=== PATIENT | male | born 1965 | race Caucasian/White ===

== ENCOUNTER → 2017-03-19 | Outpatient (CLI) | payer OTHER ==
[2017-03-19 09:38] LABS: Basophils % (A) 0 %; CH 30.8; CHCM 33.2; Eosinophils # (A) 0.2 k/uL (0-0.7); Eosinophils % (A) 3 %; HCT 47.2 % (39.0-53.0); HDW 2.61; HGB 15.5 gm/dL (13.0-17.5); Luc # (Auto) 0.15; Luc % (Auto) 2; Lymphocytes # (A) 1.8 k/uL (1.0-4.8); Lymphocytes % (A) 19 %; MCH 30.6 pg (25.0-35.0); MCHC 32.8 g/dL (31.0-37.0); MCV 93.2 fL (80.0-100.0); Mean Platelet Volume 10.6; Monocytes # (A) 0.7 k/uL (0-1.0); Monocytes % (A) 8 %; Neutrophils # (A) 6.6 k/uL (1.3-7.7); Neutrophils % (A) 69 %; RBC 5.06 m/uL (4.30-5.90); RDW 13.7 % (11.5-15.5); WBC 9.6 k/uL (3.8-10.6); WBC (Perox) 9.31
[2017-03-19 10:39] LABS: ALT 35 U/L (21-72); AST 27 U/L (17-59); Alkaline Phosphatase 55 U/L (38-126); Anion Gap 12 mmol/L; Blood Urea Nitrogen 12 mg/dL (9-20); Calcium 9.6 mg/dL (8.4-10.2); Carbon Dioxide 33 mmol/L (22-30); Chloride 99 mmol/L (98-107); Cholesterol 186 mg/dL (<200); Glucose 88 mg/dL (74-99); HDL Cholesterol 61 mg/dL (40-60); Non-African American GFR(MDRD) >60 (>60 ml/min/1.73 sqM); Potassium 5.1 mmol/L (3.5-5.1); Sodium 144 mmol/L (137-145); Total Bilirubin 0.5 mg/dL (0.2-1.3); Total Protein 7.4 g/dL (6.3-8.2); Triglycerides 122 mg/dL (<150)
== END | disposition home or self-care (01) ==
LOC: LABWHC1 09:08
DX: Z00.00 Encounter for general adult medical examination without abnormal findings (principal)
CPT/HCPCS: 36415; 80053; 80061; 82306; 84443; 85025

== ENCOUNTER → 2018-03-18 | Outpatient (CLI) | payer OTHER ==
[2018-03-18 11:07] LABS: ALT 30 U/L (21-72); AST 26 U/L (17-59); Albumin 4.3 g/dL (3.5-5.0); Alkaline Phosphatase 53 U/L (38-126); Anion Gap 7 mmol/L; Blood Urea Nitrogen 13 mg/dL (9-20); Calcium 9.3 mg/dL (8.4-10.2); Carbon Dioxide 32 mmol/L (22-30); Chloride 102 mmol/L (98-107); Cholesterol 195 mg/dL (<200); Glucose 83 mg/dL (74-99); HDL Cholesterol 54 mg/dL (40-60); LDL Cholesterol,Calculated 128 mg/dL (0-99); Potassium 4.7 mmol/L (3.5-5.1); Sodium 141 mmol/L (137-145); Total Bilirubin 0.2 mg/dL (0.2-1.3); Total Protein 6.6 g/dL (6.3-8.2); Triglycerides 65 mg/dL (<150)
[2018-03-18 11:11] LABS: Basophils # (A) 0.1 k/uL (0-0.2); Basophils % (A) 1 %; Eosinophils # (A) 0.3 k/uL (0-0.7); Eosinophils % (A) 4 %; HCT 44.2 % (39.0-53.0); Lymphocytes # (A) 1.6 k/uL (1.0-4.8); Lymphocytes % (A) 25 %; MCH 30.6 pg (25.0-35.0); MCHC 33.9 g/dL (31.0-37.0); MCV 90.2 fL (80.0-100.0); Mean Platelet Volume 9.5; Monocytes # (A) 0.5 k/uL (0-1.0); Monocytes % (A) 8 %; Neutrophils % (A) 61 %; Platelet Count 114 k/uL (150-450); RDW 12.9 % (11.5-15.5); WBC 6.5 k/uL (3.8-10.6)
[2018-03-18 11:36] LABS: PSA Annual Screen 0.54 ng/mL (0.00-4.00)
== END | disposition home or self-care (01) ==
LOC: LABWHC1 09:35
DX: Z00.00 Encounter for general adult medical examination without abnormal findings (principal)
CPT/HCPCS: 80061; 80053; 84443; 85025; 82306; 36415; G0103

== ENCOUNTER 2019-03-14 17:50 | Inpatient (IN) | payer OTHER ==
[2019-03-14 18:45] LABS: Basophils # (A) 0.1 k/uL (0-0.2); Basophils % (A) 1 %; Eosinophils % (A) 1 %; HGB 15.6 gm/dL (13.0-17.5); Lymphocytes # (A) 1.6 k/uL (1.0-4.8); Lymphocytes % (A) 26 %; MCH 31.5 pg (25.0-35.0); MCHC 33.2 g/dL (31.0-37.0); MCV 94.6 fL (80.0-100.0); Mean Platelet Volume 8.1; Monocytes # (A) 0.3 k/uL (0-1.0); Monocytes % (A) 4 %; Neutrophils % (A) 66 %; Platelet Count 166 k/uL (150-450); RBC 4.96 m/uL (4.30-5.90); WBC 6.1 k/uL (3.8-10.6)
--- NOTE | 2019-03-14 18:51 | CT ---
EXAMINATION TYPE: CT brain gautam freeman DATE OF EXAM: 03/14/2019 COMPARISON: None HISTORY: ams, fall. CT DLP: 1565.3 mGycm Automated exposure control for dose reduction was used. TECHNIQUE: CT scan of the head and cervical spine are performed without contrast. FINDINGS: Ventricles have normal size. There is no mass effect nor midline shift. There is no sign of intracranial hemorrhage. The calvarium appears intact. Cervical vertebra have fairly normal alignment. There is minor spurring of the endplates at C5-6 C6-7 . Facet joints are intact. There is no fracture. Skull base is intact. IMPRESSION: Negative CT scan of the brain. minor degenerative disc changes in the cervical spine. No fracture.
[2019-03-14 19:05] LABS: ALT 21 U/L (21-72); AST 44 U/L (17-59); Acetaminophen <10.0 ug/mL; African American GFR (CKD) >90 (>60 ml/min/1.73 sqM); Albumin 4.6 g/dL (3.5-5.0); Alkaline Phosphatase 77 U/L (38-126); Anion Gap 15 mmol/L; Blood Urea Nitrogen 14 mg/dL (9-20); Calcium 8.5 mg/dL (8.4-10.2); Carbon Dioxide 25 mmol/L (22-30); Chloride 105 mmol/L (98-107); Glucose 94 mg/dL (74-99); Potassium 3.7 mmol/L (3.5-5.1); Salicylate <1.0 mg/dL; Sodium 145 mmol/L (137-145); Total Bilirubin 0.3 mg/dL (0.2-1.3)
[2019-03-14 19:22] LABS: Prothrombin Time 10.8 sec (9.0-12.0)
[2019-03-14 19:28] LABS: Alcohol 352 mg/dL
--- NOTE | 2019-03-14 19:28 | XR ---
EXAMINATION TYPE: XR Hip LT and AP Pelvis DATE OF EXAM: 03/14/2019 COMPARISON: NONE HISTORY: Fall. Pain. TECHNIQUE: A single AP view of the pelvis is obtained. Two views of the left hip are obtained. FINDINGS: The pelvic ring is intact. There is a rounded metallic density over the right mid abdomen t hat could be a coin foreign body in the right colon. The sacroiliac joints are normal. The proximal left femur and hip joint appear normal. IMPRESSION: No fracture. No evidence of hip dysplasia. There is probably a coin foreign body in the right colon.
--- NOTE | 2019-03-14 19:29 | XR ---
EXAMINATION TYPE: XR ankle complete LT DATE OF EXAM: 03/14/2019 COMPARISON: NONE HISTORY: Fall. Pain. TECHNIQUE: 3 views FINDINGS: Ankle mortise is anatomic. I see no fracture nor dislocation. Joint spaces are normal. IMPRESSION: Negative left ankle exam.
[2019-03-14] MEDS ORDERED: LORazepam 2 MG/ML INJ IV STA (19:40)
[2019-03-14] MEDS ORDERED: RX INFO: IV CONTRAST WAS GIVEN 1 EACH MISC MISCELLANE PRN (21:25)
[2019-03-14] MEDS ORDERED: THIAMINE 100 MG/ML 2 ML VIAL IM STA (21:26)
[2019-03-14] MEDS ORDERED: LORazepam 2 MG/ML INJ IV PRN (21:26)
[2019-03-14] MEDS: LORazepam 2 MG/ML INJ IV PRN (21:59)
--- NOTE | 2019-03-14 22:05 | CT ---
EXAMINATION TYPE: CT chest w con DATE OF EXAM: 03/14/2019 COMPARISON: None HISTORY: Chest pain from fall. CT DLP: 550.4 mGycm Automated exposure control for dose reduction was used. CONTRAST: CT scan of the chest is performed with IV Contrast, patient injected with 100ml mL of Isovue 300. FINDINGS: Multiple axial sections were obtained from the thoracic inlet to the diaphragm with intravenous contr ast. The contrast was Isovue 100 mL. FINDINGS: There is no evidence of pneumothorax. The lungs are clear of consolidation. There is no evidence of a pulmonary mass. There is no pleural effusion. Heart size is normal. There is no pericardial effusion . Thoracic aorta is intact without evidence of aneurysm. There is no contrast extravasation. There are no hilar masses. There is no mediastinal adenopathy. There is probably some coronary artery calcifica tion. Upper abdominal soft tissues are intact. Thoracic vertebra have normal alignment. There is no thoracic compression fracture. Sternum appears i ntact. The ribs appear intact. Visualized shoulder joints appear intact. IMPRESSION: Negative CT scan of the chest. No evidence of traumatic injury.
[2019-03-14] MEDS ORDERED: NALOXONE 0.4 MG/ML 1 ML VIAL IV PRN (23:56)
--- NOTE | 2019-03-14 23:58 | ED ---
Fall HPI - General Chief Complaint: Fall Stated Complaint: Fall ETOH Time Seen by Provider: 03/14/19 18:03 Source: patient, EMS Mode of arrival: EMS - History of Present Illness Initial Comments: The patient is a 53-year-old male with past medical history of daily alcohol abuse who presents to the emergency department with a reported fall. The patient was at home when he sustained a fall. He fell backwards and hit his head on the floor. There was no reported loss of consciousness. The patient was visibly intoxicated and was brought to the emergency room for evaluation. Upon my exam the patient states that he is having a headache. He denies any visual changes. No unilateral numbness or weakness. There is no reported nausea or vomiting associated with the episode. He did sustain a scalp laceration which had a significant amount of bleeding. He denies being on blood thinners. He admits to neck pain. Denies any thoracic back pain or lumbar back pain. He fell on his left side. He does have abrasion noted to his left ankle. There is also ecchymosis the patient's left hip. He denies any chest pain or shortness of breath. He denies any pain in his extremities. He denies use of any other intoxicating drugs. There are no other alleviating, precipitating or modifying factors - Related Data Home Medications Medication Instructions Recorded Confirmed ALPRAZolam [Xanax] 0.25 mg PO BID 03/14/19 03/14/19 Atenolol [Tenormin] 50 mg PO DAILY 03/14/19 03/14/19 Allergies Allergy/AdvReac Type Severity Reaction Status Date / Time allopurinol Allergy Unknown Verified 03/14/19 18:21 indomethacin [From Indocin] Allergy Unknown Verified 03/14/19 18:21 Review of Systems ROS Statement: Those systems with pertinent positive or pertinent negative responses have been documented in the HPI. ROS Other: All systems not noted in ROS Statement are negative. Past Medical History Past Medical History: Unable to Obtain History of Any Multi-Drug Resistant Organisms: Unobtainable Past Surgical History: Unable to Obtain Past Psychological History: Unable to Obtain Smoking Status: Never smoker Past Alcohol Use History: Heavy Past Drug Use History: Marijuana General Exam Limitations: altered mental status Course Vital Signs 03/14/19 03/14/19 03/14/19 18:00 18:03 18:30 Temperature 98.4 F Pulse Rate 85 84 77 Respiratory 18 16 16 Rate Blood Pressure 162/106 162/106 158/102 O2 Sat by Pulse 98 97 98 Oximetry 03/14/19 03/14/19 03/14/19 19:00 19:57 20:00 Temperature Pulse Rate 76 82 78 Respiratory 18 20 16 Rate Blood Pressure 151/94 150/87 114/74 O2 Sat by Pulse 96 96 97 Oximetry 03/14/19 03/14/19 03/14/19 20:30 22:00 23:00 Temperature Pulse Rate 80 79 80 Respiratory 34 H 16 16 Rate Blood Pressure 122/75 149/86 125/77 O2 Sat by Pulse 97 96 Oximetry 03/15/19 03/15/19 03/15/19 00:00 00:22 01:00 Temperature Pulse Rate 83 80 75 Respiratory 18 20 16 Rate Blood Pressure 125/73 113/66 134/84 O2 Sat by Pulse 97 96 Oximetry 03/15/19 02:00 Temperature 98.5 F Pulse Rate 84 Respiratory 18 Rate Blood Pressure 133/90 O2 Sat by Pulse 99 Oximetry Medical Decision Making - Medical Decision Making Upon arrival the patient was placed in trauma bay 2. He is hooked up to continuous pulse ox and cardiac monitoring. A thorough history and physical exam was performed. Upon arrival the patient does have a patent airway. He has bilateral breath sounds. He does have 2+ upper and lower extremity pulses present. Disability is assessed and the patient is a and O 2 however visibly intoxicated. He is in a c-collar. We do roll the patient with spine prec autions. He does have appreciable neck pain however no thoracic or lumbar back pain. Rectal tone is intact. Did recommend laboratory studies. I have recommended a CT the patient's brain and C-spine. I also performed a left hip and left ankle x-ray. Upon return results I did discuss with the patient. The patient is sober at this time. He does report that he sustained right-sided chest wall trauma. Because of this I did send the patient back over for a CT of his chest. I did review these results with the patient. He does have an elevated alcohol level of 352 at this time. Because of this I did recommend hospital admission for which the patient did agree to. He will be admitted to Dr. Meade. Place the patient on [facility] protocol. I did repair the patient's scalp laceration with rob. I will consult trauma to remove his c-collar when he is sober. The patient was in agreement with the treatment plan. He is currently awaiting transport to 4 the floor - Lab Data Result diagrams: 03/14/19 16:04 03/14/19 16:04 Lab Results 03/14/19 03/14/19 03/14/19 Range/Units 16:04 16:04 16:04 WBC 6.1 (3.8-10.6) k/uL RBC 4.96 (4.30-5.90) m/uL Hgb 15.6 (13.0-17.5) gm/dL Hct 47.0 (39.0-53.0) % MCV 94.6 (80.0-100.0) fL MCH 31.5 (25.0-35.0) pg MCHC 33.2 (31.0-37.0) g/dL RDW 13.0 (11.5-15.5) % Plt Count 166 (150-450) k/uL Neutrophils % 66 % Lymphocytes % 26 % Monocytes % 4 % Eosinophils % 1 % Basophils % 1 % Neutrophils # 4.0 (1.3-7.7) k/uL Lymphocytes # 1.6 (1.0-4.8) k/uL Monocytes # 0.3 (0-1.0) k/uL Eosinophils # 0.0 (0-0.7) k/uL Basophils # 0.1 (0-0.2) k/uL PT 10.8 (9.0-12.0) sec INR 1.0 (<1.2) APTT 23.0 (22.0-30.0) sec Sodium 145 (137-145) mmol/L Potassium 3.7 (3.5-5.1) mmol/L Chloride 105 (98-107) mmol/L Carbon Dioxide 25 (22-30) mmol/L Anion Gap 15 mmol/L BUN 14 (9-20) mg/dL Creatinine 0.89 (0.66-1.25) mg/dL Est GFR (CKD-EPI)AfAm >90 (>60 ml/min/1.73 sqM) Est GFR (CKD-EPI)NonAf >90 (>60 ml/min/1.73 sqM) Glucose 94 (74-99) mg/dL Calcium 8.5 (8.4-10.2) mg/dL Total Bilirubin 0.3 (0.2-1.3) mg/dL AST 44 (17-59) U/L ALT 21 (21-72) U/L Alkaline Phosphatase 77 (38-126) U/L Total Protein 7.0 (6.3-8.2) g/dL Albumin 4.6 (3.5-5.0) g/dL Salicylates <1.0 mg/dL Acetaminophen <10.0 ug/mL Serum Alcohol 352 H* mg/dL - EKG Data EKG Comments: EKG demonstrates a normal sinus rhythm with a ventricular rate of 84. MI interval 194. QRS 132. QTC 463. There are no acute ST segment elevations or depressions concerning for ischemic changes. The patient does have a right bun dle-branch block. Disposition Clinical Impression: Fall, Blunt head trauma, Scalp laceration, Alcohol intoxication Disposition: ADMITTED IP TO THIS [facility] Condition: Stable Is patient prescribed a controlled substance at d/c from ED?: No Decision to Admit Reason: Admit from EC Decision Date: 03/14/19 Decision Time: 23:56
[2019-03-15] MEDS: LORazepam 2 MG/ML INJ IV PRN ×9 (02:48→23:44)
[2019-03-15] MEDS ORDERED: DIPH,PERTUS(ACELL)TETVAC-LF 0.5 ML VIAL IM ONE (03:41)
[2019-03-15] MEDS: THIAMINE 100 MG TAB PO SCH ×4 (05:56→18:11)
[2019-03-15] MEDS: ATENOLOL 25 MG TAB PO SCH (10:55)
--- NOTE | 2019-03-15 11:14 | P.GSCN ---
History of Present Illness Consult date: 03/15/19 Reason for Consult: fall, scalp lac Requesting physician: Nupur Cunningham History of present illness: CHIEF COMPLAINT: fall HISTORY OF PRESENT ILLNESS: 53-year-old male who was admitted to the hospital secondary to fall. Patient reports drinking a history of friend's house. He states he was drinking hard seltzer. He has no recollection of how many beverages he drank. He states he was walking home and passed out. He does not remember the fall. Patient does report drinking daily. He reports about 12 cans of hard seltzer a day. He reports he was sober for about 7 years and about a year ago he began drinking again secondary to multiple reasons that he did not wish to discuss with provider. Patient with scalp laceration was stapled in the emergency room. Patient also has abrasion to left hip. Patient denies nausea or vomiting. Patient has not attempted to eat his breakfast yet this morning. He does report feeling shaky this morning. PAST MEDICAL HISTORY: See list. PAST SURGICAL HISTORY: See list. SOCIAL HISTORY: No illicit drug use. REVIEW OF SYSTEMS: CONSTITUTIONAL: Denies fever or chills. HEENT: Denies blurred vision, vision changes, or eye pain. Denies hemoptysis CARDIOVASCULAR: Denies chest pain or pressure. RESPIRATORY: No shortness of breath. GASTROINTESTINAL: Refer to HPI for pertinent findings HEMATOLOGIC: Denies bleeding disorders. GENITOURINARY: Denies any blood in urine. SKIN: Denies pruitis. Denies rash. Daren to posterior aspect of head. Abrasion to left hip. PHYSICAL EXAM: VITAL SIGNS: Reviewed. GENERAL: Well-developed in no acute distress. HEENT: No sclera icterus. Extraocular movements grossly intact. Moist buccal mucosa. Head is normocephalic. Daren to posterior scalp. ABDOMEN: Soft. Nondistended. Nontender. NEUROLOGIC: Alert and oriented. Cranial nerves II through XII grossly intact. SKIN: Daren to posterior aspect of head. Abrasion to left hip. LABORATORY DATA: CBC within normal limits on admission. CMP also within normal limits upon admission. serum alcohol 352. IMAGIN. CT head and cervical spine: negative for acute process. 2. X-ray left ankle: Negative for fracture or dislocation 3. x-ray left hip: No fracture. No evidence of hip dysphasia. ASSESSMENT: 1. Traumatic fall secondary to acute alcohol intoxication 2. Alcohol abuse 3. Scalp laceration, stapled in the emergency room PLAN: 1. Pain control. 2. CIWA protocol. Monitor for DTs. alcohol abstinence recommended 3. No surgical intervention recommended 4. Social work consulted 5. Continue conservative management and supportive measures 6. Stable from a surgical standpoint Nurse practitioner note has been reviewed by physician. Signing provider agrees with the documented findings, assessment, and plan of care. Past Medical History Past Medical History: Unable to Obtain History of Any Multi-Drug Resistant Organisms: Unobtainable Past Surgical History: Unable to Obtain Past Psychological History: Unable to Obtain Smoking Status: Never smoker Past Alcohol Use History: Heavy Past Drug Use History: Marijuana Medications and Allergies Home Medications Medication Instructions Recorded Confirmed Type ALPRAZolam [Xanax] 0.25 mg PO BID 03/14/19 03/14/19 History Atenolol [Tenormin] 50 mg PO DAILY 03/14/19 03/14/19 History Allergies Allergy/AdvReac Type Severity Reaction Status Date / Time allopurinol Allergy Unknown Verified 03/14/19 18:21 indomethacin [From Indocin] Allergy Unknown Verified 03/14/19 18:21 Surgical - Exam Vital Signs Pulse Resp BP Pulse Ox 85 18 162/106 98 03/14/19 18:00 03/14/19 18:00 03/14/19 18:00 03/14/19 18:00 Results - Labs 03/14/19 16:04 03/14/19 16:04 Abnormal Lab Results - Last 24 Hours (Table) 03/14/19 Range/Units 16:04 Serum Alcohol 352 H* mg/dL Diabetes panel 03/14/19 Range/Units 16:04 Sodium 145 (137-145) mmol/L Potassium 3.7 (3.5-5.1) mmol/L Chloride 105 (98-107) mmol/L Carbon Dioxide 25 (22-30) mmol/L BUN 14 (9-20) mg/dL Creatinine 0.89 (0.66-1.25) mg/dL Glucose 94 (74-99) mg/dL Calcium 8.5 (8.4-10.2) mg/dL AST 44 (17-59) U/L ALT 21 (21-72) U/L Alkaline Phosphatase 77 (38-126) U/L Total Protein 7.0 (6.3-8.2) g/dL Albumin 4.6 (3.5-5.0) g/dL Calcium panel 03/14/19 Range/Units 16:04 Calcium 8.5 (8.4-10.2) mg/dL Albumin 4.6 (3.5-5.0) g/dL Pituitary panel 03/14/19 Range/Units 16:04 Sodium 145 (137-145) mmol/L Potassium 3.7 (3.5-5.1) mmol/L Chloride 105 (98-107) mmol/L Carbon Dioxide 25 (22-30) mmol/L BUN 14 (9-20) mg/dL Creatinine 0.89 (0.66-1.25) mg/dL Glucose 94 (74-99) mg/dL Calcium 8.5 (8.4-10.2) mg/dL Adrenal panel 03/14/19 Range/Units 16:04 Sodium 145 (137-145) mmol/L Potassium 3.7 (3.5-5.1) mmol/L Chloride 105 (98-107) mmol/L Carbon Dioxide 25 (22-30) mmol/L BUN 14 (9-20) mg/dL Creatinine 0.89 (0.66-1.25) mg/dL Glucose 94 (74-99) mg/dL Calcium 8.5 (8.4-10.2) mg/dL Total Bilirubin 0.3 (0.2-1.3) mg/dL AST 44 (17-59) U/L ALT 21 (21-72) U/L Alkaline Phosphatase 77 (38-126) U/L Total Protein 7.0 (6.3-8.2) g/dL Albumin 4.6 (3.5-5.0) g/dL
[2019-03-15 12:22] VITALS: BMI 27.7
[2019-03-15] MEDS: SODIUM CHLORIDE 0.9% 1,000 ML IV SCH ×2 (12:38→20:33)
--- NOTE | 2019-03-15 15:38 | P.HPIM ---
History of Present Illness H&P Date: 03/15/19 Chief Complaint: Fall and alcohol intoxication Patient is a 53-year-old male with a known history of alcohol abuse, marijuana use and hypertension was brought to the hospital status post fall. Patient was alcohol intoxicated on admission. Apparently patient was drinking at his friend's house and fell backwards and hit his head on the floor. Patient fell onto the left side. Denied any loss of consciousness. No complaints of chest pain or shortness of breath. Denied any recent illnesses. Patient had lacerated wound on the occipital area which was stapled in the ER. Denied any complaints of neck pain. No back pain or rib cage pain. Otherwise patient denied any complaints of nausea vomiting or abdominal pain. No diarrhea. Currently patient is still complaining of tremors and shakiness. CT chest with contrast showed negative CT. No evidence of traumatic injury. CT head and cervical spine showed minor degenerative disc changes in the cervical spine. No fracture. X-ray of the left ankle is negative. X-ray of the left hip and pelvis showed no fracture. No evidence of hip dysplasia. There is a rounded metallic density over the right mid abdomen that could be a coin foreign body in the right colon. Review of Systems Constitutional: Patient denies any fever or chills . No generalized weakness or weight loss. Abdomen: Patient denied nausea vomiting and diarrhea and abdominal pain. Cardiovascular: Patient denies any chest pain or short of breath no palpitations. Respiratory: patient denied any cough is from production. No shortness of breath Neurologic: Patient denied any numbness or tingling headache. Shakiness. Musculoskeletal: Patient denies any complaints of joint swelling or deformity. Skin: Negative Psychiatric: Negative Endocrine: No heat or cold intolerance. No recent weight gain. Genitourinary: No dysuria or hematuria. All other 14 point ROS negative except the above Past Medical History Past Medical History: Unable to Obtain History of Any Multi-Drug Resistant Organisms: Unobtainable Past Surgical History: Unable to Obtain Past Psychological History: Unable to Obtain Smoking Status: Never smoker Past Alcohol Use History: Heavy Past Drug Use History: Marijuana - Past Family History Father Family Medical History: CVA/TIA, Myocardial Infarction ([place]) Mother Family Medical History: Thyroid Disorder Medications and Allergies Home Medications Medication Instructions Recorded Confirmed Type ALPRAZolam [Xanax] 0.25 mg PO BID 03/14/19 03/14/19 History Atenolol [Tenormin] 50 mg PO DAILY 03/14/19 03/14/19 History Allergies Allergy/AdvReac Type Severity Reaction Status Date / Time allopurinol Allergy Unknown Verified 03/14/19 18:21 indomethacin [From Indocin] Allergy Unknown Verified 03/14/19 18:21 Physical Exam Vitals: Vital Signs Temp Pulse Pulse Resp BP BP Pulse Ox 03/15/19 07:43 98.7 F 81 16 131/71 94 L 03/15/19 04:48 98.6 F 91 19 127/86 100 03/15/19 04:30 90 20 131/71 94 L 03/15/19 04:00 73 16 122/77 03/15/19 02:00 98.5 F 84 18 133/90 99 03/15/19 01:00 75 16 134/84 03/15/19 00:22 80 20 113/66 96 03/15/19 00:00 83 18 125/73 97 03/14/19 23:00 80 16 125/77 96 03/14/19 22:00 79 16 149/86 97 03/14/19 20:30 80 34 H 122/75 03/14/19 20:00 78 16 114/74 97 03/14/19 19:57 82 20 150/87 96 03/14/19 19:00 76 18 151/94 96 03/14/19 18:30 77 16 158/102 98 03/14/19 18:03 98.4 F 84 16 162/106 97 03/14/19 18:00 85 18 162/106 98 Intake and Output 03/14/19 03/15/19 03/15/19 22:59 06:59 14:59 Intake Total 450 Balance 450 Intake: Oral 450 Other: Weight 90.718 kg PHYSICAL EXAMINATION: Patient is lying in the bed comfortably, no acute distress, awake alert and oriented. Anxious.. HEENT: Normocephalic. Neck is supple. Pupils reactive. Nostrils clear. Oral cavity is moist. Ears reveal no drainage. Neck reveals no JVD, carotid bruits, or thyromegaly. CHEST EXAMINATION: Trachea is central. Symmetrical expansion. Lung maya clear to auscultation and percussion. CARDIAC: Normal S1, S2 with no gallops. No murmurs ABDOMEN: Soft. Bowel sounds normal. No organomegaly. No abdominal bruits. Extremities: reveal no edema. No clubbing or cyanosis Neurologically awake, alert, oriented x3 with well-coordinated movements. Tremors positive. No focal deficits noted Skin: No rash or skin lesions. Psychiatric: Coperative. Nonsuicidal Musculoskeletal: No joint swelling or deformity. Normal range of motion. Results CBC & Chem 7: 03/14/19 16:04 03/14/19 16:04 Labs: Abnormal Lab Results - Last 24 Hours (Table) 03/14/19 Range/Units 16:04 Serum Alcohol 352 H* mg/dL Thrombosis Risk Factor Assmnt - DVT/VTE Prophylaxis DVT/VTE Prophylaxis: Pharmacologic Prophylaxis ordered Assessment and Plan Assessment: Acute alcohol intoxication with level 352 Status post mechanical fall. Scalp laceration status post rob in the ER. Severe alcohol abuse Monitor for alcohol withdrawal symptoms Hypertension Marijuana use DVT prophylaxis Plan: Patient will be continued on IV hydration. Continue with CiWA protocol for alcohol withdrawal symptoms. General surgery is following. Social work to be consulted for possible alcohol rehab. Continue the pain management and further recommendations based on the clinical course. Continue with thiamine and multivitamins. Time with Patient: Greater than 30
[2019-03-15] MEDS: HEPARIN SODIUM,PORCINE 5,000 UNIT/ML 1 ML VIAL SQ SCH ×2 (15:45→23:44)
[2019-03-15] MEDS: FAMOTIDINE 20 MG TAB PO SCH (20:32)
[2019-03-16] MEDS: LORazepam 2 MG/ML INJ IV PRN ×5 (02:24→18:25)
[2019-03-16] MEDS: SODIUM CHLORIDE 0.9% 1,000 ML IV SCH ×2 (05:09→18:25)
[2019-03-16] MEDS: FAMOTIDINE 20 MG TAB PO SCH ×2 (09:08→19:54)
[2019-03-16] MEDS: ATENOLOL 25 MG TAB PO SCH (09:08)
[2019-03-16] MEDS: THIAMINE 100 MG TAB PO SCH ×2 (09:08→18:25)
[2019-03-16] MEDS: HEPARIN SODIUM,PORCINE 5,000 UNIT/ML 1 ML VIAL SQ SCH ×2 (09:09→15:29)
--- NOTE | 2019-03-16 12:05 | P.PN ---
Subjective Progress Note Date: 03/16/19 CHIEF COMPLAINT: fall HISTORY OF PRESENT ILLNESS: patient examined this with the bedside. Patient reports feeling dizzy yesterday when standing up. Patient reports he did not eat breakfast today. He states he does not have much of an appetite. He does report localized pain to the back of his head near rob. He is hoping to be discharged home soon. PHYSICAL EXAM: VITAL SIGNS: Reviewed. GENERAL: Well-developed in no acute distress. HEENT: No sclera icterus. Extraocular movements grossly intact. Moist buccal mucosa. Head is normocephalic. Rob to posterior scalp. ABDOMEN: Soft. Nondistended. Nontender. NEUROLOGIC: Alert and oriented. Cranial nerves II through XII grossly intact. SKIN: Rodney to posterior aspect of head. Abrasion to left hip. ASSESSMENT: 1. Traumatic fall secondary to acute alcohol intoxication 2. Alcohol abuse 3. Scalp laceration, stapled in the emergency room PLAN: 1. Pain control. 2. CIWA protocol. Monitor for DTs. alcohol abstinence recommended 3. No surgical intervention recommended 4. Social work consulted 5. Continue conservative management and supportive measures 6. Stable from a surgical standpoint Nurse practitioner note has been reviewed by physician. Signing provider agrees with the documented findings, assessment, and plan of care. Objective - Vital Signs Vital signs: Vital Signs Temp 98.0 F 03/16/19 07:26 Pulse 59 L 03/16/19 07:26 Resp 18 03/16/19 07:26 BP 169/82 03/16/19 07:26 Pulse Ox 97 03/16/19 07:26 Intake & Output 03/15/19 03/16/19 03/16/19 18:59 06:59 18:59 Intake Total 550 900 0 Balance 550 900 0 Intake: Intake, IV Titration 900 Amount Sodium Chloride 0.9% 1, 900 000 ml @ 100 mls/hr IV . Q10H [facility] Rx#:[id number] Oral 550 0 Other: Voiding Method Toilet # Voids 1 1 # Bowel Movements 1 - Labs CBC & Chem 7: 03/14/19 16:04 03/14/19 16:04
[2019-03-17] MEDS: HEPARIN SODIUM,PORCINE 5,000 UNIT/ML 1 ML VIAL SQ SCH ×2 (00:05→08:07)
[2019-03-17] MEDS: LORazepam 2 MG/ML INJ IV PRN ×3 (00:45→08:04)
[2019-03-17] MEDS: SODIUM CHLORIDE 0.9% 1,000 ML IV SCH (00:46)
[2019-03-17 03:22] VITALS: RESP 16
[2019-03-17 07:44] VITALS: BP 187/90; PULSE 53; TEMP 98.6
[2019-03-17] MEDS: THIAMINE 100 MG TAB PO SCH (08:06)
[2019-03-17] MEDS: FAMOTIDINE 20 MG TAB PO SCH (08:06)
[2019-03-17] MEDS: ATENOLOL 25 MG TAB PO SCH (08:06)
--- NOTE | 2019-03-17 11:59 | P.PN ---
Subjective Progress Note Date: 03/17/19 CHIEF COMPLAINT: fall HISTORY OF PRESENT ILLNESS: patient examined this with the bedside. Patient reports pain is tolerable. Tolerating diet. Denies nausea or vomiting. Reports localized pain near rob. PHYSICAL EXAM: VITAL SIGNS: Reviewed. GENERAL: Well-developed in no acute distress. HEENT: No sclera icterus. Extraocular movements grossly intact. Moist buccal mucosa. Head is normocephalic. Coral to posterior scalp. ABDOMEN: Soft. Nondistended. Nontender. NEUROLOGIC: Alert and oriented. Cranial nerves II through XII grossly intact. SKIN: Rob to posterior aspect of head. Abrasion to left hip. ASSESSMENT: 1. Traumatic fall secondary to acute alcohol intoxication 2. Alcohol abuse 3. Scalp laceration, stapled in the emergency room PLAN: Patient is stable for discharge from a surgical perspective. Nurse practitioner note has been reviewed by physician. Signing provider agrees with the documented findings, assessment, and plan of care. Objective - Vital Signs Vital signs: Vital Signs Temp 98.6 F 03/17/19 07:00 Pulse 53 L 03/17/19 07:00 Resp 16 03/17/19 07:40 BP 187/90 03/17/19 07:00 Pulse Ox 98 03/17/19 07:00 Intake & Output 03/16/19 03/17/19 03/17/19 18:59 06:59 18:59 Intake Total 762 300 180 Balance 762 300 180 Intake: Intake, IV Titration 300 Amount Sodium Chloride 0.9% 1, 300 000 ml @ 100 mls/hr IV . Q10H [facility] Rx#:[id number] Oral 762 180 Other: Voiding Method Urinal Urinal # Voids 2 1 - Labs CBC & Chem 7: 03/14/19 16:04 03/14/19 16:04
--- NOTE | 2019-03-17 13:12 | P.DS ---
Providers Date of admission: 03/16/19 08:24 Expected date of discharge: 03/17/19 Attending physician: Gena Meade Consults: 03/15/19 00:30 Consult Physician Urgent Consulting Provider: Montez Kirkland Consult Reason/Comments: fall, bht, scalp lac Do you want consulting provider notified?: Yes Primary care physician: Stated None Hospital Course: Final diagnosis Acute alcohol intoxication with ETOH level 352 Status post mechanical fall Scalp laceration: Received rob in the ER Severe alcohol abuse Hypertension Marijuana use DVT prophylaxis Monitored for alcohol withdrawal symptoms Discharge disposition The patient is being discharged in a stable condition with guarded prognosis to home. Patient is to follow-up with primary care provider this week. Staple removal in 7-10 days for the scalp laceration. Discussed with the patient about following up sooner if noticing any signs of infection such as swelling, redness, or drainage from the site. History of present illness This is a 53-year-old male with a known history of alcohol abuse who had fallen and was intoxicated upon admission. Patient fell backwards and struck his head causing a laceration. The laceration was stapled in the ER. From surgery standpoint patient is stable for being discharged home. The CAT scan of the head was negative is no evidence of traumatic injury. Other x-ray studies of the left ankle left hip and pelvis showed no fractures or hip dysplasia. Patient denies any chest pain, shortness of breath, or palpitations at this time. Patient denies any nausea or vomiting. Patient tolerating diet well. Patient is denying any dizziness or lightheadedness at this time. Patient does have a slight headache but is manageable. Patient states that he is ready to go home. Patient does not want to go to rehab for alcohol abuse at this time. On exam vital signs are stable. Temp is 98.6F, pulse is 53 and respirations are 16 and nonlabored, blood pressure is 187/90, oxygen saturation is 98% on room air. Cardio S1 and S2 are normal. Respiratory system is clear to auscultation. Abdomen is soft and non-tender. Nervous system shows no focal deficits and gait is steady. Please refer to the medication reconciliation sheet for list of medications. Patient Condition at Discharge: Stable Plan - Discharge Summary Discharge Rx Participant: Yes New Discharge Prescriptions: Continue Atenolol [Tenormin] 50 mg PO DAILY ALPRAZolam [Xanax] 0.25 mg PO BID Discharge Medication List ALPRAZolam [Xanax] 0.25 mg PO BID 03/14/19 [History] Atenolol [Tenormin] 50 mg PO DAILY 03/14/19 [History] Follow up Appointment(s)/Referral(s): Radu Franco, MIKE [REFERRING] - 1-2 Days (Office closed for lunch.) None,Stated [Primary Care Provider] - 1-2 days Patient Instructions/Handouts: Laceration (DC) Discharge Disposition: HOME SELF-CARE
== END 2019-03-17 12:55 | disposition home or self-care (01) | DRG 897 ==
LOC: EC 17:50 → 4SSUR 23:56 → OBSVTOIN 03-16 08:24
PROVIDERS: ADMIT Internal Medicine; ATTEND Internal Medicine
PROC: 0HQ0XZZ Repair Scalp Skin, External Approach (ICD-10-PCS; principal; 2019-03-14)
DX: F10.229 Alcohol dependence with intoxication, unspecified (principal); F10.239 Alcohol dependence with withdrawal, unspecified; Y90.8 Blood alcohol level of 240 mg/100 ml or more; I10 Essential (primary) hypertension; S01.01XA Laceration without foreign body of scalp, initial encounter; W19.XXXA Unspecified fall, initial encounter; Z79.899 Other long term (current) drug therapy; Z82.49 Family history of ischemic heart disease and other diseases of the circulatory system; Z82.3 Family history of stroke; S70.212A Abrasion, left hip, initial encounter; S90.512A Abrasion, left ankle, initial encounter; I45.10 Unspecified right bundle-branch block; M50.30 Other cervical disc degeneration, unspecified cervical region; Z88.6 Allergy status to analgesic agent; Z88.8 Allergy status to other drugs, medicaments and biological substances; Z83.49 Family history of other endocrine, nutritional and metabolic diseases
CPT/HCPCS: 12001; 36415; 70450; 71260; 72125; 73502; 80053; 80320; 80329; 83520; 85025; 85610; 85730; 90471; 90715; 93005; 96372; 96374; 96376; 99285

== ENCOUNTER → 2019-03-19 | Outpatient (CLI) | payer OTHER ==
[2019-03-19 13:39] LABS: Basophils % (A) 0 %; Eosinophils # (A) 0.1 k/uL (0-0.7); Eosinophils % (A) 2 %; HGB 15.9 gm/dL (13.0-17.5); Lymphocytes # (A) 1.4 k/uL (1.0-4.8); Lymphocytes % (A) 19 %; MCH 31.4 pg (25.0-35.0); MCHC 32.3 g/dL (31.0-37.0); MCV 97.2 fL (80.0-100.0); Mean Platelet Volume 8.7; Monocytes # (A) 0.4 k/uL (0-1.0); Monocytes % (A) 6 %; Neutrophils # (A) 5.1 k/uL (1.3-7.7); Neutrophils % (A) 71 %; Platelet Count 128 k/uL (150-450); RBC 5.05 m/uL (4.30-5.90); RDW 13.1 % (11.5-15.5); WBC 7.1 k/uL (3.8-10.6)
[2019-03-19 18:49] LABS: African American GFR (CKD) 97.8 (60.0-200.0); Albumin 4.4 g/dL (3.80-4.90); Albumin/Globulin Ratio 2.2 (1.60-3.17); Anion Gap 10.7 mmol/L (4.00-12.00); Calcium 9.4 mg/dL (8.7-10.3); Carbon Dioxide 30.3 mmol/L (21.6-31.8); LDL Cholesterol,Calculated 103.8 mg/dL (0.0-131.0); Total Bilirubin 0.6 mg/dL (0.3-1.2); Total Protein 6.4 g/dL (6.2-8.2); VLDL Calculation 29.2 mg/dL (5.00-40.00)
== END | disposition home or self-care (01) ==
LOC: LABWHC1 12:27
PROVIDERS: ATTEND Family Medicine
DX: I10 Essential (primary) hypertension (principal); Z12.5 Encounter for screening for malignant neoplasm of prostate
CPT/HCPCS: 36415; 80053; 80061; 84153; 84443; 85025

== ENCOUNTER → 2019-08-21 | Outpatient (CLI) | payer OTHER ==
[2019-08-21 16:39] LABS: Albumin 4.7 g/dL (3.80-4.90); Albumin/Globulin Ratio 2.35 (1.60-3.17); Anion Gap 8.1 mmol/L (4.00-12.00); BUN/Creat Ratio 12.22 Ratio (12.00-20.00); Calcium 9.6 mg/dL (8.7-10.3); Carbon Dioxide 29.9 mmol/L (21.6-31.8); Non-African American GFR(CKD) 95.8 (60.0-200.0); Potassium 4.2 mmol/L (3.5-5.5); Total Bilirubin 0.6 mg/dL (0.3-1.2); Total Protein 6.7 g/dL (6.2-8.2)
== END | disposition home or self-care (01) ==
LOC: LABWHC1 09:49
DX: I10 Essential (primary) hypertension (principal)
CPT/HCPCS: 36415; 80053; 80061; 84443

== ENCOUNTER → 2020-02-09 | Outpatient (CLI) | payer OTHER ==
--- NOTE | 2020-02-09 08:22 | XR ---
EXAMINATION TYPE: XR shoulder complete LT DATE OF EXAM: 02/09/2020 COMPARISON: NONE HISTORY: 54-year-old male left shoulder arthritis, M19.012, pain. TECHNIQUE: 3 views FINDINGS: Degenerative spurring and capsular hypertrophy at the acromioclavicular joint. Subacromial space is p reserved. Glenohumeral joint space appears relatively maintained. No tendinous or bursal calcificatio ns. Visualized left hemithorax is clear. No acute fracture, subluxation, or dislocation. IMPRESSION: Mild AC joint OA. No acute osseous abnormality seen.
== END | disposition home or self-care (01) ==
LOC: RADXRMAIN 07:53
PROVIDERS: ATTEND Family Medicine
DX: M19.012 Primary osteoarthritis, left shoulder (principal)

== ENCOUNTER 2020-12-01 23:38 | Inpatient (IN) | payer OTHER ==
--- NOTE | 2020-12-02 00:32 | ED ---
General Adult HPI - General Chief complaint: Dizziness Stated complaint: SOB Time Seen by Provider: 12/02/20 00:17 Source: EMS Mode of arrival: EMS Limitations: no limitations - History of Present Illness Initial comments: This patient's 54-year-old man who presents to be evaluated for anxiety and shortness of breath. The patient states that he is a daily drinker, probably 12 beers per day. He had not been drinking for number of hours. He is feeling very anxious and tremulous. Patient also feeling short of breath and having cough. The patient admits to also smoking marijuana daily. -: hour(s) Consistency: constant Improves with: none Worsens with: none Associated Symptoms: cough, shortness of breath Treatments Prior to Arrival: none - Related Data Home Medications Medication Instructions Recorded Confirmed ALPRAZolam [Xanax] 0.25 mg PO BID 03/14/19 03/14/19 atenoloL [Tenormin] 50 mg PO DAILY 03/14/19 03/14/19 Allergies Allergy/AdvReac Type Severity Reaction Status Date / Time allopurinol Allergy Unknown Verified 03/14/19 18:21 azithromycin Allergy Anaphylaxis Verified 12/01/20 23:53 indomethacin [From Indocin] Allergy Unknown Verified 03/14/19 18:21 Review of Systems ROS Statement: Those systems with pertinent positive or pertinent negative responses have been documented in the HPI. ROS Other: All systems not noted in ROS Statement are negative. Constitutional: Reports: fever, chills Respiratory: Reports: cough, dyspnea. Denies: hemoptysis Cardiovascular: Reports: palpitations. Denies: chest pain, edema, syncope Gastrointestinal: Denies: abdominal pain, vomiting, diarrhea Genitourinary: Denies: dysuria, hematuria Musculoskeletal: Denies: back pain Skin: Denies: rash Neurological: Reports: headache. Denies: weakness, numbness Psychiatric: Reports: anxiety. Denies: depression, auditory hallucinations, visual hallucinations, homicidal thoughts, suicidal thoughts Past Medical History Past Medical History: Unable to Obtain, Hypertension Additional Past Medical History / Comment(s): anxiety, personality disorder, manic depression History of Any Multi-Drug Resistant Organisms: None Reported Past Surgical History: Unable to Obtain Past Psychological History: Anxiety, Depression Smoking Status: Never smoker Past Alcohol Use History: Daily, Heavy Past Drug Use History: Marijuana - Past Family History Father Family Medical History: CVA/TIA, Myocardial Infarction ([place]) Mother Family Medical History: Thyroid Disorder General Exam Limitations: no limitations General appearance: alert, anxious Head exam: Present: atraumatic, normocephalic Eye exam: Present: normal appearance. Absent: scleral icterus, conjunctival injection ENT exam: Present: mucous membranes dry Neck exam: Present: normal inspection Respiratory exam: Present: wheezes. Absent: respiratory distress, rales, rhonchi, stridor, chest wall tenderness, accessory muscle use Cardiovascular Exam: Present: regular rate, normal rhythm, normal heart sounds. Absent: systolic murmur, diastolic murmur, rubs, gallop GI/Abdominal exam: Present: soft. Absent: distended, tenderness, guarding, rebound, rigid Extremities exam: Present: normal inspection, normal capillary refill. Absent: pedal edema, calf tenderness Back exam: Present: normal inspection. Absent: CVA tenderness (R), CVA tenderness (L) Neurological exam: Present: alert Skin exam: Present: warm, dry, intact, normal color. Absent: rash Course Vital Signs 12/01/20 12/02/20 12/02/20 23:40 01:00 02:00 Temperature 97.9 F Pulse Rate 79 74 73 Respiratory 20 20 20 Rate Blood Pressure 168/104 160/98 152/103 O2 Sat by Pulse 96 95 94 L Oximetry 12/02/20 12/02/20 12/02/20 03:00 04:00 05:00 Temperature 98.0 F 98.1 F Pulse Rate 70 70 82 Respiratory 20 20 20 Rate Blood Pressure 162/95 165/109 185/115 O2 Sat by Pulse 94 L 94 L 94 L Oximetry EKG Findings - EKG Results: EKG: interpreted by ERMD, sinus rhythm (Rate 77 bpm), normal axis, normal ST/T - Blocks, [place], Hypertrophy, ST Abn: AV and intraventricular conduction: right bundle branch block (fixed/intermittent, complete/incomplete) (Incomplete) Medical Decision Making - Medical Decision Making This patient's 54-year-old man presenting with dyspnea. [place] be multifactorial. There is element of suspected covid infection. Patient also appears to have element of anxiety and alcohol withdrawal. There may be component of early COPD as well. Case discussed with Dr. Miguel and patient will be covered with Ativan as well as dexamethasone. - Lab Data Result diagrams: 12/02/20 01:12 12/02/20 01:12 Lab Results 12/02/20 12/02/20 12/02/20 Range/Units 01:12 01:12 01:12 WBC 4.8 (3.8-10.6) k/uL RBC 4.57 (4.30-5.90) m/uL Hgb 16.1 (13.0-17.5) gm/dL Hct 45.1 (39.0-53.0) % MCV 98.8 (80.0-100.0) fL MCH 35.2 H (25.0-35.0) pg MCHC 35.6 (31.0-37.0) g/dL RDW 13.4 (11.5-15.5) % Plt Count 136 L (150-450) k/uL MPV 8.6 Neutrophils % 69 % Lymphocytes % 20 % Monocytes % 8 % Eosinophils % 2 % Basophils % 0 % Neutrophils # 3.3 (1.3-7.7) k/uL Lymphocytes # 0.9 L (1.0-4.8) k/uL Monocytes # 0.4 (0-1.0) k/uL Eosinophils # 0.1 (0-0.7) k/uL Basophils # 0.0 (0-0.2) k/uL PT 9.5 (9.0-12.0) sec INR 0.9 (<1.2) APTT 21.1 L (22.0-30.0) sec D-Dimer 1.93 H (<0.60) mg/L FEU Sodium 143 (137-145) mmol/L Potassium 4.2 (3.5-5.1) mmol/L Chloride 105 (98-107) mmol/L Carbon Dioxide 28 (22-30) mmol/L Anion Gap 10 mmol/L BUN 7 L (9-20) mg/dL Creatinine 0.68 (0.66-1.25) mg/dL Est GFR (CKD-EPI)AfAm >90 (>60 ml/min/1.73 sqM) Est GFR (CKD-EPI)NonAf >90 (>60 ml/min/1.73 sqM) Glucose 107 H (74-99) mg/dL Calcium 9.6 (8.4-10.2) mg/dL Total Bilirubin 0.5 (0.2-1.3) mg/dL AST 274 H (17-59) U/L ALT 117 H (4-49) U/L Alkaline Phosphatase 130 H (38-126) U/L Troponin I (0.000-0.034) ng/mL NT-Pro-B Natriuret Pep pg/mL Total Protein 6.7 (6.3-8.2) g/dL Albumin 4.0 (3.5-5.0) g/dL Coronavirus (PCR) (Not Detectd) 12/02/20 12/02/20 12/02/20 Range/Units 01:12 01:12 01:12 WBC (3.8-10.6) k/uL RBC (4.30-5.90) m/uL Hgb (13.0-17.5) gm/dL Hct (39.0-53.0) % MCV (80.0-100.0) fL MCH (25.0-35.0) pg MCHC (31.0-37.0) g/dL RDW (11.5-15.5) % Plt Count (150-450) k/uL MPV Neutrophils % % Lymphocytes % % Monocytes % % Eosinophils % % Basophils % % Neutrophils # (1.3-7.7) k/uL Lymphocytes # (1.0-4.8) k/uL Monocytes # (0-1.0) k/uL Eosinophils # (0-0.7) k/uL Basophils # (0-0.2) k/uL PT (9.0-12.0) sec INR (<1.2) APTT (22.0-30.0) sec D-Dimer (<0.60) mg/L FEU Sodium (137-145) mmol/L Potassium (3.5-5.1) mmol/L Chloride (98-107) mmol/L Carbon Dioxide (22-30) mmol/L Anion Gap mmol/L BUN (9-20) mg/dL Creatinine (0.66-1.25) mg/dL Est GFR (CKD-EPI)AfAm (>60 ml/min/1.73 sqM) Est GFR (CKD-EPI)NonAf (>60 ml/min/1.73 sqM) Glucose (74-99) mg/dL Calcium (8.4-10.2) mg/dL Total Bilirubin (0.2-1.3) mg/dL AST (17-59) U/L ALT (4-49) U/L Alkaline Phosphatase (38-126) U/L Troponin I <0.012 (0.000-0.034) ng/mL NT-Pro-B Natriuret Pep 44 pg/mL Total Protein (6.3-8.2) g/dL Albumin (3.5-5.0) g/dL Coronavirus (PCR) Detected A (Not Detectd) Disposition Clinical Impression: Dyspnea, Alcohol withdrawal, COVID-19 Disposition: ADMITTED IP TO THIS HOSP Condition: Fair
[2020-12-02] MEDS ORDERED: SODIUM CHLORIDE 0.9% 500 ML 500 ML IV STA (00:43)
[2020-12-02] MEDS ORDERED: LORazepam 2 MG/ML INJ IV STA (00:43)
[2020-12-02 01:29] LABS: Basophils % (A) 0 %; Eosinophils # (A) 0.1 k/uL (0-0.7); Eosinophils % (A) 2 %; HCT 45.1 % (39.0-53.0); HGB 16.1 gm/dL (13.0-17.5); Lymphocytes # (A) 0.9 k/uL (1.0-4.8); Lymphocytes % (A) 20 %; MCH 35.2 pg (25.0-35.0); MCHC 35.6 g/dL (31.0-37.0); MCV 98.8 fL (80.0-100.0); Mean Platelet Volume 8.6; Monocytes # (A) 0.4 k/uL (0-1.0); Monocytes % (A) 8 %; Neutrophils # (A) 3.3 k/uL (1.3-7.7); Neutrophils % (A) 69 %; Platelet Count 136 k/uL (150-450); RBC 4.57 m/uL (4.30-5.90); RDW 13.4 % (11.5-15.5); WBC 4.8 k/uL (3.8-10.6)
--- NOTE | 2020-12-02 01:34 | XR ---
EXAM: XR Chest, 2 Views CLINICAL HISTORY: ITS.REASON XR Reason: difficulty breathing TECHNIQUE: Frontal and lateral views of the chest. COMPARISON: 03/14/2019. FINDINGS: Lungs: The lungs are well aerated. No consolidative changes. Pleural space: No pleural effusions. No pneumothorax. Heart: Cardiac mediastinal silhouette unremarkable. Mediastinum: See above. Bones/joints: Osteopenia. Mild degenerative disc disease of the thoracic spine. Upper abdomen: Minimal eventration of the right hemidiaphragm. IMPRESSION: 1. No active disease. 2. Osteopenia.
[2020-12-02 01:45] LABS: ALT 117 U/L (4-49); AST 274 U/L (17-59); African American GFR (CKD) >90 (>60 ml/min/1.73 sqM); Alkaline Phosphatase 130 U/L (38-126); Anion Gap 10 mmol/L; Blood Urea Nitrogen 7 mg/dL (9-20); Calcium 9.6 mg/dL (8.4-10.2); Carbon Dioxide 28 mmol/L (22-30); Chloride 105 mmol/L (98-107); Glucose 107 mg/dL (74-99); Non-African American GFR(CKD) >90 (>60 ml/min/1.73 sqM); Potassium 4.2 mmol/L (3.5-5.1); Sodium 143 mmol/L (137-145); Total Bilirubin 0.5 mg/dL (0.2-1.3); Total Protein 6.7 g/dL (6.3-8.2)
[2020-12-02 02:18] LABS: INR 0.9 (<1.2); Partial Thromboplastin Time 21.1 sec (22.0-30.0); Prothrombin Time 9.5 sec (9.0-12.0)
[2020-12-02 02:30] LABS: D-Dimer 1.93 mg/L FEU (<0.60)
[2020-12-02] MEDS: LORazepam 2 MG/ML INJ IV PRN ×13 (05:05→22:20)
--- NOTE | 2020-12-02 05:39 | CT ---
EXAM: CT Angiography Chest With Intravenous Contrast CLINICAL HISTORY: ITS.REASON CT Reason: Possible PE TECHNIQUE: Axial computed tomographic angiography images of the chest with intravenous contrast. CTDI is 17.57 mGy and DLP is 360 mGy-cm. This CT exam was performed using one or more of the following dose reduction techniques: automated exposure control, adjustment of the mA and/or kV according to patient size, and/or use of iterative reconstruction technique. MIP reconstructed images were created and reviewed. COMPARISON: 03/14/2019. FINDINGS: Pulmonary arteries: Breathing motion artifact limits evaluation of the peripheral arteries. No central pulmonary embolism. Aorta: No acute findings. No thoracic aortic aneurysm. Lungs: Mild basilar atelectasis. Otherwise lungs appear clear No mass. Pleural space: Unremarkable. No significant effusion. No pneumothorax. Heart: Coronary calcifications. No significant pericardial effusion. No evidence of RV dysfunction. Bones/joints: No acute fracture. No dislocation. Soft tissues: Unremarkable. Lymph nodes: Unremarkable. No enlarged lymph nodes. Liver: Fatty liver, partially visualized. IMPRESSION: Breathing motion artifact limits evaluation of the peripheral arteries. No central pulmonary embolism.
[2020-12-02] MEDS ORDERED: NALOXONE 0.4 MG/ML 1 ML VIAL IV PRN (05:49)
[2020-12-02] MEDS ORDERED: DEXAMETHASONE SOD PHOSPHATE 4 MG/ML 1 ML VIAL IV STA (05:53)
[2020-12-02] MEDS: SODIUM CHLORIDE 0.9% 1,000 ML IV SCH (07:02)
[2020-12-02] MEDS ORDERED: LABETALOL 5 MG/ML VIAL MDV IVP STA (07:08)
[2020-12-02] MEDS: atenoloL 50 MG TAB PO SCH (08:55)
[2020-12-02] MEDS: DEXAMETHASONE SOD PHOSPHATE 10 MG/ML 1 ML VIAL IV SCH (09:18)
[2020-12-02] MEDS: lisinopriL 10 MG TAB PO SCH (10:07)
--- NOTE | 2020-12-02 12:22 | P.HPIM ---
History of Present Illness H&P Date: 12/02/20 Chief Complaint: JOSE DANIEL HISTORY OF PRESENT ILLNESS This is a 54-year-old male patient of Dr. Noble with past medical history of hypertension, daily marijuana use, heavy alcohol abuse, memory loss. He last saw Dr. hager in April of last year and has run out of his medications. Patient lives at home with his mother and father who have both been vaccinated for Covid 19. He complains of difficulty breathing for the past 4 days. No fever. No chills. Complains of cough. He complains of runny nose and body aches. He has had diarrhea which apparently is new for him as well as abdominal pain in the right upper quadrant. Patient presented to [facility] emergency center. He was afebrile, heart rate 79, blood pressure 168/104. EKG was a sinus rhythm with no acute ST changes, right bundle branch block. CBC was unremarkable except for platelet count of 136 and lymphocytes of 0.9. Electrolytes normal. BUN 7 and creatinine 0.68. Blood sugar 107. Total bilirubin 0.5. AST 274, ALT 117, alkaline phosphatase 130. Troponin negative. ProBNP 44. Coronavirus PCR positive. EtOH less than 10. Chest x-ray reveals no active disease. Osteopenia. CTA of the chest showed motion artifact. No central pulmonary embolism. Patient started on blood pressure medication, thiamine IV fluids, Decadron and consult placed with ulnar medicine with anticipation he will qualify for Bamlanivimab. REVIEW OF SYSTEMS Constitutional: No fever, reports chills, no night sweats. No weight change. Reports weakness, Reports fatigue. Reports daytime sleepiness. EENT: No headache. No blurred vision or double vision, no loss of vision. No loss of Hearing, no ringing in the ears, no dizziness. Reports nasal drainage or congestion. No epistaxis. No sore throat. Lungs: Reports shortness of breath, reports cough, Reports sputum production. No wheezing. Cardiovascular: No chest pain, no lower extremity edema. No palpitations. No paroxysmal nocturnal dyspnea. No orthopnea. No lightheadedness or dizziness. No syncopal episodes. Abdominal: Reports abdominal pain. No nausea, vomiting. Reports diarrhea. No constipation. No bloody or tarry stools. No loss of appetite. Genitourinary: No dysuria, increased frequency, urgency. No urinary retention. Musculoskeletal: No myalgias. No muscle weakness, no gait dysfunction, no frequent falls. No back pain. No neck pain. Integumentary: No wounds, no lesions. No rash or pruritus. No unusual bruising. Neurologic: No aphasia. No facial droop. No change in mentation. No head injury. No headache. No paralysis. No paresthesia. Psychiatric: No depression. No anxiety. Endocrine: No abnormal blood sugars. SOCIAL HISTORY Patient has no history of tobacco use. He smokes marijuana on a daily basis. He drinks more than 12 [place] per day for greater than 2 years. His last intake was last evening. Patient has never been . He lives with his mother and father. FAMILY HISTORY Mother is alive with history of thyroid cancer. Father is alive and patient does not know his medical history. Patient has 3 sisters with no major medical problems. He does not have any brothers. He does not have any children.. PHYSICAL EXAMINATION Gen: This is a 54-year-old male patient he is in the ER stretcher and appears to be comfortable and in no acute distress. No respiratory distress noted. HEENT: Head is atraumatic, normocephalic. Pupils equal, round. Sclerae is anicteric. NECK: Supple. No JVD. No lymphadenopathy. No thyromegaly. LUNGS: Clear to auscultation. No wheezes or rhonchi. No intercostal retractions. No accessory muscle usage. HEART: Regular rate and rhythm. No murmur. ABDOMEN: Soft. Bowel sounds are present. No masses. No tenderness. EXTREMITIES: No pedal edema. No calf tenderness. Dorsalis pedis palpable bi laterally. NEUROLOGICAL: Patient is awake, alert and oriented x3. Cranial nerves 2 through 12 are grossly intact. ASSESSMENT AND PLAN 1. COVID-19 illness with underlying COPD and acquired immunodeficiency. Patient is observation status, consult with Dr. Coburn with anticipation he will qualify for Bamlanivimab. Continue dexamethasone 6 mg IV daily, albuterol inhaler 2 puffs every 4 hours as needed, Tylenol as needed for pain, Lovenox 40 g subcu daily, vitamin supplements. 2. Alcohol abuse. Patient was started on Librium 5 mg 3 times daily scheduled and he is on the CIWA protocol with Ativan. 3. Uncontrolled hypertension due to noncompliance and lack of follow-up with his physician. Patient has been started on atenolol 50 mg twice daily and lisinopril 10 mg daily. He is status post labetalol 20 mg IV push. 4. Daily marijuana use. 5. Short-term memory deficit secondary to marijuana use and alcohol abuse. 6. Thrombocytopenia secondary to alcohol abuse, stable. 7. Transaminitis secondary to alcohol abuse. 8. 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 9. GI prophylaxis. Protonix daily. 10. DVT prophylaxis. Lovenox subcu. Patient is Observation status. DISCHARGE PLAN Discharge home on Friday Impression and plan of care have been directed as dictated by the signing physician. Penelope Dhillon nurse practitioner acting as scribe for signing physician. Past Medical History Past Medical History: Unable to Obtain, Hypertension Additional Past Medical History / Comment(s): anxiety, personality disorder, manic depression History of Any Multi-Drug Resistant Organisms: None Reported Past Surgical History: Unable to Obtain Past Psychological History: Anxiety, Depression Smoking Status: Never smoker Past Alcohol Use History: Daily, Heavy Past Drug Use History: Marijuana - Past Family History Father Family Medical History: CVA/TIA, Myocardial Infarction ([place]) Mother Family Medical History: Thyroid Disorder Medications and Allergies Home Medications Medication Instructions Recorded Confirmed Type ALPRAZolam [Xanax] 0.25 mg PO BID PRN 03/14/19 12/02/20 History atenoloL [Tenormin] 50 mg PO DAILY 03/14/19 12/02/20 History Losartan-Hctz 50-12.5 mg [Hyzaar 1 tab PO DAILY 12/02/20 12/02/20 History 50-12.5] Allergies Allergy/AdvReac Type Severity Reaction Status Date / Time allopurinol Allergy Unknown Verified 12/02/20 07:52 azithromycin Allergy Anaphylaxis Verified 12/02/20 07:52 indomethacin [From Indocin] Allergy Unknown Verified 12/02/20 07:52 Physical Exam Vitals: Vital Signs Temp Pulse Resp BP Pulse Ox 12/02/20 08:53 85 16 166/101 94 L 12/02/20 07:56 75 16 163/105 94 L 12/02/20 07:00 84 20 194/120 94 L 12/02/20 05:00 98.1 F 82 20 185/115 94 L 12/02/20 04:00 70 20 165/109 94 L 12/02/20 03:00 98.0 F 70 20 162/95 94 L 12/02/20 02:00 73 20 152/103 94 L 12/02/20 01:00 74 20 160/98 95 12/01/20 23:40 97.9 F 79 20 168/104 96 Intake and Output 12/01/20 12/02/20 12/02/20 22:59 06:59 14:59 Other: Weight 102.058 kg Results CBC & Chem 7: 12/02/20 01:12 12/02/20 01:12 Labs: Abnormal Lab Results - Last 24 Hours (Table) 12/02/20 12/02/20 12/02/20 Range/Units 01:12 01:12 01:12 MCH 35.2 H (25.0-35.0) pg Plt Count 136 L (150-450) k/uL Lymphocytes # 0.9 L (1.0-4.8) k/uL APTT 21.1 L (22.0-30.0) sec D-Dimer 1.93 H (<0.60) mg/L FEU BUN 7 L (9-20) mg/dL Glucose 107 H (74-99) mg/dL AST 274 H (17-59) U/L ALT 117 H (4-49) U/L Alkaline Phosphatase 130 H (38-126) U/L Coronavirus (PCR) (Not Detectd) 12/02/20 Range/Units 01:12 MCH (25.0-35.0) pg Plt Count (150-450) k/uL Lymphocytes # (1.0-4.8) k/uL APTT (22.0-30.0) sec D-Dimer (<0.60) mg/L FEU BUN (9-20) mg/dL Glucose (74-99) mg/dL AST (17-59) U/L ALT (4-49) U/L Alkaline Phosphatase (38-126) U/L Coronavirus (PCR) Detected A (Not Detectd)
[2020-12-02] MEDS: ENOXAPARIN 40 MG/0.4 ML SYRINGE SQ SCH (14:47)
[2020-12-02] MEDS: ACETAMINOPHEN TAB 325 MG TAB PO PRN (14:48)
[2020-12-02] MEDS: ASCORBIC ACID 500 MG TAB PO SCH (14:48)
[2020-12-02] MEDS: CHOLECALCIFEROL 25 MCG (1000 IU) TABLET PO SCH (14:48)
[2020-12-02] MEDS: ZINC SULFATE 220 MG CAP PO SCH (14:48)
--- NOTE | 2020-12-02 15:41 | P.CNPUL ---
History of Present Illness Consult date: 12/02/20 Reason for consult: dyspnea, cough Chief complaint: Shortness of breath and cough History of present illness: This is a pleasant 54-year-old male with history of smoking and nicotine use chronic ethanol consumption 12 beers a day came into the hospital anxious also have ongoing cough shortness of breath started about 3-4 days ago patient stopped drinking one day before, prior medical history of hypertension however d oes not take his medications in the ER patient noted to have a elevated blood pressure CBC reviewed platelet count mildly reduced 1 36,000, d-dimer is elevated 1.93, renal functions normal, patient is on 2 L oxygen, AST and ALT both elevated to 74 and 117, total bilirubin is normal, covid19 is positive I'll call level less than 10, computed tomography scan of the chest is negative but fine interstitial infiltrate identified consistent with Covid 19 pneumonia Review of Systems All systems: negative Past Medical History Past Medical History: Unable to Obtain, Hypertension Additional Past Medical History / Comment(s): anxiety, personality disorder, manic depression History of Any Multi-Drug Resistant Organisms: None Reported Past Surgical History: Unable to Obtain Past Psychological History: Anxiety, Depression Smoking Status: Never smoker Past Alcohol Use History: Daily, Heavy Past Drug Use History: Marijuana - Past Family History Father Family Medical History: CVA/TIA, Myocardial Infarction (PR) Mother Family Medical History: Thyroid Disorder Medications and Allergies Home Medications Medication Instructions Recorded Confirmed Type ALPRAZolam [Xanax] 0.25 mg PO BID PRN 03/14/19 12/02/20 History atenoloL [Tenormin] 50 mg PO DAILY 03/14/19 12/02/20 History Losartan-Hctz 50-12.5 mg [Hyzaar 1 tab PO DAILY 12/02/20 12/02/20 History 50-12.5] Allergies Allergy/AdvReac Type Severity Reaction Status Date / Time allopurinol Allergy Unknown Verified 12/02/20 07:52 azithromycin Allergy Anaphylaxis Verified 12/02/20 07:52 indomethacin [From Indocin] Allergy Unknown Verified 12/02/20 07:52 Physical Exam Vitals: Vital Signs Temp Pulse Resp BP Pulse Ox 12/02/20 14:56 98.0 F 81 16 154/99 94 L 12/02/20 12:26 97.9 F 89 16 166/98 94 L 12/02/20 09:51 88 16 167/102 94 L 12/02/20 08:53 85 16 166/101 94 L 12/02/20 07:56 75 16 163/105 94 L 12/02/20 07:00 84 20 194/120 94 L 12/02/20 05:00 98.1 F 82 20 185/115 94 L 12/02/20 04:00 70 20 165/109 94 L 12/02/20 03:00 98.0 F 70 20 162/95 94 L 12/02/20 02:00 73 20 152/103 94 L 12/02/20 01:00 74 20 160/98 95 12/01/20 23:40 97.9 F 79 20 168/104 96 Intake and Output 12/02/20 12/02/20 12/02/20 06:59 14:59 22:59 Other: Weight 102.058 kg - Constitutional General appearance: average body habitus, cooperative, disheveled, obese - EENT Eyes: PERRLA Ears: bilateral: normal - Neck Neck: normal ROM Carotids: bilateral: upstroke normal - Respiratory Respiratory: bilateral: CTA - Cardiovascular Rhythm: regular Heart sounds: normal: S1, S2 - Gastrointestinal General gastrointestinal: normal bowel sounds - Neurologic Neurologic: CNII-XII intact - Musculoskeletal Musculoskeletal: gait normal, generalized weakness - Psychiatric Psychiatric: A&O x's 3, appropriate affect, intact judgment & insight Results - Laboratory Findings CBC and BMP: 12/02/20 01:12 12/02/20 01:12 PT/INR, D-dimer PT 9.5 sec (9.0-12.0) 12/02/20 01:12 INR 0.9 (<1.2) 12/02/20 01:12 D-Dimer 1.93 mg/L FEU (<0.60) H 12/02/20 01:12 Abnormal lab findings: Abnormal Labs 12/02/20 12/02/20 12/02/20 01:12 01:12 01:12 MCH 35.2 H Plt Count 136 L Lymphocytes # 0.9 L APTT 21.1 L D-Dimer 1.93 H BUN 7 L Glucose 107 H AST 274 H ALT 117 H Alkaline Phosphatase 130 H Coronavirus (PCR) 12/02/20 01:12 MCH Plt Count Lymphocytes # APTT D-Dimer BUN Glucose AST ALT Alkaline Phosphatase Coronavirus (PCR) Detected A - Diagnostic Findings Chest x-ray: report reviewed, image reviewed CT scan - chest: report reviewed, image reviewed Assessment and Plan Assessment: Acute covid 19 pneumonia Acute hypoxic respiratory failure Alcoholic hepatitis Hypertensive urgency Mild thrombocytopenia Elevated d-dimer likely due to Covid 19 pneumonia Plan: Continue supplemental oxygen keep oxygen saturation over 90% Deep breathing exercise incentive spirometry Continue Decadron Lovenox Supplements including vitamin D and zinc vitamin C Will do 5 day regime of IV REMdesivir Monitor patient closely for alcohol withdrawal Further plan of care as per clinical response of the patient Time with Patient: Greater than 30
[2020-12-02] MEDS: THIAMINE 100 MG TAB PO SCH (18:25)
[2020-12-03] MEDS: LORazepam 2 MG/ML INJ IV PRN ×10 (00:06→23:27)
[2020-12-03] MEDS: THIAMINE 100 MG TAB PO SCH ×2 (06:31→15:15)
[2020-12-03] MEDS: PANTOPRAZOLE 40 MG TABLET PO SCH (06:31)
[2020-12-03] MEDS: SODIUM CHLORIDE 0.9% 1,000 ML IV SCH (08:08)
[2020-12-03] MEDS ORDERED: BAMLANIVIMAB (EUA) 700 MG, ETESEVIMAB (EUA) 1,400 MG in SODIUM CHLORIDE 0.9% 50 ML IVPB ONE (09:00)
[2020-12-03] MEDS: ZINC SULFATE 220 MG CAP PO SCH (10:13)
[2020-12-03] MEDS: atenoloL 50 MG TAB PO SCH (10:13)
[2020-12-03] MEDS: DEXAMETHASONE SOD PHOSPHATE 10 MG/ML 1 ML VIAL IV SCH (10:13)
[2020-12-03] MEDS: ASCORBIC ACID 500 MG TAB PO SCH (10:13)
[2020-12-03] MEDS: CHOLECALCIFEROL 25 MCG (1000 IU) TABLET PO SCH (10:13)
[2020-12-03] MEDS: lisinopriL 10 MG TAB PO SCH ×2 (10:14→19:56)
[2020-12-03] MEDS: ENOXAPARIN 40 MG/0.4 ML SYRINGE SQ SCH (10:21)
--- NOTE | 2020-12-03 12:09 | P.PN ---
Subjective Progress Note Date: 12/03/20 HISTORY OF PRESENT ILLNESS This is a 54-year-old male patient of Dr. Noble with past medical history of hypertension, daily marijuana use, heavy alcohol abuse, memory loss. He last saw Dr. hager in April of last year and has run out of his medications. Patient lives at home with his mother and father who have both been vaccinated for Covid 19. He complains of difficulty breathing for the past 4 days. No fever. No chills. Complains of cough. He complains of runny nose and body aches. He has had diarrhea which apparently is new for him as well as abdominal pain in the right upper quadrant. Patient presented to [facility] emergency center. He was afebrile, heart rate 79, blood pressure 168/104. EKG was a sinus rhythm with no acute ST changes, right bundle branch block. CBC was unremarkable except for platelet count of 136 and lymphocytes of 0.9. Electrolytes normal. BUN 7 and creatinine 0.68. Blood sugar 107. Total bilirubin 0.5. AST 274, ALT 117, alkaline phosphatase 130. Troponin negative. ProBNP 44. Coronavirus PCR positive. EtOH less than 10. Chest x-ray reveals no active disease. Osteopenia. CTA of the chest showed motion artifact. No central pulmonary embolism. Patient started on blood pressure medication, thiamine IV fluids, Decadron and consult placed with ulnar medicine with anticipation he will qualify for Bamlanivimab. 12/03: Patient was seen by Dr. Coburn and not candidate for him to severe. We will order Bamlanivimab's morning. Patient is complaining of depression along with concerns about his alcohol abuse and consult will be asked for psychiatry. Patient will be started on Lexapro 10 mg daily. Patient's blood pressure was elevated and lisinopril increased to twice daily frequency. He has been afebrile, heart rate 60, pulse ox 98% on room air. Patient was prepared for discharge home today except that he is scoring 13 on CIWA protocol. REVIEW OF SYSTEMS Constitutional: No fever, reports chills, reports sweats. No weight change. Reports weakness, Reports fatigue. Reports daytime sleepiness. EENT: No headache. No blurred vision or double vision, no loss of vision. No loss of Hearing, no ringing in the ears, no dizziness. Reports nasal drainage or congestion. No epistaxis. No sore throat. Lungs: Reports shortness of breath, reports cough, Reports sputum production. No wheezing. Cardiovascular: No chest pain, no lower extremity edema. No palpitations. No paroxysmal nocturnal dyspnea. No orthopnea. No lightheadedness or dizziness. No syncopal episodes. Abdominal: Reports abdominal pain. Reports nausea, no vomiting. Reports diar kayla. No constipation. No bloody or tarry stools. No loss of appetite. Genitourinary: No dysuria, increased frequency, urgency. No urinary retention. Musculoskeletal: No myalgias. No muscle weakness, no gait dysfunction, no frequent falls. No back pain. No neck pain. Integumentary: No wounds, no lesions. No rash or pruritus. No unusual bruising. Neurologic: No aphasia. No facial droop. No change in mentation. No head injury. No headache. No paralysis. No paresthesia. Psychiatric: No depression. No anxiety. Endocrine: No abnormal blood sugars. PHYSICAL EXAMINATION Gen: This is a 54-year-old male patient resting in bed and in no acute distress. No respiratory distress noted. HEENT: Head is atraumatic, normocephalic. Pupils equal, round. Sclerae is anicteric. NECK: Supple. No JVD. No lymphadenopathy. No thyromegaly. LUNGS: Clear to auscultation. No wheezes or rhonchi. No intercostal retractions. No accessory muscle usage. HEART: Regular rate and rhythm. No murmur. ABDOMEN: Soft. Bowel sounds are present. No masses. No tenderness. EXTREMITIES: No pedal edema. No calf tenderness. Dorsalis pedis palpable bilaterally. NEUROLOGICAL: Patient is awake, alert and oriented x3. Cranial nerves 2 through 12 are grossly intact. ASSESSMENT AND PLAN 1. COVID-19 illness with underlying COPD and acquired immunodeficiency. Patient is observation status, consult with Dr. Coburn with anticipation he will qualify for Bamlanivimab. Bamlanivimab will be ordered for the patient to be given today Continue dexamethasone 6 mg IV daily, albuterol inhaler 2 puffs every 4 hours as needed, Tylenol as needed for pain, Lovenox 40 g subcu daily, vitamin supplements. 2. Alcohol abuse. Patient was started on Librium 5 mg 3 times daily scheduled and he is on the CIWA protocol with Ativan. 3. Uncontrolled hypertension due to noncompliance and lack of follow-up with his physician. Patient has been started on atenolol 50 mg twice daily and lisinopril 10 mg increased frequency to twice daily. He is status post lab etalol 20 mg IV push. 4. Daily marijuana use. 5. Short-term memory deficit secondary to marijuana use and alcohol abuse. 6. Thrombocytopenia secondary to alcohol abuse, stable. 7. Transaminitis secondary to alcohol abuse. 8. 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 9. GI prophylaxis. Protonix daily. 10. DVT prophylaxis. Lovenox subcu. DISCHARGE PLAN Home Impression and plan of care have been directed as dictated by the signing physician. Penelope Dhillon nurse practitioner acting as scribe for signing physician. Objective - Vital Signs Vital signs: Vital Signs Temp 97.8 F 12/03/20 04:00 Pulse 76 12/03/20 04:00 Resp 18 12/03/20 04:00 BP 167/88 12/03/20 04:00 Pulse Ox 97 12/03/20 04:00 Intake & Output 12/02/20 12/03/20 12/03/20 18:59 06:59 18:59 Intake Total 100 0 Balance 100 0 Weight 100 kg Intake: Oral 100 0 Other: Voiding Method Toilet Urinal # Voids 1 - Labs CBC & Chem 7: 12/02/20 01:12 12/02/20 01:12
[2020-12-03] MEDS: ESCITALOPRAM 10 MG TAB PO SCH (12:40)
--- NOTE | 2020-12-03 14:23 | P.PN ---
Subjective Progress Note Date: 12/03/20 Principal diagnosis: Acute covid 19 pneumonia Acute hypoxic respiratory failure Alcoholic hepatitis Hypertensive urgency Mild thrombocytopenia Elevated d-dimer likely due to Covid 19 pneumonia 12/03/2020, patient seen eval reexamined during the rounds continue breathing exercise, deep breathing exercise, patient is on Decadron along with Lovenox and IV REMdesivir, currently patient is on room air This is a pleasant 54-year-old male with history of smoking and nicotine use chronic ethanol consumption 12 beers a day came into the hospital anxious also have ongoing cough shortness of breath started about 3-4 days ago patient stopped drinking one day before, prior medical history of hypertension however does not take his medications in the ER patient noted to have a elevated blood pressure CBC reviewed platelet count mildly reduced 1 36,000, d-dimer is elevated 1.93, renal functions normal, patient is on 2 L oxygen, AST and ALT both elevated to 74 and 117, total bilirubin is normal, covid19 is positive I'll call level less than 10, computed tomography scan of the chest is negative but fine interstitial infiltrate identified consistent with Covid 19 pneumonia Objective - Vital Signs Vital signs: Vital Signs Temp 98.1 F 12/03/20 07:15 Pulse 60 12/03/20 07:15 Resp 18 12/03/20 09:30 BP 114/90 12/03/20 07:15 Pulse Ox 98 12/03/20 07:15 Intake & Output 12/02/20 12/03/20 12/03/20 18:59 06:59 18:59 Intake Total 100 80 Balance 100 80 Weight 100 kg Intake: IV 30 Invasive Line 2 30 Oral 100 50 Other: Voiding Method Toilet Urinal Urinal # Voids 1 2 - Exam - Constitutional General appearance: average body habitus, cooperative, disheveled, obese - EENT Eyes: PERRLA Ears: bilateral: normal - Neck Neck: normal ROM Carotids: bilateral: upstroke normal - Respiratory Respiratory: bilateral: CTA - Cardiovascular Rhythm: regular Heart sounds: normal: S1, S2 - Gastrointestinal General gastrointestinal: normal bowel sounds - Neurologic Neurologic: CNII-XII intact - Musculoskeletal Musculoskeletal: gait normal, generalized weakness - Psychiatric Psychiatric: A&O x's 3, appropriate affect, intact judgment & insight - Labs CBC & Chem 7: 12/02/20 01:12 12/02/20 01:12 Assessment and Plan Assessment: Acute covid 19 pneumonia Acute hypoxic respiratory failure Alcoholic hepatitis Hypertensive urgency Mild thrombocytopenia Elevated d-dimer likely due to Covid 19 pneumonia Plan: Continue supplemental oxygen keep oxygen saturation over 90% Deep breathing exercise incentive spirometry Continue Decadron Lovenox Supplements including vitamin D and zinc vitamin C 5 day regime of IV REMdesivir Monitor patient closely for alcohol withdrawal Further plan of care as per clinical response of the patient Time with Patient: Greater than 30
[2020-12-03 16:59] LABS: Glucose,Whole Blood 131 mg/dL (75-99)
[2020-12-03 20:18] LABS: Glucose,Whole Blood 112 mg/dL (75-99)
[2020-12-03] MEDS ORDERED: hydrALAZINE HCL 20 MG/ML 1 ML VIAL IVP PRN (23:49)
[2020-12-04] MEDS: LORazepam 2 MG/ML INJ IV PRN ×9 (00:33→20:20)
[2020-12-04 05:49] LABS: Glucose,Whole Blood 103 mg/dL (75-99)
[2020-12-04] MEDS: PANTOPRAZOLE 40 MG TABLET PO SCH (07:06)
[2020-12-04] MEDS: THIAMINE 100 MG TAB PO SCH ×2 (07:06→14:57)
[2020-12-04] MEDS: SODIUM CHLORIDE 0.9% 1,000 ML IV SCH (07:19)
[2020-12-04 07:56] LABS: HCT 47.6 % (39.0-53.0); HGB 15.7 gm/dL (13.0-17.5); MCH 33.1 pg (25.0-35.0); MCHC 32.9 g/dL (31.0-37.0); MCV 100.6 fL (80.0-100.0); Macrocytosis Slight; Mean Platelet Volume 9.7; Platelet Count 109 k/uL (150-450); RBC 4.74 m/uL (4.30-5.90); WBC 5.6 k/uL (3.8-10.6)
[2020-12-04 08:17] LABS: ALT 72 U/L (4-49); AST 101 U/L (17-59); African American GFR (CKD) >90 (>60 ml/min/1.73 sqM); Albumin 3.8 g/dL (3.5-5.0); Alkaline Phosphatase 79 U/L (38-126); Anion Gap 8 mmol/L; Blood Urea Nitrogen 13 mg/dL (9-20); C Reactive Protein 6.1 mg/L (<10.0); Carbon Dioxide 27 mmol/L (22-30); Chloride 103 mmol/L (98-107); Glucose 84 mg/dL (74-99); LDH 592 U/L (313-618); Non-African American GFR(CKD) >90 (>60 ml/min/1.73 sqM); Potassium 3.7 mmol/L (3.5-5.1); Sodium 138 mmol/L (137-145); Total Bilirubin 0.9 mg/dL (0.2-1.3); Total Protein 6.4 g/dL (6.3-8.2)
[2020-12-04] MEDS: lisinopriL 10 MG TAB PO SCH ×2 (10:31→20:20)
[2020-12-04] MEDS: ASCORBIC ACID 500 MG TAB PO SCH (10:31)
[2020-12-04] MEDS: CHOLECALCIFEROL 25 MCG (1000 IU) TABLET PO SCH (10:31)
[2020-12-04] MEDS: ENOXAPARIN 40 MG/0.4 ML SYRINGE SQ SCH (10:32)
[2020-12-04] MEDS: atenoloL 50 MG TAB PO SCH (10:32)
[2020-12-04] MEDS: DEXAMETHASONE SOD PHOSPHATE 10 MG/ML 1 ML VIAL IV SCH (10:32)
[2020-12-04] MEDS: ZINC SULFATE 220 MG CAP PO SCH (10:32)
[2020-12-04] MEDS: ESCITALOPRAM 10 MG TAB PO SCH (10:32)
[2020-12-04 12:17] LABS: Glucose,Whole Blood 108 mg/dL (75-99)
--- NOTE | 2020-12-04 12:57 | P.PN ---
Subjective Progress Note Date: 12/04/20 HISTORY OF PRESENT ILLNESS This is a 54-year-old male patient of Dr. Noble with past medical history of hypertension, daily marijuana use, heavy alcohol abuse, memory loss. He last saw Dr. hager in April of last year and has run out of his medications. Patient lives at home with his mother and father who have both been vaccinated for Covid 19. He complains of difficulty breathing for the past 4 days. No fever. No chills. Complains of cough. He complains of runny nose and body aches. He has had diarrhea which apparently is new for him as well as abdominal pain in the right upper quadrant. Patient presented to [facility] emergency center. He was afebrile, heart rate 79, blood pressure 168/104. EKG was a sinus rhythm with no acute ST changes, right bundle branch block. CBC was unremarkable except for platelet count of 136 and lymphocytes of 0.9. Electrolytes normal. BUN 7 and creatinine 0.68. Blood sugar 107. Total bilirubin 0.5. AST 274, ALT 117, alkaline phosphatase 130. Troponin negative. ProBNP 44. Coronavirus PCR positive. EtOH less than 10. Chest x-ray reveals no active disease. Osteopenia. CTA of the chest showed motion artifact. No central pulmonary embolism. Patient started on blood pressure medication, thiamine IV fluids, Decadron and consult placed with ulnar medicine with anticipation he will qualify for Bamlanivimab. 12/03: Patient was seen by Dr. Coburn and not candidate for him to severe. We will order Bamlanivimab's morning. Patient is complaining of depression along with concerns about his alcohol abuse and consult will be asked for psychiatry. Patient will be started on Lexapro 10 mg daily. Patient's blood pressure was elevated and lisinopril increased to twice daily frequency. He has been afebrile, heart rate 60, pulse ox 98% on room air. Patient was prepared for discharge home today except that he is scoring 13 on CIWA protocol. 12/04: Patient continues to score high on the CIWA protocol and discharge will be held today. Librium increased to 20 mg 3 times daily. Patient states that he plans to quit drinking at this time. He has been afebrile, heart rate 74, blood pressure 140/86, pulse ox 96% on room air. Repeat CBC reveals platelet count of 109. Electrolytes and renal function normal. Blood sugars running between 103 131. AST 101 and ALT 72. C-reactive protein, LDH are normal. Possible discharge home tomorrow. REVIEW OF SYSTEMS Constitutional: No fever, reports chills, reports sweats. No weight change. Reports weakness, Reports fatigue. Reports daytime sleepiness. EENT: No headache. No blurred vision or double vision, no loss of vision. No loss of Hearing, no ringing in the ears, no dizziness. Reports nasal drainage or congestion. No epistaxis. No sore throat. Lungs: Reports shortness of breath, reports cough, Reports sputum production. No wheezing. Cardiovascular: No chest pain, no lower extremity edema. No palpitations. No paroxysmal nocturnal dyspnea. No orthopnea. No lightheadedness or dizziness. No syncopal episodes. Abdominal: Reports abdominal pain. Reports nausea, no vomiting. Reports vince rrhea. No constipation. No bloody or tarry stools. No loss of appetite. Genitourinary: No dysuria, increased frequency, urgency. No urinary retention. Musculoskeletal: No myalgias. No muscle weakness, no gait dysfunction, no frequent falls. No back pain. No neck pain. Integumentary: No wounds, no lesions. No rash or pruritus. No unusual bruising. Neurologic: No aphasia. No facial droop. No change in mentation. No head injury. No headache. No paralysis. No paresthesia. Psychiatric: No depression. No anxiety. Endocrine: Mildly elevated blood sugars. PHYSICAL EXAMINATION Gen: This is a 54-year-old male patient resting in bed and in no acute distress. No respiratory distress noted. HEENT: Head is atraumatic, normocephalic. Pupils equal, round. Sclerae is anicteric. NECK: Supple. No JVD. No lymphadenopathy. No thyromegaly. LUNGS: Clear to auscultation. No wheezes or rhonchi. No intercostal retractions. No accessory muscle usage. HEART: Regular rate and rhythm. No murmur. ABDOMEN: Soft. Bowel sounds are present. No masses. No tenderness. EXTREMITIES: No pedal edema. No calf tenderness. Dorsalis pedis palpable bilaterally. NEUROLOGICAL: Patient is awake, alert and oriented x3. Cranial nerves 2 through 12 are grossly intact. ASSESSMENT AND PLAN 1. COVID-19 illness with underlying COPD and acquired immunodeficiency. Consult with Dr. Almas sullivan. Patient is status post Bamlanivimab. Continue dexamethasone 6 mg IV daily, albuterol inhaler 2 puffs every 4 hours as needed, Tylenol as needed for pain, Lovenox 40 g subcu daily, vitamin supplements. 2. Alcohol abuse. Patient was started on Librium increased to 20 mg 3 times daily scheduled and he is on the CIWA protocol with Ativan. 3. Uncontrolled hypertension due to noncompliance and lack of follow-up with his physician. Patient has been started on atenolol 50 mg twice daily and lisinopril 10 mg increased frequency to twice daily. He is status post labetalol 20 mg IV push. 4. Daily marijuana use. 5. Short-term memory deficit secondary to marijuana use and alcohol abuse. 6. Thrombocytopenia secondary to alcohol abuse, stable. 7. Transaminitis secondary to alcohol abuse. 8. 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 9. GI prophylaxis. Protonix daily. 10. DVT prophylaxis. Lovenox subcu. DISCHARGE PLAN Home on Friday Impression and plan of care have been directed as dictated by the signing physician. Penelope Dhillon nurse practitioner acting as scribe for signing physician. Objective - Vital Signs Vital signs: Vital Signs Temp 98.2 F 12/03/20 19:53 Pulse 74 12/04/20 03:03 Resp 18 12/04/20 03:03 BP 140/86 12/04/20 03:03 Pulse Ox 96 12/04/20 03:03 Intake & Output 12/03/20 12/04/20 12/04/20 18:59 06:59 18:59 Intake Total 290 140 10 Output Total 525 Balance 290 -385 10 Weight 101 kg Intake: IV 40 40 10 Invasive Line 2 40 20 Invasive Line 3 20 10 Oral 100 100 0 Lipid 150 Bamlanivimab (Eua) 700 mg 150 Etesevimab (Eua) 1,400 mg In Sodium Chloride 0.9 % 50 ml @ 300 mls/hr IVPB ONCE ONE Rx#:[id number] Output: Urine 525 Other: Voiding Method Urinal Urinal # Voids 2 1 2 - Labs CBC & Chem 7: 12/04/20 06:42 12/04/20 06:42 Labs: Abnormal Lab Results - Last 24 Hours (Table) 12/03/20 12/03/20 12/04/20 Range/Units 16:58 20:16 05:48 MCV (80.0-100.0) fL Plt Count (150-450) k/uL POC Glucose (mg/dL) 131 H 112 H 103 H (75-99) mg/dL AST (17-59) U/L ALT (4-49) U/L 12/04/20 12/04/20 Range/Units 06:42 06:42 MCV 100.6 H (80.0-100.0) fL Plt Count 109 L (150-450) k/uL POC Glucose (mg/dL) (75-99) mg/dL AST 101 H (17-59) U/L ALT 72 H (4-49) U/L
--- NOTE | 2020-12-04 13:57 | P.CN ---
Psychiatric Consult - . Consult date: 12/04/20 Consult:: 12/04/20 13:47 IDENTIFYING DATA: This patient is a 54-year-old male with a history of alcohol abuse who currently lives with his family in the house is single and has no kids and collects Social Security disability REASON FOR REFERRAL: Psychiatry was consulted for depression and alcohol abuse HISTORY OF PRESENT ILLNESS: The patient presented to the hospital on 12/02/20 for anxiety, shortness of breath and significant alcohol use. According to ER report patient claimed that he drinks about 12 beers a day and was very feeling fairly tremulous. Patient's AST/ALT were elevated. Patient's blood alcohol level was negative. Patient was positive for covid. CIWA scores were elevated. Patient was admitted to medicine for alcohol withdrawal. He was seen at the bedside today and agreeable to speak to copywriter however when to speak in the dark. He appeared to be disheveled in appearance with poor hygiene and grooming. He was fairly constricted in his affect and had a soft tone of voice. He claims that he has been feeling fairly depressed and also is been feeling anxious since being in the hospital. He states that he is having withdrawal symptoms including shaking and anxiety. He states that his sleep has been fairly poor and appetite has been poor. He claims that he has had seizures in the past and compensated alcohol withdrawal. He states that the drinking has been affecting his relationships in his family however states that he still enjoys drinking alcohol. He states that he is ambivalent about going to rehab or getting any treatment at this time. At this time patient denies any suicidal or homical ideations, intent or plan. Patient denies any auditory, visual hallucinations and denies any paranoia or delusions. Patients admits to using alcohol as noted above. He states that he started drinking at the age of 9 and has not cognitive rehab. He denies smoking any cigarettes or any other recreational drugs except for marijuana which he smokes daily. PAST PSYCHIATRIC HISTORY: Patient has a a history of alcohol abuse anxiety and depression. Patient was being prescribed Xanax 0.25 twice a day as an outpatient. ] [Patient denies any previous psychiatric hospitalizations.] He states that he is to follow-up with a therapist and a psychiatrist in the past however claims that though several years ago. He states that he has tried other psychiatric medications in the past however cannot remember their names. Patient denies any history of suicide attempts in the past. PAST MEDICAL HISTORY: Hypertension ALLERGIES: as per EMR. CHEMICAL DEPENDENCY HISTORY: as per HPI. FAMILY PSYCHIATRIC/SUBSTANCE USE HISTORY: He states that his mother or father and sister all abused alcohol SOCIAL HISTORY: Patient was born and raised in [facility]. He states that he completed his GED and worked several odd jobs in the past. He states that currently he is unemployed and collects Social Security. He states that he is single and has no kids. He claims that he lives with his family in a house. He states that he is had 2 DUIs in the past however has never been in nursing home or intermediate. MENTAL STATUS EXAM: General Appearance: Patient appears to be stated age is alert, pleasant, and cooperative. Patient appears to have poor hygiene and grooming wearing hospital gown with poor eye contact. Behavior: [Patient is calmly lying in bed without any agitated behavior.]Constricted and withdrawn. Speech: Patient's speech is fluent and nonpressured. Mood/Affect: Patient reports their mood is "[depressed and anxious]", affect is congruent Suicidality/Homicidality: Patient denies having any suicidal or homicidal ideation intent or plan. Perceptions: Patient denies any visual hallucinations [and denies any auditory hallucinations] Though content/process: [place], poverty of content. Logical. Poor insight into his condition and need for treatment. Not endorsing any paranoia. Memory and concentration: AOX3, grossly intact for the purposes of this session. Can spell "WORLD" backwards Judgment and insight: [poor] IMPRESSIONS: Depressive disorder unspecified, rule out secondary to substance use versus major depressive disorder Alcohol dependence, currently in withdrawal Cannabis use disorder mild PLAN: -At this time patient DOES NOT meet criteria for inpatient psychiatric admission however will continue to follow along to see if patient will meet criteria for inpatient psychiatric hospitalization. -Delirium precautions recommended with patient including - avoiding use of narcotics and FLIGHT CREW TIME CLERK sedatives, limit anticholinergic medications when possible, frequent re-orientation, minimize use of restraints, open window shades during the day and close them at night -Would recommend the following medication changes/additions: Seroquel 25 mg daily at bedtime for mood/insomnia/anxiety, increased Lexapro to 15 mg daily for mood/anxiety. Librium was increased 25mg tid for etoh withdrawal. -CIWA protocol with PRN Ativan for alcohol withdrawal. Continue to monitor vital signs. -cement worker to provide patient with outpatient mental health/psychiatry resources for appropriate follow up upon discharge -Italian Teacher spoke with patient about substance abuse and the harmful effects on medical and mental health, patient verbally understood and agreed. -Attempted to encourage patient to seek treatment for his etoh abuse however he is hesitant to receive any form of treatment including meds, community programs or rehab. -Will continue to follow along -Please contact with any questions.
[2020-12-04] MEDS: chlordiazePOXIDE 25 MG CAP PO SCH ×2 (14:57→20:20)
[2020-12-04 15:45] LABS: Ferritin 461.2 ng/mL (22.0-322.0)
[2020-12-04 16:56] LABS: Glucose,Whole Blood 98 mg/dL (75-99)
[2020-12-04 20:26] LABS: Glucose,Whole Blood 108 mg/dL (75-99)
[2020-12-04] MEDS ORDERED: QUEtiapine 25 MG TAB PO SCH (21:00)
[2020-12-05] MEDS: LORazepam 2 MG/ML INJ IV PRN ×4 (01:39→12:50)
[2020-12-05] MEDS: PANTOPRAZOLE 40 MG TABLET PO SCH (06:30)
[2020-12-05] MEDS: THIAMINE 100 MG TAB PO SCH ×2 (06:30→17:47)
[2020-12-05 06:31] LABS: Glucose,Whole Blood 82 mg/dL (75-99)
[2020-12-05] MEDS: SODIUM CHLORIDE 0.9% 1,000 ML IV SCH (07:03)
[2020-12-05] MEDS ORDERED: ESCITALOPRAM 10 MG TAB PO SCH (09:00)
[2020-12-05] MEDS: chlordiazePOXIDE 25 MG CAP PO SCH (09:53)
[2020-12-05] MEDS: ZINC SULFATE 220 MG CAP PO SCH (09:53)
[2020-12-05] MEDS: ASCORBIC ACID 500 MG TAB PO SCH (09:53)
[2020-12-05] MEDS: atenoloL 50 MG TAB PO SCH (09:53)
[2020-12-05] MEDS: CHOLECALCIFEROL 25 MCG (1000 IU) TABLET PO SCH (09:53)
[2020-12-05] MEDS: lisinopriL 10 MG TAB PO SCH ×2 (09:53→19:51)
[2020-12-05] MEDS: ENOXAPARIN 40 MG/0.4 ML SYRINGE SQ SCH (09:54)
[2020-12-05] MEDS: DEXAMETHASONE SOD PHOSPHATE 10 MG/ML 1 ML VIAL IV SCH (09:54)
[2020-12-05] MEDS ORDERED: LORazepam 2 MG/ML INJ IV PRN (10:57)
--- NOTE | 2020-12-05 11:29 | P.PN ---
Subjective Progress Note Date: 12/04/20 Principal diagnosis: Acute covid 19 pneumonia Acute hypoxic respiratory failure Alcoholic hepatitis Hypertensive urgency Mild thrombocytopenia Elevated d-dimer likely due to Covid 19 pneumonia 12/04/2020, patient seen eval examined during the rounds labs reviewed medications reviewed, patient remains on room air, cough congestion shortness of breath improved, patient is being considered for IV monoclonal antibody by primary service, patient appears to be slowly slipping into a call withdrawal will monitor observe closely 12/03/2020, patient seen eval reexamined during the rounds continue breathing exercise, deep breathing exercise, patient is on Decadron along with Lovenox and IV REMdesivir, currently patient is on room air This is a pleasant 54-year-old male with history of smoking and nicotine use chronic ethanol consumption 12 beers a day came into the hospital anxious also have ongoing cough shortness of breath started about 3-4 days ago patient stopped drinking one day before, prior medical history of hypertension however does not take his medications in the ER patient noted to have a elevated blood pressure CBC reviewed platelet count mildly reduced 1 36,000, d-dimer is elevated 1.93, renal functions normal, patient is on 2 L oxygen, AST and ALT b oth elevated to 74 and 117, total bilirubin is normal, covid19 is positive I'll call level less than 10, computed tomography scan of the chest is negative but fine interstitial infiltrate identified consistent with Covid 19 pneumonia Objective - Vital Signs Vital signs: Vital Signs Temp 98.7 F 12/04/20 15:00 Pulse 62 12/04/20 15:00 Resp 18 12/04/20 15:00 BP 148/92 12/04/20 15:00 Pulse Ox 98 12/04/20 15:00 Intake & Output 12/03/20 12/04/20 12/04/20 18:59 06:59 18:59 Intake Total 290 140 30 Output Total 525 Balance 290 -385 30 Weight 101 kg Intake: IV 40 40 30 Invasive Line 2 40 20 Invasive Line 3 20 30 Oral 100 100 0 Lipid 150 Bamlanivimab (Eua) 700 mg 150 Etesevimab (Eua) 1,400 mg In Sodium Chloride 0.9 % 50 ml @ 300 mls/hr IVPB ONCE ONE Rx#:[id number] Output: Urine 525 Other: Voiding Method Urinal Urinal Urinal # Voids 2 1 3 # Bowel Movements 4 - Exam - Constitutional General appearance: average body habitus, cooperative, disheveled, obese - EENT Eyes: PERRLA Ears: bilateral: normal - Neck Neck: normal ROM Carotids: bilateral: upstroke normal - Respiratory Respiratory: bilateral: CTA - Cardiovascular Rhythm: regular Heart sounds: normal: S1, S2 - Gastrointestinal General gastrointestinal: normal bowel sounds - Neurologic Neurologic: CNII-XII intact - Musculoskeletal Musculoskeletal: gait normal, generalized weakness - Psychiatric Psychiatric: A&O x's 3, appropriate affect, intact judgment & insight - Labs CBC & Chem 7: 12/04/20 06:42 12/04/20 06:42 Labs: Abnormal Lab Results - Last 24 Hours (Table) 12/03/20 12/03/20 12/04/20 Range/Units 16:58 20:16 05:48 MCV (80.0-100.0) fL Plt Count (150-450) k/uL POC Glucose (mg/dL) 131 H 112 H 103 H (75-99) mg/dL Ferritin (22.0-322.0) ng/mL AST (17-59) U/L ALT (4-49) U/L 12/04/20 12/04/20 12/04/20 Range/Units 06:42 06:42 12:15 MCV 100.6 H (80.0-100.0) fL Plt Count 109 L (150-450) k/uL POC Glucose (mg/dL) 108 H (75-99) mg/dL Ferritin 461.2 H (22.0-322.0) ng/mL AST 101 H (17-59) U/L ALT 72 H (4-49) U/L Assessment and Plan Assessment: Acute covid 19 pneumonia Acute hypoxic respiratory failure Alcoholic hepatitis Hypertensive urgency Mild thrombocytopenia Elevated d-dimer likely due to Covid 19 pneumonia Plan: Continue supplemental oxygen keep oxygen saturation over 90% Deep breathing exercise incentive spirometry Continue Decadron Lovenox Supplements including vitamin D and zinc vitamin C 5 day regime of IV REMdesivir Monitor patient closely for alcohol withdrawal Further plan of care as per clinical response of the patient Time with Patient: Greater than 30
--- NOTE | 2020-12-05 11:30 | P.PN ---
Subjective Progress Note Date: 12/05/20 Principal diagnosis: Acute covid 19 pneumonia Acute hypoxic respiratory failure Alcoholic hepatitis Hypertensive urgency Mild thrombocytopenia Elevated d-dimer likely due to Covid 19 pneumonia 12/05/2020, patient is awake and alert, slightly withdrawn though, shortness of breath stable, remains on room air status post one of gradual antibody infusion now, patient is being monitor observe for alcohol withdrawal, appears to be stable from Covid standpoint however, we'll follow closely 12/04/2020, patient seen eval examined during the rounds labs reviewed medications reviewed, patient remains on room air, cough congestion shortness of breath improved, patient is being considered for IV monoclonal antibody by primary service, patient appears to be slowly slipping into a call withdrawal will monitor observe closely 12/03/2020, patient seen eval reexamined during the rounds continue breathing exercise, deep breathing exercise, patient is on Decadron along with Lovenox and IV REMdesivir, currently patient is on room air This is a pleasant 54-year-old male with history of smoking and nicotine use chronic ethanol consumption 12 beers a day came into the hospital anxious also have ongoing cough shortness of breath started about 3-4 days ago patient stopped drinking one day before, prior medical history of hypertension however does not take his medications in the ER patient noted to have a elevated blood pressure CBC reviewed platelet count mildly reduced 1 36,000, d-dimer is elevated 1.93, renal functions normal, patient is on 2 L oxygen, AST and ALT both elevated to 74 and 117, total bilirubin is normal, covid19 is positive I'll call level less than 10, computed tomography scan of the chest is negative but fine interstitial infiltrate identified consistent with Covid 19 pneumonia Objective - Vital Signs Vital signs: Vital Signs Temp 98.1 F 12/05/20 03:58 Pulse 63 12/05/20 03:58 Resp 18 12/05/20 03:58 BP 149/83 12/05/20 03:58 Pulse Ox 94 L 12/05/20 03:58 Intake & Output 12/04/20 12/05/20 12/05/20 18:59 06:59 18:59 Intake Total 630 20 10 Output Total 125 Balance 630 -105 10 Weight 99.5 kg Intake: IV 30 20 10 Invasive Line 3 30 20 10 Oral 600 0 Output: Urine 125 Other: Voiding Method Urinal Urinal # Voids 1 1 # Bowel Movements 4 1 - Exam - Constitutional General appearance: average body habitus, cooperative, disheveled, obese - EENT Eyes: PERRLA Ears: bilateral: normal - Neck Neck: normal ROM Carotids: bilateral: upstroke normal - Respiratory Respiratory: bilateral: CTA - Cardiovascular Rhythm: regular Heart sounds: normal: S1, S2 - Gastrointestinal General gastrointestinal: normal bowel sounds - Neurologic Neurologic: CNII-XII intact - Musculoskeletal Musculoskeletal: gait normal, generalized weakness - Psychiatric Psychiatric: A&O x's 3, appropriate affect, intact judgment & insight - Labs CBC & Chem 7: 12/04/20 06:42 12/04/20 06:42 Labs: Abnormal Lab Results - Last 24 Hours (Table) 12/04/20 12/04/20 12/04/20 Range/Units 06:42 12:15 20:25 POC Glucose (mg/dL) 108 H 108 H (75-99) mg/dL Ferritin 461.2 H (22.0-322.0) ng/mL Assessment and Plan Assessment: Acute covid 19 pneumonia Acute hypoxic respiratory failure Alcoholic hepatitis Hypertensive urgency Mild thrombocytopenia Elevated d-dimer likely due to Covid 19 pneumonia Plan: Continue supplemental oxygen keep oxygen saturation over 90% Deep breathing exercise incentive spirometry Continue Decadron Lovenox Supplements including vitamin D and zinc vitamin C 5 day regime of IV REMdesivir Monitor patient closely for alcohol withdrawal Further plan of care as per clinical response of the patient Time with Patient: Greater than 30
[2020-12-05 12:10] LABS: Glucose,Whole Blood 91 mg/dL (75-99)
--- NOTE | 2020-12-05 14:20 | P.PN ---
Progress Note - Text Progress Note Date: 12/05/20 Interval History: Patient was seen today for psychiatric follow-up regarding patient's depression and alcohol use/withdrawal. Patient was seen today at the bedside and was covering himself most of his sheets. He continues to appear to have poor hygiene and grooming. He continues to demonstrate poor insight and judgment into his drinking and need for treatment. He continues to state that "I'm not in a stop drinking". He also states that he does not want to take medications when he leaves the hospital. He continues to claim that he is feeling depressed however is not mentioning any suicidal thoughts. He was fairly future oriented and what he needs to accomplish when he leaves the hospital. He states that he did not sleep well last night. He is not interested in rehab or any other drug treatment options. At this time patient denies any suicidal or homical ideations, intent or plan. Patient denies any auditory, visual hallucinations and denies any paranoia or delusions. Patient denies any side effects from the medications and has been compliant with meds. Mental Status Exam: General Appearance: Patient appears to be stated age is alert, directable, and guarded. Patient appears to have poor hygiene and grooming wearing hospital gown with poor eye contact. Behavior: Patient is calmly lying in bed without any agitated behavior. Constricted Speech: Patient's speech is fluent and nonpressured. Mood/Affect: Patient reports their mood is "depressed and anxious", affect is congruent and constricted Suicidality/Homicidality: Patient denies having any suicidal or homicidal ideation intent or plan. Perceptions: Patient denies any visual hallucinations and denies any auditory hallucinations Though content/process: [place], poverty of content. Logical. Poor insight into his condition and need for treatment. Not endorsing any paranoia. Memory and concentration: AOX3, grossly intact for the purposes of this session. Can spell "WORLD" backwards Judgment and insight: Chronically poor Assessment Depressive disorder unspecified, rule out secondary to substance use versus major depressive disorder Alcohol dependence, currently in withdrawal Cannabis use disorder mild Plan: -At this time patient DOES NOT meet criteria for inpatient psychiatric admission however will continue to follow along to see if patient will meet criteria for inpatient psychiatric hospitalization. -Delirium precautions recommended with patient including - avoiding use of narcotics and WELFARE INVESTIGATOR sedatives, limit anticholinergic medications when possible, frequent re-orientation, minimize use of restraints, open window shades during the day and close them at night -Would recommend the following medication changes/additions: Increased Seroquel 50 mg daily at bedtime for mood/insomnia/anxiety, increased Lexapro to 20 mg daily for mood/anxiety. decrease Librium 10 mg 4 times a day for etoh withdrawal. -CIWA protocol with PRN Ativan for alcohol withdrawal. Continue to monitor vital signs. -mop worker to provide patient with outpatient mental health/psychiatry resources for appropriate follow up upon discharge -Change Management Facilitator spoke with patient about substance abuse and the harmful effects on medical and mental health, patient verbally understood and agreed. -Attempted to encourage patient to seek treatment for his etoh abuse however he is declining to receive any form of treatment including meds, community programs or rehab. -At this time will sign off. -Please contact with any questions.
[2020-12-05] MEDS ORDERED: SODIUM CHLORIDE 0.9% 1,000 ML IV ONE (14:47)
--- NOTE | 2020-12-05 15:22 | P.PN ---
Subjective Progress Note Date: 12/05/20 HISTORY OF PRESENT ILLNESS This is a 54-year-old male patient of Dr. Noble with past medical history of hypertension, daily marijuana use, heavy alcohol abuse, memory loss. He last saw Dr. hager in April of last year and has run out of his medications. Patient lives at home with his mother and father who have both been vaccinated for Covid 19. He complains of difficulty breathing for the past 4 days. No fever. No chills. Complains of cough. He complains of runny nose and body aches. He has had diarrhea which apparently is new for him as well as abdominal pain in the right upper quadrant. Patient presented to [facility] emergency [facility]. He was afebrile, heart rate 79, blood pressure 168/104. EKG was a sinus rhythm with no acute ST changes, right bundle branch block. CBC was unremarkable except for platelet count of 136 and lymphocytes of 0.9. Electrolytes normal. BUN 7 and creatinine 0.68. Blood sugar 107. Total bilirubin 0.5. AST 274, ALT 117, alkaline phosphatase 130. Troponin negative. ProBNP 44. Coronavirus PCR positive. EtOH less than 10. Chest x-ray reveals no active disease. Osteopenia. CTA of the chest showed motion artifact. No central pulmonary embolism. Patient started on blood pressure medication, thiamine IV fluids, Decadron and consult placed with ulnar medicine with anticipation he will qualify for Bamlanivimab. 12/03: Patient was seen by Dr. Coburn and not candidate for him to severe. We will order Bamlanivimab's morning. Patient is complaining of depression along with concerns about his alcohol abuse and consult will be asked for psychiatry. Patient will be started on Lexapro 10 mg daily. Patient's blood pressure was elevated and lisinopril increased to twice daily frequency. He has been afebrile, heart rate 60, pulse ox 98% on room air. Patient was prepared for discharge home today except that he is scoring 13 on CIWA protocol. 12/04: Patient continues to score high on the CIWA protocol and discharge will be held today. Librium increased to 20 mg 3 times daily. Patient states that he plans to quit drinking at this time. He has been afebrile, heart rate 74, blood pressure 140/86, pulse ox 96% on room air. Repeat CBC reveals platelet count of 109. Electrolytes and renal function normal. Blood sugars running between 103 131. AST 101 and ALT 72. C-reactive protein, LDH are normal. Possible discharge home tomorrow. 12/05: Patient's breathing status is stable. He has been seen by psychiatry and Librium was changed to 10 mg 4 times daily, Lexapro 20 mg daily added, Seroquel 50 mg at bedtime added. Social work has provided him with resources for mental health as an outpatient. Patient is declining any form of alcohol abuse treatment including medications currently any programs to rehab. Patient has been afebrile, heart rate 62, blood pressure 165/88, pulse ox 97% on room air. Patient complains of dizziness and lightheadedness and orthostatics were checked with systolic of 154 flat and 136 standing. Patient was given 1 L of IV fluids. REVIEW OF SYSTEMS Constitutional: No fever, reports chills, reports sweats. No weight change. Reports weakness, Reports fatigue. Reports daytime sleepiness. EENT: No headache. No blurred vision or double vision, no loss of vision. No loss of Hearing, no ringing in the ears, no dizziness. Reports nasal drainage or congestion. No epistaxis. No sore throat. Lungs: Reports shortness of breath, reports cough, Reports sputum production. No wheezing. Cardiovascular: No chest pain, no lower extremity edema. No palpitations. No paroxysmal nocturnal dyspnea. No orthopnea. No lightheadedness or dizziness. No syncopal episodes. Abdominal: Denies abdominal pain. Reports nausea, no vomiting. Reports diarrhea. No constipation. No bloody or tarry stools. No loss of appetite. Genitourinary: No dysuria, increased frequency, urgency. No urinary retention. Musculoskeletal: No myalgias. No muscle weakness, no gait dysfunction, no frequent falls. No back pain. No neck pain. Integumentary: No wounds, no lesions. No rash or pruritus. No unusual bruising. Neurologic: No aphasia. No facial droop. No change in mentation. No head injury. No headache. No paralysis. No paresthesia. Psychiatric: No depression. No anxiety. Endocrine: Mildly elevated blood sugars. PHYSICAL EXAMINATION Gen: This is a 54-year-old male patient resting in bed and in no acute distress. No respiratory distress noted. HEENT: Head is atraumatic, normocephalic. Pupils equal, round. Sclerae is anicteric. NECK: Supple. No JVD. No lymphadenopathy. No thyromegaly. LUNGS: Clear to auscultation. No wheezes or rhonchi. No intercostal retractions. No accessory muscle usage. HEART: Regular rate and rhythm. No murmur. ABDOMEN: Soft. Bowel sounds are present. No masses. No tenderness. EXTREMITIES: No pedal edema. No calf tenderness. Dorsalis pedis palpable bilaterally. NEUROLOGICAL: Patient is awake, alert and oriented x3. Cranial nerves 2 through 12 are grossly intact. ASSESSMENT AND PLAN 1. COVID-19 illness with underlying COPD and acquired immunodeficiency. Consult with Dr. Almas sullivan. Patient is status post Bamlanivimab. Continue dexamethasone 6 mg IV daily, albuterol inhaler 2 puffs every 4 hours as needed, Tylenol as needed for pain, Lovenox 40 g subcu daily, vitamin supplements. 2. Alcohol abuse. He has been seen by psychiatry and Librium was changed to 10 mg 4 times daily, Lexapro 20 mg daily added, Seroquel 50 mg at bedtime added. Social work has provided him with resources for mental health as an outpatient. Continue CIWA protocol with Ativan. 3. Uncontrolled hypertension due to noncompliance and lack of follow-up with his physician. Patient has been started on atenolol 50 mg twice daily and lisinopril 10 mg increased frequency to twice daily. He is status post labetalo l 20 mg IV push. 4. Daily marijuana use. 5. Short-term memory deficit secondary to marijuana use and alcohol abuse. 6. Thrombocytopenia secondary to alcohol abuse, stable. 7. Transaminitis secondary to alcohol abuse. 8. 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 9. GI prophylaxis. Protonix daily. 10. DVT prophylaxis. Lovenox subcu. DISCHARGE PLAN Home on Friday Impression and plan of care have been directed as dictated by the signing physician. Penelope Dihllon nurse practitioner acting as scribe for signing physician. Objective - Vital Signs Vital signs: Vital Signs Temp 98.6 F 12/05/20 14:35 Pulse 89 12/05/20 14:45 Resp 20 12/05/20 14:35 BP 133/84 12/05/20 14:45 Pulse Ox 96 12/05/20 14:35 Intake & Output 12/04/20 12/05/20 12/05/20 18:59 06:59 18:59 Intake Total 630 20 10 Output Total 125 Balance 630 -105 10 Weight 99.5 kg Intake: IV 30 20 10 Invasive Line 3 30 20 10 Oral 600 0 Output: Urine 125 Other: Voiding Method Urinal Urinal # Voids 1 1 # Bowel Movements 4 1 - Labs CBC & Chem 7: 12/04/20 06:42 12/04/20 06:42 Labs: Abnormal Lab Results - Last 24 Hours (Table) 12/04/20 12/04/20 Range/Units 06:42 20:25 POC Glucose (mg/dL) 108 H (75-99) mg/dL Ferritin 461.2 H (22.0-322.0) ng/mL
[2020-12-05 17:14] LABS: Glucose,Whole Blood 93 mg/dL (75-99)
[2020-12-05] MEDS: QUEtiapine 50 MG TAB PO SCH (19:43)
[2020-12-05 20:26] LABS: Glucose,Whole Blood 94 mg/dL (75-99)
[2020-12-06] MEDS: SODIUM CHLORIDE 0.9% 1,000 ML IV SCH ×4 (04:40→23:43)
[2020-12-06 07:21] LABS: Glucose,Whole Blood 86 mg/dL (75-99)
[2020-12-06] MEDS: ZINC SULFATE 220 MG CAP PO SCH (07:30)
[2020-12-06] MEDS: THIAMINE 100 MG TAB PO SCH ×2 (07:30→17:37)
[2020-12-06] MEDS: ESCITALOPRAM 20 MG TAB PO SCH (07:31)
[2020-12-06] MEDS: atenoloL 50 MG TAB PO SCH (07:31)
[2020-12-06] MEDS: DEXAMETHASONE SOD PHOSPHATE 10 MG/ML 1 ML VIAL IV SCH (07:31)
[2020-12-06] MEDS: PANTOPRAZOLE 40 MG TABLET PO SCH (07:31)
[2020-12-06] MEDS: lisinopriL 10 MG TAB PO SCH ×2 (07:31→19:19)
[2020-12-06] MEDS: ASCORBIC ACID 500 MG TAB PO SCH (07:31)
[2020-12-06] MEDS: CHOLECALCIFEROL 25 MCG (1000 IU) TABLET PO SCH (07:31)
[2020-12-06] MEDS: ENOXAPARIN 40 MG/0.4 ML SYRINGE SQ SCH (07:32)
[2020-12-06] MEDS ORDERED: SODIUM CHLORIDE 0.9% 500 ML 500 ML IV ONE (09:27)
[2020-12-06] MEDS: MIDODRINE 5 MG TAB PO SCH ×3 (10:18→17:37)
--- NOTE | 2020-12-06 11:31 | P.PN ---
Subjective Progress Note Date: 12/06/20 Principal diagnosis: Acute covid 19 pneumonia Acute hypoxic respiratory failure Alcoholic hepatitis Hypertensive urgency Mild thrombocytopenia Elevated d-dimer likely due to Covid 19 pneumonia 12/06/2020, patient seen eval examined during the rounds labs reviewed medications reviewed care plan discussed, respiratory status remains stable patient remains on room air, denies any chest pain oxygen saturations remained stable 98%, 12/05/2020, patient is awake and alert, slightly withdrawn though, shortness of breath stable, remains on room air status post one of gradual antibody infusion now, patient is being monitor observe for alcohol withdrawal, appears to be stable from Covid standpoint however, we'll follow closely 12/04/2020, patient seen eval examined during the rounds labs reviewed medications reviewed, patient remains on room air, cough congestion shortness of breath improved, patient is being considered for IV monoclonal antibody by primary service, patient appears to be slowly slipping into a call withdrawal will monitor observe closely 12/03/2020, patient seen eval reexamined during the rounds continue breathing exercise, deep breathing exercise, patient is on Decadron along with Lovenox and IV REMdesivir, currently patient is on room air This is a pleasant 54-year-old male with history of smoking and nicotine use chronic ethanol consumption 12 beers a day came into the hospital anxious also have ongoing cough shortness of breath started about 3-4 days ago patient stopped drinking one day before, prior medical history of hypertension however does not take his medications in the ER patient noted to have a elevated blood pressure CBC reviewed platelet count mildly reduced 1 36,000, d-dimer is elevated 1.93, renal functions normal, patient is on 2 L oxygen, AST and ALT both elevated to 74 and 117, total bilirubin is normal, covid19 is positive I'll call level less than 10, computed tomography scan of the chest is negative but fine interstitial infiltrate identified consistent with Covid 19 pneumonia Objective - Vital Signs Vital signs: Vital Signs Temp 98.7 F 12/06/20 08:58 Pulse 54 L 12/06/20 08:58 Resp 18 12/06/20 08:58 BP 153/83 12/06/20 08:58 Pulse Ox 98 12/06/20 08:58 Intake & Output 12/05/20 12/06/20 12/06/20 18:59 06:59 18:59 Intake Total 20 Balance 20 Intake: IV 20 Invasive Line 3 10 Invasive Line 5 10 Oral 0 Other: Voiding Method Urinal Urinal # Voids 1 1 - Exam - Constitutional General appearance: average body habitus, cooperative, disheveled, obese - EENT Eyes: PERRLA Ears: bilateral: normal - Neck Neck: normal ROM Carotids: bilateral: upstroke normal - Respiratory Respiratory: bilateral: CTA - Cardiovascular Rhythm: regular Heart sounds: normal: S1, S2 - Gastrointestinal General gastrointestinal: normal bowel sounds - Neurologic Neurologic: CNII-XII intact - Musculoskeletal Musculoskeletal: gait normal, generalized weakness - Psychiatric Psychiatric: A&O x's 3, appropriate affect, intact judgment & insight - Labs CBC & Chem 7: 12/04/20 06:42 12/04/20 06:42 Assessment and Plan Assessment: Acute covid 19 pneumonia Acute hypoxic respiratory failure Alcoholic hepatitis Hypertensive urgency Mild thrombocytopenia Elevated d-dimer likely due to Covid 19 pneumonia Plan: Continue to monitor patient off of oxygen, oxygen saturation remained stable in high 90s Deep breathing exercise incentive spirometry Continue Decadron to finish therapy for 10 days Lovenox Supplements including vitamin D and zinc vitamin C 5 day regime of IV REMdesivir Monitor patient closely for alcohol withdrawal Further plan of care as per clinical response of the patient Time with Patient: Greater than 30
[2020-12-06 11:48] LABS: Glucose,Whole Blood 106 mg/dL (75-99)
--- NOTE | 2020-12-06 13:47 | P.PN ---
Subjective Progress Note Date: 12/06/20 HISTORY OF PRESENT ILLNESS This is a 54-year-old male patient of Dr. Noble with past medical history of hypertension, daily marijuana use, heavy alcohol abuse, memory loss. He last saw Dr. hager in April of last year and has run out of his medications. Patient lives at home with his mother and father who have both been vaccinated for Covid 19. He complains of difficulty breathing for the past 4 days. No fever. No chills. Complains of cough. He complains of runny nose and body aches. He has had diarrhea which apparently is new for him as well as abdominal pain in the right upper quadrant. Patient presented to [facility] emergency center. He was afebrile, heart rate 79, blood pressure 168/104. EKG was a sinus rhythm with no acute ST changes, right bundle branch block. CBC was unremarkable except for platelet count of 136 and lymphocytes of 0.9. Electrolytes normal. BUN 7 and creatinine 0.68. Blood sugar 107. Total bilirubin 0.5. AST 274, ALT 117, alkaline phosphatase 130. Troponin negative. ProBNP 44. Coronavirus PCR positive. EtOH less than 10. Chest x-ray reveals no active disease. Osteopenia. CTA of the chest showed motion artifact. No central pulmonary embolism. Patient started on blood pressure medication, thiamine IV fluids, Decadron and consult placed with ulnar medicine with anticipation he will qualify for Bamlanivimab. 12/03: Patient was seen by Dr. Coburn and not candidate for him to severe. We will order Bamlanivimab's morning. Patient is complaining of depression along with concerns about his alcohol abuse and consult will be asked for psychiatry. Patient will be started on Lexapro 10 mg daily. Patient's blood pressure was elevated and lisinopril increased to twice daily frequency. He has been afebrile, heart rate 60, pulse ox 98% on room air. Patient was prepared for discharge home today except that he is scoring 13 on CIWA protocol. 12/04: Patient continues to score high on the CIWA protocol and discharge will be held today. Librium increased to 20 mg 3 times daily. Patient states that he plans to quit drinking at this time. He has been afebrile, heart rate 74, blood pressure 140/86, pulse ox 96% on room air. Repeat CBC reveals platelet count of 109. Electrolytes and renal function normal. Blood sugars running between 103 131. AST 101 and ALT 72. C-reactive protein, LDH are normal. Possible discharge home tomorrow. 12/05: Patient's breathing status is stable. He has been seen by psychiatry and Librium was changed to 10 mg 4 times daily, Lexapro 20 mg daily added, Seroquel 50 mg at bedtime added. Social work has provided him with resources for mental health as an outpatient. Patient is declining any form of alcohol abuse treatment including medications currently any programs to rehab. Patient has been afebrile, heart rate 62, blood pressure 165/88, pulse ox 97% on room air. Patient complains of dizziness and lightheadedness and orthostatics were checked with systolic of 154 flat and 136 standing. Patient was given 1 L of IV fluids. 12/06: Dosing getting up with physical therapy and became lightheaded and dizzy. IV fluids 0.9 normal saline 500 mL bolus followed by 100 mL per hour for 12 hours added as well as midodrine 10 mg oral 3 times daily for autonomic dysfunction secondary to alcohol abuse. Patient has been afebrile, heart rate 54, blood pressure 153/83, pulse ox 98% on room air. Blood sugars are running 80 6006. REVIEW OF SYSTEMS Constitutional: No fever, reports chills, reports sweats. No weight change. Reports weakness, Reports fatigue. Reports daytime sleepiness. EENT: No headache. No blurred vision or double vision, no loss of vision. No loss of Hearing, no ringing in the ears, no dizziness. Reports nasal drainage or congestion. No epistaxis. No sore throat. Lungs: Reports shortness of breath, reports cough, Reports sputum production. No wheezing. Cardiovascular: No chest pain, no lower extremity edema. No palpitations. No paroxysmal nocturnal dyspnea. No orthopnea. No lightheadedness or dizziness. No syncopal episodes. Abdominal: Denies abdominal pain. Reports nausea, no vomiting. Reports diarrhea. No constipation. No bloody or tarry stools. No loss of appetite. Genitourinary: No dysuria, increased frequency, urgency. No urinary retention. Musculoskeletal: No myalgias. No muscle weakness, no gait dysfunction, no frequent falls. No back pain. No neck pain. Integumentary: No wounds, no lesions. No rash or pruritus. No unusual bruising. Neurologic: No aphasia. No facial droop. No change in mentation. No head injury. No headache. No paralysis. No paresthesia. Psychiatric: No depression. No anxiety. Endocrine: Mildly elevated blood sugars. PHYSICAL EXAMINATION Gen: This is a 54-year-old male patient resting in bed and in no acute distress. No respiratory distress noted. HEENT: Head is atraumatic, normocephalic. Pupils equal, round. Sclerae is anicteric. NECK: Supple. No JVD. No lymphadenopathy. No thyromegaly. LUNGS: Clear to auscultation. No wheezes or rhonchi. No intercostal retractions. No accessory muscle usage. HEART: Regular rate and rhythm. No murmur. ABDOMEN: Soft. Bowel sounds are present. No masses. No tenderness. EXTREMITIES: No pedal edema. No calf tenderness. Dorsalis pedis palpable bilaterally. NEUROLOGICAL: Patient is awake, alert and oriented x3. Cranial nerves 2 through 12 are grossly intact. ASSESSMENT AND PLAN 1. COVID-19 illness with underlying COPD and acquired immunodeficiency. Consult with Dr. Almas sullivan. Patient is status post Bamlanivimab. Continue dexamethasone 6 mg IV daily, albuterol inhaler 2 puffs every 4 hours as needed, Tylenol as needed for pain, Lovenox 40 g subcu daily, vitamin supplements. 2. Alcohol abuse. He has been seen by psychiatry and Librium was changed to 10 mg 4 times daily, Lexapro 20 mg daily added, Seroquel 50 mg at bedtime added. Social work has provided him with resources for mental health as an outpatient. Continue CIWA protocol with Ativan. 3. Uncontrolled hypertension due to noncompliance and lack of follow-up with his physician. Patient has been started on atenolol 50 mg twice daily and lisinopril 10 mg increased frequency to twice daily. He is status post labetalol 20 mg IV push. 4. Daily marijuana use. 5. Short-term memory deficit secondary to marijuana use and alcohol abuse. 6. Thrombocytopenia secondary to alcohol abuse, stable. 7. Transaminitis secondary to alcohol abuse. 8. 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 9. Autonomic dysfunction causing orthostatic hypotension secondary to alcohol abuse. Patient will be given another 500 mL of IV fluid followed by 100 mL for 12 hours, midodrine 10 mg 3 times daily added. 10. GI prophylaxis. Protonix daily. 11. DVT prophylaxis. Lovenox subcu. DISCHARGE PLAN Home on Impression and plan of care have been directed as dictated by the signing physician. Penelope Dhillon nurse practitioner acting as scribe for signing physician. Objective - Vital Signs Vital signs: Vital Signs Temp 98.7 F 12/06/20 08:58 Pulse 54 L 12/06/20 08:58 Resp 18 12/06/20 08:58 BP 153/83 12/06/20 08:58 Pulse Ox 98 12/06/20 08:58 Intake & Output 12/05/20 12/06/20 12/06/20 18:59 06:59 18:59 Intake Total 20 Balance 20 Intake: IV 20 Invasive Line 3 10 Invasive Line 5 10 Oral 0 Other: Voiding Method Urinal Urinal # Voids 1 1 3 - Labs CBC & Chem 7: 12/04/20 06:42 12/04/20 06:42 Labs: Abnormal Lab Results - Last 24 Hours (Table) 12/06/20 Range/Units 11:47 POC Glucose (mg/dL) 106 H (75-99) mg/dL
[2020-12-06] MEDS: ACETAMINOPHEN TAB 325 MG TAB PO PRN (14:13)
--- NOTE | 2020-12-06 15:31 | CDI ---
Documentation Clarification Form Date: 12/06/2020 03:13:51 PM From: Caroline Westfall RN CCDS Admit Date: 12/04/2020 11:44:00 AM Patient Name: Raymond Celestin V Visit Number: [id number] Discharge Date: ATTENTION: The Clinical Documentation Specialists (CDI) and [facility] Coding Staff appreciate your assistance in clarifying documentation. Please respond to the clarification below the line at the bottom and electronically sign. The CDI & [facility] Coding staff will review the response and follow-up if needed. Please note: Queries are made part of the Legal Health Record. If you have any questions, please contact the author of this message via ITS. Dr. Graham Coburn Acute hypoxic respiratory failure is documented 12/02/20 H&P, which may lack sufficient clinical evidence/support in the medical record. Additional clarification is requested. History/Risk Factors: 54-year-old male presents to ED with difficulty breathing for the past four days. Rubi virus positive, Smokes marijuana daily, COPD and uncontrolled hypertension. Documented 12/04/20 medical progress note. Clinical Indicators: VSS 12/01/20: B/P 168/104; HR 79; Temp 97.9 F Oral; RR 20; SpO2 96% room air. VSS 12/04/20: B/P 130/77; HR 66; Temp 97.7 F Oral; RR 18; SpO2 95% room air. Respiratory assessment: Bilateral Clear to Auscultation 12/04/20 Pulmonology progress note. CXR 12/02: No active disease. Continue to monitor patient off oxygen, oxygen saturation remained stable in the high 90s. 12/06/20 Pulmonary Progress note Treatment:12/02/20 Deep breathing exercise, Incentive spirometer Please clarify if Acute respiratory failure is a valid diagnosis? No, Acute Respiratory failure is ruled out (Template Last Revised: October 2020) KORY
[2020-12-06 17:37] LABS: Glucose,Whole Blood 97 mg/dL (75-99)
[2020-12-06] MEDS: QUEtiapine 50 MG TAB PO SCH (19:16)
[2020-12-06 21:10] LABS: Glucose,Whole Blood 98 mg/dL (75-99)
[2020-12-07 07:33] VITALS: BP 164/94; PULSE 55; RESP 16; TEMP 98.7
[2020-12-07] MEDS: CHOLECALCIFEROL 25 MCG (1000 IU) TABLET PO SCH (07:33)
[2020-12-07] MEDS: THIAMINE 100 MG TAB PO SCH (07:33)
[2020-12-07] MEDS: lisinopriL 10 MG TAB PO SCH (07:34)
[2020-12-07] MEDS: ZINC SULFATE 220 MG CAP PO SCH (07:34)
[2020-12-07] MEDS: atenoloL 50 MG TAB PO SCH (07:34)
[2020-12-07] MEDS: ASCORBIC ACID 500 MG TAB PO SCH (07:34)
[2020-12-07] MEDS: ESCITALOPRAM 20 MG TAB PO SCH (07:34)
[2020-12-07] MEDS: MIDODRINE 5 MG TAB PO SCH ×2 (07:34→12:25)
[2020-12-07] MEDS: PANTOPRAZOLE 40 MG TABLET PO SCH (07:34)
[2020-12-07] MEDS: ENOXAPARIN 40 MG/0.4 ML SYRINGE SQ SCH (07:34)
[2020-12-07] MEDS: DEXAMETHASONE SOD PHOSPHATE 10 MG/ML 1 ML VIAL IV SCH (07:35)
[2020-12-07] MEDS: ALBUTEROL HFA INHALER INHALATION PRN ×2 (07:53→11:05)
[2020-12-07 08:02] LABS: Glucose,Whole Blood 87 mg/dL (75-99)
--- NOTE | 2020-12-07 09:24 | P.DS ---
Providers Date of admission: 12/04/20 11:44 Expected date of discharge: 12/07/20 Attending physician: oSnia Miguel Consults: 12/02/20 05:52 Consult Physician Routine Consulting Provider: Graham Coburn Consult Reason/Comments: Covid 19 infection Do you want consulting provider notified?: Yes 12/03/20 10:10 Consult Physician Routine Consulting Provider: Taurus Chiang Consult Reason/Comments: depression, alcohol abuse Do you want consulting provider notified?: Yes Primary care physician: Anson Noble [facility] Course: HISTORY OF PRESENT ILLNESS This is a 54-year-old male patient of Dr. Noble with past medical history of hypertension, daily marijuana use, heavy alcohol abuse, memory loss. He last saw Dr. hager in April of last year and has run out of his medications. Patient lives at home with his mother and father who have both been vaccinated for Covid 19. He complains of difficulty breathing for the past 4 days. No fever. No chills. Complains of cough. He complains of runny nose and body aches. He has had diarrhea which apparently is new for him as well as abdominal pain in the right upper quadrant. Patient presented to [facility] emergency center. He was afebrile, heart rate 79, blood pressure 168/104. EKG was a sinus rhythm with no acute ST changes, right bundle branch block. CBC was unremarkable except for platelet count of 136 and lymphocytes of 0.9. Electrolytes normal. BUN 7 and creatinine 0.68. Blood sugar 107. Total bilirubin 0.5. AST 274, ALT 117, alkaline phosphatase 130. Troponin negative. ProBNP 44. Coronavirus PCR positive. EtOH less than 10. Chest x-ray reveals no active disease. Osteopenia. CTA of the chest showed motion artifact. No central pulmonary embolism. Patient started on blood pressure medication, thiamine IV fluids, Decadron and consult placed with ulnar medicine with anticipation he will qualify for Bamlanivimab. 12/03: Patient was seen by Dr. Coburn and not candidate for him to severe. We will order Bamlanivimab's morning. Patient is complaining of depression along with concerns about his alcohol abuse and consult will be asked for psychiatry. Patient will be started on Lexapro 10 mg daily. Patient's blood pressure was elevated and lisinopril increased to twice daily frequency. He has been afebrile, heart rate 60, pulse ox 98% on room air. Patient was prepared for discharge home today except that he is scoring 13 on CIWA protocol. 12/04: Patient continues to score high on the CIWA protocol and discharge will be held today. Librium increased to 20 mg 3 times daily. Patient states that he plans to quit drinking at this time. He has been afebrile, heart rate 74, blood pressure 140/86, pulse ox 96% on room air. Repeat CBC reveals platelet count of 109. Electrolytes and renal function normal. Blood sugars running between 103 131. AST 101 and ALT 72. C-reactive protein, LDH are normal. Possible discharge home tomorrow. 12/05: Patient's breathing status is stable. He has been seen by psychiatry and Librium was changed to 10 mg 4 times daily, Lexapro 20 mg daily added, Seroquel 50 mg at bedtime added. Social work has provided him with resources for mental health as an outpatient. Patient is declining any form of alcohol abuse treatment including medications currently any programs to rehab. Patient has been afebrile, heart rate 62, blood pressure 165/88, pulse ox 97% on room air. Patient complains of dizziness and lightheadedness and orthostatics were checked with systolic of 154 flat and 136 standing. Patient was given 1 L of IV fluids. 12/06: Dosing getting up with physical therapy and became lightheaded and dizzy. IV fluids 0.9 normal saline 500 mL bolus followed by 100 mL per hour for 12 hours added as well as midodrine 10 mg oral 3 times daily for autonomic dysfunction secondary to alcohol abuse. Patient has been afebrile, heart rate 54, blood pressure 153/83, pulse ox 98% on room air. Blood sugars are running 86-106. 12/07: Patient has been followed by therapies and recommendations is for subacute rehab. Patient is in agreement. Social work is following and arrangements to b e made at either [facility] or [facility]. Patient has been afebrile, heart rate 55, blood pressure 164/94, pulse ox 98% on room air. Patient will be discharged to subacute rehab today in stable condition once all arrangements are completed. ASSESSMENT AND PLAN 1. COVID-19 illness with underlying COPD and acquired immunodeficiency. 2. Alcohol abuse. 3. Uncontrolled hypertension due to noncompliance and lack of follow-up with his physician. 4. Daily marijuana use. 5. Short-term memory deficit secondary to marijuana use and alcohol abuse. 6. Thrombocytopenia secondary to alcohol abuse, stable. 7. Transaminitis secondary to alcohol abuse. 8. Osteopenia secondary to malnutrition. 9. Autonomic dysfunction causing orthostatic hypotension secondary to alcohol abuse. 10. Moderate protein calorie malnutrition secondary to long-term alcohol abuse DISCHARGE PLAN Subacute rehab Impression and plan of care have been directed as dictated by the signing physician. Penelope Dhillon nurse practitioner acting as scribe for signing physician. Patient Condition at Discharge: Good Plan - Discharge Summary Discharge Rx Participant: No New Discharge Prescriptions: New Zinc Sulfate [Orazinc] 220 mg PO DAILY cap Midodrine HCl [ProAmatine] 10 mg PO TID #90 tablet QUEtiapine [SEROquel] 50 mg PO HS #30 tab Ascorbic Acid [Vitamin C] 1,000 mg PO DAILY tab Cholecalciferol [Vitamin D3 (25 Mcg = 1000 Iu)] 50 mcg PO DAILY tablet lisinopriL [Zestril] 10 mg PO BID #60 tab Escitalopram [Lexapro] 20 mg PO DAILY #30 tab chlordiazePOXIDE HCl [Librium] 10 mg PO QID #30 cap Pantoprazole [Protonix] 40 mg PO AC-BRKFST #30 tablet.dr Continue atenoloL [Tenormin] 50 mg PO DAILY #60 tab Discontinued ALPRAZolam [Xanax] 0.25 mg PO BID PRN PRN Reason: Anxiety Losartan-Hctz 50-12.5 mg [Hyzaar 50-12.5] 1 tab PO DAILY Discharge Medication List Ascorbic Acid [Vitamin C] 1,000 mg PO DAILY tab 12/03/20 [Rx] Cholecalciferol [Vitamin D3 (25 Mcg = 1000 Iu)] 50 mcg PO DAILY tablet 12/03/20 [Rx] Zinc Sulfate [Orazinc] 220 mg PO DAILY cap 12/03/20 [Rx] atenoloL [Tenormin] 50 mg PO DAILY #60 tab 12/03/20 [Rx] lisinopriL [Zestril] 10 mg PO BID #60 tab 12/03/20 [Rx] Escitalopram [Lexapro] 20 mg PO DAILY #30 tab 12/06/20 [Rx] Midodrine HCl [ProAmatine] 10 mg PO TID #90 tablet 12/06/20 [Rx] Pantoprazole [Protonix] 40 mg PO AC-BRKFST #30 tablet. 12/06/20 [Rx] QUEtiapine [SEROquel] 50 mg PO HS #30 tab 12/06/20 [Rx] chlordiazePOXIDE HCl [Librium] 10 mg PO QID #30 cap 12/06/20 [Rx] Follow up Appointment(s)/Referral(s): Sonia Miguel MD [STAFF PHYSICIAN] - 1 Week (Patient will be new for Dr. Miguel. Pt's PCP (Dr. Noble) has retired.) Patient Instructions/Handouts: Coronavirus Disease 2019 (COVID-19), Depression (DC), Alcohol Intoxication (DC) Discharge/Stand Alone Forms: AA Meetings Discharge Disposition: HOME SELF-CARE
== END 2020-12-07 13:15 | DRG 177 ==
LOC: EC 23:38 → INTOOBSV 12-02 05:49 → 3SCARD 12-02 05:49 → OBSVTOIN 12-04 11:44 → 6NMEDSUR 12-05 15:33
PROVIDERS: ADMIT Family Medicine; ATTEND Family Medicine
PROC: XW033F6 Introduction of Bamlanivimab Monoclonal Antibody into Peripheral Vein, Percutaneous Approach, New Technology Group 6 (ICD-10-PCS; principal; 2020-12-03)
DX: U07.1 COVID-19 (principal); J12.82 Pneumonia due to coronavirus disease 2019; J44.0 Chronic obstructive pulmonary disease with (acute) lower respiratory infection; E44.0 Moderate protein-calorie malnutrition; F10.139 Alcohol abuse with withdrawal, unspecified; D84.9 Immunodeficiency, unspecified; I10 Essential (primary) hypertension; D69.59 Other secondary thrombocytopenia; I95.1 Orthostatic hypotension; F41.9 Anxiety disorder, unspecified; F60.9 Personality disorder, unspecified; M85.80 Other specified disorders of bone density and structure, unspecified site; R41.3 Other amnesia; R74.01 Elevation of levels of liver transaminase levels; K70.10 Alcoholic hepatitis without ascites; I16.0 Hypertensive urgency; G31.2 Degeneration of nervous system due to alcohol; F12.10 Cannabis abuse, uncomplicated; F32.9 Major depressive disorder, single episode, unspecified; Z68.28 Body mass index [BMI] 28.0-28.9, adult; Z82.3 Family history of stroke; Z82.49 Family history of ischemic heart disease and other diseases of the circulatory system; Z83.49 Family history of other endocrine, nutritional and metabolic diseases; Z88.6 Allergy status to analgesic agent; Z88.1 Allergy status to other antibiotic agents; Z88.8 Allergy status to other drugs, medicaments and biological substances; Z79.899 Other long term (current) drug therapy; Z91.19 Patient's noncompliance with other medical treatment and regimen; Z87.891 Personal history of nicotine dependence; Z80.8 Family history of malignant neoplasm of other organs or systems
CPT/HCPCS: 36415; 71046; 71275; 80053; 80320; 82728; 83615; 83880; 84484; 85025; 85027; 85379; 85610; 85730; 86140; 87635; 93005; 94640; 94760; 96361; 96374; 99285

== ENCOUNTER 2021-01-20 05:20 | Emergency (ER) | payer OTHER ==
[2021-01-20 05:28] VITALS: TEMP 98
[2021-01-20] MEDS ORDERED: SODIUM CHLORIDE 0.9% 500 ML 500 ML IV STA (05:42)
[2021-01-20] MEDS ORDERED: LORazepam 2 MG/ML INJ IV STA (05:42)
--- NOTE | 2021-01-20 05:47 | ED ---
General Adult HPI - General Chief complaint: Recheck/Abnormal Lab/Rx Stated complaint: High blood pressure Time Seen by Provider: 01/20/21 05:31 Source: patient Mode of arrival: ambulatory - History of Present Illness Initial comments: This patient is a 55-year-old man who presents with complaint that he is feeling anxious and notes that his blood pressure is elevated. Patient states that when he got up this morning he took his blood pressure medicine then checked his blood pressure and it was higher than usual. He waited for brief interval and checked it again and it had gone up a bit so he presents here to be evaluated. The patient is denying symptoms other than the fact that he is anxious. He states that he does drink daily, and yesterday he had about 12 drinks. He states that if he is not drink something he feels like he is having withdrawal symptoms. Patient denies headache, chest pain, dyspnea, strokelike symptoms. Onset/Timin -: hour(s) Severity scale (1-10): 0 Improves with: none Worsens with: none Associated Symptoms: other Treatments Prior to Arrival: none - Related Data Previous Rx's Medication Instructions Recorded Ascorbic Acid [Vitamin C] 1,000 mg PO DAILY tab 12/03/20 Cholecalciferol [Vitamin D3 (25 50 mcg PO DAILY tablet 12/03/20 Mcg = 1000 Iu)] Zinc Sulfate [Orazinc] 220 mg PO DAILY cap 12/03/20 atenoloL [Tenormin] 50 mg PO DAILY #60 tab 12/03/20 lisinopriL [Zestril] 10 mg PO BID #60 tab 12/03/20 Escitalopram [Lexapro] 20 mg PO DAILY #30 tab 12/06/20 Midodrine HCl [ProAmatine] 10 mg PO TID #90 tablet 12/06/20 Pantoprazole [Protonix] 40 mg PO AC-BRKFST #30 tablet. 12/06/20 QUEtiapine [SEROquel] 50 mg PO HS #30 tab 12/06/20 chlordiazePOXIDE HCl [Librium] 10 mg PO QID #30 cap 12/06/20 chlordiazePOXIDE HCl [Librium] 25 mg PO TID 3 Days #9 capsule 01/20/21 Allergies Allergy/AdvReac Type Severity Reaction Status Date / Time allopurinol Allergy Unknown Verified 01/20/21 05:28 azithromycin Allergy Anaphylaxis Verified 01/20/21 05:28 Review of Systems ROS Statement: Those systems with pertinent positive or pertinent negative responses have been documented in the HPI. ROS Other: All systems not noted in ROS Statement are negative. Constitutional: Denies: fever, chills, weakness Eyes: Denies: vision change Respiratory: Denies: cough, dyspnea Cardiovascular: Denies: chest pain, palpitations, orthopnea Gastrointestinal: Denies: abdominal pain, vomiting, diarrhea Skin: Denies: rash Neurological: Denies: headache Psychiatric: Reports: anxiety. Denies: homicidal thoughts, suicidal thoughts Past Medical History Past Medical History: Unable to Obtain, Hypertension Additional Past Medical History / Comment(s): anxiety, personality disorder, manic depression, etoh abuse History of Any Multi-Drug Resistant Organisms: None Reported Past Surgical History: Unable to Obtain Past Anesthesia/Blood Transfusion Reactions: No Reported Reaction Past Psychological History: Anxiety, Depression Smoking Status: Never smoker Past Alcohol Use History: Daily, Heavy Past Drug Use History: Marijuana - Past Family History Father Family Medical History: CVA/TIA, Myocardial Infarction ([place]) Mother Family Medical History: Thyroid Disorder General Exam General appearance: alert, anxious Head exam: Present: atraumatic, normocephalic Eye exam: Present: normal appearance. Absent: scleral icterus, conjunctival injection ENT exam: Present: normal oropharynx Neck exam: Present: normal inspection Respiratory exam: Present: normal lung sounds bilaterally. Absent: respiratory distress, wheezes, rales, rhonchi, stridor Cardiovascular Exam: Present: regular rate, normal rhythm, normal heart sounds. Absent: systolic murmur, diastolic murmur, rubs, gallop GI/Abdominal exam: Present: soft. Absent: distended, tenderness, guarding, rebound, rigid, mass Extremities exam: Present: normal inspection, normal capillary refill. Absent: pedal edema, calf tenderness Back exam: Present: normal inspection. Absent: CVA tenderness (R), CVA tenderness (L) Neurological exam: Present: alert Psychiatric exam: Present: anxious. Absent: homicidal ideation, suicidal ideation Skin exam: Present: warm, dry, intact, normal color. Absent: rash Course Vital Signs 01/20/21 01/20/21 05:25 06:28 Temperature 98 F Pulse Rate 68 Respiratory 19 Rate Blood Pressure 211/120 168/88 O2 Sat by Pulse 98 Oximetry EKG Findings - EKG Results: EKG: interpreted by ERMD, sinus rhythm, normal axis, normal ST/T - Blocks, Ennice, Hypertrophy, ST Abn: AV and intraventricular conduction: right bundle branch block (fixed/intermittent, complete/incomplete) (Incomplete) Disposition Clinical Impression: Hypertension Disposition: HOME SELF-CARE Condition: Fair Instructions (If sedation given, give patient instructions): Hypertension (ED) Prescriptions: chlordiazePOXIDE HCl [Librium] 25 mg PO TID 3 Days #9 capsule Is patient prescribed a controlled substance at d/c from ED?: Yes When asked, does pt state using other controlled substances?: No If prescribed controlled substance>3 days was MAPS reviewed?: Prescribed <3 Days Referrals: Keira Bello MD [Primary Care Provider] - 1-2 days
[2021-01-20 07:06] VITALS: BP 158/92; PULSE 72; RESP 16
== END 2021-01-20 06:53 | disposition home or self-care (01) ==
LOC: EC 05:20
DX: I10 Essential (primary) hypertension (principal)
CPT/HCPCS: 93005; 99283; 96374; J2060

== ENCOUNTER 2021-02-28 22:28 | Inpatient (IN) | payer OTHER ==
--- NOTE | 2021-02-28 22:33 | ED ---
Anxiety HPI - General Stated Complaint: Anxiety Time Seen by Provider: 02/28/21 22:32 Source: RN notes reviewed, old records reviewed Limitations: no limitations - History of Present Illness Initial Comments: This is a 55-year-old male DF for evaluation patient coming in for severe anxiety shaking, states she does not feel well, patient has significant history of alcohol abuse feels very anxious feels like is losing his mind. Patient denies homicidal or suicidal thoughts currently. MD Complaint: anxiety, heart racing, shortness of breath -: hour(s) Symptoms: dyspnea, chest pain, palpitations, sense of impending doom, muscle cramps Place: home Previous History of Same: Yes Severity: severe Quality: worsening, similar to prior episodes Provoking factors: none known Improves With: nothing, alcohol use Associated symptoms: shortness of breath, palpitations, diaphoresis, nausea/vomiting, weakness - Related Data Home Medications: Previous Rx's Medication Instructions Recorded Ascorbic Acid [Vitamin C] 1,000 mg PO DAILY tab 12/03/20 Cholecalciferol [Vitamin D3 (25 50 mcg PO DAILY tablet 12/03/20 Mcg = 1000 Iu)] Zinc Sulfate [Orazinc] 220 mg PO DAILY cap 12/03/20 atenoloL [Tenormin] 50 mg PO DAILY #60 tab 12/03/20 lisinopriL [Zestril] 10 mg PO BID #60 tab 12/03/20 Escitalopram [Lexapro] 20 mg PO DAILY #30 tab 12/06/20 Midodrine HCl [ProAmatine] 10 mg PO TID #90 tablet 12/06/20 Pantoprazole [Protonix] 40 mg PO AC-BRKFST #30 tablet. 12/06/20 QUEtiapine [SEROquel] 50 mg PO HS #30 tab 12/06/20 chlordiazePOXIDE HCl [Librium] 10 mg PO QID #30 cap 12/06/20 chlordiazePOXIDE HCl [Librium] 25 mg PO TID 3 Days #9 capsule 01/20/21 Allergies/Adverse Reactions: Allergies Allergy/AdvReac Type Severity Reaction Status Date / Time allopurinol Allergy Unknown Verified 01/20/21 05:28 azithromycin Allergy Anaphylaxis Verified 01/20/21 05:28 Review of Systems ROS Statement: Those systems with pertinent positive or pertinent negative responses have been documented in the HPI. ROS Other: All systems not noted in ROS Statement are negative. Past Medical History Past Medical History: Unable to Obtain, Hypertension Additional Past Medical History / Comment(s): anxiety, personality disorder, manic depression, etoh abuse History of Any Multi-Drug Resistant Organisms: None Reported Past Surgical History: Unable to Obtain Past Anesthesia/Blood Transfusion Reactions: No Reported Reaction Past Psychological History: Anxiety, Depression Smoking Status: Never smoker Past Alcohol Use History: Daily, Heavy Past Drug Use History: Marijuana - Past Family History Father Family Medical History: CVA/TIA, Myocardial Infarction ([place]) Mother Family Medical History: Thyroid Disorder General Exam General appearance: alert, in no apparent distress, anxious Head exam: Present: atraumatic, normocephalic, normal inspection Eye exam: Present: normal appearance, PERRL, EOMI. Absent: scleral icterus, conjunctival injection, periorbital swelling ENT exam: Present: normal exam, mucous membranes moist Neck exam: Present: normal inspection. Absent: tenderness, meningismus, lymphadenopathy Respiratory exam: Present: normal lung sounds bilaterally. Absent: respiratory distress, wheezes, rales, rhonchi, stridor Cardiovascular Exam: Present: normal rhythm, tachycardia, normal heart sounds. Absent: systolic murmur, diastolic murmur, rubs, gallop, clicks GI/Abdominal exam: Present: soft, normal bowel sounds. Absent: distended, te nderness, guarding, rebound, rigid Extremities exam: Present: normal inspection, full ROM, normal capillary refill. Absent: tenderness, pedal edema, joint swelling, calf tenderness Back exam: Present: normal inspection Neurological exam: Present: alert, oriented X3, CN II-XII intact Psychiatric exam: Present: normal affect, normal mood Skin exam: Present: warm, dry, intact, normal color. Absent: rash Course Vital Signs 02/28/21 22:29 Temperature 98.4 F Pulse Rate 114 H Respiratory 20 Rate Blood Pressure 145/96 O2 Sat by Pulse 97 Oximetry - Reevaluation(s) Reevaluation #1: 02/28/21 23:06 Medical record is reviewed Reevaluation #2: 02/28/21 23:06 Patient does appear to be having significant alcohol withdrawal Reevaluation #3: 02/28/21 23:06 Symptoms are difficult to control here in the ER Medical Decision Making - Medical Decision Making 55 male to be admitted for alcohol withdrawal symptoms. Severe shaking and anxiety, impending DTs - Lab Data Result diagrams: 02/28/21 22:57 Lab Results 02/28/21 Range/Units 22:57 WBC 4.5 (3.8-10.6) k/uL RBC 4.51 (4.30-5.90) m/uL Hgb 15.4 (13.0-17.5) gm/dL Hct 43.1 (39.0-53.0) % MCV 95.6 (80.0-100.0) fL MCH 34.0 (25.0-35.0) pg MCHC 35.6 (31.0-37.0) g/dL RDW 13.0 (11.5-15.5) % Plt Count 132 L (150-450) k/uL MPV 8.4 Neutrophils % 48 % Lymphocytes % 38 % Monocytes % 8 % Eosinophils % 3 % Basophils % 2 % Neutrophils # 2.2 (1.3-7.7) k/uL Lymphocytes # 1.7 (1.0-4.8) k/uL Monocytes # 0.4 (0-1.0) k/uL Eosinophils # 0.2 (0-0.7) k/uL Basophils # 0.1 (0-0.2) k/uL Disposition Clinical Impression: Alcohol withdrawal, Alcohol intoxication, Depression, Psychosis Disposition: ADMITTED IP TO THIS [facility] Condition: Fair Is patient prescribed a controlled substance at d/c from ED?: No Referrals: Keira Bello MD [Primary Care Provider] - 1-2 days
[2021-02-28] MEDS ORDERED: THIAMINE 100 MG/ML 2 ML VIAL IM STA ×3 (22:46→22:59)
[2021-02-28] MEDS ORDERED: DIAZEPAM 5 MG/ML 2 ML INJ IVP STA (22:47)
[2021-02-28] MEDS ORDERED: MULTIVITAMINS, THERA 1 EACH TAB PO STA (22:47)
[2021-02-28] MEDS ORDERED: SODIUM CHLORIDE 0.9% 1,000 ML IV STA (22:47)
[2021-02-28] MEDS ORDERED: LORazepam 2 MG/ML INJ IV STA (22:47)
[2021-02-28] MEDS ORDERED: SODIUM CHLORIDE 0.9% 500 ML 500 ML IV STA (22:47)
[2021-02-28] MEDS: THIAMINE 100 MG TAB PO SCH (22:58)
[2021-02-28 23:02] LABS: Basophils # (A) 0.1 k/uL (0-0.2); Basophils % (A) 2 %; Eosinophils # (A) 0.2 k/uL (0-0.7); Eosinophils % (A) 3 %; HCT 43.1 % (39.0-53.0); HGB 15.4 gm/dL (13.0-17.5); Lymphocytes # (A) 1.7 k/uL (1.0-4.8); Lymphocytes % (A) 38 %; MCHC 35.6 g/dL (31.0-37.0); MCV 95.6 fL (80.0-100.0); Mean Platelet Volume 8.4; Monocytes # (A) 0.4 k/uL (0-1.0); Monocytes % (A) 8 %; Neutrophils # (A) 2.2 k/uL (1.3-7.7); Neutrophils % (A) 48 %; Platelet Count 132 k/uL (150-450); RBC 4.51 m/uL (4.30-5.90); WBC 4.5 k/uL (3.8-10.6)
[2021-02-28] MEDS ORDERED: NALOXONE 0.4 MG/ML 1 ML VIAL IV PRN (23:07)
[2021-02-28] MEDS ORDERED: ONDANSETRON 4 MG/2 ML VIAL IVP PRN (23:07)
[2021-02-28] MEDS: SODIUM CHLORIDE 0.9% 1,000 ML IV STA ×2 (23:14→23:15)
[2021-02-28] MEDS: DEXTROSE 5%-0.45% NACL 1,000 ML IV SCH (23:21)
[2021-02-28 23:24] LABS: ALT 41 U/L (4-49); AST 135 U/L (17-59); African American GFR (CKD) >90 (>60 ml/min/1.73 sqM); Albumin 4.6 g/dL (3.5-5.0); Alkaline Phosphatase 93 U/L (38-126); Anion Gap 14 mmol/L; Blood Urea Nitrogen 10 mg/dL (9-20); Calcium 9.4 mg/dL (8.4-10.2); Carbon Dioxide 26 mmol/L (22-30); Chloride 104 mmol/L (98-107); Glucose 128 mg/dL (74-99); Lipase 546 U/L (23-300); Magnesium 2.1 mg/dL (1.6-2.3); Non-African American GFR(CKD) >90 (>60 ml/min/1.73 sqM); Potassium 3.9 mmol/L (3.5-5.1); Sodium 144 mmol/L (137-145); Total Bilirubin 0.3 mg/dL (0.2-1.3)
[2021-03-01 00:06] LABS: Alcohol 210 mg/dL
[2021-03-01] MEDS: LORazepam 2 MG/ML INJ IV PRN ×7 (00:52→20:42)
[2021-03-01 06:30] LABS: Basophils % (A) 1 %; Eosinophils # (A) 0.1 k/uL (0-0.7); Eosinophils % (A) 3 %; HCT 38.5 % (39.0-53.0); HGB 13.5 gm/dL (13.0-17.5); Lymphocytes # (A) 0.9 k/uL (1.0-4.8); Lymphocytes % (A) 24 %; MCH 33.9 pg (25.0-35.0); MCV 96.7 fL (80.0-100.0); Monocytes # (A) 0.3 k/uL (0-1.0); Monocytes % (A) 7 %; Neutrophils # (A) 2.3 k/uL (1.3-7.7); Neutrophils % (A) 64 %; RBC 3.99 m/uL (4.30-5.90); RDW 13.1 % (11.5-15.5); WBC 3.6 k/uL (3.8-10.6)
[2021-03-01 06:47] LABS: ALT 34 U/L (4-49); AST 97 U/L (17-59); African American GFR (CKD) >90 (>60 ml/min/1.73 sqM); Albumin 3.7 g/dL (3.5-5.0); Alkaline Phosphatase 81 U/L (38-126); Anion Gap 7 mmol/L; Blood Urea Nitrogen 8 mg/dL (9-20); Calcium 8.2 mg/dL (8.4-10.2); Carbon Dioxide 26 mmol/L (22-30); Chloride 108 mmol/L (98-107); Glucose 92 mg/dL (74-99); Magnesium 1.8 mg/dL (1.6-2.3); Non-African American GFR(CKD) >90 (>60 ml/min/1.73 sqM); Phosphorus 2.6 mg/dL (2.5-4.5); Potassium 3.5 mmol/L (3.5-5.1); Sodium 141 mmol/L (137-145); Total Bilirubin 0.4 mg/dL (0.2-1.3)
[2021-03-01 06:55] LABS: Platelet Count 83 k/uL (150-450)
[2021-03-01 08:07] LABS: Amylase 50 U/L (30-110); Lipase 200 U/L (23-300)
[2021-03-01] MEDS: THIAMINE 100 MG TAB PO SCH ×2 (08:28→17:36)
[2021-03-01] MEDS: DEXTROSE 5%-0.45% NACL 1,000 ML IV SCH ×3 (08:55→20:39)
[2021-03-01] MEDS: atenoloL 50 MG TAB PO SCH (08:55)
[2021-03-01] MEDS ORDERED: COLCHICINE 0.6 MG EACH PO PRN (09:00)
--- NOTE | 2021-03-01 17:50 | P.HPIM ---
History of Present Illness H&P Date: 03/01/21 Raymond Celestin, he is a 55-year-old male who presented to [facility] emergency room with a chief complaint of of severe anxiety and shaking, he was having palpitation and shortness of breath patient has a known history of excessive alcohol use, and had evidence of early was throwing symptoms. He was evaluated in the emergency room vital examination on presentation revealed a temperature of 98.4 pulse 114 respiration 20 blood pressure 145/96 pulse ox 97% on room air Laboratory data reveals a white blood count of 4.5 hemoglobin 15.4 platelet count 132 sodium 144 potassium 3.9 chloride 104 CO2 26 BUN 10 creatinine 0.8 glucose level 132 AST was elevated at 135 lipase level was elevated at 546 and alcohol level was elevated at 210 Patient was admitted to medical floor for further evaluation and treatment. He was started on CIWA protocol in the emergency room. Past medical history is significant for COVID-19 illness, patient was admitted to the hospital in November 2020, underlying history of COPD, underlying history of acquired immunodeficiency, history of alcohol abuse, underlying history of hypertension, history of marijuana use daily, underlying history of thrombocytopenia, underlying history of osteopenia, and moderate protein calorie malnutrition. This history is derived from chart review, patient is not able to give any significant history. On review of systems Patient was seen and examined on the medical floor, he is alert and oriented x 3 in no distress, he is complaining of feeling anxious and asking for Ativan otherwise he denies any complaints there is no fever or chills no headache or dizziness no chest pain no shortness of breath no palpitation no cough no nausea or vomiting no abdominal pain no diarrhea no blood in the stools no burning with urination no frequency or urgency and no hematuria, there is no weakness or numbness in any of the extremities no change in vision speech or gait. Past Medical History Past Medical History: Unable to Obtain, Hypertension Additional Past Medical History / Comment(s): anxiety, personality disorder, manic depression, etoh abuse History of Any Multi-Drug Resistant Organisms: None Reported Past Surgical History: Unable to Obtain Past Anesthesia/Blood Transfusion Reactions: No Reported Reaction Past Psychological History: Anxiety, Depression Smoking Status: Never smoker Past Alcohol Use History: Daily, Heavy Past Drug Use History: Marijuana - Past Family History Father Family Medical History: CVA/TIA, Myocardial Infarction ([place]) Mother Family Medical History: Thyroid Disorder Medications and Allergies Home Medications Medication Instructions Recorded Confirmed Type Atenolol [Tenormin] 50 mg PO DAILY 02/28/21 02/28/21 History Colchicine 0.6 - 1.2 mg PO DIRECTED 02/28/21 02/28/21 History amLODIPine [Norvasc] 10 mg PO HS 02/28/21 02/28/21 History Allergies Allergy/AdvReac Type Severity Reaction Status Date / Time allopurinol Allergy Unknown Verified 02/28/21 23:22 azithromycin Allergy Anaphylaxis Verified 02/28/21 23:22 Physical Exam Vitals: Vital Signs Temp Pulse Resp BP Pulse Ox 03/01/21 05:17 75 18 139/84 97 03/01/21 03:06 76 18 128/75 96 02/28/21 23:25 90 18 123/66 96 02/28/21 22:29 98.4 F 114 H 20 145/96 97 Intake and Output 02/28/21 03/01/21 03/01/21 22:59 06:59 14:59 Other: Weight 104.326 kg In general patient is alert and oriented x 3 in no distress HEENT head normocephalic and atraumatic Neck is supple no JVD no goiter no lymphadenopathy no carotid bruit Chest examination is clear to auscultation no crackles no wheezing Cardiac exam reveals regular heart sounds S1 and S2 no gallops no murmurs Abdomen is soft nontender no organomegaly with normal bowel sounds Extremity exam reveals no edema no cyanosis or clubbing Neurological examination reveals no gross focal deficits Results CBC & Chem 7: 03/01/21 06:16 03/01/21 06:16 Labs: Abnormal Lab Results - Last 24 Hours (Table) 02/28/21 02/28/21 03/01/21 Range/Units 22:57 22:57 06:16 WBC 3.6 L (3.8-10.6) k/uL RBC 3.99 L (4.30-5.90) m/uL Hct 38.5 L (39.0-53.0) % Plt Count 132 L 83 L (150-450) k/uL Lymphocytes # 0.9 L (1.0-4.8) k/uL Chloride (98-107) mmol/L BUN (9-20) mg/dL Creatinine (0.66-1.25) mg/dL Glucose 128 H (74-99) mg/dL Calcium (8.4-10.2) mg/dL AST 135 H (17-59) U/L Total Protein (6.3-8.2) g/dL Lipase 546 H (23-300) U/L Serum Alcohol 210 H* mg/dL 03/01/21 Range/Units 06:16 WBC (3.8-10.6) k/uL RBC (4.30-5.90) m/uL Hct (39.0-53.0) % Plt Count (150-450) k/uL Lymphocytes # (1.0-4.8) k/uL Chloride 108 H (98-107) mmol/L BUN 8 L (9-20) mg/dL Creatinine 0.62 L (0.66-1.25) mg/dL Glucose (74-99) mg/dL Calcium 8.2 L (8.4-10.2) mg/dL AST 97 H (17-59) U/L Total Protein 6.0 L (6.3-8.2) g/dL Lipase (23-300) U/L Serum Alcohol mg/dL Assessment and Plan Plan: Alcohol abuse with evidence of alcohol withdrawal, patient was admitted to medical floor, he was started on CIWA protocol Acute pancreatitis with mild elevation in lipase level will monitor closely Acute alcoholic hepatitis with elevated liver enzymes Underlying history of alcohol abuse Underlying history of hypertension Underlying history of gout Underlying history of depression, psychiatry consultation requested At this time patient is admitted to medical floor He was started on IV fluid, and IV Ativan per CIWA protocol Home medications reviewed and reordered. Psychiatry consultation was requested. Please note that patient was admitted under the service of Dr. Miguel 2 months ago, at that time his primary care physician was Dr. Noble who is currently retired, when asked who is his primary care physician patient stated Dr. Emre Wyatt, his demographic sheet also lists Dr. Emre Wyatt as his primary care physician. Unfortunately in the emergency room primary care physician was list ed as Dr. Bello, and patient was admitted to my service, patient denies knowing Dr. Bello, patient's of Dr. Wyatt are usually followed by Dr. Miguel, I called Dr. Miguel and notified her of the admission and she is willing to have the patient transferred to her service.
[2021-03-01] MEDS: amLODIPine 10 MG TAB PO SCH (20:36)
[2021-03-02] MEDS: LORazepam 2 MG/ML INJ IV PRN ×2 (02:38→23:13)
[2021-03-02 05:35] LABS: Basophils % (A) 1 %; Eosinophils # (A) 0.1 k/uL (0-0.7); Eosinophils % (A) 2 %; HCT 42.4 % (39.0-53.0); HGB 14.9 gm/dL (13.0-17.5); Lymphocytes # (A) 0.9 k/uL (1.0-4.8); Lymphocytes % (A) 18 %; MCH 33.7 pg (25.0-35.0); MCHC 35.1 g/dL (31.0-37.0); MCV 96.1 fL (80.0-100.0); Mean Platelet Volume 8.3; Monocytes # (A) 0.3 k/uL (0-1.0); Monocytes % (A) 7 %; Neutrophils # (A) 3.5 k/uL (1.3-7.7); Neutrophils % (A) 72 %; RBC 4.41 m/uL (4.30-5.90); WBC 4.8 k/uL (3.8-10.6)
[2021-03-02 05:36] LABS: Platelet Count 78 k/uL (150-450)
[2021-03-02] MEDS: DEXTROSE 5%-0.45% NACL 1,000 ML IV SCH ×2 (05:40→20:16)
[2021-03-02] MEDS: THIAMINE 100 MG TAB PO SCH ×2 (07:56→16:58)
[2021-03-02] MEDS: atenoloL 50 MG TAB PO SCH (07:56)
[2021-03-02 09:41] LABS: African American GFR (CKD) 121.4 (60.0-200.0); Albumin/Globulin Ratio 1.82 (1.60-3.17); BUN/Creat Ratio 7.14 Ratio (12.00-20.00); Calcium 8.4 mg/dL (8.7-10.3); Globulin 2.2 g/dL (1.6-3.3); Non-African American GFR(CKD) 104.8 (60.0-200.0); Potassium 3.3 mmol/L (3.5-5.5); Total Bilirubin 0.8 mg/dL (0.2-1.2); Total Protein 6.2 g/dL (6.2-8.2)
--- NOTE | 2021-03-02 12:20 | P.PN ---
Subjective Progress Note Date: 03/02/21 HISTORY OF PRESENT ILLNESS Raymond Celestin, he is a 55-year-old male who presented to [facility] emergency room with a chief complaint of of severe anxiety and shaking, he was having palpitation and shortness of breath patient has a known history of excessive alcohol use, and had evidence of early was throwing symptoms. He was evaluated in the emergency room vital examination on presentation revealed a temperature of 98.4 pulse 114 respiration 20 blood pressure 145/96 pulse ox 97% on room air Laboratory data reveals a white blood count of 4.5 hemoglobin 15.4 platelet count 132 sodium 144 potassium 3.9 chloride 104 CO2 26 BUN 10 creatinine 0.8 glucose level 132 AST was elevated at 135 lipase level was elevated at 546 and alcohol level was elevated at 210 Patient was admitted to medical floor for further evaluation and treatment. He was started on CIWA protocol in the emergency room. Past medical history is significant for COVID-19 illness, patient was admitted to the hospital in November 2020, underlying history of COPD, underlying history of acquired immunodeficiency, history of alcohol abuse, underlying history of hypertension, history of marijuana use daily, underlying history of thrombocytopenia, underlying history of osteopenia, and moderate protein calorie malnutrition. This history is derived from chart review, patient is not able to give any significant history. On review of systems Patient was seen and examined on the medical floor, he is alert and oriented x 3 in no distress, he is complaining of feeling anxious and asking for Ativan otherwise he denies any complaints there is no fever or chills no headache or dizziness no chest pain no shortness of breath no palpitation no cough no nausea or vomiting no abdominal pain no diarrhea no blood in the stools no burning with urination no frequency or urgency and no hematuria, there is no weakness or numbness in any of the extremities no change in vision speech or gait. 03/02: The patient complains of having no appetite, generalized abdominal discomfort. No chest pain, shortness of breath no palpitations. He states he normally drinks 12 beers per day. He denies having depression. He has seen number of psychiatrists in the past. Psychiatric consult is in place. REVIEW OF SYSTEMS Constitutional: No fever, no chills, no night sweats. No weight change. No weakness, fatigue or lethargy. No daytime sleepiness. EENT: No headache. No blurred vision or double vision, no loss of vision. No loss of Hearing, no ringing in the ears, no dizziness. No nasal drainage or congestion. No epistaxis. No sore throat. Lungs: No shortness of breath, cough, no sputum production. No wheezing. Cardiovascular: No chest pain, no lower extremity edema. No palpitations. No paroxysmal nocturnal dyspnea. No orthopnea. No lightheadedness or dizziness. No syncopal episodes. Abdominal: No abdominal pain. No nausea, vomiting. No diarrhea. No constipati on. No bloody or tarry stools.. No loss of appetite. Genitourinary: No dysuria, increased frequency, urgency. No urinary retention. Musculoskeletal: No myalgias. No muscle weakness, no gait dysfunction, no frequent falls. No back pain. No neck pain. Integumentary: No wounds, no lesions. No rash or pruritus. No unusual bruising. No change in hair or nails. Neurologic: No aphasia. No facial droop. No change in mentation. No head injury. No headache. No paralysis. No paresthesia. Psychiatric: No depression. No anxiety. No mood swings. Endocrine: No abnormal blood sugars. No weight change. No excessive sweating or thirst. No cold intolerance. PHYSICAL EXAMINATION Gen: This is a 55-year-old disheveled appearing male. He is resting in bed and appears to be comfortable and in no acute distress. HEENT: Head is atraumatic, normocephalic. Pupils equal, round. Sclerae is anicteric. NECK: Supple. No JVD. No lymphadenopathy. No thyromegaly. LUNGS: Clear to auscultation. No wheezes or rhonchi. No intercostal retractions. HEART: Regular rate and rhythm. No murmur. ABDOMEN: Soft. Bowel sounds are present. No masses. Mild generalized tendern ess. EXTREMITIES: No pedal edema. No calf tenderness. NEUROLOGICAL: Patient is awake, alert and oriented x3. Cranial nerves 2 through 12 are grossly intact. ASSESSMENT AND PLAN 1. Alcohol abuse with alcohol withdrawal. [facility], continue CIWA protocol. 2. Acute pancreatitis. Recheck lipase. 3. Acute alcoholic hepatitis. 4. Hypertension. Continue Norvasc 10 mg at bedtime, atenolol 50 mg daily. 5. Chronic gout. Continue colchicine 1.2 mg daily as needed 6. Probable alcohol-induced gastritis and GI prophylaxis. Protonix 40 mg IV twice daily and Carafate 1 g oral before meals and at bedtime. 7. DVT prophylaxis. Heparin subcu. 8. Hypokalemia, replacement. DISCHARGE PLAN Home. Patient lives with his parents. Impression and plan of care have been directed as dictated by the signing juni [email or web address]. Penelope Dhillon nurse practitioner acting as scribe for signing physician. Objective - Vital Signs Vital signs: Vital Signs Temp 98.6 F 03/02/21 05:00 Pulse 72 03/02/21 05:00 Resp 16 03/02/21 05:00 BP 138/73 03/02/21 05:00 Pulse Ox 95 03/02/21 05:00 Intake & Output 03/01/21 03/02/21 03/02/21 18:59 06:59 18:59 Intake Total 1320 Output Total 850 Balance 1320 -850 Weight 104.326 kg Intake: Intake, IV Titration 1320 Amount Dextrose 5%-0.45% NaCl 1, 1320 000 ml @ 110 mls/hr IV . [id number] [facility] Rx#:[id number] Output: Urine 850 Other: # Voids 2 - Labs CBC & Chem 7: 03/02/21 05:10 03/02/21 05:10 Labs: Abnormal Lab Results - Last 24 Hours (Table) 03/02/21 03/02/21 Range/Units 05:10 05:10 Plt Count 78 L (150-450) k/uL Lymphocytes # 0.9 L (1.0-4.8) k/uL Potassium 3.3 L (3.5-5.5) mmol/L BUN 5.0 L (9.0-27.0) mg/dL BUN/Creatinine Ratio 7.14 L (12.00-20.00) Ratio Calcium 8.4 L (8.7-10.3) mg/dL AST 69 H (14-35) U/L
[2021-03-02] MEDS: SUCRALFATE 1 GM TAB PO SCH ×3 (13:10→20:15)
[2021-03-02] MEDS: amLODIPine 10 MG TAB PO SCH (20:15)
[2021-03-02] MEDS: PANTOPRAZOLE 40 MG/10 ML VIAL IVP SCH (20:16)
[2021-03-03] MEDS: DEXTROSE 5%-0.45% NACL 1,000 ML IV SCH ×3 (05:13→22:51)
--- NOTE | 2021-03-03 07:28 | CONS ---
CONSULTATION DATE OF SERVICE: 03/02/2021 PURPOSE FOR CONSULTATION: Evaluate for anxiety, depression, and excessive alcohol use. HISTORY OF PRESENTING ILLNESS: The patient is a 55-year-old male. He presented to the ED with complaints of anxiety, shaking and said he was not feeling well. He gave a history of alcohol abuse. He made the statement in the ED that he was feeling like he was losing his mind. He was denying any thoughts of harm to self or others. He said he woke up from a nap and felt like he could not catch his breath. He had palpitations. He became very anxious. He gave a history of at least some level of depression. He essentially described that he had some mental health issues and intervention in the past, though he became frustrated and cynical with people working in that field. He did not feel that he had gotten much help. He notes that he has pretty much a lifelong issue with drinking. He says that he had 7 year sobriety leading up to around 2018. He does note during that harm however that he was using Zantac. At first he said he had been using Xanax for many years and had not had any time without Xanax, though then stated something different later on in the interview that he may have gone a year or 2 during that 7 year period without Xanax either. He also smokes marijuana and says he has been smoking that over a long period of time. He notes that his current drinking history is that he will drink about 4 beers a day. He says that he has no interest or need to stop. He notes that he does not drive or go out in public when he drinks. He says he just drinks with friends. He says he does not believe that issues he has with his mood would somehow be improved if he were to stop drinking. He was quite adamant about the idea that being free of alcohol and potentially being treated with psychotropic medications would provide him any benefit at all. He was vague about what past treatment he may have had. At present he indicated no interest in making any life changes including considering stopping drinking or getting involved in any kind of treatment program, be it inpatient or outpatient. It is noteworthy that through much of the conversation, when he would make very clear statements about that he has no plans on giving up drinking, he also seemed to acknowledge that alcohol may be a factor relating to some of his mood issues. Still he would say that he had no hetal in treatment interventions. He says that he has studied much in the realm of alcohol treatment and interventions for depression. He said that he just does not accept much of what is noted as benefits to assertive mental health treatment. He does note that he had stopped drinking for a number of weeks in November when he developed a COVID infection. He said he was in the hospital for 3 weeks and then in rehab for another 8 weeks and consequently did not drink during that time. He said that his current drinking pattern going back perhaps over the last year or more is that he might have a stretch of time of 2 weeks where he may be off alcohol. On the other hand, he said he has been on Xanax and seemed to say he takes it consistently until just recently. He said it was discontinued by his physician 2 weeks ago. He said he can manage being off Xanax. He did seem to have a fairly clear understanding that Xanax is as habit-forming as alcohol and that there are withdrawal issues related to Xanax just the same his alcohol. MENTAL STATUS EXAM: The patient gave fair eye contact. He was somewhat restless. He answered questions with brief responses. He made various comments. His thoughts were clear and coherent. He was spontaneous. His affect was somewhat anxious. He seemed to have a somewhat disgruntled or even angry manner. His mood was reserved though not clearly down or depressed. He seems somewhat distressed. There was no indication of thought disorder. The patient stated that he did not have any thoughts of harming himself or anyone else. He reported that he has not had a history of suicidality. On cognitive exam, he was oriented x3 and alert. He was able to provide an accurate history consistent with what is documented in the medical record. ASSESSMENT: This 55-year-old male is diagnosed with alcohol dependence and acute alcohol and benzodiazepine withdrawal. It sounds as if he also would meet criteria for benzodiazepine and marijuana dependence. He is now 2 weeks off Xanax. Apparently his doctor has indicated that the doctor would not continue prescribing Xanax. The patient is very fixed on the idea that he has no interest or see any potential benefit by considering stopping drinking. I did give him plenty of reassurance that if he changed his mind and thought there might be some help for doing further assessment and possibly referrals, that he should let staff know and they can contact psychiatry. At this point I will sign off unless further issues arise. If so, please contact psychiatry. MMODL / IJN: [id number] /
[2021-03-03] MEDS: SUCRALFATE 1 GM TAB PO SCH ×5 (09:04→20:37)
[2021-03-03] MEDS: atenoloL 50 MG TAB PO SCH (09:04)
[2021-03-03] MEDS: PANTOPRAZOLE 40 MG/10 ML VIAL IVP SCH (09:04)
[2021-03-03] MEDS: THIAMINE 100 MG TAB PO SCH ×2 (09:04→16:36)
[2021-03-03] MEDS: LORazepam 2 MG/ML INJ IV PRN ×2 (09:08→22:45)
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
--- NOTE | 2021-03-03 13:06 | P.PN ---
Subjective Progress Note Date: 03/03/21 HISTORY OF PRESENT ILLNESS Raymond Celestin, he is a 55-year-old male who presented to [facility] emergency room with a chief complaint of of severe anxiety and shaking, he was having palpitation and shortness of breath patient has a known history of excessive alcohol use, and had evidence of early was throwing symptoms. He was evaluated in the emergency room vital examination on presentation revealed a temperature of 98.4 pulse 114 respiration 20 blood pressure 145/96 pulse ox 97% on room air Laboratory data reveals a white blood count of 4.5 hemoglobin 15.4 platelet count 132 sodium 144 potassium 3.9 chloride 104 CO2 26 BUN 10 creatinine 0.8 glucose level 132 AST was elevated at 135 lipase level was elevated at 546 and alcohol level was elevated at 210 Patient was admitted to medical floor for further evaluation and treatment. He was started on CIWA protocol in the emergency room. Past medical history is significant for COVID-19 illness, patient was admitted to the hospital in November 2020, underlying history of COPD, underlying history of acquired immunodeficiency, history of alcohol abuse, underlying history of hypertension, history of marijuana use daily, underlying history of thrombocytopenia, underlying history of osteopenia, and moderate protein calorie malnutrition. This history is derived from chart review, patient is not able to give any significant history. On review of systems Patient was seen and examined on the medical floor, he is alert and oriented x 3 in no distress, he is complaining of feeling anxious and asking for Ativan otherwise he denies any complaints there is no fever or chills no headache or dizziness no chest pain no shortness of breath no palpitation no cough no nausea or vomiting no abdominal pain no diarrhea no blood in the stools no burning with urination no frequency or urgency and no hematuria, there is no weakness or numbness in any of the extremities no change in vision speech or gait. 03/02: The patient complains of having no appetite, generalized abdominal discomfort. No chest pain, shortness of breath no palpitations. He states he normally drinks 12 beers per day. He denies having depression. He has seen number of psychiatrists in the past. Psychiatric consult is in place. 03/03: Patient is found resting in bed. Patient states that he continues to have no appetite. Denies any abdominal discomfort. States that he still not feeling quite himself. Patient has no interest in going to rehab. States that he is unsure if he will continue to drink when he goes home. Psychiatric evaluation states patient does not meet inpatient criteria for hospitalization however he would benefit from rehab at [place] upon discharge. REVIEW OF SYSTEMS Constitutional: No fever, no chills, no night sweats. No weight change. No weakness, fatigue or lethargy. No daytime sleepiness. EENT: No headache. No blurred vision or double vision, no loss of vision. No l oss of Hearing, no ringing in the ears, no dizziness. No nasal drainage or congestion. No epistaxis. No sore throat. Lungs: No shortness of breath, cough, no sputum production. No wheezing. Cardiovascular: No chest pain, no lower extremity edema. No palpitations. No paroxysmal nocturnal dyspnea. No orthopnea. No lightheadedness or dizziness. No syncopal episodes. Abdominal: No abdominal pain. No nausea, vomiting. No diarrhea. No constipation. No bloody or tarry stools.. No loss of appetite. Genitourinary: No dysuria, increased frequency, urgency. No urinary retention. Musculoskeletal: No myalgias. No muscle weakness, no gait dysfunction, no frequent falls. No back pain. No neck pain. Integumentary: No wounds, no lesions. No rash or pruritus. No unusual bruising. No change in hair or nails. Neurologic: No aphasia. No facial droop. No change in mentation. No head injury. No headache. No paralysis. No paresthesia. Psychiatric: No depression. No anxiety. No mood swings. Endocrine: No abnormal blood sugars. No weight change. No excessive sweating or thirst. No cold intolerance. PHYSICAL EXAMINATION Gen: This is a 55-year-old disheveled appearing male. He is resting in bed and appears to be comfortable and in no acute distress. HEENT: Head is atraumatic, normocephalic. Pupils equal, round. Sclerae is anicteric. NECK: Supple. No JVD. No lymphadenopathy. No thyromegaly. LUNGS: Clear to auscultation. No wheezes or rhonchi. No intercostal retractions. HEART: Regular rate and rhythm. No murmur. ABDOMEN: Soft. Bowel sounds are present. No masses. Mild generalized tenderness. EXTREMITIES: No pedal edema. No calf tenderness. NEUROLOGICAL: Patient is awake, alert and oriented x3. Cranial nerves 2 through 12 are grossly intact. ASSESSMENT AND PLAN 1. Alcohol abuse with alcohol withdrawal. Patient has been admitted to [facility] floor, continue [facility] protocol. 2. Acute pancreatitis. Recheck lipase. 3. Acute alcoholic hepatitis. 4. Hypertension. Continue Norvasc 10 mg at bedtime, atenolol 50 mg daily. 5. Chronic gout. Continue colchicine 1.2 mg daily as needed 6. Probable alcohol-induced gastritis and GI prophylaxis. Protonix 40 mg IV twice daily and Carafate 1 g oral before meals and at bedtime. 7. DVT prophylaxis. Heparin subcu. 8. Hypokalemia, replacement. DISCHARGE PLAN Home. Patient lives with his parents. Possible tomorrow Impression and plan of care have been directed as dictated by the signing physician. Daly Landrum nurse practitioner acting as scribe for signing physician. Objective - Vital Signs Vital signs: Vital Signs Temp 98 F 03/03/21 11:52 Pulse 64 03/03/21 11:52 Resp 14 03/03/21 11:52 BP 135/82 03/03/21 11:52 Pulse Ox 99 03/03/21 11:52 Intake & Output 03/02/21 03/03/21 03/03/21 18:59 06:59 18:59 Intake Total 750 Output Total 850 Balance -100 Intake: Oral 750 Output: Urine 850 Other: # Voids 3 2 - Labs CBC & Chem 7: 03/02/21 05:10 03/02/21 05:10
[2021-03-03] MEDS: PANTOPRAZOLE 40 MG TABLET PO SCH (20:35)
[2021-03-03] MEDS: amLODIPine 10 MG TAB PO SCH (20:36)
[2021-03-04] MEDS: LORazepam 2 MG/ML INJ IV PRN (06:33)
[2021-03-04] MEDS: DEXTROSE 5%-0.45% NACL 1,000 ML IV SCH ×3 (06:40→22:29)
[2021-03-04] MEDS: SUCRALFATE 1 GM TAB PO SCH ×4 (09:49→22:29)
[2021-03-04] MEDS: PANTOPRAZOLE 40 MG TABLET PO SCH ×2 (09:52→22:29)
[2021-03-04] MEDS: THIAMINE 100 MG TAB PO SCH ×2 (09:53→16:29)
[2021-03-04] MEDS: atenoloL 50 MG TAB PO SCH (09:53)
[2021-03-04 10:10] LABS: Appearance,Urine Clear (Clear); Bilirubin,Urine Negative (Negative); Blood,Urine Negative (Negative); Color,Urine Light Yellow; Glucose,Urine (UA) Negative (Negative); Ketones,Urine Negative (Negative); Leukocyte Esterase,Urine Negative (Negative); Nitrite,Urine Negative (Negative); PH, Urine 6.5 (5.0-8.0); Protein,Urine Negative (Negative); Specific Gravity,Urine 1.006 (1.001-1.035); Urobilinogen,Urine <2.0 mg/dL (<2.0)
--- NOTE | 2021-03-04 12:30 | P.PN ---
Subjective Progress Note Date: 03/04/21 HISTORY OF PRESENT ILLNESS Raymond Celestin, he is a 55-year-old male who presented to [facility] emergency room with a chief complaint of of severe anxiety and shaking, he was having palpitation and shortness of breath patient has a known history of excessive alcohol use, and had evidence of early was throwing symptoms. He was evaluated in the emergency room vital examination on presentation revealed a temperature of 98.4 pulse 114 respiration 20 blood pressure 145/96 pulse ox 97% on room air Laboratory data reveals a white blood count of 4.5 hemoglobin 15.4 platelet count 132 sodium 144 potassium 3.9 chloride 104 CO2 26 BUN 10 creatinine 0.8 glucose level 132 AST was elevated at 135 lipase level was elevated at 546 and alcohol level was elevated at 210 Patient was admitted to medical floor for further evaluation and treatment. He was started on CIWA protocol in the emergency room. Past medical history is significant for COVID-19 illness, patient was admitted to the hospital in November 2020, underlying history of COPD, underlying history of acquired immunodeficiency, history of alcohol abuse, underlying history of hypertension, history of marijuana use daily, underlying history of thrombocytopenia, underlying history of osteopenia, and moderate protein calorie malnutrition. This history is derived from chart review, patient is not able to give any significant history. On review of systems Patient was seen and examined on the medical floor, he is alert and oriented x 3 in no distress, he is complaining of feeling anxious and asking for Ativan otherwise he denies any complaints there is no fever or chills no headache or dizziness no chest pain no shortness of breath no palpitation no cough no nausea or vomiting no abdominal pain no diarrhea no blood in the stools no burning with urination no frequency or urgency and no hematuria, there is no weakness or numbness in any of the extremities no change in vision speech or gait. 03/02: The patient complains of having no appetite, generalized abdominal discomfort. No chest pain, shortness of breath no palpitations. He states he normally drinks 12 beers per day. He denies having depression. He has seen number of psychiatrists in the past. Psychiatric consult is in place. 03/03: Patient is found resting in bed. Patient states that he continues to have no appetite. Denies any abdominal discomfort. States that he still not feeling quite himself. Patient has no interest in going to rehab. States that he is unsure if he will continue to drink when he goes home. Psychiatric evaluation states patient does not meet inpatient criteria for hospitalization however he would benefit from rehab at [place] upon discharge. 03/04: Patient continues to state that he is feeling also has continues to have no appetite. He does have diarrhea. He is complaining of lower abdominal d iscomfort. Abdomen is distended. Patient will have a bladder scan and a UA. Patient continues to decline rehab. Patient states that he is not sure if he is going to continue drinking once he is at home. We will consult social work and case management to assist with referrals and possible rehab. REVIEW OF SYSTEMS Constitutional: No fever, no chills, no night sweats. No weight change. No weakness, fatigue or lethargy. No daytime sleepiness. EENT: No headache. No blurred vision or double vision, no loss of vision. No loss of Hearing, no ringing in the ears, no dizziness. No nasal drainage or congestion. No epistaxis. No sore throat. Lungs: No shortness of breath, cough, no sputum production. No wheezing. Cardiovascular: No chest pain, no lower extremity edema. No palpitations. No paroxysmal nocturnal dyspnea. No orthopnea. No lightheadedness or dizziness. No syncopal episodes. Abdominal: Reports abdominal pain. No nausea, vomiting. Reports diarrhea. No constipation. No bloody or tarry stools.. No loss of appetite. Genitourinary: No dysuria, increased frequency, urgency. No urinary retention. Musculoskeletal: No myalgias. No muscle weakness, no gait dysfunction, no frequent falls. No back pain. No neck pain. Integumentary: No wounds, no lesions. No rash or pruritus. No unusual bruising. No change in hair or nails. Neurologic: No aphasia. No facial droop. No change in mentation. No head injury. No headache. No paralysis. No paresthesia. Psychiatric: No depression. No anxiety. No mood swings. Endocrine: No abnormal blood sugars. No weight change. No excessive sweating or thirst. No cold intolerance. PHYSICAL EXAMINATION Gen: This is a 55-year-old disheveled appearing male. He is resting in bed and appears to be comfortable and in no acute distress. HEENT: Head is atraumatic, normocephalic. Pupils equal, round. Sclerae is anicteric. NECK: Supple. No JVD. No lymphadenopathy. No thyromegaly. LUNGS: Clear to auscultation. No wheezes or rhonchi. No intercostal retractions. HEART: Regular rate and rhythm. No murmur. ABDOMEN: Soft. Bowel sounds are present. No masses. Mild generalized tenderness to lower quadrants. Distension EXTREMITIES: No pedal edema. No calf tenderness. NEUROLOGICAL: Patient is awake, alert and oriented x3. Cranial nerves 2 through 12 are grossly intact. ASSESSMENT AND PLAN 1. Alcohol abuse with alcohol withdrawal. Patient has been admitted to [facility] floor, continue [facility] protocol. 2. Acute pancreatitis. Recheck lipase. 3. Acute alcoholic hepatitis. 4. Hypertension. Continue Norvasc 10 mg at bedtime, atenolol 50 mg daily. 5. Chronic gout. Continue colchicine 1.2 mg daily as needed 6. Probable alcohol-induced gastritis and GI prophylaxis. Protonix 40 mg IV twice daily and Carafate 1 g oral before meals and at bedtime. 7. Abdominal discomfort with distention. Bladder scan and UA. 8. DVT prophylaxis. Heparin subcu. 9. Hypokalemia, replacement. DISCHARGE PLAN Home. Patient lives with his parents. Possible friday Impression and plan of care have been directed as dictated by the signing physician. Daly Landrum nurse practitioner acting as scribe for signing physician. Objective - Vital Signs Vital signs: Vital Signs Temp 98.1 F 03/04/21 11:42 Pulse 65 03/04/21 11:42 Resp 14 03/04/21 11:42 BP 123/81 03/04/21 11:42 Pulse Ox 98 03/04/21 11:42 Intake & Output 03/03/21 03/04/21 03/04/21 18:59 06:59 18:59 Intake Total 1320 Balance 1320 Intake: Intake, IV Titration 1320 Amount Dextrose 5%-0.45% NaCl 1, 1320 000 ml @ 110 mls/hr IV . Q9H6M CHANDAN Rx#:[id number] Other: # Voids 2 3 # Bowel Movements 1 - Labs CBC & Chem 7: 03/02/21 05:10 03/02/21 05:10
[2021-03-04] MEDS ORDERED: IBUPROFEN 400 MG TAB PO PRN (14:53)
[2021-03-04] MEDS: amLODIPine 10 MG TAB PO SCH (22:29)
[2021-03-05] MEDS: LORazepam 2 MG/ML INJ IV PRN ×2 (00:13→05:49)
[2021-03-05 04:10] VITALS: BP 123/71; PULSE 67; RESP 17; TEMP 97.8
[2021-03-05] MEDS: DEXTROSE 5%-0.45% NACL 1,000 ML IV SCH (05:48)
--- NOTE | 2021-03-05 09:13 | P.DS ---
Providers Date of admission: 02/28/21 23:07 Expected date of discharge: 03/05/21 Attending physician: Sonia Miguel Consults: 03/01/21 17:46 Consult Physician Routine Consulting Provider: Axel Marr Consult Reason/Comments: Alcohol withdrawal, depression Do you want consulting provider notified?: Already Contacted Primary care physician: Emre Martínez [facility] Hospital Course: HISTORY OF PRESENT ILLNESS Raymond Celestin, he is a 55-year-old male who presented to [facility] emergency room with a chief complaint of of severe anxiety and shaking, he was having palpitation and shortness of breath patient has a known history of excessive alcohol use, and had evidence of early was throwing symptoms. He was evaluated in the emergency room vital examination on presentation revealed a temperature of 98.4 pulse 114 respiration 20 blood pressure 145/96 pulse ox 97% on room air Laboratory data reveals a white blood count of 4.5 hemoglobin 15.4 platelet count 132 sodium 144 potassium 3.9 chloride 104 CO2 26 BUN 10 creatinine 0.8 glucose level 132 AST was elevated at 135 lipase level was elevated at 546 and alcohol level was elevated at 210 Patient was admitted to medical floor for further evaluation and treatment. He was started on CIWA protocol in the emergency room. Past medical history is significant for COVID-19 illness, patient was admitted to the hospital in November 2020, underlying history of COPD, underlying history of acquired immunodeficiency, history of alcohol abuse, underlying history of hypertension, history of marijuana use daily, underlying history of thrombocytopenia, underlying history of osteopenia, and moderate protein calorie malnutrition. This history is derived from chart review, patient is not able to give any significant history. On review of systems Patient was seen and examined on the medical floor, he is alert and oriented x 3 in no distress, he is complaining of feeling anxious and asking for Ativan otherwise he denies any complaints there is no fever or chills no headache or dizziness no chest pain no shortness of breath no palpitation no cough no nausea or vomiting no abdominal pain no diarrhea no blood in the stools no burning with urination no frequency or urgency and no hematuria, there is no weakness or numbness in any of the extremities no change in vision speech or gait. 03/02: The patient complains of having no appetite, generalized abdominal discomfort. No chest pain, shortness of breath no palpitations. He states he normally drinks 12 beers per day. He denies having depression. He has seen number of psychiatrists in the past. Psychiatric consult is in place. 03/03: Patient is found resting in bed. Patient states that he continues to have no appetite. Denies any abdominal discomfort. States that he still not feeling quite himself. Patient has no interest in going to rehab. States that he is unsure if he will continue to drink when he goes home. Psychiatric evaluation states patient does not meet inpatient criteria for hospitalization however he would benefit from rehab at [place] upon discharge. 03/04: Patient continues to state that he is feeling also has continues to have no appetite. He does have diarrhea. He is complaining of lower abdominal discomfort. Abdomen is distended. Patient will have a bladder scan and a UA. Patient continues to decline rehab. Patient states that he is not sure if he is going to continue drinking once he is at home. We will consult social work and case management to assist with referrals and possible rehab. 03/05: Patient denies having any abdominal pain, no nausea, vomiting, diarrhea. Discussed follow-up with rehab and patient states that he has seen many psychiatrists and many AA meetings and does not want rehab. He states that he "is fed up with all of them." He states his anxiety is high and he is complaining of his bilateral feet hurting. He has been afebrile, heart rate 67, blood pressure 123/71, pulse ox 99% on room air. Urinalysis from yesterday came back clear with no sign of infection. Patient is not an active DVTs. Patient will be discharged home today in stable condition. ASSESSMENT AND PLAN 1. Alcohol abuse with alcohol withdrawal. 2. Acute pancreatitis. 3. Acute alcoholic hepatitis. 4. Hypertension. 5. Chronic gout. 6. Probable alcohol-induced gastritis. 7. Abdominal discomfort with distention. 8. Hypokalemia, replacement. DISCHARGE PLAN Home. Patient lives with his parents. Impression and plan of care have been directed as dictated by the signing physician. Penelope Dhillon nurse practitioner acting as scribe for signing physician. Patient Condition at Discharge: Stable Plan - Discharge Summary Discharge Rx Participant: No New Discharge Prescriptions: New Thiamine [Vitamin B-1] 100 mg PO BID-W/MEALS tab Continue Colchicine 0.6 - 1.2 mg PO DIRECTED amLODIPine [Norvasc] 10 mg PO HS Atenolol [Tenormin] 50 mg PO DAILY Discharge Medication List Atenolol [Tenormin] 50 mg PO DAILY 02/28/21 [History] Colchicine 0.6 - 1.2 mg PO DIRECTED 02/28/21 [History] amLODIPine [Norvasc] 10 mg PO HS 02/28/21 [History] Thiamine [Vitamin B-1] 100 mg PO BID-W/MEALS tab 03/05/21 [Rx] Follow up Appointment(s)/Referral(s): Emre Wyatt MD [Primary Care Provider] - 03/13/21 10:00 am Patient Instructions/Handouts: Gastritis (DC), Pancreatitis (DC), Abuse of Alcohol (DC), Alcohol Withdrawal (DC) Discharge Disposition: HOME SELF-CARE
[2021-03-05] MEDS: PANTOPRAZOLE 40 MG TABLET PO SCH (09:15)
[2021-03-05] MEDS: SUCRALFATE 1 GM TAB PO SCH (09:15)
[2021-03-05] MEDS: THIAMINE 100 MG TAB PO SCH (09:16)
[2021-03-05] MEDS: atenoloL 50 MG TAB PO SCH (09:16)
== END 2021-03-05 10:20 | disposition home or self-care (01) | DRG 896 ==
LOC: EC 22:28 → 5NMEDONC 23:07
PROVIDERS: ADMIT Family Medicine; ATTEND Family Medicine
PROC: HZ2ZZZZ Detoxification Services for Substance Abuse Treatment (ICD-10-PCS; principal; 2021-02-28)
DX: F10.229 Alcohol dependence with intoxication, unspecified (principal); K85.90 Acute pancreatitis without necrosis or infection, unspecified; F31.30 Bipolar disorder, current episode depressed, mild or moderate severity, unspecified; D84.9 Immunodeficiency, unspecified; R45.851 Suicidal ideations; K29.20 Alcoholic gastritis without bleeding; K70.10 Alcoholic hepatitis without ascites; F10.239 Alcohol dependence with withdrawal, unspecified; F13.239 Sedative, hypnotic or anxiolytic dependence with withdrawal, unspecified; I10 Essential (primary) hypertension; J44.9 Chronic obstructive pulmonary disease, unspecified; E87.6 Hypokalemia; F60.9 Personality disorder, unspecified; F41.9 Anxiety disorder, unspecified; F17.210 Nicotine dependence, cigarettes, uncomplicated; M1A.9XX0 Chronic gout, unspecified, without tophus (tophi); M89.8X8 Other specified disorders of bone, other site; F29 Unspecified psychosis not due to a substance or known physiological condition; Z86.16 Personal history of COVID-19; Y90.7 Blood alcohol level of 200-239 mg/100 ml; Z79.899 Other long term (current) drug therapy
CPT/HCPCS: 36415; 80053; 80320; 81003; 82075; 82150; 83690; 83735; 84100; 85025; 99285

== ENCOUNTER 2021-03-13 16:18 | Inpatient (IN) | payer OTHER ==
[2021-03-13 16:57] LABS: Basophils # (A) 0.1 k/uL (0-0.2); Basophils % (A) 1 %; Eosinophils # (A) 0.1 k/uL (0-0.7); Eosinophils % (A) 2 %; HCT 47.5 % (39.0-53.0); HGB 15.6 gm/dL (13.0-17.5); Lymphocytes # (A) 1.7 k/uL (1.0-4.8); Lymphocytes % (A) 23 %; MCH 32.1 pg (25.0-35.0); MCHC 32.9 g/dL (31.0-37.0); MCV 97.6 fL (80.0-100.0); Mean Platelet Volume 7.9; Monocytes # (A) 0.6 k/uL (0-1.0); Monocytes % (A) 8 %; Neutrophils # (A) 4.9 k/uL (1.3-7.7); Neutrophils % (A) 66 %; RBC 4.87 m/uL (4.30-5.90); RDW 13.5 % (11.5-15.5); WBC 7.5 k/uL (3.8-10.6)
[2021-03-13 17:07] LABS: ALT 56 U/L (4-49); AST 86 U/L (17-59); African American GFR (CKD) >90 (>60 ml/min/1.73 sqM); Albumin 4.7 g/dL (3.5-5.0); Alkaline Phosphatase 86 U/L (38-126); Anion Gap 14 mmol/L; Blood Urea Nitrogen 9 mg/dL (9-20); Calcium 10.9 mg/dL (8.4-10.2); Carbon Dioxide 29 mmol/L (22-30); Chloride 101 mmol/L (98-107); Glucose 100 mg/dL (74-99); Non-African American GFR(CKD) >90 (>60 ml/min/1.73 sqM); Potassium 4.2 mmol/L (3.5-5.1); Sodium 144 mmol/L (137-145); Total Bilirubin 0.2 mg/dL (0.2-1.3); Total Protein 7.1 g/dL (6.3-8.2)
[2021-03-13 17:08] LABS: INR 0.9 (<1.2); Partial Thromboplastin Time 23.2 sec (22.0-30.0); Platelet Count 234 k/uL (150-450); Prothrombin Time 9.6 sec (9.0-12.0)
--- NOTE | 2021-03-13 17:38 | XR ---
EXAMINATION TYPE: XR chest 2V DATE OF EXAM: 03/13/2021 COMPARISON: 12/02/2020 HISTORY: Pain and swelling TECHNIQUE: 2 views FINDINGS: Heart and mediastinum are normal. Lungs are clear of infiltrate. There is no pleural effusi on. There are no hilar masses. Bony thorax is intact. IMPRESSION: No active cardiopulmonary disease. Normal heart. No change.
[2021-03-13] MEDS ORDERED: LORazepam 2 MG/ML INJ IV STA ×2 (18:00→22:30)
[2021-03-13] MEDS ORDERED: IPRATROPIUM-ALBUTEROL 3 ML NEB INHALATION STA (18:38)
[2021-03-13] MEDS ORDERED: ONDANSETRON 4 MG/2 ML VIAL IVP STA (20:24)
[2021-03-13] MEDS ORDERED: predniSONE 50 MG TAB PO STA (20:50)
--- NOTE | 2021-03-13 20:50 | ED ---
SOB HPI - General Source: patient Mode of arrival: wheelchair Limitations: no limitations <Michelle Gooden - Last Filed: 03/13/21 22:43> <Jose Moy - Last Filed: 03/14/21 02:33> - General Chief Complaint: Shortness of Breath Stated Complaint: SOB Time Seen by Provider: 03/13/21 17:46 - History of Present Illness Initial Comments: 55-year-old male patient with past medical history significant for daily alcohol abuse, hypertension, mental illness presents for evaluation of shortness of breath swelling to the legs. Patient states his been going on for the last month. Physical examination did reveal 1+ pitting edema to the bilateral ankles and feet. Lungs are clear to auscultation with slight wheeze in the right side. He is afebrile normal vital signs. Denies any significant increase in cough. Denies fever or chills. Denies any chest pain. Does admit to drinking alcohol today. Patient denies any recent rash, abdominal pain, nausea, vomiting, diarrhea, constipation, back pain, numbness, tingling, dizziness, weakness, hematuria, dysuria, urinary urgency, urinary frequency, headache, visual changes, or any other complaints. (Michelle Gooden) - Related Data Home Medications Medication Instructions Recorded Confirmed Atenolol [Tenormin] 50 mg PO DAILY 02/28/21 03/13/21 Colchicine 0.6 - 1.2 mg PO DIRECTED 02/28/21 03/13/21 amLODIPine [Norvasc] 10 mg PO HS 02/28/21 03/13/21 Previous Rx's Medication Instructions Recorded Thiamine [Vitamin B-1] 100 mg PO BID-W/MEALS tab 03/05/21 Albuterol Sulfate [Proair Hfa] 1 - 2 puff INHALATION Q6HR PRN #1 03/13/21 inhaler predniSONE 50 mg PO DAILY #5 tablet 03/13/21 Allergies Allergy/AdvReac Type Severity Reaction Status Date / Time allopurinol Allergy Unknown Verified 03/13/21 19:57 azithromycin Allergy Anaphylaxis Verified 03/13/21 19:57 Review of Systems ROS Other: All systems not noted in ROS Statement are negative. <Michelle Gooden - Last Filed: 03/13/21 22:43> ROS Other: All systems not noted in ROS Statement are negative. <ZayraJose aponte - Last Filed: 03/14/21 02:33> ROS Statement: Those systems with pertinent positive or pertinent negative responses have been documented in the HPI. Past Medical History Past Medical History: Unable to Obtain, Hypertension Additional Past Medical History / Comment(s): anxiety, personality disorder, manic depression, etoh abuse, COVID 19 12/13 History of Any Multi-Drug Resistant Organisms: None Reported Past Surgical History: Unable to Obtain Past Anesthesia/Blood Transfusion Reactions: No Reported Reaction Past Psychological History: Anxiety, Depression Smoking Status: Never smoker Past Alcohol Use History: Daily, Heavy Past Drug Use History: Marijuana - Past Family History Father Family Medical History: CVA/TIA, Myocardial Infarction (MA) Mother Family Medical History: Thyroid Disorder <Michelle Gooden - Last Filed: 03/13/21 22:43> General Exam Limitations: no limitations General appearance: alert, in no apparent distress, appears intoxicated, other (Physical well-developed, well-nourished adult male patient in no acute distress. Vital signs upon presentation temperature 98.2F. Pulse 91, respirations 19, blood pressure 138/85, pulse ox 97% on room air.) Eye exam: Present: normal appearance, PERRL, EOMI. Absent: scleral icterus, conjunctival injection, periorbital swelling ENT exam: Present: normal exam, normal oropharynx, mucous membranes moist Respiratory exam: Present: normal lung sounds bilaterally, wheezes (Faint expiratory wheeze noted in the right posterior lung field). Absent: respiratory distress, rales, rhonchi, stridor Cardiovascular Exam: Present: regular rate, normal rhythm, normal heart sounds. Absent: systolic murmur, diastolic murmur, rubs, gallop, clicks GI/Abdominal exam: Present: soft, normal bowel sounds. Absent: distended, tenderness, guarding, rebound, rigid Extremities exam: Present: full ROM, normal capillary refill, other (1+ pitting edema noted to the bilateral ankles and feet.). Absent: tenderness, pedal edema, joint swelling, calf tenderness Neurological exam: Present: alert, oriented X3, CN II-XII intact Psychiatric exam: Present: normal affect, normal mood Skin exam: Present: warm, dry, intact, normal color. Absent: rash <Michelle Gooden - Last Filed: 03/13/21 22:43> General appearance: alert, anxious, in distress Head exam: Present: atraumatic, normocephalic, normal inspection Eye exam: Present: normal appearance, PERRL, EOMI. Absent: scleral icterus, conjunctival injection, periorbital swelling ENT exam: Present: normal exam, mucous membranes moist Neck exam: Present: normal inspection. Absent: tenderness, meningismus, lymphadenopathy Respiratory exam: Present: normal lung sounds bilaterally. Absent: respiratory distress, wheezes, rales, rhonchi, stridor Cardiovascular Exam: Present: regular rate, normal rhythm, normal heart sounds. Absent: systolic murmur, diastolic murmur, rubs, gallop, clicks GI/Abdominal exam: Present: soft, normal bowel sounds. Absent: distended, tenderness, guarding, rebound, rigid Extremities exam: Present: normal inspection, full ROM, normal capillary refill. Absent: tenderness, pedal edema, joint swelling, calf tenderness Back exam: Present: normal inspection Neurological exam: Present: alert, oriented X3, CN II-XII intact Psychiatric exam: Present: normal affect, normal mood Skin exam: Present: warm, dry, intact, normal color. Absent: rash <Jose Moy - Last Filed: 03/14/21 02:33> Course <Jose Moy - Last Filed: 03/14/21 02:33> Vital Signs 03/13/21 03/13/21 03/13/21 16:23 18:11 18:53 Temperature 98.2 F 98.2 F Pulse Rate 91 80 80 Respiratory 19 18 19 Rate Blood Pressure 138/85 126/89 133/88 O2 Sat by Pulse 97 95 93 L Oximetry 03/13/21 03/13/21 03/13/21 19:03 19:13 22:55 Temperature Pulse Rate 70 72 75 Respiratory 18 18 22 Rate Blood Pressure 129/80 O2 Sat by Pulse 95 Oximetry - Reevaluation(s) Reevaluation #1: 03/14/21 02:32 Medical records reviewed (Jose Moy) Reevaluation #2: 03/14/21 02:32 Reevaluation patient is in significant distress tachycardia with severe diaphoresis, patient states is how he gets he doesn't drink. (Jose Moy) Medical Decision Making - Lab Data Result diagrams: 03/13/21 16:40 03/13/21 16:40 - EKG Data -: EKG Interpreted by Me <Michelle Gooden - Last Filed: 03/13/21 22:43> - Lab Data Result diagrams: 03/13/21 16:40 03/13/21 16:40 <Jose Moy - Last Filed: 03/14/21 02:33> - Medical Decision Making 55-year-old male patient who drinks alcohol daily presents for evaluation of shortness of breath. Physical examination did reveal slight wheeze in the right posterior lung field. Oxygen saturation within normal range. Chest x-ray negative. Labs reviewed and were unremarkable other than elevated lactic acid and alcohol level. BNP normal. Trop normal. EKG unremarkable. I did discuss findings with the patient. He will be discharged with prednisone and inhaler for COPD. He has no transportation or anyone who will come take him home. He will stay until sober. Does express wanting to go to rehab. We will give ativan to aid with withdrawal and provide outpatient referral for rehab. Patient is agreeable with this plan. Discussed with my attending Dr. Martinez. (Michelle Gooden) 55 male be admitted for impending DTs (Jose Moy) - Lab Data Lab Results 03/13/21 03/13/21 03/13/21 Range/Units 16:40 16:40 16:40 WBC 7.5 (3.8-10.6) k/uL RBC 4.87 (4.30-5.90) m/uL Hgb 15.6 (13.0-17.5) gm/dL Hct 47.5 (39.0-53.0) % MCV 97.6 (80.0-100.0) fL MCH 32.1 (25.0-35.0) pg MCHC 32.9 (31.0-37.0) g/dL RDW 13.5 (11.5-15.5) % Plt Count 234 D (150-450) k/uL MPV 7.9 Neutrophils % 66 % Lymphocytes % 23 % Monocytes % 8 % Eosinophils % 2 % Basophils % 1 % Neutrophils # 4.9 (1.3-7.7) k/uL Lymphocytes # 1.7 (1.0-4.8) k/uL Monocytes # 0.6 (0-1.0) k/uL Eosinophils # 0.1 (0-0.7) k/uL Basophils # 0.1 (0-0.2) k/uL PT 9.6 (9.0-12.0) sec INR 0.9 (<1.2) APTT 23.2 (22.0-30.0) sec Sodium 144 (137-145) mmol/L Potassium 4.2 (3.5-5.1) mmol/L Chloride 101 (98-107) mmol/L Carbon Dioxide 29 (22-30) mmol/L Anion Gap 14 mmol/L BUN 9 (9-20) mg/dL Creatinine 0.87 (0.66-1.25) mg/dL Est GFR (CKD-EPI)AfAm >90 (>60 ml/min/1.73 sqM) Est GFR (CKD-EPI)NonAf >90 (>60 ml/min/1.73 sqM) Glucose 100 H (74-99) mg/dL Lactic Ac Sepsis Rflx Plasma Lactic Acid Jared (0.7-2.0) mmol/L Calcium 10.9 H (8.4-10.2) mg/dL Total Bilirubin 0.2 (0.2-1.3) mg/dL AST 86 H (17-59) U/L ALT 56 H (4-49) U/L Alkaline Phosphatase 86 (38-126) U/L Troponin I (0.000-0.034) ng/mL NT-Pro-B Natriuret Pep pg/mL Total Protein 7.1 (6.3-8.2) g/dL Albumin 4.7 (3.5-5.0) g/dL Serum Alcohol mg/dL 03/13/21 03/13/21 03/13/21 Range/Units 16:40 16:40 17:11 WBC (3.8-10.6) k/uL RBC (4.30-5.90) m/uL Hgb (13.0-17.5) gm/dL Hct (39.0-53.0) % MCV (80.0-100.0) fL MCH (25.0-35.0) pg MCHC (31.0-37.0) g/dL RDW (11.5-15.5) % Plt Count (150-450) k/uL MPV Neutrophils % % Lymphocytes % % Monocytes % % Eosinophils % % Basophils % % Neutrophils # (1.3-7.7) k/uL Lymphocytes # (1.0-4.8) k/uL Monocytes # (0-1.0) k/uL Eosinophils # (0-0.7) k/uL Basophils # (0-0.2) k/uL PT (9.0-12.0) sec INR (<1.2) APTT (22.0-30.0) sec Sodium (137-145) mmol/L Potassium (3.5-5.1) mmol/L Chloride (98-107) mmol/L Carbon Dioxide (22-30) mmol/L Anion Gap mmol/L BUN (9-20) mg/dL Creatinine (0.66-1.25) mg/dL Est GFR (CKD-EPI)AfAm (>60 ml/min/1.73 sqM) Est GFR (CKD-EPI)NonAf (>60 ml/min/1.73 sqM) Glucose (74-99) mg/dL Lactic Ac Sepsis Rflx Y Plasma Lactic Acid Jared 3.1 H* (0.7-2.0) mmol/L Calcium (8.4-10.2) mg/dL Total Bilirubin (0.2-1.3) mg/dL AST (17-59) U/L ALT (4-49) U/L Alkaline Phosphatase (38-126) U/L Troponin I <0.012 (0.000-0.034) ng/mL NT-Pro-B Natriuret Pep pg/mL Total Protein (6.3-8.2) g/dL Albumin (3.5-5.0) g/dL Serum Alcohol mg/dL 03/13/21 03/13/21 03/13/21 Range/Units 18:05 18:30 22:04 WBC (3.8-10.6) k/uL RBC (4.30-5.90) m/uL Hgb (13.0-17.5) gm/dL Hct (39.0-53.0) % MCV (80.0-100.0) fL MCH (25.0-35.0) pg MCHC (31.0-37.0) g/dL RDW (11.5-15.5) % Plt Count (150-450) k/uL MPV Neutrophils % % Lymphocytes % % Monocytes % % Eosinophils % % Basophils % % Neutrophils # (1.3-7.7) k/uL Lymphocytes # (1.0-4.8) k/uL Monocytes # (0-1.0) k/uL Eosinophils # (0-0.7) k/uL Basophils # (0-0.2) k/uL PT (9.0-12.0) sec INR (<1.2) APTT (22.0-30.0) sec Sodium (137-145) mmol/L Potassium (3.5-5.1) mmol/L Chloride (98-107) mmol/L Carbon Dioxide (22-30) mmol/L Anion Gap mmol/L BUN (9-20) mg/dL Creatinine (0.66-1.25) mg/dL Est GFR (CKD-EPI)AfAm (>60 ml/min/1.73 sqM) Est GFR (CKD-EPI)NonAf (>60 ml/min/1.73 sqM) Glucose (74-99) mg/dL Lactic Ac Sepsis Rflx Plasma Lactic Acid Jared 2.9 H* (0.7-2.0) mmol/L Calcium (8.4-10.2) mg/dL Total Bilirubin (0.2-1.3) mg/dL AST (17-59) U/L ALT (4-49) U/L Alkaline Phosphatase (38-126) U/L Troponin I (0.000-0.034) ng/mL NT-Pro-B Natriuret Pep 67 pg/mL Total Protein (6.3-8.2) g/dL Albumin (3.5-5.0) g/dL Serum Alcohol 235 H* mg/dL 03/13/21 03/14/21 Range/Units 22:35 00:50 WBC (3.8-10.6) k/uL RBC (4.30-5.90) m/uL Hgb (13.0-17.5) gm/dL Hct (39.0-53.0) % MCV (80.0-100.0) fL MCH (25.0-35.0) pg MCHC (31.0-37.0) g/dL RDW (11.5-15.5) % Plt Count (150-450) k/uL MPV Neutrophils % % Lymphocytes % % Monocytes % % Eosinophils % % Basophils % % Neutrophils # (1.3-7.7) k/uL Lymphocytes # (1.0-4.8) k/uL Monocytes # (0-1.0) k/uL Eosinophils # (0-0.7) k/uL Basophils # (0-0.2) k/uL PT (9.0-12.0) sec INR (<1.2) APTT (22.0-30.0) sec Sodium (137-145) mmol/L Potassium (3.5-5.1) mmol/L Chloride (98-107) mmol/L Carbon Dioxide (22-30) mmol/L Anion Gap mmol/L BUN (9-20) mg/dL Creatinine (0.66-1.25) mg/dL Est GFR (CKD-EPI)AfAm (>60 ml/min/1.73 sqM) Est GFR (CKD-EPI)NonAf (>60 ml/min/1.73 sqM) Glucose (74-99) mg/dL Lactic Ac Sepsis Rflx Y Plasma Lactic Acid Jared 3.1 H* (0.7-2.0) mmol/L Calcium (8.4-10.2) mg/dL Total Bilirubin (0.2-1.3) mg/dL AST (17-59) U/L ALT (4-49) U/L Alkaline Phosphatase (38-126) U/L Troponin I (0.000-0.034) ng/mL NT-Pro-B Natriuret Pep pg/mL Total Protein (6.3-8.2) g/dL Albumin (3.5-5.0) g/dL Serum Alcohol mg/dL - EKG Data EKG Comments: EKG obtained at 1636 shows normal sinus rhythm with an incomplete right bundle branch block with a ventricular rate of 84, NC interval 164, QRS duration 106, QT 376, QTc 444. No evidence of ST elevation or depression. (Michelle Gooden) Disposition Is patient prescribed a controlled substance at d/c from ED?: No Time of Disposition: 02:00 <Michelle Gooden - Last Filed: 03/13/21 22:43> Is patient prescribed a controlled substance at d/c from ED?: No <Jose Moy - Last Filed: 03/14/21 02:33> Clinical Impression: Shortness of breath, Alcohol intoxication, Lower leg edema, Alcohol withdrawal, Impending delirium tremens Disposition: ADMITTED IP TO THIS HOSP Condition: Fair Instructions (If sedation given, give patient instructions): COPD (Chronic Obstructive Pulmonary Disease) (ED), Alcohol Intoxication (ED), Leg Edema (ED) Additional Instructions: Increase fluids. Use inhaler as needed. Take steroids. Follow-up with your primary care physician for recheck in 1-2 days. Return for any new, worsening, or concerning symptoms. Prescriptions: predniSONE 50 mg PO DAILY #5 tablet Albuterol Sulfate [Proair Hfa] 1 - 2 puff INHALATION Q6HR PRN #1 inhaler PRN Reason: Shortness Of Breath Referrals: Emre Wyatt MD [Primary Care Provider] - 1-2 days
[2021-03-13] MEDS ORDERED: SODIUM CHLORIDE 0.9% 1,000 ML with MVI, ADULT NO.4 WITH VIT K 10 ML, THIAMINE 100 MG, F... IV ONE ×4 (23:00)
[2021-03-14] MEDS ORDERED: MORPHINE SULFATE 4 MG/ML SYRINGE IV PRN (02:28)
[2021-03-14] MEDS ORDERED: SODIUM CHLORIDE 0.9% 500 ML 500 ML IV STA (02:28)
[2021-03-14] MEDS ORDERED: LORazepam 2 MG/ML INJ IV PRN ×3 (02:28)
[2021-03-14] MEDS ORDERED: THIAMINE 100 MG/ML 2 ML VIAL IM STA (02:28)
[2021-03-14] MEDS ORDERED: SODIUM CHLORIDE 0.9% 1,000 ML IV STA (02:28)
[2021-03-14] MEDS ORDERED: NALOXONE 0.4 MG/ML 1 ML VIAL IV PRN (02:28)
[2021-03-14] MEDS ORDERED: ONDANSETRON 4 MG/2 ML VIAL IVP PRN (02:28)
[2021-03-14] MEDS ORDERED: DEXTROSE 5%-0.45% NACL 1,000 ML IV SCH (02:30)
[2021-03-14] MEDS ORDERED: DIAZEPAM 5 MG/ML 2 ML INJ IVP PRN (02:31)
[2021-03-14] MEDS ORDERED: LORazepam 2 MG/ML INJ IV STA (02:31)
[2021-03-14] MEDS ORDERED: DIAZEPAM 5 MG/ML 2 ML INJ IVP STA (02:31)
[2021-03-14 07:16] VITALS: BP 125/75; PULSE 80; RESP 17; TEMP 98.1
[2021-03-14] MEDS ORDERED: PANTOPRAZOLE 40 MG/10 ML VIAL IV SCH (09:00)
[2021-03-14] MEDS ORDERED: THIAMINE 100 MG TAB PO SCH (17:30)
--- NOTE | 2021-03-15 11:37 | P.HPIM ---
History of Present Illness H&P Date: 03/14/21 HISTORY AND PHYSICAL AND DISCHARGE SUMMARY: HISTORY OF PRESENT ILLNESS This is a 55-year-old male patient of Dr. Wyatt with past medical history of hypertension, daily marijuana use, heavy alcohol abuse, memory loss. Patient was recently hospitalized February 28 through the for alcohol abuse and alcohol withdrawal with acute pancreatitis, acute alcoholic hepatitis. Patient was discharged home. He now returns to the hospital due to alcohol abuse. He states he has been alcoholic on and off since he was 10 years of age. Patient complained of shortness of breath and leg swelling isn't going on for a month. Patient was found to be afebrile, heart rate 91, blood pressure 130/85, pulse ox 97% on room air. CBC was unremarkable. Electrolytes and renal function normal. Blood sugar 100. Total bilirubin 0.2, AST 86, ALT 56, alkaline phosphatase 86. Initial lactic acid 3.1. Troponin negative. ProBNP 67. Alcohol level is 235. EKG was a sinus rhythm with no acute ST changes. Patient was admitted to the hospital. He states he wants to quit drinking. His sister is planning to pick him up today and take him to substance abuse rehab. The patient has been provided a prescription for Librium for 3 days. Patient is being discharged in stable condition. REVIEW OF SYSTEMS Constitutional: No fever, reports chills, no night sweats. No weight change. Reports weakness, Reports fatigue. Reports daytime sleepiness. EENT: No headache. No blurred vision or double vision, no loss of vision. No loss of Hearing, no ringing in the ears, no dizziness. Reports nasal drainage or congestion. No epistaxis. No sore throat. Lungs: Reports shortness of breath, denies cough, denies sputum production. No wheezing. Cardiovascular: No chest pain, reports lower extremity edema. No palpitations. No paroxysmal nocturnal dyspnea. No orthopnea. No lightheadedness or dizziness. No syncopal episodes. Abdominal: Reports abdominal pain. No nausea, vomiting. Reports diarrhea. No constipation. No bloody or tarry stools. No loss of appetite. Genitourinary: No dysuria, increased frequency, urgency. No urinary retention. Musculoskeletal: No myalgias. No muscle weakness, no gait dysfunction, no frequent falls. No back pain. No neck pain. Integumentary: No wounds, no lesions. No rash or pruritus. No unusual bruising. Neurologic: No aphasia. No facial droop. No change in mentation. No head injury. No headache. No paralysis. No paresthesia. Psychiatric: No depression. No anxiety. Endocrine: No abnormal blood sugars. SOCIAL HISTORY Patient has no history of tobacco use. He smokes marijuana on a daily basis. He drinks more than 12 [place] per day for greater than 2 years. His last intake was last evening. Patient has never been . He lives with his mot her and father. FAMILY HISTORY Mother is alive with history of thyroid cancer. Father is alive and patient does not know his medical history. Patient has 3 sisters with no major medical problems. He does not have any brothers. He does not have any children.. PHYSICAL EXAMINATION Gen: This is a 54-year-old male patient he is in the ER stretcher and appears to be comfortable and in no acute distress. No respiratory distress noted. HEENT: Head is atraumatic, normocephalic. Pupils equal, round. Sclerae is anicteric. NECK: Supple. No JVD. No lymphadenopathy. No thyromegaly. LUNGS: Clear to auscultation. No wheezes or rhonchi. No intercostal retractions. No accessory muscle usage. HEART: Regular rate and rhythm. No murmur. ABDOMEN: Soft. Bowel sounds are present. No masses. No tenderness. EXTREMITIES: Trace pedal edema. No calf tenderness. Dorsalis pedis palpable bilaterally. NEUROLOGICAL: Patient is awake, alert and oriented x3. Cranial nerves 2 through 12 are grossly intact. ASSESSMENT AND PLAN 1. Alcohol abuse. Patient was started on Librium 10 mg 3 times daily and prescription provided for 3 days. 2. Hypertension. 3. Daily marijuana use. 4. Short-term memory deficit secondary to marijuana use and alcohol abuse. 5. History of thrombocytopenia secondary to alcohol abuse, stable. 6. Transaminitis secondary to alcohol abuse. 7. 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 Patient is Observation status. DISCHARGE PLAN Home Impression and plan of care have been directed as dictated by the signing physician. Penelope Dhillon nurse practitioner acting as scribe for signing physician. Past Medical History Past Medical History: Unable to Obtain, Hypertension Additional Past Medical History / Comment(s): anxiety, personality disorder, manic depression, etoh abuse, COVID 19 12/13 History of Any Multi-Drug Resistant Organisms: None Reported Past Surgical History: Unable to Obtain Past Anesthesia/Blood Transfusion Reactions: No Reported Reaction Past Psychological History: Anxiety, Depression Additional Psychological History / Comment(s): personality disorder Smoking Status: Never smoker Past Alcohol Use History: Daily, Heavy Additional Past Alcohol Use History / Comment(s): heavily drinking since age 10, with a 7 year sober period, from [id number], now drinks 12 white calws daily. x- drug use: every kind of drug per patient- been clean for 10 years. Date of Last drink: 03/13/2021 around 10 am Past Drug Use History: Marijuana Additional Drug Use History / Comment(s): edibles - Past Family History Father Family Medical History: CVA/TIA, Myocardial Infarction ([place]) Mother Family Medical History: Thyroid Disorder Medications and Allergies Home Medications Medication Instructions Recorded Confirmed Type Atenolol [Tenormin] 50 mg PO DAILY 02/28/21 03/13/21 History Colchicine 0.6 - 1.2 mg PO DIRECTED 02/28/21 03/13/21 History amLODIPine [Norvasc] 10 mg PO HS 02/28/21 03/13/21 History Thiamine [Vitamin B-1] 100 mg PO BID-W/MEALS tab 03/05/21 03/13/21 Rx Albuterol Sulfate [Proair Hfa] 1 - 2 puff INHALATION Q6HR PRN #1 03/13/21 Rx inhaler predniSONE 50 mg PO DAILY #5 tablet 03/13/21 Rx chlordiazePOXIDE HCl [Librium] 10 mg PO TID 3 Days #9 capsule 03/14/21 Rx Allergies Allergy/AdvReac Type Severity Reaction Status Date / Time allopurinol Allergy Unknown Verified 03/13/21 19:57 azithromycin Allergy Anaphylaxis Verified 03/13/21 19:57 Physical Exam Vitals: Vital Signs Temp Pulse Pulse Resp BP BP Pulse Ox 03/14/21 07:35 80 17 03/14/21 07:16 98.1 F 80 17 125/75 95 03/14/21 04:28 98.4 F 83 18 137/71 95 03/14/21 03:00 84 20 136/84 94 L 03/14/21 02:00 104 H 22 112/75 95 03/13/21 22:55 75 22 129/80 95 03/13/21 19:13 72 18 03/13/21 19:03 70 18 03/13/21 18:53 98.2 F 80 19 133/88 93 L 03/13/21 18:11 80 18 126/89 95 03/13/21 16:23 98.2 F 91 19 138/85 97 Intake and Output 03/13/21 03/14/21 03/14/21 22:59 06:59 14:59 Other: # Voids 0 1 Weight 104.326 kg 105 kg Results CBC & Chem 7: 03/13/21 16:40 03/13/21 16:40 Labs: Abnormal Lab Results - Last 24 Hours (Table) 03/13/21 03/13/21 03/13/21 Range/Units 16:40 16:40 18:05 Glucose 100 H (74-99) mg/dL Plasma Lactic Acid Jared 3.1 H* (0.7-2.0) mmol/L Calcium 10.9 H (8.4-10.2) mg/dL AST 86 H (17-59) U/L ALT 56 H (4-49) U/L Serum Alcohol 235 H* mg/dL 03/13/21 03/14/21 03/14/21 Range/Units 22:04 00:50 04:20 Glucose (74-99) mg/dL Plasma Lactic Acid Jared 2.9 H* 3.1 H* 3.4 H* (0.7-2.0) mmol/L Calcium (8.4-10.2) mg/dL AST (17-59) U/L ALT (4-49) U/L Serum Alcohol mg/dL Thrombosis Risk Factor Assmnt - Choose All That Apply Each Factor Represents 1 point: Age 41-60 years, Obesity (BMI >25) Thrombosis Risk Factor Assessment Total Risk Factor Score: 2 Thrombosis Risk Factor Assessment Level: Low Risk
== END 2021-03-14 14:11 | disposition home or self-care (01) | DRG 897 ==
LOC: EC 16:18 → 4SSUR 03-14 02:28
PROVIDERS: ADMIT Internal Medicine Geriatric Medicine; ATTEND Internal Medicine Geriatric Medicine
DX: F10.229 Alcohol dependence with intoxication, unspecified (principal); F31.30 Bipolar disorder, current episode depressed, mild or moderate severity, unspecified; E46 Unspecified protein-calorie malnutrition; F10.239 Alcohol dependence with withdrawal, unspecified; F41.9 Anxiety disorder, unspecified; F60.9 Personality disorder, unspecified; I10 Essential (primary) hypertension; J44.9 Chronic obstructive pulmonary disease, unspecified; Y90.7 Blood alcohol level of 200-239 mg/100 ml; D69.59 Other secondary thrombocytopenia; R74.01 Elevation of levels of liver transaminase levels; E66.9 Obesity, unspecified; M85.80 Other specified disorders of bone density and structure, unspecified site; R41.3 Other amnesia; Z79.899 Other long term (current) drug therapy; Z82.49 Family history of ischemic heart disease and other diseases of the circulatory system; Z82.3 Family history of stroke; Z68.30 Body mass index [BMI] 30.0-30.9, adult; Z88.1 Allergy status to other antibiotic agents; Z88.8 Allergy status to other drugs, medicaments and biological substances
CPT/HCPCS: 36415; 71046; 80053; 80320; 83605; 83880; 84484; 85025; 85610; 85730; 93005; 94640; 96374; 96375; 99285

== ENCOUNTER 2021-03-15 22:06 | Emergency (ER) | payer OTHER ==
[2021-03-15] MEDS ORDERED: LORazepam 2 MG/ML INJ IV STA (22:25)
[2021-03-15] MEDS ORDERED: METOCLOPRAMIDE 5 MG/ML 2 ML VIAL IVP STA (22:25)
[2021-03-15] MEDS ORDERED: diphenhydrAMINE 50 MG/ML 1 ML VIAL IVP STA (22:25)
[2021-03-15] MEDS ORDERED: SODIUM CHLORIDE 0.9% 1,000 ML IV STA (22:26)
[2021-03-15 22:47] LABS: Basophils % (A) 1 %; Eosinophils # (A) 0.1 k/uL (0-0.7); Eosinophils % (A) 1 %; HCT 45.2 % (39.0-53.0); HGB 15.4 gm/dL (13.0-17.5); Lymphocytes # (A) 1.2 k/uL (1.0-4.8); Lymphocytes % (A) 19 %; MCH 33.1 pg (25.0-35.0); MCV 97.5 fL (80.0-100.0); Mean Platelet Volume 9.5; Monocytes # (A) 0.3 k/uL (0-1.0); Monocytes % (A) 5 %; Neutrophils # (A) 4.9 k/uL (1.3-7.7); Neutrophils % (A) 74 %; Platelet Count 140 k/uL (150-450); RBC 4.63 m/uL (4.30-5.90); RDW 13.3 % (11.5-15.5); WBC 6.7 k/uL (3.8-10.6)
[2021-03-15 22:55] LABS: ALT 39 U/L (4-49); AST 62 U/L (17-59); African American GFR (CKD) >90 (>60 ml/min/1.73 sqM); Albumin 4.2 g/dL (3.5-5.0); Alkaline Phosphatase 66 U/L (38-126); Anion Gap 9 mmol/L; Blood Urea Nitrogen 11 mg/dL (9-20); Calcium 9.5 mg/dL (8.4-10.2); Carbon Dioxide 29 mmol/L (22-30); Chloride 102 mmol/L (98-107); Glucose 93 mg/dL (74-99); Magnesium 1.8 mg/dL (1.6-2.3); Non-African American GFR(CKD) >90 (>60 ml/min/1.73 sqM); Potassium 3.2 mmol/L (3.5-5.1); Sodium 140 mmol/L (137-145); Total Bilirubin 0.6 mg/dL (0.2-1.3); Total Protein 6.7 g/dL (6.3-8.2)
[2021-03-15] MEDS ORDERED: POTASSIUM CHLORIDE ER 20 MEQ TAB.ER PO STA (23:05)
--- NOTE | 2021-03-15 23:31 | CT ---
EXAMINATION TYPE: CT brain wo con DATE OF EXAM: 03/15/2021 COMPARISON: 03/14/2019 HISTORY: headley and weakness prior on pacs CT DLP: 1127.4 mGycm Automated exposure control for dose reduction was used. Ventricles have normal size. There is no mass effect nor mid line shift. There is no sign of intracra nial hemorrhage. There is some cerebellar atrophy. The calvarium is intact. Skull base is intact. IMPRESSION: There is some cerebellar atrophy which is similar to old exam. No acute intracranial abnormality.
--- NOTE | 2021-03-15 23:43 | ED ---
General Adult HPI - General Chief complaint: Recheck/Abnormal Lab/Rx Stated complaint: elevated BP Time Seen by Provider: 03/15/21 22:16 Source: patient Mode of arrival: ambulatory - History of Present Illness Initial comments: 55-year-old male with a past medical history of hypertension, anxiety, alcohol abuse presents to the emergency room for a chief complaint of high blood pressure. Patient states he was discharged from the hospital today for alcohol withdrawal. He went home and checked his blood pressure. He states his blood pressure was high. Patient states he had a slight headache. Patient denied visual changes. Denies chest pain or shortness of breath. Denies drinking alcohol today, clnically sober. Patient has no other complaints at this time including shortness of breath, chest pain, abdominal pain, nausea or vomiting, or visual changes. - Related Data Home Medications Medication Instructions Recorded Confirmed Atenolol [Tenormin] 50 mg PO DAILY 02/28/21 03/13/21 Colchicine 0.6 - 1.2 mg PO DIRECTED 02/28/21 03/13/21 amLODIPine [Norvasc] 10 mg PO HS 02/28/21 03/13/21 Previous Rx's Medication Instructions Recorded Thiamine [Vitamin B-1] 100 mg PO BID-W/MEALS tab 03/05/21 Albuterol Sulfate [Proair Hfa] 1 - 2 puff INHALATION Q6HR PRN #1 03/13/21 inhaler predniSONE 50 mg PO DAILY #5 tablet 03/13/21 chlordiazePOXIDE HCl [Librium] 10 mg PO TID 3 Days #9 capsule 03/14/21 Allergies Allergy/AdvReac Type Severity Reaction Status Date / Time allopurinol Allergy Unknown Verified 03/15/21 22:10 azithromycin Allergy Anaphylaxis Verified 03/15/21 22:10 Review of Systems ROS Statement: Those systems with pertinent positive or pertinent negative responses have been documented in the HPI. ROS Other: All systems not noted in ROS Statement are negative. Past Medical History Past Medical History: Unable to Obtain, Hypertension Additional Past Medical History / Comment(s): anxiety, personality disorder, manic depression, etoh abuse, COVID 19 12/13 History of Any Multi-Drug Resistant Organisms: None Reported Past Surgical History: Unable to Obtain Past Anesthesia/Blood Transfusion Reactions: No Reported Reaction Past Psychological History: Anxiety, Depression Smoking Status: Never smoker Past Alcohol Use History: Daily, Heavy Past Drug Use History: Marijuana - Past Family History Father Family Medical History: CVA/TIA, Myocardial Infarction ([place]) Mother Family Medical History: Thyroid Disorder General Exam General appearance: alert, in no apparent distress Head exam: Present: atraumatic, normocephalic, normal inspection Eye exam: Present: normal appearance, PERRL, EOMI. Absent: scleral icterus, conjunctival injection, periorbital swelling ENT exam: Present: normal exam Neck exam: Present: normal inspection, full ROM. Absent: tenderness Respiratory exam: Present: normal lung sounds bilaterally. Absent: respiratory distress, wheezes Cardiovascular Exam: Present: regular rate, normal rhythm, normal heart sounds GI/Abdominal exam: Present: soft, normal bowel sounds. Absent: distended, tenderness, guarding, rebound, rigid Neurological exam: Present: alert, oriented X3 Course Vital Signs 03/15/21 03/15/21 22:07 22:10 Temperature 97.7 F Pulse Rate 65 68 Respiratory 18 14 Rate Blood Pressure 174/99 160/100 O2 Sat by Pulse 98 98 Oximetry EKG Findings - EKG Comments: EKG Findings:: Normal sinus rhythm, ventricular rate 67, DC interval 178, QTC 464 Medical Decision Making - Medical Decision Making Vitals are stable. Patient initially hypertensive 174/99. He does have a history of hypertension. Only complaint is headache. Recheck blood pressure revealed a blood pressure 160/100. Patient did take his home blood pressure medications today. Denies chest pain. EKG was obtained which showed a normal sinus rhythm with an incomplete right bundle-branch block. Laboratory addie luation was obtained which is unremarkable. Slight hypokalemia, replaced orally. CT showed some cerebellar atrophy similar to old exam without acute intracranial abnormality. Patient was given fluids, Ativan, Reglan and Benadryl and did have improvement in symptoms. Blood pressure improved to 151/92. Patient's pain is much better. Patient will be discharged home. Patient will return for any worsening symptoms. - Lab Data Result diagrams: 03/15/21 22:38 03/15/21 22:38 Lab Results 03/15/21 03/15/21 Range/Units 22:38 22:38 WBC 6.7 (3.8-10.6) k/uL RBC 4.63 (4.30-5.90) m/uL Hgb 15.4 (13.0-17.5) gm/dL Hct 45.2 (39.0-53.0) % MCV 97.5 (80.0-100.0) fL MCH 33.1 (25.0-35.0) pg MCHC 34.0 (31.0-37.0) g/dL RDW 13.3 (11.5-15.5) % Plt Count 140 L (150-450) k/uL MPV 9.5 Neutrophils % 74 % Lymphocytes % 19 % Monocytes % 5 % Eosinophils % 1 % Basophils % 1 % Neutrophils # 4.9 (1.3-7.7) k/uL Lymphocytes # 1.2 (1.0-4.8) k/uL Monocytes # 0.3 (0-1.0) k/uL Eosinophils # 0.1 (0-0.7) k/uL Basophils # 0.0 (0-0.2) k/uL Sodium 140 (137-145) mmol/L Potassium 3.2 L (3.5-5.1) mmol/L Chloride 102 (98-107) mmol/L Carbon Dioxide 29 (22-30) mmol/L Anion Gap 9 mmol/L BUN 11 (9-20) mg/dL Creatinine 0.73 (0.66-1.25) mg/dL Est GFR (CKD-EPI)AfAm >90 (>60 ml/min/1.73 sqM) Est GFR (CKD-EPI)NonAf >90 (>60 ml/min/1.73 sqM) Glucose 93 (74-99) mg/dL Calcium 9.5 (8.4-10.2) mg/dL Magnesium 1.8 (1.6-2.3) mg/dL Total Bilirubin 0.6 (0.2-1.3) mg/dL AST 62 H (17-59) U/L ALT 39 (4-49) U/L Alkaline Phosphatase 66 (38-126) U/L Total Protein 6.7 (6.3-8.2) g/dL Albumin 4.2 (3.5-5.0) g/dL Disposition Clinical Impression: Hypertension Disposition: HOME SELF-CARE Condition: Good Instructions (If sedation given, give patient instructions): Hypertension (ED) Additional Instructions: Please follow-up with your primary care provider to address your blood pressure. Return to the emergency room for any worsening symptoms. Is patient prescribed a controlled substance at d/c from ED?: No Referrals: Emre Wyatt MD [Primary Care Provider] - 1-2 days Time of Disposition: 00:16
[2021-03-16 00:32] VITALS: BP 144/89; PULSE 64; RESP 18; TEMP 98.2
== END 2021-03-16 00:37 | disposition home or self-care (01) ==
LOC: EC 22:06
DX: I10 Essential (primary) hypertension (principal); F31.9 Bipolar disorder, unspecified; F12.90 Cannabis use, unspecified, uncomplicated
CPT/HCPCS: 36415; 93005; 80053; 83735; 85025; 70450; 99284; 96374; 96375 ×2; 96361 ×2; J2060; J1200; J2765

== ENCOUNTER 2021-04-17 16:06 | Inpatient (IN) | payer OTHER ==
[2021-04-17] MEDS ORDERED: SODIUM CHLORIDE 0.9% 1,000 ML IV ONE (16:49)
--- NOTE | 2021-04-17 16:59 | ED ---
General Adult HPI - General Chief complaint: Fall Stated complaint: Fall,ETOH Time Seen by Provider: 04/17/21 16:45 Source: patient, EMS, RN notes reviewed Mode of arrival: EMS Limitations: no limitations - History of Present Illness Initial comments: 55-year-old white male alert to person only, presents to the emergency room via EMS with complaints of being found on the ground with facial injuries. Patient appears intoxicated and has a history of alcohol abuse. His speech is slurred, unable to determine most of what he is saying. He does complain of head pain. Unknown if there was any loss of consciousness. He is moving all extremities, follows simple commands. He has abrasions to bilateral knees and face. Location: head, face Treatments Prior to Arrival: other (ccollar) - Related Data Home Medications Medication Instructions Recorded Confirmed Atenolol [Tenormin] 50 mg PO DAILY 02/28/21 04/17/21 amLODIPine [Norvasc] 10 mg PO HS 02/28/21 04/17/21 Albuterol Sulfate [Proair Hfa] 2 puff INHALATION RT-Q6H PRN 04/17/21 04/17/21 chlordiazePOXIDE HCl [Librium] 25 mg PO TID PRN 04/17/21 04/17/21 Allergies Allergy/AdvReac Type Severity Reaction Status Date / Time allopurinol Allergy Unknown Verified 04/17/21 17:30 azithromycin Allergy Anaphylaxis Verified 04/17/21 17:30 Review of Systems ROS Statement: Those systems with pertinent positive or pertinent negative responses have been documented in the HPI. ROS Other: All systems not noted in ROS Statement are negative. Past Medical History Past Medical History: Unable to Obtain, Hypertension Additional Past Medical History / Comment(s): anxiety, personality disorder, manic depression, etoh abuse, COVID 19 12/13 History of Any Multi-Drug Resistant Organisms: None Reported Past Surgical History: Unable to Obtain Past Anesthesia/Blood Transfusion Reactions: No Reported Reaction Past Psychological History: Anxiety, Depression Smoking Status: Never smoker Past Alcohol Use History: Daily, Heavy Past Drug Use History: Marijuana - Past Family History Father Family Medical History: CVA/TIA, Myocardial Infarction ([place]) Mother Family Medical History: Thyroid Disorder General Exam Limitations: no limitations, altered mental status General appearance: alert, appears intoxicated Head exam: Present: normocephalic, other (Multiple facial abrasions and right side) Eye exam: Present: normal appearance, EOMI. Absent: nystagmus Pupils: Present: normal accommodation ENT exam: Present: normal exam, normal oropharynx, mucous membranes moist Neck exam: Present: other (C-collar in place). Absent: tenderness, lymphadenopathy, thyromegaly Respiratory exam: Present: normal lung sounds bilaterally. Absent: respiratory distress, wheezes, rales, rhonchi, stridor, chest wall tenderness Cardiovascular Exam: Present: regular rate, normal rhythm, normal heart sounds. Absent: systolic murmur, diastolic murmur, rubs, gallop, clicks GI/Abdominal exam: Present: soft, normal bowel sounds. Absent: distended, tenderness, guarding, rebound, rigid Extremities exam: Present: full ROM, normal capillary refill, other (abrasions Bilateral knees). Absent: tenderness, pedal edema, joint swelling, calf tenderness Neurological exam: Present: alert, altered, CN II-XII intact. Absent: motor sensory deficit Psychiatric exam: Present: normal mood Skin exam: Present: warm, dry, normal color, abrasion (Face and bilateral knees). Absent: cyanosis, diaphoretic, petechiae, pallor, mottled Course Vital Signs 04/17/21 16:33 Temperature 98.9 F Pulse Rate 81 Respiratory 18 Rate Blood Pressure 132/71 - Reevaluation(s) Reevaluation #1: 04/17/21 18:47 Spoke with regarding transferring patient to the [facility] for C5 fracture. Time: 18:47 Reevaluation #2: Spoke with [facility] Dr Caruso who suggested that I call orthopedic at our hospital to see if they will accept first. Spoke with Yasmani Goel at 1914 regarding case and he will discuss with his attending and call back. 04/17/21 19:14 Time: 19:00 Reevaluation #3: 04/17/21 19:52 Patient was accepted by Dr. Gandhi, spoke with Yasmani Goel, consults to neuro and medicine. Time: 19:52 EKG Findings - EKG Results: EKG: WNL (ventricular rate of 76, SC interval of 0.182, QRS of 0.114, QTC of 0.436) Medical Decision Making - Medical Decision Making CT of the C-spine shows an acute minimally displaced fracture of the anterior inferior C5 vertebral body. There is an endplate irregularity of the superior endplate of C7 which may be related to degenerative change was likely acute. Th ere is no intracranial hemorrhage midline shift or mass effect within the brain. Patient remains in a c-collar. alcohol level of .421. He has no focal neurological deficits. Abdomen is soft and nontender. Spoke with Yasmani Law patient will be admitted to Dr. Gandhi. Patient's tetanus shot was updated at his visit. He was placed on CIWA scale. Case discussed with Dr Martinez. - Lab Data Result diagrams: 04/17/21 17:00 04/17/21 17:00 Lab Results 04/17/21 04/17/21 04/17/21 Range/Units 17:00 17:00 17:00 WBC 4.7 (3.8-10.6) k/uL RBC 4.66 (4.30-5.90) m/uL Hgb 15.9 (13.0-17.5) gm/dL Hct 47.5 (39.0-53.0) % MCV 101.9 H (80.0-100.0) fL MCH 34.0 (25.0-35.0) pg MCHC 33.4 (31.0-37.0) g/dL RDW 14.8 (11.5-15.5) % Plt Count 159 (150-450) k/uL MPV 8.8 Neutrophils % 50 % Lymphocytes % 33 % Monocytes % 10 % Eosinophils % 1 % Basophils % 1 % Neutrophils # 2.3 (1.3-7.7) k/uL Lymphocytes # 1.6 (1.0-4.8) k/uL Monocytes # 0.5 (0-1.0) k/uL Eosinophils # 0.1 (0-0.7) k/uL Basophils # 0.1 (0-0.2) k/uL Hypochromasia Slight Macrocytosis Slight PT 9.6 (9.0-12.0) sec INR 0.9 (<1.2) APTT 23.1 (22.0-30.0) sec Sodium 136 L (137-145) mmol/L Potassium 4.1 (3.5-5.1) mmol/L Chloride 97 L (98-107) mmol/L Carbon Dioxide 24 (22-30) mmol/L Anion Gap 15 mmol/L BUN 6 L (9-20) mg/dL Creatinine 0.93 (0.66-1.25) mg/dL Est GFR (CKD-EPI)AfAm >90 (>60 ml/min/1.73 sqM) Est GFR (CKD-EPI)NonAf >90 (>60 ml/min/1.73 sqM) Glucose 100 H (74-99) mg/dL Calcium 9.0 (8.4-10.2) mg/dL Total Bilirubin 0.4 (0.2-1.3) mg/dL AST 308 H (17-59) U/L ALT 146 H (4-49) U/L Alkaline Phosphatase 127 H (38-126) U/L Ammonia (<30) umol/L Total Protein 7.4 (6.3-8.2) g/dL Albumin 4.8 (3.5-5.0) g/dL Serum Alcohol 412 H* mg/dL 04/17/21 Range/Units Unknown WBC (3.8-10.6) k/uL RBC (4.30-5.90) m/uL Hgb (13.0-17.5) gm/dL Hct (39.0-53.0) % MCV (80.0-100.0) fL MCH (25.0-35.0) pg MCHC (31.0-37.0) g/dL RDW (11.5-15.5) % Plt Count (150-450) k/uL MPV Neutrophils % % Lymphocytes % % Monocytes % % Eosinophils % % Basophils % % Neutrophils # (1.3-7.7) k/uL Lymphocytes # (1.0-4.8) k/uL Monocytes # (0-1.0) k/uL Eosinophils # (0-0.7) k/uL Basophils # (0-0.2) k/uL Hypochromasia Macrocytosis PT (9.0-12.0) sec INR (<1.2) APTT (22.0-30.0) sec Sodium (137-145) mmol/L Potassium (3.5-5.1) mmol/L Chloride (98-107) mmol/L Carbon Dioxide (22-30) mmol/L Anion Gap mmol/L BUN (9-20) mg/dL Creatinine (0.66-1.25) mg/dL Est GFR (CKD-EPI)AfAm (>60 ml/min/1.73 sqM) Est GFR (CKD-EPI)NonAf (>60 ml/min/1.73 sqM) Glucose (74-99) mg/dL Calcium (8.4-10.2) mg/dL Total Bilirubin (0.2-1.3) mg/dL AST (17-59) U/L ALT (4-49) U/L Alkaline Phosphatase (38-126) U/L Ammonia <9 (<30) umol/L Total Protein (6.3-8.2) g/dL Albumin (3.5-5.0) g/dL Serum Alcohol mg/dL Disposition Clinical Impression: C5 cervical fracture, Acute alcohol intoxication Disposition: ADMITTED IP TO THIS [facility] Condition: Fair Referrals: Emre Wyatt MD [Primary Care Provider] - 1-2 days Decision Date: 04/17/21 Decision Time: 19:59
[2021-04-17 17:06] LABS: Basophils # (A) 0.1 k/uL (0-0.2); Basophils % (A) 1 %; Eosinophils # (A) 0.1 k/uL (0-0.7); Eosinophils % (A) 1 %; HCT 47.5 % (39.0-53.0); HGB 15.9 gm/dL (13.0-17.5); Hypochromasia Slight; Lymphocytes # (A) 1.6 k/uL (1.0-4.8); Lymphocytes % (A) 33 %; MCHC 33.4 g/dL (31.0-37.0); MCV 101.9 fL (80.0-100.0); Macrocytosis Slight; Mean Platelet Volume 8.8; Monocytes # (A) 0.5 k/uL (0-1.0); Monocytes % (A) 10 %; Neutrophils # (A) 2.3 k/uL (1.3-7.7); Neutrophils % (A) 50 %; Platelet Count 159 k/uL (150-450); RBC 4.66 m/uL (4.30-5.90); RDW 14.8 % (11.5-15.5); WBC 4.7 k/uL (3.8-10.6)
[2021-04-17 17:15] LABS: ALT 146 U/L (4-49); AST 308 U/L (17-59); African American GFR (CKD) >90 (>60 ml/min/1.73 sqM); Albumin 4.8 g/dL (3.5-5.0); Alkaline Phosphatase 127 U/L (38-126); Anion Gap 15 mmol/L; Blood Urea Nitrogen 6 mg/dL (9-20); Carbon Dioxide 24 mmol/L (22-30); Chloride 97 mmol/L (98-107); Glucose 100 mg/dL (74-99); Non-African American GFR(CKD) >90 (>60 ml/min/1.73 sqM); Potassium 4.1 mmol/L (3.5-5.1); Sodium 136 mmol/L (137-145); Total Bilirubin 0.4 mg/dL (0.2-1.3); Total Protein 7.4 g/dL (6.3-8.2)
[2021-04-17] MEDS ORDERED: DIPH,PERTUS(ACELL)TETVAC-LF 0.5 ML VIAL IM ONE (17:20)
[2021-04-17 17:21] LABS: INR 0.9 (<1.2); Partial Thromboplastin Time 23.1 sec (22.0-30.0); Prothrombin Time 9.6 sec (9.0-12.0)
[2021-04-17] MEDS ORDERED: BACITRACIN OINT 1 EACH PACKET TOPICAL ONE (17:25)
[2021-04-17 17:27] LABS: Alcohol 412 mg/dL
--- NOTE | 2021-04-17 17:54 | CT ---
EXAMINATION TYPE: CT brain gautam freeman DATE OF EXAM: 04/17/2021 COMPARISON: 03/15/2021 CT head HISTORY: Fall. Multiple facial injuries. CT DLP: 1493.8 mGycm Automated exposure control for dose reduction was used. TECHNIQUE: CT scan of the head and cervical spine are performed without contrast. FINDINGS: There is no acute intracranial hemorrhage, mass effect, or midline shift identified. The ventricles and sulci are within normal limits in size. The globes are intact and the visualized sin uses are clear. Cervical spine is visualized in its entirety from C1 through upper thoracic levels and demonstrates s traightening of the cervical lordosis. There is a minimally displaced fracture of the inferior anteri or C5 vertebral body. There is questionable fracture deformity versus degenerative disc disease endpl ate change at the superior endplate of C7. There is C6-C7 vacuum disc phenomenon and endplate irregul arity. No vertebral body height loss. Prevertebral soft tissue appears within normal limits. The C1 -C2 articulation is unremarkable. IMPRESSION: 1. No acute intracranial hemorrhage, midline shift, or mass effect. 2. There is an acute minimally displaced fracture of the anterior inferior C5 vertebral body. No heig ht loss. 3. Endplate irregularity of the superior endplate of C7 may be related to degenerative change, less l ikely acute fracture.
--- NOTE | 2021-04-17 18:14 | CT ---
EXAMINATION TYPE: CT facial bones wo con DATE OF EXAM: 04/17/2021 COMPARISON: None HISTORY: Fall. Multiple facial injuries. CT DLP: mGycm Automated exposure control for dose reduction was used. TECHNIQUE: CT scan of the sinuses is performed without contrast, axial images are obtained, coronal r eformatted images are also reviewed. FINDINGS: There is no acute facial bone fracture or malalignment. Fascial planes are maintained. No s ignificant soft tissue swelling. Globes are grossly symmetric. Sinuses are well aerated. IMPRESSION: No acute displaced facial bone fracture.
[2021-04-17] MEDS ORDERED: LORazepam 2 MG/ML INJ IV PRN (19:32)
[2021-04-17] MEDS ORDERED: THIAMINE 100 MG/ML 2 ML VIAL IM STA (19:32)
[2021-04-17] MEDS ORDERED: NALOXONE 0.4 MG/ML 1 ML VIAL IV PRN (19:33)
--- NOTE | 2021-04-17 20:49 | XR ---
EXAMINATION TYPE: XR chest 1V DATE OF EXAM: 04/17/2021 CLINICAL HISTORY: fall. TECHNIQUE: Supine view of the chest COMPARISON: 03/13/2021 FINDINGS: The cardiomediastinal silhouette is within normal limits for size. Pulmonary vasculature i s normal. There is no focal air space opacity. No pleural effusion. No pneumothorax within limitatio ns of supine technique. No acute displaced osseous fracture. IMPRESSION: No acute cardiopulmonary process.
[2021-04-17] MEDS: MORPHINE SULFATE 4 MG/ML SYRINGE IV PRN (21:00)
[2021-04-17] MEDS: THIAMINE 100 MG TAB PO SCH (21:43)
[2021-04-18] MEDS: LORazepam 2 MG/ML INJ IV PRN ×6 (01:20→21:18)
[2021-04-18] MEDS: SODIUM CHLORIDE 0.9% 1,000 ML IV SCH ×3 (03:52→21:21)
[2021-04-18] MEDS: MORPHINE SULFATE 4 MG/ML SYRINGE IV PRN ×5 (05:20→23:13)
[2021-04-18 07:03] LABS: Urine Alcohol Positive (Negative); Urine Barbiturate Negative (Negative); Urine Cocaine Negative (Negative); Urine Methadone Negative (Negative); Urine Opiates Negative (Negative); Urine Phencyclidine Negative (Negative)
--- NOTE | 2021-04-18 08:34 | P.CNOR ---
History of Present Illness - [facility] Consult date: 04/18/21 Consult reason: fracture History of present illness: 55-year-old male who was found down on the street was brought to emergency department by EMS. Patient is somewhat unreliable for history is fungal in all call level exceeding 400 he was very confused on admission to the emergency department. He was worked up as a trauma appropriately and found to have multiple different issues. Currently the patient complains of neck pain and low back pain. He complains of some numbness and tingling in his upper extremities. He denies any bowel or bladder issues denies any perineal numbness or tingling. The patient is somewhat lethargic at this time and unreliable for history does not remember what happened there is likely loss of consciousness and then a fall. He has multiple abrasions over his face and head. Review of Systems 14 points review of systems completed and as stated in HPI, all other systems reviewed are negative. Past Medical History Past Medical History: Unable to Obtain, Hypertension Additional Past Medical History / Comment(s): anxiety, personality disorder, manic depression, etoh abuse, COVID 19 12/13 History of Any Multi-Drug Resistant Organisms: None Reported Past Surgical History: Unable to Obtain Past Anesthesia/Blood Transfusion Reactions: No Reported Reaction Past Psychological History: Anxiety, Depression Smoking Status: Never smoker Past Alcohol Use History: Daily, Heavy Past Drug Use History: Marijuana - Past Family History Father Family Medical History: CVA/TIA, Myocardial Infarction ([place]) Mother Family Medical History: Thyroid Disorder Medications and Allergies Home Medications Medication Instructions Recorded Confirmed Type Atenolol [Tenormin] 50 mg PO DAILY 02/28/21 04/17/21 History amLODIPine [Norvasc] 10 mg PO HS 02/28/21 04/17/21 History Albuterol Sulfate [Proair Hfa] 2 puff INHALATION RT-Q6H PRN 04/17/21 04/17/21 Hi story chlordiazePOXIDE HCl [Librium] 25 mg PO TID PRN 04/17/21 04/17/21 History Allergies Allergy/AdvReac Type Severity Reaction Status Date / Time allopurinol Allergy Unknown Verified 04/17/21 17:30 azithromycin Allergy Anaphylaxis Verified 04/17/21 17:30 Physical Examination Osteopathic Statement: *. No significant issues noted on an osteopathic structural exam other than those noted in the History and Physical/Consult. PHYSICAL EXAMINATION: Vitals: Stable at this time General: Awake, answers some questions appropriately still somewhat sleepy and lethargic. In no acute distress HEENT: No unusual neck masses around region of lateral neck triangle, thyroid, supraclavicular groove. Multiple facial lacerations and abrasions from the fall multiple contusions noted on the head and face. Heart: Regular rate and rhythm, normal S1, S2 and no murmur/gallop. Lungs: Clear to auscultation bilaterally with no use of accessory muscles. Extremities: Skin warm and dry without no acute lesions, coloration, temperature, skin intact, no tenderness or erythema. Integument: Hairy patches: Absent Dorsal skin dimples: Absent Cafe au lait spots: Absent Surgical incisions: None Palpation: Please see Pain drawing on Intake sheet for further detail. (Tenderness = T, Nontender = NT, Swelling = S, Ecchymosis = E) Findings on Midline and paraspinal palpation and percussion: Cervical: TTP posterior cervical spine, midline at C5-C6 region. Thoracic: NT Lumbar: Midline tenderness around the L3-L4 region some paraspinal tenderness as well Sacral: NT Special findings: Minor ballottement signs in the lumbar region negative in the thoracic region POSTURAL and MUSCULO-SKELETAL EVALUATION: Neck ROM: Restricted secondary to hard cervical collar that cannot be cleared at this time Lumbar ROM: Restricted secondary to pain Shoulder ROM: Symmetric in abduction, ER/IR, patient does exhibit some weakness however in upper extremities no pain with passive range of motion Hip ROM: Symmetric in abduction, adduction, ER/IR, no pain with passive range of motion bilateral hips Knee ROM: Symmetric and intact in Flexion / extension, no pain with passive range of motion bilateral knees Hands: Normal appearing structure L and R, minor scrapes and abrasions Feet: Normal appearing structure L and R VASCULAR STATUS : Wrist Pulses: 2/4 bilateral radial and ulnar Pedal Pulses: 2/4 bilateral DP and PT Color: Normal Edema: None NEUROLOGIC EXAMINATION: Mental Status: Awake and alert, not fully oriented, with abnormal attention, concentration and memory, appropriate speech. Cranial Nerves: I: Olfactory not tested. II: Visual acuity normal, no visual field deficit noted with confrontation. III,IV: Normal pupillary reflexes & intact extraocular movements without nystagmus. V,: Intact symmetrical facial sensation. VII: Intact symmetrical facial motor movement VIII: Hearing intact. IX,X: Intact gag, swallow, & normal voice. XI: Sternocleidomastoid, trapezius function intact. XII: Tongue midline with normal movements. Special Tests: L'hermitte's Sign: Not tested Spurling'Sign: Not tested secondary to injury Cubital percussion test: Absent Bilateral Zeeshan-Tinel sign - Carpal region: Absent Bilateral Straight Leg Raising: Absent Bilateral Motor Exam (0-5/5, N/T) STRENGTH UPPER EXTREMITY Shoulder Abd (Not part of MANISH Motor score): RIGHT 4 minus LEFT 4 minus Elbow Flexors: RIGHT 4- LEFT 4- Elbow Extensor: RIGHT 4- LEFT 4- Wrrist Dorsiflexors: RIGHT 4- LEFT 4- Finger Abductor: RIGHT 4- LEFT 4- Post Acute Care Registered Nurse: RIGHT 4- LEFT 3 Only focal deficit is slightly worse copra sampler strength on the left than the right however the patient does have some global weakness of his upper extremities bilaterally LOWER EXTREMITY Hip Flexor (Not part of MANISH Motor Score): RIGHT 4 LEFT 4 Knee Flexor: RIGHT 4 LEFT 4 Knee Extensor: RIGHT 4 LEFT 4 Ankle Dorsiflexion: RIGHT 4 LEFT 4 Ankle Plantarflexion: RIGHT 4 LEFT 4 EHL: RIGHT 4 LEFT 4 FHL: RIGHT 4 LEFT 4 No focal deficits in the lower extremities some weakness related to cooperation efforts REFLEXES Biecp: RIGHT 2 LEFT 2 Tricep: RIGHT 2 LEFT 2 Brachioradialis: RIGHT 2 LEFT 2 Patellar: RIGHT 2 LEFT 2 Achilles: RIGHT 2 LEFT 2 Pathological Reflexes Garcia's: RIGHT Absent LEFT Absent Babinski: RIGHT Absent LEFT Absent Clonus: RIGHT None LEFT None SENSORY Joint Position: Intact bilaterally Vibration Intact bilaterally Pain and LT sense Intact C5-T1 and L2-S1 Dermatomal deficit None Gait and Functional Evaluation: Ambulatory aids: Hand and finger dexterity intact bilaterally. Disdiadochokinesis examination negative bilaterally. Results Computed tomography scan of the cervical spine and brain is reviewed. This demonstrates a anterior inferior teardrop-like fracture of the C5 vertebral body. It is very small however is not a fully teardrop type fracture. This would be classified better with AO classification of between an A0 and A1. There is no apparent instability all facet joints appear stable without fracture there is spondylosis facet arthrosis noted throughout the cervical spine. Occipital cervical and C1 2 joints appear stable. There is some vacuum disc p henomenon at C6-C7 that is likely osteoarthritic in nature however fracture is not ruled out in this area. Overall alignment is fairly well maintained. MRI is pending - Labs Labs: Abnormal Lab Results - Last 24 Hours (Table) 04/17/21 04/17/21 04/17/21 Range/Units 17:00 17:00 18:21 MCV 101.9 H (80.0-100.0) fL Sodium 136 L (137-145) mmol/L Chloride 97 L (98-107) mmol/L BUN 6 L (9-20) mg/dL Glucose 100 H (74-99) mg/dL AST 308 H (17-59) U/L ALT 146 H (4-49) U/L Alkaline Phosphatase 127 H (38-126) U/L U Cannabinoids Screen Positive A (Negative) ng/mL Urine Alcohol Positive A (Negative) mg/dL Serum Alcohol 412 H* mg/dL H & H 04/17/21 Range/Units 17:00 Hgb 15.9 (13.0-17.5) gm/dL Hct 47.5 (39.0-53.0) % Coagulation 04/17/21 Range/Units 17:00 INR 0.9 (<1.2) Result Diagrams: 04/17/21 17:00 04/17/21 17:00 Assessment and Plan Assessment: 55-year-old male found down status post fall from standing likely with blunt head trauma C5 anterior inferior fracture AO a 0 to 1 EtOH intoxication Blunt head trauma Upper extremity weakness Plan: -Admission to hospital -C-spine precautions hard cervical collar at all times, obtain new [place]pen collar -Activity: Bedrest currently may sit up in bed with assistance -Pain control: [Adequate at this time] -Meds: [reviewed] -GI ppx: senna, Miralax -Medical management in consultation -Recommend neurology consultation -DVT PPX: Mechanical at this time -Keep nothing by mouth until after MRI -Hygiene: Maintain good hygiene -Encourage IS 10x/hr -Further recommendations following MRI -Dispo: [Pending]
[2021-04-18] MEDS: THIAMINE 100 MG TAB PO SCH ×2 (09:24→16:14)
--- NOTE | 2021-04-18 11:39 | MR ---
MRI CERVICAL SPINE: CLINICAL HISTORY: C5 fracture TECHNIQUE: Multiplanar, multisequence imaging of the cervical and thoracic spine is performed without IV contrast. COMPARISON: CT 04/17/2021 FINDINGS: Cervical spine MRI: There is multilevel spondylosis. Cervical vertebral bodies show preserved height and alignment. There is some endplate discogenic marrow signal change, loss of disc height and signal greatest at C4-5, C5-6 and C6-7. At the area of patient's anterior inferior C5 fracture significant edema is not identified. Cervical cord signal is thought to be maintained, there is some artifact pre sent. Anterior to the C3 and C4 vertebral bodies there is some intermediate signal on T1, increased s ignal on T2 suggesting prevertebral soft tissue edema. No significant spinal stenosis with the except ion of C5-6. C2-3: No evident disc herniation or foraminal encroachment. There is facet arthropathy change. C3-4: Small central disc protrusion effaces the anterior thecal sac. Uncovertebral joint hypertrophy, facet arthropathy encroach mildly on the foramina. C4-5: Posterior broad-based disc bulge somewhat eccentric towards the left causing anterolateral mass effect on the thecal sac. Uncovertebral joint hypertrophy and facet arthropathy result in some left- sided foraminal encroachment. C5-6: Posterior broad-based disc bulge is noted, posterior extension of endplate disc complex effaces the anterior thecal sac. Only mild spinal stenosis. Bilateral foraminal encroachment is present due to uncovertebral joint hypertrophy. C6-7: Posterior broad-based disc bulge effaces the anterior thecal sac. There is some left-sided fora cj encroachment due to uncovertebral joint hypertrophy. C7-T1: No significant foraminal encroachment or evident disc herniation. IMPRESSION: There is no significant edema at the site of patient's previously described fracture at C 5. Prevertebral soft tissue swelling is suspected however. There is a mild spinal stenosis, multileve l foraminal encroachment, facet arthropathy. Degenerative disc disease as described. Thoracic spine MRI: There is mild spinal curvature. Thoracic vertebral bodies show preserved height. There is multilevel spondylosis with some endplate discogenic marrow signal change. No significant sp inal stenosis. Thoracic cord signal is limited for evaluation on the axial images but thought to be w ithin normal limits on sagittal imaging. No significant spinal stenosis or foraminal encroachment. No sizable disc herniation evident. IMPRESSION: Degenerative disc disease, spinal curvature. No evident acute fracture.
[2021-04-18] MEDS ORDERED: SODIUM CHLORIDE 0.9% 1,000 ML with MVI, ADULT NO.4 WITH VIT K 10 ML, THIAMINE 100 MG, F... IV ONE ×4 (11:45)
--- NOTE | 2021-04-18 12:08 | P.PN ---
Progress Note - Text Progress Note Date: 04/18/21 I have reviewed the MRI of the cervical and thoracic spine. There is no evidence of acute instability posterior ligamentous complex is intact. Patient does have spondylosis of the lower cervical spine from C5 to C7 was related stenosis no myelomalacia. The anterior inferior fracture of C5 appears to be somewhat acute on chronic with no evidence of instability at this time. Patient likely has contused of injury to the area related to his fall and intoxication. Lasix spine appears normal no fracture dislocation. At this time we will obtain an [place] collar for the patient for protection. PT OT. Conservative measures with medication at this time. No emergent surgical intervention warranted.
--- NOTE | 2021-04-18 13:59 | XR ---
EXAMINATION TYPE: XR lumbar spine 2 or 3V DATE OF EXAM: 04/18/2021 CLINICAL HISTORY: pain TECHNIQUE: Three views of the lumbar spine are submitted. COMPARISON: None. FINDINGS: There are 5 lumbar type vertebral bodies identified. The lumbar spine shows satisfactory alignment w ithout evidence of acute fracture or dislocation. Vertebral body heights are within normal limits. Mild scattered degenerative disc space narrowing and spondylosis. Facet joint arthropathy at L4-5 and L5-S1. The overlying soft tissue appears unremarkable. IMPRESSION: No acute fracture or dislocation is seen in the lumbar spine. ICD 10 NO FRACTURE, INITIAL EVALUATION
--- NOTE | 2021-04-18 15:12 | P.HPIM ---
History of Present Illness H&P Date: 04/18/21 HISTORY OF PRESENT ILLNESS This is a 55-year-old male patient of Dr. Wyatt with past medical history of hypertension, daily marijuana use, heavy alcohol abuse, memory loss. Patient was recently hospitalized February 28 through the for alcohol abuse and alcohol withdrawal with acute pancreatitis, acute alcoholic hepatitis. Patient was last seen on 03/14/2021 for alcohol intoxication and was discharged on Librium. Patient comes in with significant alcohol intoxication with the alcohol levels 412 by EMS when he was found on the ground with facial injuries. Patient stated his feet got entangled and he took a fall from ground level. He has significant pain on his face and his lower back on the left side. Patient denies any loss of consciousness but does not recall the details of events. Speech is clear denies any loss of consciousness denies any weakness or numbness. Patient seen by orthopedic surgeon Dr. Gandhi and ordered a CT spine. Labs are reviewed hemoglobin 17.9 on admission WBC 4.7 sodium 136 potassium 4.1 chloride 97 BUN [address] C-spine suggestive of acute minimally displaced fracture of the anterior inferior C5 vertebral spinal height loss was done endplate irregularity of the superior endplate of C5 related to degenerative changes less likely due to acute fracture CT facial bones without contrast no acutefacial bone fracture MRI cervical and thoracic spine suggestive of degenerative disc disease no significant edema at the site of patient's previously described fracture at T5 prevertebral soft tissue swelling suspected mild spinal stenosis multilevel lumbar foraminal encroachment visit arthropathy degenerative disc disease noted. Thoracic spine suggestive degenerative disc disease with some endplate disc ogenic marrow signal changein her stenosis no disc herniation noted Orthopedics recommendations on 04/18 suggest no acute instability of posterior ligamentous complex. Interior inferior fracture C5 appears to be acute on chronic no evidence of instability. Aspirin collar was recommended with PT OT consultation. REVIEW OF SYSTEMS Constitutional: No fever, reports chills, no night sweats. No weight change. Reports weakness, Reports fatigue. Reports daytime sleepiness. EENT: Positive for headaches pain on the cheek No blurred vision or double vision, no loss of vision. Does have difficulty opening his eyes due to swelling No loss of Hearing, no ringing in the ears, no dizziness. Denies nasal drainage or congestion. No epistaxis. No sore throat. Lungs: Reports shortness of breath, denies cough, denies sputum production. No wheezing. Cardiovascular: No chest pain, reports lower extremity edema. No palpitations. No paroxysmal nocturnal dyspnea. No orthopnea. No lightheadedness or dizziness. No syncopal episodes. Abdominal: Reports left flank pain No nausea, vomiting. Reports diarrhea. No constipation. No bloody or tarry stools. No loss of appetite. Genitourinary: No dysuria, increased frequency, urgency. No urinary retention. Musculoskeletal: No myalgias. No muscle weakness, no gait dysfunction, no frequent falls. No back pain. No neck pain. Integumentary: abrasions on the head and face No wounds, no lesions. No rash or pruritus. No unusual bruising. Neurologic: No aphasia. No facial droop. No change in mentation. No head injury. No headache. No paralysis. No paresthesia. Psychiatric: No depression. No anxiety. Endocrine: No abnormal blood sugars. SOCIAL HISTORY Patient has no history of tobacco use. He smokes marijuana on a daily basis. He drinks more than 12 [place] per day for greater than 2 years. His last intake was last evening. Patient has never been . He lives with his mother and father. FAMILY HISTORY Mother is alive with history of thyroid cancer. Father is alive and patient does not know his medical history. Patient has 3 sisters with no major medical problems. He does not have any brothers. He does not have any children.. PHYSICAL EXAMINATION Gen: This is a 54-year-old male collar in place appears to be comfortable and in mild acute distress. No respiratory distress noted. HEENT: Head is atraumatic, normocephalic. Pupils equal, round. Sclerae is anicteric. Multiple abrasions noted on the face NECK: Collar in place LUNGS: Clear to auscultation. No wheezes or rhonchi. No intercostal retractions. No accessory muscle usage. HEART: Regular rate and rhythm. No murmur. ABDOMEN: Soft. Bowel sounds are present. No masses. No tenderness. EXTREMITIES: Trace pedal edema. No calf tenderness. Dorsalis pedis palpable bilaterally. Knee abrasions bilaterally Mild weakness noted on the left side Tremors and shakiness of the upper extremities noted NEUROLOGICAL: Patient is awake, alert and oriented x3. Cranial nerves 2 through 12 are grossly intact. Skin exam; multiple bruises and contusions over both bases with difficulty opening of eyes due to edema ASSESSMENT AND PLAN 1. Mechanical fall secondary to alcohol intoxication. PTOT evaluation clean the abrasions with soap and water. Pain control with morphine 4 mg IV every 6 hours 2. Acute on chronic C5 fracture. [place] collar recommended. PTOT consult. Fall precautions. Speech evaluation [address] head and neck negative for any acute lesions. C5 spine fracture appears to be acute on chronic. No new fractures noted. Degenerative disc disease noted in the CT spine 4. Upper extremity weakness with tremors neurology to evaluate the patient. Consult placed as patient slightly weak on the left side. 5. Alcohol abuse With withdrawal CIBA protocol. Banana bag@100 mL per hour. Librium initially of 5 3 times a day 6. Hypertension. amlodipine 5 mg by mouth daily. Atenolol 50 mg by mouth daily 7. Transaminitis secondary to alcohol abuse. Continue to monitor. No ascites no history of varices patient on atenolol for prevention of portal hypertension 8. Daily marijuana use. 9.. Short-term memory deficit secondary to marijuana use and alcohol abuse. Recommend thiamine 100 mg daily is completed with antibiotics 10. History of thrombocytopenia secondary to alcohol abuse, stable. 11 degenerative disc disease of the neck and back continue pain control with morphine 12 CODE STATUS full code 13 DVT prophylaxis with heparin every 12 14 GI prophylaxis with Pepcid 20 daily 15 disposition patient would need to PT and OT evaluation for assessment of debility Past Medical History Past Medical History: Unable to Obtain, Hypertension Additional Past Medical History / Comment(s): anxiety, personality disorder, manic depression, etoh abuse, COVID 19 12/13 History of Any Multi-Drug Resistant Organisms: None Reported Past Surgical History: Unable to Obtain Past Anesthesia/Blood Transfusion Reactions: No Reported Reaction Past Psychological History: Anxiety, Depression Smoking Status: Never smoker Past Alcohol Use History: Daily, Heavy Past Drug Use History: Marijuana - Past Family History Father Family Medical History: CVA/TIA, Myocardial Infarction ([place]) Mother Family Medical History: Thyroid Disorder Medications and Allergies Home Medications Medication Instructions Recorded Confirmed Type Atenolol [Tenormin] 50 mg PO DAILY 02/28/21 04/17/21 History amLODIPine [Norvasc] 10 mg PO HS 02/28/21 04/17/21 History Albuterol Sulfate [Proair Hfa] 2 puff INHALATION RT-Q6H PRN 04/17/21 04/17/21 History chlordiazePOXIDE HCl [Librium] 25 mg PO TID PRN 04/17/21 04/17/21 History Allergies Allergy/AdvReac Type Severity Reaction Status Date / Time allopurinol Allergy Unknown Verified 04/17/21 17:30 azithromycin Allergy Anaphylaxis Verified 04/17/21 17:30 Physical Exam Vitals: Vital Signs Temp Pulse Pulse Resp BP BP Pulse Ox 04/18/21 11:19 98.1 F 89 18 134/72 98 04/18/21 05:31 70 18 132/76 98 04/18/21 03:54 63 18 122/80 99 04/17/21 23:35 70 18 112/80 100 04/17/21 21:00 63 18 119/107 100 04/17/21 16:33 98.9 F 81 18 132/71 Intake and Output 04/17/21 04/18/21 04/18/21 22:59 06:59 14:59 Output Total 600 Balance -600 Output: Urine 600 Other: Voiding Method Urinal # Voids 1 Weight 99.79 kg Results CBC & Chem 7: 04/18/21 15:34 04/18/21 15:34 Labs: Abnormal Lab Results - Last 24 Hours (Table) 04/17/21 04/17/21 04/17/21 Range/Units 17:00 17:00 18:21 MCV 101.9 H (80.0-100.0) fL Sodium 136 L (137-145) mmol/L Chloride 97 L (98-107) mmol/L BUN 6 L (9-20) mg/dL Glucose 100 H (74-99) mg/dL AST 308 H (17-59) U/L ALT 146 H (4-49) U/L Alkaline Phosphatase 127 H (38-126) U/L U Cannabinoids Screen Positive A (Negative) ng/mL Urine Alcohol Positive A (Negative) mg/dL Serum Alcohol 412 H* mg/dL Thrombosis Risk Factor Assmnt - Choose All That Apply Any of the Below Risk Factors Present?: No
[2021-04-18] MEDS ORDERED: IPRATROPIUM-ALBUTEROL 3 ML NEB INHALATION PRN (15:14)
[2021-04-18] MEDS ORDERED: ONDANSETRON 4 MG/2 ML VIAL IVP PRN (15:14)
--- NOTE | 2021-04-18 15:50 | P.CNNES ---
History of Present Illness Consult date: 04/18/21 Requesting physician: Niko Melton Reason for Consult: C5 fracture, alcohol intoxication. History of Present Illness: Patient is a 55-year-old male came to the hospital by ambulance yesterday at 4:06 PM. As per EMS flow sheet, when they arrived on the scene, found patient leaning against a police cruiser holding a towel to his face. The patient's reported that the patient was walking and fell resulting in hitting his head on the cement. Patient has obvious laceration to his face, knees and hands. The patient's speech is slurred and has an unsteady gait due to drinking. Patient was placed in a c-collar for cervical spine precautions. Patient's blood pressure was 146/94, pulse rate 84, respiration 14 saturation 98%. GCS was 15. Patient underwent computed tomography scan of the head, which revealed no acute intracranial hemorrhage, midline shift or mass effect. CT of the cervical spine shows acute minimally displaced fracture of the anterior inferior C5 vertebral body. No height loss. And plate irregularity of the superior endplate of C7 may be related to degenerative change, and less likely acute fracture. CT of the facial bones was negative. Chest x-ray was negative, EKG with normal sinus rhythm. Patient's blood test shows normal CBC with elevated MCV 101.9. PT/PTT is normal, sodium 136 potassium 4.1, normal renal functions. AST is 308, ALT 146. Urine drug screen positive for marijuana and alcohol, with serum alcohol level 412. Patient at this time tells me that he stumbled on his own feet and fell. He did not pass out. Did not have any seizure. Did not bite his tongue or lost control of urine with the fall. Patient states that he has been drinking alcohol heavily since he was age 10. At present he drinks 12-18 white claw a day. He denies any history of seizures ever in the past. Patient states that he does fall a lot, but every time related to alcoholism. At present he feels his arms and legs are weak. Denies any problem with bowel or bladder control. He states that whole body feels stiff. He has history of hypertension for 1-1/2 years. Never smoked tobacco. He uses edible marijuana. He is complaining of some shakes, for the last 4 days, probably from alcohol related. Review of Systems Patient complains of facial pain. Some neck pain. Whole body stiffness. Generalized weakness. No numbness or tingling. Denies any problems with control of bowels or bladder. Patient denies any visual symptoms. No slurred speech. No chest pain, abdominal pain nausea vomiting diarrhea. No rash. He does have abrasions on multiple parts of the body from fall. Past Medical History Past Medical History: Unable to Obtain, Hypertension Additional Past Medical History / Comment(s): anxiety, personality disorder, manic depression, etoh abuse, COVID 19 12/13 History of Any Multi-Drug Resistant Organisms: None Reported Past Surgical History: Unable to Obtain Past Anesthesia/Blood Transfusion Reactions: No Reported Reaction Past Psychological History: Anxiety, Depression Smoking Status: Never smoker Past Alcohol Use History: Daily, Heavy Past Drug Use History: Marijuana - Past Family History Father Family Medical History: CVA/TIA, Myocardial Infarction ([place]) Mother Family Medical History: Thyroid Disorder Medications and Allergies Home Medications Medication Instructions Recorded Confirmed Type Atenolol [Tenormin] 50 mg PO DAILY 02/28/21 04/17/21 History amLODIPine [Norvasc] 10 mg PO HS 02/28/21 04/17/21 History Albuterol Sulfate [Proair Hfa] 2 puff INHALATION RT-Q6H PRN 04/17/21 04/17/21 History chlordiazePOXIDE HCl [Librium] 25 mg PO TID PRN 04/17/21 04/17/21 History Allergies Allergy/AdvReac Type Severity Reaction Status Date / Time allopurinol Allergy Unknown Verified 04/17/21 17:30 azithromycin Allergy Anaphylaxis Verified 04/17/21 17:30 Physical Examination - Vital Signs Vital Signs: Vital Signs Temp Pulse Pulse Resp BP BP Pulse Ox 04/18/21 11:19 98.1 F 89 18 134/72 98 04/18/21 05:31 70 18 132/76 98 04/18/21 03:54 63 18 122/80 99 04/17/21 23:35 70 18 112/80 100 04/17/21 21:00 63 18 119/107 100 04/17/21 16:33 98.9 F 81 18 132/71 Intake and Output 04/17/21 04/18/21 04/18/21 22:59 06:59 14:59 Output Total 600 Balance -600 Output: Urine 600 Other: Voiding Method Urinal # Voids 1 Weight 99.79 kg Patient is a middle aged male, appears slightly older than his stated age. Patient is alert awake oriented to time place and person. He knows it is March 2021 and that is in [facility]. Speech and language functions are normal. Attention, concentration and fund of knowledge is adequate. He has slow mentation slightly. On cranial examination, pupils are round and reacting to light, visual maya are full on confrontation with no neglect on double simultaneous stimulation, extraocular muscles are intact with mild coarse nystagmus observed. Patient has multiple facial abrasions particularly over the right side. Right side of the face appears slightly swollen, therefore appears slightly droopy. His tongue protrudes to the midline. No evidence of trauma to the tongue. Palatal elevation and sensation normal, hearing and shoulder shrug normal, facial sensation normal. Shoulder shrug normal. On muscle strength testing, there is no pronator drift and the strength is normal in arms and legs distally and proximally. His instructor of spanish is about 4+5- bilaterally, with decreased effort. Deep tendon reflexes are 2 at the biceps, 1 brachioradialis, 1 at the knees 0 ankles and plantars downgoing bilaterally. Sensory to touch is equal with no neglect on double simultaneous stimulation. Cerebellar function showed no ataxia for [id number]-eged testing. No dysdiadochokinesia. Tone and bulk of muscles normal. He is slightly tremulous for [id number]-xj-hyjy testing bilaterally. Patient has mild fine tremors of outstretched hands consistent with alcohol withdrawal. Gait not checked. On general examination, there is no carotid bruit or murmur, S1-S2 audible. Abdomen is soft nontender. Chest is clear. Peripheral pulses are present. No edema. Results - Laboratory Findings CBC and BMP: 04/17/21 17:00 04/17/21 17:00 Abnormal Lab Findings: Abnormal Labs 04/17/21 04/17/21 04/17/21 17:00 17:00 18:21 MCV 101.9 H Sodium 136 L Chloride 97 L BUN 6 L Glucose 100 H AST 308 H ALT 146 H Alkaline Phosphatase 127 H U Cannabinoids Screen Positive A Urine Alcohol Positive A Serum Alcohol 412 H* Assessment and Plan Assessment: * Status post fall due to alcohol intoxication, with subsequent C5 fracture. Patient's current neurological examination is nonfocal. No evidence of myelopathy. * Frequent falls, likely due to alcoholism. Rule out nutritional/vitamin deficiency. * Chronic alcoholism * Marijuana use Plan: * Patient underwent MRI of the cervical spine, which revealed no significant edema at the site of patient's previously described fracture at C5. Prevertebral soft tissue swelling and suspected however. There is mild spinal stenosis, multilevel foraminal encroachment, facet arthropathy. Degenerative disc disease. * MRI of the thoracic spine which revealed degenerative disc disease, spinal curvature. No evident acute fracture. * We will check B12, folate, MMA, B6. * Watch for alcohol withdrawal * PT OT evaluate gait. * Patient counseled about abstinence from alcohol.
[2021-04-18 15:53] LABS: Basophils # (A) 0.1 k/uL (0-0.2); Basophils % (A) 1 %; Eosinophils % (A) 0 %; HCT 44.9 % (39.0-53.0); Lymphocytes # (A) 0.5 k/uL (1.0-4.8); Lymphocytes % (A) 6 %; MCH 34.4 pg (25.0-35.0); MCHC 33.5 g/dL (31.0-37.0); MCV 102.7 fL (80.0-100.0); Macrocytosis Slight; Mean Platelet Volume 8.6; Monocytes # (A) 0.5 k/uL (0-1.0); Monocytes % (A) 6 %; Neutrophils % (A) 87 %; Platelet Count 117 k/uL (150-450); RBC 4.37 m/uL (4.30-5.90); RDW 14.1 % (11.5-15.5)
[2021-04-18 16:06] LABS: ALT 105 U/L (4-49); AST 175 U/L (17-59); African American GFR (CKD) >90 (>60 ml/min/1.73 sqM); Albumin 4.2 g/dL (3.5-5.0); Albumin/Globulin Ratio 1.8; Alkaline Phosphatase 110 U/L (38-126); Anion Gap 16 mmol/L; Blood Urea Nitrogen 10 mg/dL (9-20); Calcium 8.9 mg/dL (8.4-10.2); Carbon Dioxide 19 mmol/L (22-30); Chloride 104 mmol/L (98-107); Creatine Kinase 224 U/L (55-170); Globulin 2.3 g/dL; Glucose 73 mg/dL (74-99); Non-African American GFR(CKD) >90 (>60 ml/min/1.73 sqM); Potassium 4.6 mmol/L (3.5-5.1); Sodium 139 mmol/L (137-145); Total Protein 6.5 g/dL (6.3-8.2)
[2021-04-18] MEDS: FAMOTIDINE 20 MG TAB PO SCH (16:14)
[2021-04-18] MEDS: amLODIPine 10 MG TAB PO SCH (21:18)
[2021-04-18] MEDS: HEPARIN SODIUM,PORCINE/PF 5,000 UNIT/0.5 ML SYRINGE SQ SCH (21:18)
[2021-04-18] MEDS: 1: MVI, ADULT NO.4 WITH VIT K 10 ML, THIAMINE 100 MG, FOLIC ACID 1 MG in SODIUM CHLORIDE IV SCH ×8 (21:20→23:14)
[2021-04-19] MEDS: MORPHINE SULFATE 4 MG/ML SYRINGE IV PRN ×3 (04:31→21:35)
--- NOTE | 2021-04-19 08:14 | P.PN ---
Subjective Progress Note Date: 04/19/21 Patient seen and examined he states he is having pain in his right foot as well as his left knee today. States the pain in his neck is much better. He is wearing his aspen collar at this time laying in bed. States it is difficult to walk secondary to the pain in his right foot he thinks he has gout in this foot. He is a history of this in the past. He denies any perineal numbness or tingling denies any fevers chills or some breath or chest pain denies any headache vision changes nausea or vomiting at this time. He has been up to chair and that is about it. He is currently on [facility] Objective - Vital Signs Vital signs: Vital Signs Temp 98.5 F 04/19/21 04:35 Pulse 84 04/19/21 04:35 Resp 18 04/19/21 04:35 BP 146/78 04/19/21 04:35 Pulse Ox 97 04/19/21 07:39 Intake & Output 04/18/21 04/19/21 04/19/21 18:59 06:59 18:59 Intake Total 1180 1200 Output Total 1300 Balance -120 1200 Intake: Intake, IV Titration 600 1200 Amount Mvi, Adult No.4 with Vit 600 K 10 ml Thiamine 100 mg Folic Acid 1 mg In Sodium Chloride 0.9% 1,000 ml @ 100 mls/hr IV .BY DURATION [facility] Rx#: [id number] Sodium Chloride 0.9% 1, 1200 000 ml @ 100 mls/hr IV . BY DURATION [facility] Rx#: [id number] Oral 580 Output: Urine 1300 Other: Voiding Method Urinal Urinal # Voids 1 3 # Bowel Movements 1 - Exam Exam is as noted below, no other interval changes. PHYSICAL EXAMINATION: Vitals: Stable at this time General: Awake, answers some questions appropriately still somewhat sleepy and lethargic. In no acute distress HEENT: No unusual neck masses around region of lateral neck triangle, thyroid, supraclavicular groove. Multiple facial lacerations and abrasions from the fall multiple contusions noted on the head and face. Heart: Regular rate and rhythm, normal S1, S2 and no murmur/gallop. Lungs: Clear to auscultation bilaterally with no use of accessory muscles. Extremities: Skin warm and dry without no acute lesions, coloration, temperature, skin intact, no tenderness or erythema. Integument: Hairy patches: Absent Dorsal skin dimples: Absent Cafe au lait spots: Absent Surgical incisions: None Palpation: Please see Pain drawing on Intake sheet for further detail. (Tenderness = T, Nontender = NT, Swelling = S, Ecchymosis = E) Findings on Midline and paraspinal palpation and percussion: Cervical: TTP posterior cervical spine, midline at C5-C6 region. Thoracic: NT Lumbar: Midline tenderness around the L3-L4 region some paraspinal tenderness as well Sacral: NT Special findings: Minor ballottement signs in the lumbar region negative in the thoracic region POSTURAL and MUSCULO-SKELETAL EVALUATION: Neck ROM: Restricted secondary to hard cervical collar that cannot be cleared at this time Lumbar ROM: Restricted secondary to pain Shoulder ROM: Symmetric in abduction, ER/IR, patient does exhibit some weakness however in upper extremities no pain with passive range of motion Hip ROM: Symmetric in abduction, adduction, ER/IR, no pain with passive range of motion bilateral hips Knee ROM: Symmetric and intact in Flexion / extension, no pain with passive range of motion bilateral knees Hands: Normal appearing structure L and R, minor scrapes and abrasions Feet: Normal appearing structure L and R, TTP of the lateral aspect of the right foot in the small toe. VASCULAR STATUS : Wrist Pulses: 2/4 bilateral radial and ulnar Pedal Pulses: 2/4 bilateral DP and PT Color: Normal Edema: None NEUROLOGIC EXAMINATION: Mental Status: Awake and alert, not fully oriented, with abnormal attention, concentration and memory, appropriate speech. Cranial Nerves: I: Olfactory not tested. II: Visual acuity normal, no visual field deficit noted with confrontation. III,IV: Normal pupillary reflexes & intact extraocular movements without nystagmus. V,: Intact symmetrical facial sensation. VII: Intact symmetrical facial motor movement VIII: Hearing intact. IX,X: Intact gag, swallow, & normal voice. XI: Sternocleidomastoid, trapezius function intact. XII: Tongue midline with normal movements. Special Tests: L'hermitte's Sign: Not tested Spurling'Sign: Not tested secondary to injury Cubital percussion test: Absent Bilateral Zeeshan-Tinel sign - Carpal region: Absent Bilateral Straight Leg Raising: Absent Bilateral Motor Exam (0-5/5, N/T) STRENGTH UPPER EXTREMITY Shoulder Abd (Not part of MANISH Motor score): RIGHT 4 minus LEFT 4 minus Elbow Flexors: RIGHT 4- LEFT 4- Elbow Extensor: RIGHT 4- LEFT 4- Wrrist Dorsiflexors: RIGHT 4- LEFT 4- Finger Abductor: RIGHT 4- LEFT 4- Sand Caster: RIGHT 4- LEFT 3 Only focal deficit is slightly worse v belt inspector strength on the left than the right however the patient does have some global weakness of his upper extremities bilaterally LOWER EXTREMITY Hip Flexor (Not part of MANISH Motor Score): RIGHT 4 LEFT 4 Knee Flexor: RIGHT 4 LEFT 4 Knee Extensor: RIGHT 4 LEFT 4 Ankle Dorsiflexion: RIGHT 4 LEFT 4 Ankle Plantarflexion: RIGHT 4 LEFT 4 EHL: RIGHT 4 LEFT 4 FHL: RIGHT 4 LEFT 4 No focal deficits in the lower extremities some weakness related to cooperation efforts REFLEXES Biecp: RIGHT 2 LEFT 2 Tricep: RIGHT 2 LEFT 2 Brachioradialis: RIGHT 2 LEFT 2 Patellar: RIGHT 2 LEFT 2 Achilles: RIGHT 2 LEFT 2 Pathological Reflexes Garcia's: RIGHT Absent LEFT Absent Babinski: RIGHT Absent LEFT Absent Clonus: RIGHT None LEFT None SENSORY Joint Position: Intact bilaterally Vibration Intact bilaterally Pain and LT sense Intact C5-T1 and L2-S1 Dermatomal deficit None Gait and Functional Evaluation: Ambulatory aids: Hand and finger dexterity intact bilaterally. Disdiadochokinesis examination negative bilaterally. - Labs CBC & Chem 7: 04/18/21 15:34 04/18/21 15:34 Labs: Abnormal Lab Results - Last 24 Hours (Table) 04/18/21 04/18/21 Range/Units 15:34 15:34 MCV 102.7 H (80.0-100.0) fL Plt Count 117 L (150-450) k/uL Lymphocytes # 0.5 L (1.0-4.8) k/uL Carbon Dioxide 19 L (22-30) mmol/L Glucose 73 L (74-99) mg/dL AST 175 H (17-59) U/L ALT 105 H (4-49) U/L Creatine Kinase 224 H (55-170) U/L Assessment and Plan Assessment: 55-year-old male found down status post fall from standing likely with blunt head trauma C5 anterior inferior AOA1. Likely chronic EtOH intoxication Blunt head trauma Upper extremity weakness Right foot pain, contusion Left knee pain, contusion Plan: -Admission to hospital -Continue Hard cervical collar -Activity: OK for ambulation and PT/OT -Pain control: Adequate at this time -GI ppx: senna, Miralax -Medical management -Recommend neurology consultation -DVT PPX: Mechanical at this time -OK for diet -Hygiene: Maintain good hygiene -Encourage IS 10x/hr -No emergent/urgent orthopedic surgical intervention at this time. We will obtain XR of the R foot and L knee as pt is having pain here. -Continue with serial exams -Dispo: [Pending]
[2021-04-19] MEDS: atenoloL 50 MG TAB PO SCH (09:43)
[2021-04-19] MEDS: THIAMINE 100 MG TAB PO SCH ×2 (09:43→17:11)
[2021-04-19] MEDS: HEPARIN SODIUM,PORCINE/PF 5,000 UNIT/0.5 ML SYRINGE SQ SCH ×2 (09:43→20:41)
[2021-04-19] MEDS: FAMOTIDINE 20 MG TAB PO SCH (09:43)
[2021-04-19 12:16] LABS: Folate, Serum >24.0 ng/mL
[2021-04-19] MEDS: methylPREDNISolone SOD SUCCI 40 MG/ML 1 ML VIAL IV SCH ×2 (12:38→17:12)
[2021-04-19] MEDS: KETOROLAC 15 MG/ML 1 ML VIAL IVP SCH ×3 (12:38→23:21)
[2021-04-19] MEDS: SODIUM CHLORIDE 0.9% 1,000 ML IV SCH (12:39)
[2021-04-19] MEDS: PANTOPRAZOLE 40 MG/10 ML VIAL IVP SCH (12:39)
[2021-04-19] MEDS: LORazepam 2 MG/ML INJ IV PRN (12:41)
--- NOTE | 2021-04-19 12:59 | P.PN ---
Subjective Progress Note Date: 04/19/21 HISTORY OF PRESENT ILLNESS This is a 55-year-old male patient of Dr. Wyatt with past medical history of hypertension, daily marijuana use, heavy alcohol abuse, memory loss. Patient was recently hospitalized February 28 through the for alcohol abuse and alcohol withdrawal with acute pancreatitis, acute alcoholic hepatitis. Patient was last seen on 03/14/2021 for alcohol intoxication and was discharged on Librium. Patient comes in with significant alcohol intoxication with the alcohol levels 412 by EMS when he was found on the ground with facial injuries. Patient stated his feet got entangled and he took a fall from ground level. He has significant pain on his face and his lower back on the left side. Patient denies any loss of consciousness but does not recall the details of events. Speech is clear denies any loss of consciousness denies any weakness or n umbness. Patient seen by orthopedic surgeon Dr. Gandhi and ordered a CT spine. Labs are reviewed hemoglobin 17.9 on admission WBC 4.7 sodium 136 potassium 4.1 chloride 97 BUN [address] C-spine suggestive of acute minimally displaced fracture of the anterior inferior C5 vertebral spinal height loss was done endplate irregularity of the superior endplate of C5 related to degenerative changes less likely due to acute fracture CT facial bones without contrast no acutefacial bone fracture MRI cervical and thoracic spine suggestive of degenerative disc disease no significant edema at the site of patient's previously described fracture at T5 prevertebral soft tissue swelling suspected mild spinal stenosis multilevel lumbar foraminal encroachment visit arthropathy degenerative disc disease noted. Thoracic spine suggestive degenerative disc disease with some endplate discogenic marrow signal changein her stenosis no disc herniation noted Orthopedics recommendations on 04/18 suggest no acute instability of posterior ligamentous complex. Interior inferior fracture C5 appears to be acute on chronic no evidence of instability. Aspirin collar was recommended with PT OT consultation. 04/19 patient examined at bedside. Patient refuses to come out of bed or participate with physical therapy due to extreme pain he is in. Orthopedic has recommended hard collar for the neck. X-ray of the right foot and left knee is ordered since patient is complaining of pain in his joints. On evaluation he complains of pain in his entire body. He finds himself to tree and tremorous. Patient also had a speech evaluation today and has normal swallow at bedside. Patient continues to remain on alcohol withdrawal protocol and requires Ativan as needed. In the last 24 hours patient has received 3 mg of Ativan. Continue Librium at 5 3 times a day. Patient encouraged to participate with physical therapy. Vitals are stable temperature 98.8 pulse 78 and respiratory rate 17 and blood pressure 155/89 oxygen saturation 97% on 2 L. The Bartos examination suggestive WBC of 8 hemoglobin 15 sodium 139 potassium 4.6 BUN 19 creatinine 0.7 glucose is 73 AST and ALT is improved symptoms since last trough from 308-175 ALT is improved 105 alkaline phosphatase has normalized. CK is 224 vitamin B12 622 folate 24. Initiate patient on Solu-Medrol 40 every 8 hours along with Toradol. REVIEW OF SYSTEMS Constitutional: No fever, reports chills, no night sweats. No weight change. Reports weakness, Reports fatigue. Reports daytime sleepiness. EENT: Positive for headaches pain on the cheek No blurred vision or double vision, no loss of vision. Does have difficulty opening his eyes due to swelling No loss of Hearing, no ringing in the ears, no dizziness. Denies nasal drainage or congestion. No epistaxis. No sore throat. Lungs: Reports shortness of breath, denies cough, denies sputum production. No wheezing. Cardiovascular: No chest pain, reports lower extremity edema. No palpitations. No paroxysmal nocturnal dyspnea. No orthopnea. No lightheadedness or dizziness. No syncopal episodes. Abdominal: Reports left flank pain No nausea, vomiting. Reports diarrhea. No constipation. No bloody or tarry stools. No loss of appetite. Genitourinary: No dysuria, increased frequency, urgency. No urinary retention. Musculoskeletal: Positive for muscle aches and joint pain No muscle weakness, gait not assessed, no frequent falls. Positive for neck pain and back pain Integumentary: abrasions on the head and face No wounds, no lesions. No rash or pruritus. No unusual bruising. Neurologic: No aphasia. No facial droop. No change in mentation. No head injury. No headache. No paralysis. No paresthesia. Positive for tremors Psychiatric: No depression. No anxiety. Endocrine: No abnormal blood sugars. PHYSICAL EXAMINATION Gen: This is a 54-year-old male collar in place appears to be comfortable and in mild acute distress. No respiratory distress noted. HEENT: Head is atraumatic, normocephalic. Pupils equal, round. Sclerae is anicteric. Multiple abrasions noted on the face NECK: Collar in place LUNGS: Clear to auscultation. No wheezes or rhonchi. No intercostal retractions. No accessory muscle usage. HEART: Regular rate and rhythm. No murmur. ABDOMEN: Soft. Bowel sounds are present. No masses. No tenderness. EXTREMITIES: Trace pedal edema. Mild edema noted in the left foot. No calf tenderness. Dorsalis pedis palpable bilaterally. Weakness is improved on the left side. Abrasions noted of the bilateral knees. No swelling noted. No redness to suggest gout episode. Tremors and shakiness of the upper extremities noted NEUROLOGICAL: Patient is awake, alert and oriented x3. Cranial nerves 2 through 12 are grossly intact. Skin exam; multiple bruises and contusions over both bases with difficulty opening of eyes due to edema ASSESSMENT AND PLAN 1. Mechanical fall secondary to alcohol intoxication. PTOT evaluation clean the abrasions with soap and water. Pain control with morphine 4 mg IV every 6 hours 2. Acute on chronic C5 fracture. [place]ndara collar recommended. PTOT consult. Fall precautions. Speech evaluation [address] head and neck negative for any acute lesions. C5 spine fracture appears to be acute on chronic. No new fractures noted. Degenerative disc disease noted in the CT spine 4. Upper extremity weakness with tremors neurology to evaluate the patient. No weakness appreciated. No further recommendations continue alcohol abstinence 5. Alcohol abuse With withdrawal CIBA protocol. Banana bag@100 mL per hour. Librium 5 milligrams 3 times a day 6. Hypertension. amlodipine 5 mg by mouth daily. Atenolol 50 mg by mouth daily 7. Transaminitis secondary to alcohol abuse. Continue to monitor. No ascites no history of varices patient on atenolol for prevention of portal hypertension 8. Daily marijuana use. 9.. Short-term memory deficit secondary to marijuana use and alcohol abuse. Recommend thiamine 100 mg daily is completed with antibiotics 10. History of thrombocytopenia secondary to alcohol abuse, stable. 11 degenerative disc disease of the neck and back continue pain control with morphine #12 acute on chronic pain mostly prominent at the left knee and right foot X-ray pending. Solu-Medrol initiated 40 IV twice a day to 3 times a day with Toradol and 15 every 6. 12 CODE STATUS full code 13 DVT prophylaxis with heparin every 12 14 GI prophylaxis with Protonix 40 IV daily 15 disposition patient would need to PT and OT evaluation for assessment of debility. Patient not cooperating with the physical therapy to get an assessment on his strength. He is in extreme pain and will try again tomorrow Objective - Vital Signs Vital signs: Vital Signs Temp 98.8 F 04/19/21 12:14 Pulse 79 04/19/21 12:14 Resp 17 04/19/21 12:14 BP 155/89 04/19/21 12:14 Pulse Ox 97 04/19/21 12:14 Intake & Output 04/18/21 04/19/21 04/19/21 18:59 06:59 18:59 Intake Total 1180 1200 Output Total 1300 Balance -120 1200 Intake: Intake, IV Titration 600 1200 Amount Mvi, Adult No.4 with Vit 600 K 10 ml Thiamine 100 mg Folic Acid 1 mg In Sodium Chloride 0.9% 1,000 ml @ 100 mls/hr IV .BY DURATION [facility] Rx#: [id number] Sodium Chloride 0.9% 1, 1200 000 ml @ 100 mls/hr IV . BY DURATION [facility] Rx#: [id number] Oral 580 Output: Urine 1300 Other: Voiding Method Urinal Urinal Urinal # Voids 1 3 # Bowel Movements 1 - Labs CBC & Chem 7: 04/18/21 15:34 04/18/21 15:34 Labs: Abnormal Lab Results - Last 24 Hours (Table) 04/18/21 04/18/21 Range/Units 15:34 15:34 MCV 102.7 H (80.0-100.0) fL Plt Count 117 L (150-450) k/uL Lymphocytes # 0.5 L (1.0-4.8) k/uL Carbon Dioxide 19 L (22-30) mmol/L Glucose 73 L (74-99) mg/dL AST 175 H (17-59) U/L ALT 105 H (4-49) U/L Creatine Kinase 224 H (55-170) U/L
--- NOTE | 2021-04-19 13:00 | XR ---
EXAMINATION TYPE: XR knee limited 2 views LT, XR foot complete 3 views RT DATE OF EXAM: 04/19/2021 COMPARISON: NONE HISTORY: 55-year-old male with left knee pain after recent fall FINDINGS: Left knee: Anterior soft tissue swelling. No significant joint effusion. Extensor mechanism appears intact. No a cute fracture, subluxation, dislocation seen on these 2 views. Right foot: Moderate to severe degenerative change first MTP joint with joint space narrowing, subchondral sclero sis, and prominent marginal spurring. Some degenerative spurring at the third-fourth intermetatarsal joint. Some dorsal mid foot degenerative change. Dorsal forefoot soft tissue swelling. No acute fract ure, subluxation, or dislocation seen. IMPRESSION: 1. Left knee: Anterior soft tissue swelling. Otherwise, 2 views without acute osseous abnormality see n. 2. Right foot: Dorsal forefoot soft tissue swelling. Scattered osteoarthritic change, greatest at the first MTP joint. No acute osseous abnormality seen. If pain persists despite conservative managemen t, CT or MRI may be considered.
[2021-04-19] MEDS: 1: MVI, ADULT NO.4 WITH VIT K 10 ML, THIAMINE 100 MG, FOLIC ACID 1 MG in SODIUM CHLORIDE IV SCH ×12 (13:09→23:22)
[2021-04-19] MEDS: amLODIPine 10 MG TAB PO SCH (20:41)
[2021-04-19] MEDS: ACETAMINOPHEN TAB 325 MG TAB PO PRN (20:41)
[2021-04-20] MEDS: SODIUM CHLORIDE 0.9% 1,000 ML IV SCH ×3 (00:13→20:32)
[2021-04-20] MEDS: methylPREDNISolone SOD SUCCI 40 MG/ML 1 ML VIAL IV SCH ×3 (02:29→17:43)
[2021-04-20] MEDS: MORPHINE SULFATE 4 MG/ML SYRINGE IV PRN ×4 (02:29→20:47)
[2021-04-20] MEDS: KETOROLAC 15 MG/ML 1 ML VIAL IVP SCH ×4 (05:44→23:58)
[2021-04-20] MEDS: ACETAMINOPHEN TAB 325 MG TAB PO PRN ×2 (07:55→15:58)
[2021-04-20] MEDS: PANTOPRAZOLE 40 MG/10 ML VIAL IVP SCH (07:55)
[2021-04-20] MEDS: HEPARIN SODIUM,PORCINE/PF 5,000 UNIT/0.5 ML SYRINGE SQ SCH ×2 (07:55→20:46)
[2021-04-20] MEDS: 1: MVI, ADULT NO.4 WITH VIT K 10 ML, THIAMINE 100 MG, FOLIC ACID 1 MG in SODIUM CHLORIDE IV SCH ×8 (07:56→20:32)
[2021-04-20] MEDS: atenoloL 50 MG TAB PO SCH (07:56)
[2021-04-20] MEDS: THIAMINE 100 MG TAB PO SCH ×2 (07:56→17:47)
--- NOTE | 2021-04-20 09:39 | P.PN ---
Subjective Progress Note Date: 04/19/21 Patient was seen for a follow-up. Patient is laying in the bed. Still complaining of generalized weakness, stiffness. No problem with control of bowels or bladder. Next is sore. Patient in a hard cervical collar. Objective - Vital Signs Vital signs: Vital Signs Temp 98.8 F 04/19/21 12:14 Pulse 79 04/19/21 12:14 Resp 17 04/19/21 12:14 BP 155/89 04/19/21 12:14 Pulse Ox 97 04/19/21 12:14 Intake & Output 04/18/21 04/19/21 04/19/21 18:59 06:59 18:59 Intake Total 1180 1200 Output Total 1300 Balance -120 1200 Intake: Intake, IV Titration 600 1200 Amount Mvi, Adult No.4 with Vit 600 K 10 ml Thiamine 100 mg Folic Acid 1 mg In Sodium Chloride 0.9% 1,000 ml @ 100 mls/hr IV .BY DURATION [facility] Rx#: [id number] Sodium Chloride 0.9% 1, 1200 000 ml @ 100 mls/hr IV . BY DURATION [facility] Rx#: [id number] Oral 580 Output: Urine 1300 Other: Voiding Method Urinal Urinal Urinal # Voids 1 3 # Bowel Movements 1 - Exam Deferred, as patient did not feel comfortable being examined. Mentation is normal. - Labs CBC & Chem 7: 04/18/21 15:34 04/18/21 15:34 Labs: Abnormal Lab Results - Last 24 Hours (Table) 04/18/21 04/18/21 Range/Units 15:34 15:34 MCV 102.7 H (80.0-100.0) fL Plt Count 117 L (150-450) k/uL Lymphocytes # 0.5 L (1.0-4.8) k/uL Carbon Dioxide 19 L (22-30) mmol/L Glucose 73 L (74-99) mg/dL AST 175 H (17-59) U/L ALT 105 H (4-49) U/L Creatine Kinase 224 H (55-170) U/L Assessment and Plan Assessment: * Status post fall due to alcohol intoxication, with subsequent C5 fracture. Patient's current neurological examination is nonfocal. No evidence of myel opathy. * Frequent falls, likely due to alcoholism. Rule out nutritional/vitamin deficiency. * Chronic alcoholism * Marijuana use Plan: * Patient underwent MRI of the cervical spine, which revealed no significant edema at the site of patient's previously described fracture at C5. Prevertebral soft tissue swelling and suspected however. There is mild spinal stenosis, multilevel foraminal encroachment, facet arthropathy. Degenerative disc disease. * MRI of the thoracic spine which revealed degenerative disc disease, spinal curvature. No evident acute fracture. * B12 622, folate >24.0, MMA, B6 still pending. * Watch for alcohol withdrawal * PT OT evaluate gait. * Patient counseled about abstinence from alcohol.
[2021-04-20] MEDS: LORazepam 2 MG/ML INJ IV PRN (10:18)
--- NOTE | 2021-04-20 12:20 | P.PN ---
Subjective Progress Note Date: 04/20/21 patient was seen and evaluated this morning and exam was attempted however the patient was very irritated that we are in his room and we will come up and he told us to leave and would not cooperate. He was wearing his c-collar laying in bed appeared comfortable with no other issues. Per nursing no issues overnight Objective - Vital Signs Vital signs: Vital Signs Temp 98.4 F 04/20/21 04:18 Pulse 68 04/20/21 04:18 Resp 18 04/20/21 04:18 BP 124/73 04/20/21 04:18 Pulse Ox 97 04/20/21 04:18 Intake & Output 04/19/21 04/20/21 04/20/21 18:59 06:59 18:59 Intake Total 2200 2311.2 Balance 2199 2311.2 Intake: Intake, IV Titration 2199 2211.2 Amount Mvi, Adult No.4 with Vit 500 1011.2 K 10 ml Thiamine 100 mg Folic Acid 1 mg In Sodium Chloride 0.9% 1,000 ml @ 100 mls/hr IV .BY DURATION [facility] Rx#: [id number] Sodium Chloride 0.9% 1, 1700 000 ml @ 100 mls/hr IV . BY DURATION [facility] Rx#: [id number] Sodium Chloride 0.9% 1, 1200 000 ml @ 75 mls/hr IV . [id number] [facility] Rx#:[id number] Oral 100 Other: Voiding Method Urinal Urinal Urinal # Voids 2 - Exam we were not able to complete and exam today secondary to the patient's noncooperation he did roll over in bed however he is wearing his c-collar is breathing appropriately no other issues noted moving all 4 extremities spontaneously. PHYSICAL EXAMINATION: Vitals: Stable at this time General: Awake, answers some questions appropriately still somewhat sleepy and lethargic. In no acute distress HEENT: No unusual neck masses around region of lateral neck triangle, thyroid, supraclavicular groove. Multiple facial lacerations and abrasions from the fall multiple contusions noted on the head and face. Heart: Regular rate and rhythm, normal S1, S2 and no murmur/gallop. Lungs: Clear to auscultation bilaterally with no use of accessory muscles. Extremities: Skin warm and dry without no acute lesions, coloration, temperature, skin intact, no tenderness or erythema. Integument: Hairy patches: Absent Dorsal skin dimples: Absent Cafe au lait spots: Absent Surgical incisions: None Palpation: Please see Pain drawing on Intake sheet for further detail. (Tenderness = T, Nontender = NT, Swelling = S, Ecchymosis = E) Findings on Midline and paraspinal palpation and percussion: Cervical: TTP posterior cervical spine, midline at C5-C6 region. Thoracic: NT Lumbar: Midline tenderness around the L3-L4 region some paraspinal tenderness as well Sacral: NT Special findings: Minor ballottement signs in the lumbar region negative in the thoracic region POSTURAL and MUSCULO-SKELETAL EVALUATION: Neck ROM: Restricted secondary to hard cervical collar that cannot be cleared at this time Lumbar ROM: Restricted secondary to pain Shoulder ROM: Symmetric in abduction, ER/IR, patient does exhibit some weakness however in upper extremities no pain with passive range of motion Hip ROM: Symmetric in abduction, adduction, ER/IR, no pain with passive range of motion bilateral hips Knee ROM: Symmetric and intact in Flexion / extension, no pain with passive range of motion bilateral knees Hands: Normal appearing structure L and R, minor scrapes and abrasions Feet: Normal appearing structure L and R, TTP of the lateral aspect of the right foot in the small toe. VASCULAR STATUS : Wrist Pulses: 2/4 bilateral radial and ulnar Pedal Pulses: 2/4 bilateral DP and PT Color: Normal Edema: None NEUROLOGIC EXAMINATION: Mental Status: Awake and alert, not fully oriented, with abnormal attention, concentration and memory, appropriate speech. Cranial Nerves: I: Olfactory not tested. II: Visual acuity normal, no visual field deficit noted with confrontation. III,IV: Normal pupillary reflexes & intact extraocular movements without nystagmus. V,: Intact symmetrical facial sensation. VII: Intact symmetrical facial motor movement VIII: Hearing intact. IX,X: Intact gag, swallow, & normal voice. XI: Sternocleidomastoid, trapezius function intact. XII: Tongue midline with normal movements. Special Tests: L'hermitte's Sign: Not tested Spurling'Sign: Not tested secondary to injury Cubital percussion test: Absent Bilateral Zeeshan-Tinel sign - Carpal region: Absent Bilateral Straight Leg Raising: Absent Bilateral Motor Exam (0-5/5, N/T) STRENGTH UPPER EXTREMITY Shoulder Abd (Not part of MANISH Motor score): RIGHT 4 minus LEFT 4 minus Elbow Flexors: RIGHT 4- LEFT 4- Elbow Extensor: RIGHT 4- LEFT 4- Wrrist Dorsiflexors: RIGHT 4- LEFT 4- Finger Abductor: RIGHT 4- LEFT 4- Drupal Php Developer: RIGHT 4- LEFT 3 Only focal deficit is slightly worse map plotter strength on the left than the right however the patient does have some global weakness of his upper extremities bilaterally LOWER EXTREMITY Hip Flexor (Not part of MANISH Motor Score): RIGHT 4 LEFT 4 Knee Flexor: RIGHT 4 LEFT 4 Knee Extensor: RIGHT 4 LEFT 4 Ankle Dorsiflexion: RIGHT 4 LEFT 4 Ankle Plantarflexion: RIGHT 4 LEFT 4 EHL: RIGHT 4 LEFT 4 FHL: RIGHT 4 LEFT 4 No focal deficits in the lower extremities some weakness related to cooperation efforts REFLEXES Biecp: RIGHT 2 LEFT 2 Tricep: RIGHT 2 LEFT 2 Brachioradialis: RIGHT 2 LEFT 2 Patellar: RIGHT 2 LEFT 2 Achilles: RIGHT 2 LEFT 2 Pathological Reflexes Garcia's: RIGHT Absent LEFT Absent Babinski: RIGHT Absent LEFT Absent Clonus: RIGHT None LEFT None SENSORY Joint Position: Intact bilaterally Vibration Intact bilaterally Pain and LT sense Intact C5-T1 and L2-S1 Dermatomal deficit None Gait and Functional Evaluation: Ambulatory aids: Hand and finger dexterity intact bilaterally. Disdiadochokinesis examination neg ative bilaterally. - Labs CBC & Chem 7: 04/18/21 15:34 04/18/21 15:34 Assessment and Plan Assessment: 55-year-old male found down status post fall from standing likely with blunt head trauma C5 anterior inferior AOA1. Likely chronic EtOH intoxication Blunt head trauma Upper extremity weakness Right foot pain, contusion Left knee pain, contusion Plan: -Admission to hospital -Continue Hard cervical collar -Activity: OK for ambulation and PT/OT -Pain control: Adequate at this time -GI ppx: senna, Miralax -Medical management -Recommend neurology consultation -DVT PPX: Mechanical at this time -OK for diet -Hygiene: Maintain good hygiene -Encourage IS 10x/hr -Xrays of L knee and right foot negative for fracture. -No surgical intervention at this time Orthopedics will sign off at this time. Please feel free to contact us with any questions.
--- NOTE | 2021-04-20 16:25 | P.PN ---
Subjective Progress Note Date: 04/20/21 HISTORY OF PRESENT ILLNESS This is a 55-year-old male patient of Dr. Wyatt with past medical history of hypertension, daily marijuana use, heavy alcohol abuse, memory loss. Patient was recently hospitalized February 28 through the for alcohol abuse and alcohol withdrawal with acute pancreatitis, acute alcoholic hepatitis. Patient was last seen on 03/14/2021 for alcohol intoxication and was discharged on Librium. Patient comes in with significant alcohol intoxication with the alcohol levels 412 by EMS when he was found on the ground with facial injuries. Patient stated his feet got entangled and he took a fall from ground level. He has significant pain on his face and his lower back on the left side. Patient denies any loss of consciousness but does not recall the details of events. Speech is clear denies any loss of consciousness denies any weakness or n umbness. Patient seen by orthopedic surgeon Dr. Gandhi and ordered a CT spine. Labs are reviewed hemoglobin 17.9 on admission WBC 4.7 sodium 136 potassium 4.1 chloride 97 BUN [address] C-spine suggestive of acute minimally displaced fracture of the anterior inferior C5 vertebral spinal height loss was done endplate irregularity of the superior endplate of C5 related to degenerative changes less likely due to acute fracture CT facial bones without contrast no acutefacial bone fracture MRI cervical and thoracic spine suggestive of degenerative disc disease no significant edema at the site of patient's previously described fracture at T5 prevertebral soft tissue swelling suspected mild spinal stenosis multilevel lumbar foraminal encroachment visit arthropathy degenerative disc disease noted. Thoracic spine suggestive degenerative disc disease with some endplate discogenic marrow signal changein her stenosis no disc herniation noted Orthopedics recommendations on 04/18 suggest no acute instability of posterior ligamentous complex. Interior inferior fracture C5 appears to be acute on chronic no evidence of instability. Aspirin collar was recommended with PT OT consultation. 04/19 patient examined at bedside. Patient refuses to come out of bed or participate with physical therapy due to extreme pain he is in. Orthopedic has recommended hard collar for the neck. X-ray of the right foot and left knee is ordered since patient is complaining of pain in his joints. On evaluation he complains of pain in his entire body. He finds himself to tree and tremorous. Patient also had a speech evaluation today and has normal swallow at bedside. Patient continues to remain on alcohol withdrawal protocol and requires Ativan as needed. In the last 24 hours patient has received 3 mg of Ativan. Continue Librium at 5 3 times a day. Patient encouraged to participate with physical therapy. Vitals are stable temperature 98.8 pulse 78 and respiratory rate 17 and blood pressure 155/89 oxygen saturation 97% on 2 L. The Bartos examination suggestive WBC of 8 hemoglobin 15 sodium 139 potassium 4.6 BUN 19 creatinine 0.7 glucose is 73 AST and ALT is improved symptoms since last trough from 308-175 ALT is improved 105 alkaline phosphatase has normalized. CK is 224 vitamin B12 622 folate 24. Initiate patient on Solu-Medrol 40 every 8 hours along with Toradol. 04/20 patient examined bedside. He complains of headache and neck pain. PT assessed patient had bedside. Patient was able to resect without assistance but unable to walk because of significant dizziness and pain. Recommended subacute rehab on discharge. Patient initiated on Toradol and morphine for pain control. Baclofen initiated at 10 mg 3 times a day to help with muscle spasms. Patient continues to remain on Librium 5 mg 3 times a day and needs Ativan as needed for CIWA. Patient does state that the pain is better controlled. Vitals are stable with temp of 97 pulse 70 respiratory rate 16 blood pressure 1:30/71 no new labs. CBC, CMP and CK levels ordered. X-ray of the knee and the foot was reviewed and are negative REVIEW OF SYSTEMS Constitutional: No fever, reports chills, no night sweats. No weight change. Reports weakness, Reports fatigue. Reports daytime sleepiness. EENT: Positive for headaches pain on the cheek No blurred vision or double vision, no loss of vision. Does have difficulty opening his eyes due to swelling No loss of Hearing, no ringing in the ears, no dizziness. Denies nasal drainage or congestion. No epistaxis. No sore throat. Lungs: Reports shortness of breath, denies cough, denies sputum production. No wheezing. Cardiovascular: No chest pain, reports lower extremity edema. No palpitations. No paroxysmal nocturnal dyspnea. No orthopnea. No lightheadedness or dizziness. No syncopal episodes. Abdominal: Reports left flank pain No nausea, vomiting. Reports diarrhea. No constipation. No bloody or tarry stools. No loss of appetite. Genitourinary: No dysuria, increased frequency, urgency. No urinary retention. Musculoskeletal: Positive for muscle aches and joint pain No muscle weakness, gait not assessed, no frequent falls. Positive for neck pain and back pain Integumentary: abrasions on the head and face No wounds, no lesions. No rash or pruritus. No unusual bruising. Neurologic: No aphasia. No facial droop. No change in mentation. No head injury. No headache. No paralysis. No paresthesia. Positive for tremors Psychiatric: No depression. No anxiety. Endocrine: No abnormal blood sugars. PHYSICAL EXAMINATION Gen: This is a 54-year-old male collar in place appears to be comfortable and in mild acute distress. No respiratory distress noted. HEENT: Head is atraumatic, normocephalic. Pupils equal, round. Sclerae is anicteric. Multiple abrasions noted on the face NECK: Collar in place LUNGS: Clear to auscultation. No wheezes or rhonchi. No intercostal retractions. No accessory muscle usage. HEART: Regular rate and rhythm. No murmur. ABDOMEN: Soft. Bowel sounds are present. No masses. No tenderness. EXTREMITIES: Trace pedal edema. Mild edema noted in the left foot. No calf tenderness. Dorsalis pedis palpable bilaterally. Weakness is improved on the left side. Abrasions noted of the bilateral knees. No swelling noted. No r edness to suggest gout episode. Tremors and shakiness of the upper extremities noted NEUROLOGICAL: Patient is awake, alert and oriented x3. Cranial nerves 2 through 12 are grossly intact. Skin exam; multiple bruises and contusions over both bases with difficulty opening of eyes due to edema ASSESSMENT AND PLAN 1. Mechanical fall secondary to alcohol intoxication. PTOT evaluation clean the abrasions with soap and water. Pain control with morphine 4 mg IV every 6 hours . Patient would benefit from previous rehab from the trauma he had. He significantly weak and unable to walk without assistance. 2. Acute on chronic C5 fracture. Gilbert collar recommended. PTOT consult. Fall precautions. Speech evaluation [address] head and neck negative for any acute lesions. C5 spine fracture appears to be acute on chronic. No new fractures noted. Degenerative disc disease noted in the CT spine 4. Upper extremity weakness with tremors neurology to evaluate the patient. No weakness appreciated. No further recommendations continue alcohol abstinence 5. Alcohol abuse With withdrawal CIBA protocol. Banana bag@100 mL per hour. Librium 5 milligrams 3 times a day 6. Hypertension. amlodipine 5 mg by mouth daily. Atenolol 50 mg by mouth d aily 7. Transaminitis secondary to alcohol abuse. Continue to monitor. No ascites no history of varices patient on atenolol for prevention of portal hypertension 8. Daily marijuana use. 9.. Short-term memory deficit secondary to marijuana use and alcohol abuse. Recommend thiamine 100 mg daily is completed with antibiotics 10. History of thrombocytopenia secondary to alcohol abuse, stable. 11 degenerative disc disease of the neck and back continue pain control with morphine #12 acute on chronic pain mostly prominent at the left knee and right foot X-ray pending. Solu-Medrol initiated 40 IV twice a day to 3 times a day with Toradol and 15 every 6. 12 CODE STATUS full code 13 DVT prophylaxis with heparin every 12 14 GI prophylaxis with Protonix 40 IV daily 15 disposition patient underwent assessment with PT and OT for debility and generalized weakness and pain. Patient is a candidate for subacute rehab and would benefit from therapy prior to returning home Objective - Vital Signs Vital signs: Vital Signs Temp 98.7 F 04/20/21 16:04 Pulse 70 04/20/21 16:04 Resp 16 04/20/21 16:04 BP 130/71 04/20/21 16:04 Pulse Ox 97 04/20/21 16:04 Intake & Output 04/19/21 04/20/21 04/20/21 18:59 06:59 18:59 Intake Total 2200 2311.2 Balance 2200 2311.2 Intake: Intake, IV Titration 2200 2211.2 Amount Mvi, Adult No.4 with Vit 500 1011.2 K 10 ml Thiamine 100 mg Folic Acid 1 mg In Sodium Chloride 0.9% 1,000 ml @ 100 mls/hr IV .BY DURATION [facility] Rx#: [id number] Sodium Chloride 0.9% 1, 1700 000 ml @ 100 mls/hr IV . BY DURATION [facility] Rx#: [id number] Sodium Chloride 0.9% 1, 1200 000 ml @ 75 mls/hr IV . [id number] [facility] Rx#:[id number] Oral 100 Other: Voiding Method Urinal Urinal Urinal # Voids 2 - Labs CBC & Chem 7: 04/18/21 15:34 04/18/21 15:34
[2021-04-20 17:20] LABS: ALT 58 U/L (4-49); AST 76 U/L (17-59); African American GFR (CKD) >90 (>60 ml/min/1.73 sqM); Albumin 3.6 g/dL (3.5-5.0); Albumin/Globulin Ratio 1.5; Alkaline Phosphatase 99 U/L (38-126); Anion Gap 8 mmol/L; Blood Urea Nitrogen 19 mg/dL (9-20); Calcium 9.4 mg/dL (8.4-10.2); Carbon Dioxide 21 mmol/L (22-30); Chloride 103 mmol/L (98-107); Creatine Kinase 66 U/L (55-170); Globulin 2.4 g/dL; Glucose 194 mg/dL (74-99); Non-African American GFR(CKD) >90 (>60 ml/min/1.73 sqM); Potassium 4.1 mmol/L (3.5-5.1); Sodium 132 mmol/L (137-145); Total Bilirubin 0.6 mg/dL (0.2-1.3)
[2021-04-20 17:24] LABS: Basophils % (A) 0 %; Eosinophils % (A) 0 %; HCT 41.9 % (39.0-53.0); HGB 14.2 gm/dL (13.0-17.5); Lymphocytes # (A) 0.4 k/uL (1.0-4.8); Lymphocytes % (A) 5 %; MCH 34.1 pg (25.0-35.0); MCHC 33.9 g/dL (31.0-37.0); MCV 100.6 fL (80.0-100.0); Macrocytosis Slight; Mean Platelet Volume 9.8; Monocytes # (A) 0.3 k/uL (0-1.0); Monocytes % (A) 4 %; Neutrophils # (A) 6.9 k/uL (1.3-7.7); Neutrophils % (A) 89 %; Platelet Count 96 k/uL (150-450); RBC 4.16 m/uL (4.30-5.90); WBC 7.7 k/uL (3.8-10.6)
[2021-04-20 17:51] LABS: Large Platelets Present
[2021-04-20] MEDS: amLODIPine 10 MG TAB PO SCH (20:48)
[2021-04-21] MEDS: SODIUM CHLORIDE 0.9% 1,000 ML IV SCH ×2 (01:09→19:06)
[2021-04-21] MEDS: methylPREDNISolone SOD SUCCI 40 MG/ML 1 ML VIAL IV SCH ×3 (02:20→18:09)
[2021-04-21] MEDS: MORPHINE SULFATE 4 MG/ML SYRINGE IV PRN ×3 (02:20→21:33)
[2021-04-21] MEDS: 1: MVI, ADULT NO.4 WITH VIT K 10 ML, THIAMINE 100 MG, FOLIC ACID 1 MG in SODIUM CHLORIDE IV SCH ×8 (05:35→19:40)
[2021-04-21] MEDS: KETOROLAC 15 MG/ML 1 ML VIAL IVP SCH ×4 (05:36→23:45)
[2021-04-21] MEDS: THIAMINE 100 MG TAB PO SCH ×2 (08:21→17:48)
[2021-04-21] MEDS: atenoloL 50 MG TAB PO SCH (08:21)
[2021-04-21] MEDS: HEPARIN SODIUM,PORCINE/PF 5,000 UNIT/0.5 ML SYRINGE SQ SCH ×2 (08:21→19:59)
[2021-04-21] MEDS: PANTOPRAZOLE 40 MG/10 ML VIAL IVP SCH (08:21)
--- NOTE | 2021-04-21 11:44 | P.PN ---
Subjective Progress Note Date: 04/21/21 his is a 55-year-old male patient of Dr. Wyatt with past medical history of hypertension, daily marijuana use, heavy alcohol abuse, memory loss. Patient was recently hospitalized February 28 through the for alcohol abuse and alcohol withdrawal with acute pancreatitis, acute alcoholic hepatitis. Patient was last seen on 03/14/2021 for alcohol intoxication and was discharged on Librium. Patient comes in with significant alcohol intoxication with the alcohol levels 412 by EMS when he was found on the ground with facial injuries. Patient stated his feet got entangled and he took a fall from ground level. He has significant pain on his face and his lower back on the left side. Patient denies any loss of consciousness but does not recall the details of events. Speech is clear denies any loss of consciousness denies any weakness or numbness. Patient seen by orthopedic surgeon Dr. Gandhi and ordered a CT spine. Labs are reviewed hemoglobin 17.9 on admission WBC 4.7 sodium 136 potassium 4.1 chloride 97 BUN [address] C-spine suggestive of acute minimally displaced fracture of the anterior inferior C5 vertebral spinal height loss was done endplate irregularity of the superior endplate of C5 related to degenerative changes less likely due to acute fracture CT facial bones without contrast no acutefacial bone fracture MRI cervical and thoracic spine suggestive of degenerative disc disease no significant edema at the site of patient's previously described fracture at T5 prevertebral soft tissue swelling suspected mild spinal stenosis multilevel lumbar foraminal encroachment visit arthropathy degenerative disc disease noted. Thoracic spine suggestive degenerative disc disease with some endplate discogenic marrow signal changein her stenosis no disc herniation noted Orthopedics recommendations on 04/18 suggest no acute instability of posterior ligamentous complex. Interior inferior fracture C5 appears to be acute on chronic no evidence of instability. Aspirin collar was recommended with PT OT consultation. 04/19 patient examined at bedside. Patient refuses to come out of bed or participate with physical therapy due to extreme pain he is in. Orthopedic has recommended hard collar for the neck. X-ray of the right foot and left knee is ordered since patient is complaining of pain in his joints. On evaluation he complains of pain in his entire body. He finds himself to tree and tremorous. Patient also had a speech evaluation today and has normal swallow at bedside. Patient continues to remain on alcohol withdrawal protocol and requires Ativan as needed. In the last 24 hours patient has received 3 mg of Ativan. Continue Librium at 5 3 times a day. Patient encouraged to participate with physical therapy. Vitals are stable temperature 98.8 pulse 78 and respiratory rate 17 and blood pressure 155/89 oxygen saturation 97% on 2 L. The Bartos examination suggestive WBC of 8 hemoglobin 15 sodium 139 potassium 4.6 BUN 19 creatinine 0.7 glucose is 73 AST and ALT is improved symptoms since last trough from 308-175 ALT is improved 105 alkaline phosphatase has normalized. CK is 224 vitamin B12 622 folate 24. Initiate patient on Solu-Medrol 40 every 8 hours along with Toradol. 04/20 patient examined bedside. He complains of headache and neck pain. PT assessed patient had bedside. Patient was able to resect without assistance but unable to walk because of significant dizziness and pain. Recommended subacute rehab on discharge. Patient initiated on Toradol and morphine for pain control. Baclofen initiated at 10 mg 3 times a day to help with muscle spasms. Patient continues to remain on Librium 5 mg 3 times a day and needs Ativan as needed for CIWA. Patient does state that the pain is better controlled. Vitals are stable with temp of 97 pulse 70 respiratory rate 16 blood pressure 1:30/71 no new labs. CBC, CMP and CK levels ordered. X-ray of the knee and the foot was reviewed and are negative 04/21 patient examined at bedside, still complaining of head and neck pain hard collar remains in place. Patient does have morphine, Toradol, and baclofen for pain control. On CIWA scale with Ativan. Vital signs are stable. We'll continue with social work consult along with consult for Dr. Schaefer for possible inpatient rehab. REVIEW OF SYSTEMS Constitutional: No fever, reports chills, no night sweats. No weight change. Reports weakness, Reports fatigue. Reports daytime sleepiness. EENT: Positive for headaches pain on the cheek No blurred vision or double vision, no loss of vision. Does have difficulty opening his eyes due to swelling No loss of Hearing, no ringing in the ears, no dizziness. Denies nasal drainage or congestion. No epistaxis. No sore throat. Lungs: Reports shortness of breath, denies cough, denies sputum production. No wheezing. Cardiovascular: No chest pain, reports lower extremity edema. No palpitations. No paroxysmal nocturnal dyspnea. No orthopnea. No lightheadedness or dizziness. No syncopal episodes. Abdominal: Reports left flank pain No nausea, vomiting. Reports diarrhea. No constipation. No bloody or tarry stools. No loss of appetite. Genitourinary: No dysuria, increased frequency, urgency. No urinary retention. Musculoskeletal: Positive for muscle aches and joint pain No muscle weakness, gait not assessed, no frequent falls. Positive for neck pain and back pain Integumentary: abrasions on the head and face No wounds, no lesions. No rash or pruritus. No unusual bruising. Neurologic: No aphasia. No facial droop. No change in mentation. No head injury. No headache. No paralysis. No paresthesia. Positive for tremors Psychiatric: No depression. No anxiety. Endocrine: No abnormal blood sugars. Objective - Vital Signs Vital signs: Vital Signs Temp 98.3 F 04/21/21 03:57 Pulse 66 04/21/21 03:57 Resp 18 04/21/21 03:57 BP 155/87 04/21/21 03:57 Pulse Ox 96 04/21/21 03:57 Intake & Output 04/20/21 04/21/21 04/21/21 18:59 06:59 18:59 Intake Total 1000 1611.2 Balance 1000 1611.2 Intake: Intake, IV Titration 1000 1011.2 Amount Mvi, Adult No.4 with Vit 1011.2 K 10 ml Thiamine 100 mg Folic Acid 1 mg In Sodium Chloride 0.9% 1,000 ml @ 100 mls/hr IV .BY DURATION [facility]AN Rx#: [id number] Sodium Chloride 0.9% 1, 1000 000 ml @ 100 mls/hr IV . BY DURATION [facility]AN Rx#: [id number] Oral 600 Other: Voiding Method Urinal Urinal # Voids 3 - Exam Gen: This is a 54-year-old male collar in place appears to be comfortable and in mild acute distress. No respiratory distress noted. HEENT: Head is atraumatic, normocephalic. Pupils equal, round. Sclerae is ani cteric. Multiple abrasions noted on the face NECK: Collar in place LUNGS: Clear to auscultation. No wheezes or rhonchi. No intercostal retractions. No accessory muscle usage. HEART: Regular rate and rhythm. No murmur. ABDOMEN: Soft. Bowel sounds are present. No masses. No tenderness. EXTREMITIES: Trace pedal edema. Mild edema noted in the left foot. No calf tenderness. Dorsalis pedis palpable bilaterally. Weakness is improved on the left side. Abrasions noted of the bilateral knees. No swelling noted. No redness to suggest gout episode. Tremors and shakiness of the upper extremities noted NEUROLOGICAL: Patient is awake, alert and oriented x3. Cranial nerves 2 through 12 are grossly intact. Skin exam; multiple bruises and contusions over both bases with difficulty opening of eyes due to edema - Labs CBC & Chem 7: 04/20/21 16:48 04/20/21 16:48 Labs: Abnormal Lab Results - Last 24 Hours (Table) 04/20/21 04/20/21 Range/Units 16:48 16:48 RBC 4.16 L (4.30-5.90) m/uL MCV 100.6 H (80.0-100.0) fL Plt Count 96 L (150-450) k/uL Lymphocytes # 0.4 L (1.0-4.8) k/uL Sodium 132 L (137-145) mmol/L Carbon Dioxide 21 L (22-30) mmol/L Creatinine 0.59 L (0.66-1.25) mg/dL Glucose 194 H (74-99) mg/dL AST 76 H (17-59) U/L ALT 58 H (4-49) U/L Total Protein 6.0 L (6.3-8.2) g/dL Assessment and Plan Plan: 1. Mechanical fall secondary to alcohol intoxication. PTOT evaluation clean the abrasions with soap and water. Pain control with morphine 4 mg IV every 6 hours . Patient would benefit from previous rehab from the trauma he had. He significantly weak and unable to walk without assistance. Consult for Dr. Sparks in place. 2. Acute on chronic C5 fracture. [place] collar recommended. PTOT consult. Fall precautions. Speech evaluation [address] head and neck negative for any acute lesions. C5 spine fracture appears to be acute on chronic. No new fractures noted. Degenerative disc disease noted in the CT spine 4. Upper extremity weakness with tremors neurology to evaluate the patient. No weakness appreciated. No further recommendations continue alcohol abstinence 5. Alcohol abuse With withdrawal [facility] protocol. Banana bag@100 mL per hour. 6. Hypertension. amlodipine 5 mg by mouth daily. Atenolol 50 mg by mouth daily 7. Transaminitis secondary to alcohol abuse. Continue to monitor. No ascites no history of varices patient on atenolol for prevention of portal hypertension 8. Daily marijuana use. 9.. Short-term memory deficit secondary to marijuana use and alcohol abuse. Recommend thiamine 100 mg daily is completed with antibiotics 10. History of thrombocytopenia secondary to alcohol abuse, stable. 11 degenerative disc disease of the neck and back continue pain control with morphine #12 acute on chronic pain mostly prominent at the left knee and right foot X-ray pending showed soft tissue swelling no acute processes. Solu-Medrol initiated 40 IV twice a day to 3 times a day with Toradol and 15 every 6. 12 CODE STATUS full code 13 DVT prophylaxis with heparin every 12 14 GI prophylaxis with Protonix 40 IV daily 15 disposition patient underwent assessment with PT and OT for debility and generalized weakness and pain. Patient is a candidate for subacute rehab and would benefit from therapy prior to returning home Impression and plan of care have been directed as dictated by the signing physician. Lily Tejada nurse practitioner acting as scribe for signing physi delfina.
--- NOTE | 2021-04-21 15:11 | P.PN ---
Subjective Progress Note Date: 04/20/21 Patient was seen for a follow-up. Patient is laying in the bed. Still complaining of generalized weakness, stiffness. She also has some neck pain, but not as bad as before. Patient states that he does have some urgency of urination, but no incontinence. He has not had much bowel movements. No incont inence. Patient in wearing a hard cervical collar. Objective - Vital Signs Vital signs: Vital Signs Temp 98.7 F 04/20/21 16:04 Pulse 70 04/20/21 16:04 Resp 16 04/20/21 16:04 BP 130/71 04/20/21 16:04 Pulse Ox 97 04/20/21 16:04 Intake & Output 04/19/21 04/20/21 04/20/21 18:59 06:59 18:59 Intake Total 2200 2311.2 Balance 2200 2311.2 Intake: Intake, IV Titration 2200 2211.2 Amount Mvi, Adult No.4 with Vit 500 1011.2 K 10 ml Thiamine 100 mg Folic Acid 1 mg In Sodium Chloride 0.9% 1,000 ml @ 100 mls/hr IV .BY DURATION [facility]ANDAN Rx#: [id number] Sodium Chloride 0.9% 1, 1700 000 ml @ 100 mls/hr IV . BY DURATION CHANDAN Rx#: [id number] Sodium Chloride 0.9% 1, 1200 000 ml @ 75 mls/hr IV . [id number] CHANDAN Rx#:[id number] Oral 100 Other: Voiding Method Urinal Urinal Urinal # Voids 2 - Exam Patient is alert and awake, fully oriented. Speech and language functions are normal. Cranial nerves significant for right ptosis. Patient has right orbital edema, and periorbital bruising, which likely is a cause of right ptosis. Pupils are equal, round and reacting. No Magalis's. Face is symmetric and tongue protrudes to the midline. Hearing is normal. On muscle strength testing he is symmetric bilaterally. Deltoid 4+, biceps 5, triceps 5, event executive 4+. Hip flexion 4, ankle dorsiflexion 5, toe extension 5. Reflexes are 1-1+ in the upper limbs, 1+ at the knees, ankles 1 and plantars downgoing. No ataxia for [id number]. Gait not checked. Sensations are equal. - Labs CBC & Chem 7: 04/20/21 16:48 04/20/21 16:48 Assessment and Plan Assessment: * Status post fall due to alcohol intoxication, with subsequent C5 fracture. Patient's current neurological examination reveals mild symmetrical weakness proximally. Reflexes are symmetric, with negative Babinski. No definitive evidence of myelopathy. * Frequent falls, likely due to alcoholism. Rule out nutritional/vitamin deficiency. * Chronic alcoholism * Marijuana use Plan: * Patient underwent MRI of the cervical spine, which revealed no significant edema at the site of patient's previously described fracture at C5. Prevertebral soft tissue swelling is suspected however. There is mild spinal stenosis, multilevel foraminal encroachment, facet arthropathy. Degenerative disc disease. * MRI of the thoracic spine which revealed degenerative disc disease, spinal curvature. No evident acute fracture. * B12 622, folate >24.0, MMA 0.17, B6 still pending. * PT OT evaluate gait. * Patient counseled about abstinence from alcohol. * Please reconsult neurology, if any other concerns. We will sign off.
[2021-04-21] MEDS: amLODIPine 10 MG TAB PO SCH (19:59)
[2021-04-21] MEDS: BACLOFEN 10 MG TAB PO PRN (23:45)
[2021-04-22] MEDS: methylPREDNISolone SOD SUCCI 40 MG/ML 1 ML VIAL IV SCH ×3 (01:23→16:56)
[2021-04-22] MEDS: KETOROLAC 15 MG/ML 1 ML VIAL IVP SCH (05:16)
[2021-04-22] MEDS: 1: MVI, ADULT NO.4 WITH VIT K 10 ML, THIAMINE 100 MG, FOLIC ACID 1 MG in SODIUM CHLORIDE IV SCH ×8 (05:21→16:20)
[2021-04-22] MEDS: SODIUM CHLORIDE 0.9% 1,000 ML IV SCH ×2 (05:48→15:25)
[2021-04-22 06:53] LABS: HCT 42.2 % (39.0-53.0); HGB 14.2 gm/dL (13.0-17.5); MCH 34.1 pg (25.0-35.0); MCHC 33.5 g/dL (31.0-37.0); MCV 101.8 fL (80.0-100.0); Macrocytosis Slight; Mean Platelet Volume 10.2; Platelet Count 111 k/uL (150-450); RBC 4.14 m/uL (4.30-5.90); RDW 14.2 % (11.5-15.5); WBC 8.9 k/uL (3.8-10.6)
[2021-04-22 09:31] LABS: African American GFR (CKD) 129.4 (60.0-200.0); Albumin 3.8 g/dL (3.80-4.90); Albumin/Globulin Ratio 1.73 (1.60-3.17); Anion Gap 8.3 mmol/L (4.00-12.00); BUN/Creat Ratio 26.67 Ratio (12.00-20.00); Calcium 8.8 mg/dL (8.7-10.3); Carbon Dioxide 25.7 mmol/L (21.6-31.8); Globulin 2.2 g/dL (1.6-3.3); Non-African American GFR(CKD) 111.6 (60.0-200.0); Potassium 3.8 mmol/L (3.5-5.5); Total Bilirubin 0.6 mg/dL (0.2-1.2)
[2021-04-22] MEDS: HEPARIN SODIUM,PORCINE/PF 5,000 UNIT/0.5 ML SYRINGE SQ SCH ×2 (09:53→20:23)
[2021-04-22] MEDS: PANTOPRAZOLE 40 MG/10 ML VIAL IVP SCH (09:53)
[2021-04-22] MEDS: THIAMINE 100 MG TAB PO SCH ×2 (09:54→16:56)
[2021-04-22] MEDS: MORPHINE SULFATE 4 MG/ML SYRINGE IV PRN ×2 (09:55→20:23)
--- NOTE | 2021-04-22 10:52 | P.PN ---
Subjective Progress Note Date: 04/22/21 his is a 55-year-old male patient of Dr. Wyatt with past medical history of hypertension, daily marijuana use, heavy alcohol abuse, memory loss. Patient was recently hospitalized February 28 through the for alcohol abuse and alcohol withdrawal with acute pancreatitis, acute alcoholic hepatitis. Patient was last seen on 03/14/2021 for alcohol intoxication and was discharged on Librium. Patient comes in with significant alcohol intoxication with the alcohol levels 412 by EMS when he was found on the ground with facial injuries. Patient stated his feet got entangled and he took a fall from ground level. He has significant pain on his face and his lower back on the left side. Patient denies any loss of consciousness but does not recall the details of events. Speech is clear denies any loss of consciousness denies any weakness or numbness. Patient seen by orthopedic surgeon Dr. Gandhi and ordered a CT spine. Labs are reviewed hemoglobin 17.9 on admission WBC 4.7 sodium 136 potassium 4.1 chloride 97 BUN [address] C-spine suggestive of acute minimally displaced fracture of the anterior inferior C5 vertebral spinal height loss was done endplate irregularity of the superior endplate of C5 related to degenerative changes less likely due to acute fracture CT facial bones without contrast no acutefacial bone fracture MRI cervical and thoracic spine suggestive of degenerative disc disease no significant edema at the site of patient's previously described fracture at T5 prevertebral soft tissue swelling suspected mild spinal stenosis multilevel lumbar foraminal encroachment visit arthropathy degenerative disc disease noted. Thoracic spine suggestive degenerative disc disease with some endplate discogenic marrow signal changein her stenosis no disc herniation noted Orthopedics recommendations on 04/18 suggest no acute instability of posterior ligamentous complex. Interior inferior fracture C5 appears to be acute on chronic no evidence of instability. Aspirin collar was recommended with PT OT consultation. 04/19 patient examined at bedside. Patient refuses to come out of bed or participate with physical therapy due to extreme pain he is in. Orthopedic has recommended hard collar for the neck. X-ray of the right foot and left knee is ordered since patient is complaining of pain in his joints. On evaluation he complains of pain in his entire body. He finds himself to tree and tremorous. Patient also had a speech evaluation today and has normal swallow at bedside. Patient continues to remain on alcohol withdrawal protocol and requires Ativan as needed. In the last 24 hours patient has received 3 mg of Ativan. Continue Librium at 5 3 times a day. Patient encouraged to participate with physical therapy. Vitals are stable temperature 98.8 pulse 78 and respiratory rate 17 and blood pressure 155/89 oxygen saturation 97% on 2 L. The Bartos examination suggestive WBC of 8 hemoglobin 15 sodium 139 potassium 4.6 BUN 19 creatinine 0.7 glucose is 73 AST and ALT is improved symptoms since last trough from 308-175 ALT is improved 105 alkaline phosphatase has normalized. CK is 224 vitamin B12 622 folate 24. Initiate patient on Solu-Medrol 40 every 8 hours along with Toradol. 04/20 patient examined bedside. He complains of headache and neck pain. PT assessed patient had bedside. Patient was able to resect without assistance but unable to walk because of significant dizziness and pain. Recommended subacute rehab on discharge. Patient initiated on Toradol and morphine for pain control. Baclofen initiated at 10 mg 3 times a day to help with muscle spasms. Patient continues to remain on Librium 5 mg 3 times a day and needs Ativan as needed for CIWA. Patient does state that the pain is better controlled. Vitals are stable with temp of 97 pulse 70 respiratory rate 16 blood pressure 1:30/71 no new labs. CBC, CMP and CK levels ordered. X-ray of the knee and the foot was reviewed and are negative 04/21 patient examined at bedside, still complaining of head and neck pain hard collar remains in place. Patient does have morphine, Toradol, and baclofen for pain control. On CIWA scale with Ativan. Vital signs are stable. We'll continue with social work consult along with consult for Dr. Schaefer for possible inpatient rehab. 04/22 patient evaluated at bedside, vital signs have been stable and labs are reviewed, AST 90, ALT 84. Still plan for evaluation from Dr. Sparks to see if patient qualifies for inpatient rehab. Social work is on the case and will work on discharge planning. He continues on the CIWA protocol. REVIEW OF SYSTEMS Constitutional: No fever, reports chills, no night sweats. No weight change. Reports weakness, EENT: Positive for headaches pain on the cheek No blurred vision or double vision, no loss of vision. No loss of Hearing, no ringing in the ears, no dizziness. Denies nasal drainage or congestion. No epistaxis. No sore throat. Lungs: Reports shortness of breath, denies cough, denies sputum production. No wheezing. Cardiovascular: No chest pain, reports lower extremity edema. No palpitations. No paroxysmal nocturnal dyspnea. No orthopnea. No lightheadedness or dizziness. No syncopal episodes. Abdominal: No nausea, vomiting. Reports diarrhea. No constipation. No bloody or tarry stools. No loss of appetite. Genitourinary: No dysuria, increased frequency, urgency. No urinary retention. Musculoskeletal: Positive for muscle aches and joint pain No muscle weakness, gait not assessed, positive frequent falls. Positive for neck pain and back pain Integumentary: abrasions on the head and face No wounds, no lesions. No rash or pruritus. No unusual bruising. Neurologic: No aphasia. No facial droop. No change in mentation. No head injury. No headache. No paralysis. No paresthesia. Positive for tremors Psychiatric: No depression. No anxiety. Endocrine: No abnormal blood sugars. Objective - Vital Signs Vital signs: Vital Signs Temp 98.3 F 04/22/21 04:46 Pulse 68 04/22/21 04:46 Resp 16 04/22/21 04:46 BP 169/89 04/22/21 04:46 Pulse Ox 98 04/22/21 04:46 Intake & Output 04/21/21 04/22/21 04/22/21 18:59 06:59 18:59 Intake Total 240 2611.2 Output Total 900 Balance -660 2611.2 Intake: Intake, IV Titration 2010.2 Amount Mvi, Adult No.4 with Vit 1011.2 K 10 ml Thiamine 100 mg Folic Acid 1 mg In Sodium Chloride 0.9% 1,000 ml @ 100 mls/hr IV .BY DURATION [facility]ANDAN Rx#: [id number] Sodium Chloride 0.9% 1, 1000 000 ml @ 100 mls/hr IV . BY DURATION [facility]ANDAN Rx#: [id number] Oral 240 600 Output: Urine 900 Other: Voiding Method Urinal Urinal # Voids 3 - Exam Gen: This is a 54-year-old male collar in place appears to be comfortable and in no acute distress. No respiratory distress noted. HEENT: Head is atraumatic, normocephalic. Pupils equal, round. Sclerae is anicteric. Multiple abrasions noted on the face NECK: Collar in place LUNGS: Diminished with occasional rhonchi, No intercostal retractions. No accessory muscle usage. HEART: Regular rate and rhythm. No murmur. ABDOMEN: Soft. Bowel sounds are present. No masses. No tenderness. EXTREMITIES: Trace pedal edema. Mild edema noted in the left foot. No calf tenderness. Dorsalis pedis palpable bilaterally. Weakness is improved on the left side. Abrasions noted of the bilateral knees. No swelling noted. No redness to suggest gout episode. Tremors and shakiness of the upper extremities noted NEUROLOGICAL: Patient is awake, alert and oriented x3. Cranial nerves 2 through 12 are grossly intact. Skin exam; multiple bruises and contusions over both bases with difficulty opening of eyes due to edema - Labs CBC & Chem 7: 04/22/21 06:18 04/22/21 06:18 Labs: Abnormal Lab Results - Last 24 Hours (Table) 04/22/21 Range/Units 06:18 RBC 4.14 L (4.30-5.90) m/uL MCV 101.8 H (80.0-100.0) fL Plt Count 111 L (150-450) k/uL Assessment and Plan Plan: 1. Mechanical fall secondary to alcohol intoxication. PTOT evaluation clean the abrasions with soap and water. Pain control with morphine 4 mg IV every 6 hours . Patient would benefit from previous rehab from the trauma he had. He significantly weak and unable to walk without assistance. Consult for Dr. Sparks in place. 2. Acute on chronic C5 fracture. [place] collar recommended. PTOT consult. Fall precautions. Speech evaluation [address] head and neck negative for any acute lesions. C5 spine fracture appears to be acute on chronic. No new fractures noted. Degenerative disc disease noted in the CT spine 4. Upper extremity weakness with tremors neurology to evaluate the patient. No weakness appreciated. No further recommendations continue alcohol abstinence 5. Alcohol abuse With withdrawal [facility] protocol. Banana bag@100 mL per hour. 6. Hypertension. amlodipine 5 mg by mouth daily. Atenolol 50 mg by mouth daily 7. Transaminitis secondary to alcohol abuse. Continue to monitor. No ascites no history of varices patient on atenolol for prevention of portal hypertension 8. Daily marijuana use. 9.. Short-term memory deficit secondary to marijuana use and alcohol abuse. Recommend thiamine 100 mg daily is completed with antibiotics 10. History of thrombocytopenia secondary to alcohol abuse, stable. 11 degenerative disc disease of the neck and back continue pain control with morphine #12 acute on chronic pain mostly prominent at the left knee and right foot X-ray pending showed soft tissue swelling no acute processes. Solu-Medrol initiated 40 IV twice a day to 3 times a day with Toradol and 15 every 6. 12 CODE STATUS full code 13 DVT prophylaxis with heparin every 12 14 GI prophylaxis with Protonix 40 IV daily 15 disposition patient underwent assessment with PT and OT for debility and generalized weakness and pain. Patient is a candidate for subacute rehab and would benefit from therapy prior to returning home Impression and plan of care have been directed as dictated by the signing physician. Lily Tejada nurse practitioner acting as scribe for signing physician.
[2021-04-22] MEDS: BACLOFEN 10 MG TAB PO PRN (16:56)
[2021-04-22] MEDS: ACETAMINOPHEN TAB 325 MG TAB PO PRN (16:57)
[2021-04-22] MEDS: amLODIPine 10 MG TAB PO SCH (20:23)
[2021-04-23] MEDS: MORPHINE SULFATE 4 MG/ML SYRINGE IV PRN ×3 (00:42→11:51)
[2021-04-23] MEDS: BACLOFEN 10 MG TAB PO PRN (03:25)
[2021-04-23] MEDS: methylPREDNISolone SOD SUCCI 40 MG/ML 1 ML VIAL IV SCH ×2 (03:25→09:25)
[2021-04-23] MEDS: 1: MVI, ADULT NO.4 WITH VIT K 10 ML, THIAMINE 100 MG, FOLIC ACID 1 MG in SODIUM CHLORIDE IV SCH ×8 (03:27→11:40)
[2021-04-23 03:31] VITALS: BP 158/85; PULSE 57; RESP 18; TEMP 97.9
--- NOTE | 2021-04-23 05:50 | P.CONS ---
History of Present Illness - Chief Complaint Walking difficulty - History of Present Illness I had the opportunity to see patient for inpatient rehab consultation with regard to walking difficulty. He was admitted to [facility] April 17 found facedown, slurring of speech and alcohol intoxication. Workup revealed C5 fracture. GC S 15. Seen by neurology, Dr. Santiago who notes to C5 fracture. Seen by orthopedics for this C5 fractures well and placed in rigid collar. Workup includes negative head CT, face CT and chest x-ray. C-spine CT with C5 anterior fracture. Lumbar x-ray with facet arthropathy L4, 5. Left knee x-ray with swelling. Right foot x-ray with swelling and arthritis at MTP 1. His s tarted therapy. PT reports supervision for mobility including gait 150 feet without device. OT reports complaints of pain unable to participate. Speech therapy prescribed. Previous functional history as elicited from patient: 55-year-old right-handed white male is single lives and 2 floor home alone. On disability related to mental issues. Describes independent with standing shower, gait without device. Unclear who does cooking, laundry, driving. PCP Dr. Wyatt. Denies tobacco and admits to alcohol. Review of Systems Review of systems: ENT: Denies sneezes or discharge. Eyes: Denies discharge or photophobia. Cardiac: Denies chest pain or palpitation. Pulmonary: Denies cough or shortness of breath. Gastrointestinal: Denies nausea, emesis, constipation, diarrhea. Genitourinary: Denies discharge or frequency. Musculoskeletal: Neck discomfort. Neurologic: Denies motor or sensory change. Endocrine: Denies shakes or sweats. Oncology: Denies cancers. Dermatologic: Denies rash, itching, pruritus. ALLERGY/immunology: Denies sneezes, rashes. Past Medical History Past Medical History: Unable to Obtain, Hypertension Additional Past Medical History / Comment(s): anxiety, personality disorder, ma maxine depression, etoh abuse, COVID 19 12/13 History of Any Multi-Drug Resistant Organisms: None Reported Past Surgical History: Unable to Obtain Past Anesthesia/Blood Transfusion Reactions: No Reported Reaction Past Psychological History: Anxiety, Depression Smoking Status: Never smoker Past Alcohol Use History: Daily, Heavy Past Drug Use History: Marijuana - Past Family History Father Family Medical History: CVA/TIA, Myocardial Infarction ([place]) Mother Family Medical History: Thyroid Disorder Medications and Allergies Home Medications Medication Instructions Recorded Confirmed Type Atenolol [Tenormin] 50 mg PO DAILY 02/28/21 04/17/21 History amLODIPine [Norvasc] 10 mg PO HS 02/28/21 04/17/21 History Albuterol Sulfate [Proair Hfa] 2 puff INHALATION RT-Q6H PRN 04/17/21 04/17/21 History chlordiazePOXIDE HCl [Librium] 25 mg PO TID PRN 04/17/21 04/17/21 History Allergies Allergy/AdvReac Type Severity Reaction Status Date / Time allopurinol Allergy Unknown Verified 04/17/21 17:30 azithromycin Allergy Anaphylaxis Verified 04/17/21 17:30 Physical Exam Vitals: Vital Signs Temp Pulse Resp BP Pulse Ox 04/23/21 03:30 97.9 F 57 L 18 158/85 97 04/22/21 20:44 98.4 F 53 L 16 152/87 96 04/22/21 20:00 16 04/22/21 12:27 98.5 F 61 16 166/83 99 04/22/21 08:00 68 16 Intake and Output 04/22/21 04/22/21 04/23/21 14:59 22:59 06:59 Intake Total 1131.2 1000 Output Total 800 Balance 331.2 1000 Intake: Intake, IV Titration 1011.2 1000 Amount Mvi, Adult No.4 with Vit 1011.2 K 10 ml Thiamine 100 mg Folic Acid 1 mg In Sodium Chloride 0.9% 1,000 ml @ 100 mls/hr IV .BY DURATION [facility] Rx#: [id number] Sodium Chloride 0.9% 1, 1000 000 ml @ 100 mls/hr IV . BY DURATION [facility] Rx#: [id number] Oral 120 Output: Urine 800 Other: Voiding Method Urinal Urinal Skin: Good color, texture, turgor. General: Medium build and comfortable appearance. Head: Normocephalic, atraumatic. Eyes: Symmetric. Pupils equal round. Ears: Symmetric. Hearing within normal limits. Mouth: Clear. Neck: Wearing rigid collar. Cardiac: Regular rate and rhythm. Lungs: Clear anteriorly and posteriorly. Abdomen: Soft active nontender. Extremities: Normal tone. Neurological: Mental status: Alert, cooperative, pleasant. Cranial nerves: Symmetric facial tone and trapezius. Motor: Normal strength and isolation all 4 limbs. Sensation: Intact throughout. DTRs: Symmetric and equal throughout. Mobility: Sits and stands without assistance or verbal cueing or loss of balance. In fact patient reports up in room independent including bathroom privileges. Results CBC & Chem 7: 04/22/21 06:18 04/22/21 06:18 Labs: Abnormal Lab Results - Last 24 Hours (Table) 04/22/21 04/22/21 Range/Units 06:18 06:18 RBC 4.14 L (4.30-5.90) m/uL MCV 101.8 H (80.0-100.0) fL Plt Count 111 L (150-450) k/uL BUN/Creatinine Ratio 26.67 H (12.00-20.00) Ratio Glucose 128 H (70-110) mg/dL AST 90 H (14-35) U/L ALT 84 H (10-49) U/L Total Protein 6.0 L (6.2-8.2) g/dL Assessment and Plan (1) Acute alcohol intoxication Current Visit: Yes Status: Acute Code(s): F10.929 - ALCOHOL USE, UNSPECIFIED WITH INTOXICATION, UNSPECIFIED SNOMED Code(s): 80470859 (2) C5 cervical fracture Current Visit: Yes Status: Acute Code(s): S12.400A - UNSP DISP FX OF FIFTH CERVICAL VERTEBRA, INIT FOR CLOS FX SNOMED Code(s): 448079442 (3) Blunt head trauma Current Visit: No Status: Acute Code(s): S09.8XXA - OTHER SPECIFIED INJURIES OF HEAD, INITIAL ENCOUNTER SNOMED Code(s): 76081866 Plan: Impression: 1. Walking really. 2. C5 fracture now on rigid collar. 3. Acute alcohol intoxication. 4. Limited trauma. 5. Hypertension. Comments and plan: At this time PT, OT, MINUTE CLERK FOR BASIC [employer]FFIC all prescribed. Patient reports independent in room including bathroom. This is consistent with my exam. At this time do not anticipate need and benefit of inpatient rehab.
[2021-04-23] MEDS: PANTOPRAZOLE 40 MG/10 ML VIAL IVP SCH (07:37)
[2021-04-23] MEDS: THIAMINE 100 MG TAB PO SCH (07:38)
[2021-04-23] MEDS: HEPARIN SODIUM,PORCINE/PF 5,000 UNIT/0.5 ML SYRINGE SQ SCH (07:38)
[2021-04-23] MEDS: atenoloL 50 MG TAB PO SCH (07:38)
[2021-04-23] MEDS: SODIUM CHLORIDE 0.9% 1,000 ML IV SCH (11:40)
--- NOTE | 2021-04-23 15:11 | P.DS ---
Providers Date of admission: 04/17/21 21:34 Expected date of discharge: 04/23/21 Attending physician: Zraa Reza MD Consults: 04/17/21 19:34 Consult Physician Urgent Consulting Provider: Thompson Mccallum Consult Reason/Comments: C5 fracture, alcohol intoxication Do you want consulting provider notified?: Yes Consult Physician Urgent Consulting Provider: Salvador Mederos Consult Reason/Comments: C5 fracture, alcohol intoxication Do you want consulting provider notified?: Yes 04/21/21 09:18 Consult Physician Routine Consulting Provider: Redd Schafeer Consult Reason/Comments: In pt Rehab Do you want consulting provider notified?: Yes Primary care physician: Emre Wyatt [facility] Course: his is a 55-year-old male patient of Dr. Wyatt with past medical history of hypertension, daily marijuana use, heavy alcohol abuse, memory loss. Patient was recently hospitalized February 28 through the for alcohol abuse and alcohol withdrawal with acute pancreatitis, acute alcoholic hepatitis. Patient was last seen on 03/14/2021 for alcohol intoxication and was discharged on [facility]. Patient comes in with significant alcohol intoxication with the alcohol levels 412 by EMS when he was found on the ground with facial injuries. Patient stated his feet got entangled and he took a fall from ground level. He has significant pain on his face and his lower back on the left side. Patient denies any loss of consciousness but does not recall the details of events. Speech is clear denies any loss of consciousness denies any weakness or numbness. Patient seen by orthopedic surgeon Dr. Gandhi and ordered a CT spine. Labs are reviewed hemoglobin 17.9 on admission WBC 4.7 sodium 136 potassium 4.1 chloride 97 BUN [address] C-spine suggestive of acute minimally displaced fracture of the anterior inferior C5 vertebral spinal height loss was done endplate irregularity of the superior endplate of C5 related to degenerative changes less likely due to acute fracture CT facial bones without contrast no acutefacial bone fracture MRI cervical and thoracic spine suggestive of degenerative disc disease no significant edema at the site of patient's previously described fracture at T5 prevertebral soft tissue swelling suspected mild spinal stenosis multilevel lumbar foraminal encroachment visit arthropathy degenerative disc disease noted. Thoracic spine suggestive degenerative disc disease with some endplate discogenic marrow signal changein her stenosis no disc herniation noted Orthopedics recommendations on 04/18 suggest no acute instability of posterior ligamentous complex. Interior inferior fracture C5 appears to be acute on chronic no evidence of instability. Aspirin collar was recommended with PT OT consultation. 04/19 patient examined at bedside. Patient refuses to come out of bed or participate with physical therapy due to extreme pain he is in. Orthopedic has recommended hard collar for the neck. X-ray of the right foot and left knee is ordered since patient is complaining of pain in his joints. On evaluation he complains of pain in his entire body. He finds himself to tree and tremorous. Patient also had a speech evaluation today and has normal swallow at bedside. Patient continues to remain on alcohol withdrawal protocol and requires Ativan as needed. In the last 24 hours patient has received 3 mg of Ativan. Continue Librium at 5 3 times a day. Patient encouraged to participate with physical therapy. Vitals are stable temperature 98.8 pulse 78 and respiratory rate 17 and blood pressure 155/89 oxygen saturation 97% on 2 L. The Bartos examination suggestive WBC of 8 hemoglobin 15 sodium 139 potassium 4.6 BUN 19 creatinine 0.7 glucose is 73 AST and ALT is improved symptoms since last trough from 308-175 ALT is improved 105 alkaline phosphatase has normalized. CK is 224 vitamin B12 622 folate 24. Initiate patient on Solu-Medrol 40 every 8 hours along with Toradol. 04/20 patient examined bedside. He complains of headache and neck pain. PT assessed patient had bedside. Patient was able to resect without assistance but unable to walk because of significant dizziness and pain. Recommended subacute rehab on discharge. Patient initiated on Toradol and morphine for pain control. Baclofen initiated at 10 mg 3 times a day to help with muscle spasms. Patient continues to remain on Librium 5 mg 3 times a day and needs Ativan as needed for CIWA. Patient does state that the pain is better controlled. Vitals are stable with temp of 97 pulse 70 respiratory rate 16 blood pressure 1:30/71 no new labs. CBC, CMP and CK levels ordered. X-ray of the knee and the foot was reviewed and are negative 04/21 patient examined at bedside, still complaining of head and neck pain hard collar remains in place. Patient does have morphine, Toradol, and baclofen for pain control. On CIWA scale with Ativan. Vital signs are stable. We'll continue with social work consult along with consult for Dr. Schaefer for possible inpatient rehab. 04/22 patient evaluated at bedside, vital signs have been stable and labs are reviewed, AST 90, ALT 84. Still plan for evaluation from Dr. Sparks to see if patient qualifies for inpatient rehab. Social work is on the case and will work on discharge planning. He continues on the [facility] protocol. 04/23: Patient has been seen by Dr. Schaefer and 30 he'll update you on all of all of starting radiation to her right breast for tomorrow tomorrow where she told me right now she just finished antibiotics resistant UTI she is to start radiation tomorrow is not a candidate for inpatient rehab. Patient is complaining of headache this morning initially did not per 2 with PT. He is complaining of lightheaded and dizzy feeling. Patient has done well with physical therapy and is not really candidate for subacute rehab. Patient will be reviewed by social work and plan for discharge home today. DISCHARGE DIAGNOSES 1. Mechanical fall secondary to alcohol intoxication. 2. Acute on chronic C5 fracture. [place] collar recommended. 3. Blunt head trauma CT head and neck negative for any acute lesions. C5 spine fracture appears to be acute on chronic. No new fractures noted. Degenerative disc disease noted in the CT spine 4. Upper extremity weakness with tremors neurology to evaluate the patient. 5. Alcohol abuse With withdrawal [facility] protocol. 6. Hypertension. 7. Transaminitis secondary to alcohol abuse. 8. Daily marijuana use. 9. Short-term memory deficit secondary to marijuana use and alcohol abuse. 10. History of thrombocytopenia secondary to alcohol abuse, stable. 11. Degenerative disc disease of the neck and back. 12. Acute on chronic pain left knee and right foot, no acute processes. DISCHARGE PLAN Home Impression and plan of care have been directed as dictated by the signing physician. Penelope Dhillon nurse practitioner acting as scribe for signing physician. Patient Condition at Discharge: Stable Plan - Discharge Summary Discharge Rx Participant: No New Discharge Prescriptions: New Baclofen [Lioresal] 10 mg PO TID PRN #90 tab PRN Reason: Muscle Spasm Multivitamin [Multivitamins Adult Gummies] 1 each PO DAILY #30 tablet Acetaminophen Tab [Tylenol] 650 mg PO Q6HR PRN tab PRN Reason: Fever And/ Or Pain Thiamine [Vitamin B-1] 100 mg PO BID-W/MEALS tab Dexamethasone [Decadron] 4 mg PO DAILY #7 tablet Continue Albuterol Sulfate [Proair Hfa] 2 puff INHALATION RT-Q6H PRN PRN Reason: Shortness Of Breath amLODIPine [Norvasc] 10 mg PO HS Atenolol [Tenormin] 50 mg PO DAILY chlordiazePOXIDE HCl [Librium] 25 mg PO TID PRN PRN Reason: Anxiety Discharge Medication List Atenolol [Tenormin] 50 mg PO DAILY 02/28/21 [History] amLODIPine [Norvasc] 10 mg PO HS 02/28/21 [History] Albuterol Sulfate [Proair Hfa] 2 puff INHALATION RT-Q6H PRN 04/17/21 [History] chlordiazePOXIDE HCl [Librium] 25 mg PO TID PRN 04/17/21 [History] Acetaminophen Tab [Tylenol] 650 mg PO Q6HR PRN tab 04/23/21 [Rx] Baclofen [Lioresal] 10 mg PO TID PRN #90 tab 04/23/21 [Rx] Dexamethasone [Decadron] 4 mg PO DAILY #7 tablet 04/23/21 [Rx] Multivitamin [Multivitamins Adult Gummies] 1 each PO DAILY #30 tablet 04/23/21 [Rx] Thiamine [Vitamin B-1] 100 mg PO BID-W/MEALS tab 04/23/21 [Rx] Follow up Appointment(s)/Referral(s): Emre Wyatt MD [Primary Care Provider] - 1 Week Bill Gandhi DO [Doctor of Osteopathic Medicine] - 1 Week Patient Instructions/Handouts: Alcohol Intoxication (DC), Abuse of Alcohol (DC) Discharge Disposition: HOME SELF-CARE
[2021-04-24] MEDS ORDERED: PANTOPRAZOLE 40 MG TABLET PO SCH (07:30)
== END 2021-04-23 13:42 | disposition home or self-care (01) | DRG 552 ==
LOC: EC 16:06 → 4SSUR 21:34 → 1SOBS 04-18 07:23 → 5NMEDONC 04-18 10:41
PROVIDERS: ADMIT Internal Medicine; ATTEND Internal Medicine
DX: S12.400A Unspecified displaced fracture of fifth cervical vertebra, initial encounter for closed fracture (principal); N39.0 Urinary tract infection, site not specified; F31.30 Bipolar disorder, current episode depressed, mild or moderate severity, unspecified; F10.229 Alcohol dependence with intoxication, unspecified; W01.0XXA Fall on same level from slipping, tripping and stumbling without subsequent striking against object, initial encounter; S80.211A Abrasion, right knee, initial encounter; S80.212A Abrasion, left knee, initial encounter; F12.90 Cannabis use, unspecified, uncomplicated; F60.9 Personality disorder, unspecified; Z86.16 Personal history of COVID-19; Z82.49 Family history of ischemic heart disease and other diseases of the circulatory system; Y90.8 Blood alcohol level of 240 mg/100 ml or more; I10 Essential (primary) hypertension; S09.90XA Unspecified injury of head, initial encounter; R25.1 Tremor, unspecified; R74.01 Elevation of levels of liver transaminase levels; D69.59 Other secondary thrombocytopenia; R40.2410 Glasgow coma scale score 13-15, unspecified time; R26.2 Difficulty in walking, not elsewhere classified; M47.9 Spondylosis, unspecified; M79.671 Pain in right foot; R29.6 Repeated falls; R51.9 Headache, unspecified; G89.29 Other chronic pain; Z79.899 Other long term (current) drug therapy; F41.9 Anxiety disorder, unspecified; R53.1 Weakness
CPT/HCPCS: 36415; 70450; 70486; 71045; 72100; 72125; 72141; 72146; 80053; 80306; 80320; 82140; 82550; 82607; 82746; 83921; 84207; 85025; 85027; 85610; 85730; 90471; 90715; 93005; 94760; 96361; 96365; 99285

== ENCOUNTER 2021-05-26 17:29 | Observation (INO) | payer OTHER ==
--- NOTE | 2021-05-26 18:45 | ED ---
Psych HPI - General Chief Complaint: Psychiatric Symptoms Stated Complaint: PSYCH Time Seen by Provider: 05/26/21 17:30 Source: patient, police, EMS, RN notes reviewed Mode of arrival: EMS - History of Present Illness Initial Comments: 55-year-old male with a history of alcoholism as well as depression who is brought in by EMS after drinking today his usual amount now he feels suicidal and wanted to jump down steps head first to kill himself. He was petitioned by police for the same. Other complaints no other modifying factors at this time. He does drink between 15-20 beers per day he states. MD Complaint: suicidal ideation, feels depressed, other - Related Data Home Medications Medication Instructions Recorded Confirmed amLODIPine [Norvasc] 5 mg PO HS 02/28/21 05/26/21 Albuterol Sulfate [Proair Hfa] 2 puff INHALATION RT-Q6H PRN 04/17/21 05/26/21 chlordiazePOXIDE HCl [Librium] 25 mg PO TID PRN 04/17/21 05/26/21 Multivitamin [Multivitamins Adult 1 tab PO DAILY 05/26/21 05/26/21 Gummies] Previous Rx's Medication Instructions Recorded Acetaminophen Tab [Tylenol] 650 mg PO Q6HR PRN tab 04/23/21 Baclofen [Lioresal] 10 mg PO TID PRN #90 tab 04/23/21 Thiamine [Vitamin B-1] 100 mg PO BID-W/MEALS tab 04/23/21 Allergies Allergy/AdvReac Type Severity Reaction Status Date / Time allopurinol Allergy Unknown Verified 04/17/21 17:30 azithromycin Allergy Anaphylaxis Verified 04/17/21 17:30 Review of Systems ROS Statement: Those systems with pertinent positive or pertinent negative responses have been documented in the HPI. ROS Other: All systems not noted in ROS Statement are negative. Past Medical History Past Medical History: Hypertension Additional Past Medical History / Comment(s): anxiety, personality disorder, manic depression, etoh abuse, COVID 19 12/13 History of Any Multi-Drug Resistant Organisms: None Reported Past Surgical History: Unable to Obtain Past Anesthesia/Blood Transfusion Reactions: No Reported Reaction Past Psychological History: Anxiety, Depression Smoking Status: Never smoker Past Alcohol Use History: Daily, Heavy Past Drug Use History: Marijuana - Past Family History Father Family Medical History: CVA/TIA, Myocardial Infarction ([place]) Mother Family Medical History: Thyroid Disorder General Exam - General Exam Comments Initial Comments: Is a well-developed well-nourished awake alert male who does have the smell of alcohol conjoiners on his breath Limitations: altered mental status General appearance: alert, in no apparent distress Head exam: Present: atraumatic, normocephalic, normal inspection Eye exam: Present: normal appearance, PERRL, EOMI. Absent: scleral icterus, conjunctival injection, periorbital swelling ENT exam: Present: normal exam, mucous membranes moist Neck exam: Present: normal inspection. Absent: tenderness, meningismus, lymphadenopathy Respiratory exam: Present: normal lung sounds bilaterally. Absent: respiratory distress, wheezes, rales, rhonchi, stridor Cardiovascular Exam: Present: regular rate, normal rhythm, normal heart sounds. Absent: systolic murmur, diastolic murmur, rubs, gallop, clicks GI/Abdominal exam: Present: soft, normal bowel sounds. Absent: distended, tenderness, guarding, rebound, rigid Extremities exam: Present: normal inspection, full ROM, normal capillary refill. Absent: tenderness, pedal edema, joint swelling, calf tenderness Back exam: Present: normal inspection Neurological exam: Present: alert, oriented X3, CN II-XII intact Psychiatric exam: Present: depressed, suicidal ideation Skin exam: Present: warm, dry, intact, normal color. Absent: rash Course Vital Signs 05/26/21 05/27/21 05/27/21 18:24 01:29 05:10 Temperature 98.3 F Pulse Rate 71 67 77 Respiratory 16 20 20 Rate Blood Pressure 126/76 123/79 129/77 O2 Sat by Pulse 96 98 98 Oximetry 05/27/21 09:18 Temperature 98.0 F Pulse Rate 79 Respiratory 18 Rate Blood Pressure 120/77 O2 Sat by Pulse 97 Oximetry - Reevaluation(s) Reevaluation #1: 05/26/21 22:19 Patient resting comfortably still voicing suicidal ideation. Alcohol level is elevated the patient will be cleared for EPS evaluation at 1 AM. 05/26/21 22:20 The patient's care will be endorsed to Dr. Walker at our shift change Medical Decision Making - Medical Decision Making The patient was found to be a risk for alcohol withdrawal and was admitted to the medical floor this morning. Psychiatric consultation is obtained. - Lab Data Result diagrams: 05/26/21 19:31 05/26/21 19:31 Lab Results 05/26/21 05/26/21 05/26/21 Range/Units 19:31 19:31 19:31 WBC 8.4 (3.8-10.6) k/uL RBC 4.50 (4.30-5.90) m/uL Hgb 15.4 (13.0-17.5) gm/dL Hct 44.0 (39.0-53.0) % MCV 97.8 (80.0-100.0) fL MCH 34.2 (25.0-35.0) pg MCHC 35.0 (31.0-37.0) g/dL RDW 13.4 (11.5-15.5) % Plt Count 187 D (150-450) k/uL MPV 8.3 Neutrophils % 70 % Lymphocytes % 19 % Monocytes % 7 % Eosinophils % 1 % Basophils % 1 % Neutrophils # 5.9 (1.3-7.7) k/uL Lymphocytes # 1.6 (1.0-4.8) k/uL Monocytes # 0.6 (0-1.0) k/uL Eosinophils # 0.1 (0-0.7) k/uL Basophils # 0.1 (0-0.2) k/uL Sodium 139 (137-145) mmol/L Potassium 4.6 (3.5-5.1) mmol/L Chloride 102 (98-107) mmol/L Carbon Dioxide 28 (22-30) mmol/L Anion Gap 9 mmol/L BUN 19 (9-20) mg/dL Creatinine 0.93 (0.66-1.25) mg/dL Est GFR (CKD-EPI)AfAm >90 (>60 ml/min/1.73 sqM) Est GFR (CKD-EPI)NonAf >90 (>60 ml/min/1.73 sqM) Glucose 90 (74-99) mg/dL Calcium 9.2 (8.4-10.2) mg/dL Magnesium 2.2 (1.6-2.3) mg/dL Total Bilirubin 0.5 (0.2-1.3) mg/dL AST 34 (17-59) U/L ALT 18 (4-49) U/L Alkaline Phosphatase 88 (38-126) U/L Total Protein 6.7 (6.3-8.2) g/dL Albumin 4.0 (3.5-5.0) g/dL Lipase 111 (23-300) U/L Urine Opiates Screen Not Detected (NotDetected) Ur Oxycodone Screen Not Detected (NotDetected) Urine Methadone Screen Not Detected (NotDetected) Ur Propoxyphene Screen Not Detected (NotDetected) Ur Barbiturates Screen Not Detected (NotDetected) U Tricyclic Antidepress Not Detected (NotDetected) Ur Phencyclidine Scrn Not Detected (NotDetected) Ur Amphetamines Screen Not Detected (NotDetected) U Methamphetamines Scrn Not Detected (NotDetected) U Benzodiazepines Scrn Detected H (NotDetected) Urine Cocaine Screen Not Detected (NotDetected) U Marijuana (THC) Screen Not Detected (NotDetected) Serum Alcohol 204 H* mg/dL Coronavirus (PCR) (Not Detectd) 05/27/21 Range/Units 01:48 WBC (3.8-10.6) k/uL RBC (4.30-5.90) m/uL Hgb (13.0-17.5) gm/dL Hct (39.0-53.0) % MCV (80.0-100.0) fL MCH (25.0-35.0) pg MCHC (31.0-37.0) g/dL RDW (11.5-15.5) % Plt Count (150-450) k/uL MPV Neutrophils % % Lymphocytes % % Monocytes % % Eosinophils % % Basophils % % Neutrophils # (1.3-7.7) k/uL Lymphocytes # (1.0-4.8) k/uL Monocytes # (0-1.0) k/uL Eosinophils # (0-0.7) k/uL Basophils # (0-0.2) k/uL Sodium (137-145) mmol/L Potassium (3.5-5.1) mmol/L Chloride (98-107) mmol/L Carbon Dioxide (22-30) mmol/L Anion Gap mmol/L BUN (9-20) mg/dL Creatinine (0.66-1.25) mg/dL Est GFR (CKD-EPI)AfAm (>60 ml/min/1.73 sqM) Est GFR (CKD-EPI)NonAf (>60 ml/min/1.73 sqM) Glucose (74-99) mg/dL Calcium (8.4-10.2) mg/dL Magnesium (1.6-2.3) mg/dL Total Bilirubin (0.2-1.3) mg/dL AST (17-59) U/L ALT (4-49) U/L Alkaline Phosphatase (38-126) U/L Total Protein (6.3-8.2) g/dL Albumin (3.5-5.0) g/dL Lipase (23-300) U/L Urine Opiates Screen (NotDetected) Ur Oxycodone Screen (NotDetected) Urine Methadone Screen (NotDetected) Ur Propoxyphene Screen (NotDetected) Ur Barbiturates Screen (NotDetected) U Tricyclic Antidepress (NotDetected) Ur Phencyclidine Scrn (NotDetected) Ur Amphetamines Screen (NotDetected) U Methamphetamines Scrn (NotDetected) U Benzodiazepines Scrn (NotDetected) Urine Cocaine Screen (NotDetected) U Marijuana (THC) Screen (NotDetected) Serum Alcohol mg/dL Coronavirus (PCR) Not Detected (Not Detectd) Disposition Clinical Impression: Suicidal ideation, Depression, Alcohol intoxication, Alcohol withdrawal Disposition: ADMITTED IP TO THIS HOSP Condition: Fair
[2021-05-26 19:50] LABS: ALT 18 U/L (4-49); AST 34 U/L (17-59); African American GFR (CKD) >90 (>60 ml/min/1.73 sqM); Alkaline Phosphatase 88 U/L (38-126); Anion Gap 9 mmol/L; Blood Urea Nitrogen 19 mg/dL (9-20); Calcium 9.2 mg/dL (8.4-10.2); Carbon Dioxide 28 mmol/L (22-30); Chloride 102 mmol/L (98-107); Glucose 90 mg/dL (74-99); Lipase 111 U/L (23-300); Magnesium 2.2 mg/dL (1.6-2.3); Non-African American GFR(CKD) >90 (>60 ml/min/1.73 sqM); Potassium 4.6 mmol/L (3.5-5.1); Sodium 139 mmol/L (137-145); Total Bilirubin 0.5 mg/dL (0.2-1.3); Total Protein 6.7 g/dL (6.3-8.2)
[2021-05-26 19:59] LABS: Alcohol 204 mg/dL
[2021-05-26 20:15] LABS: Amphetamine Screen,Urine Not Detected (NotDetected); Barbiturate Screen,Urine Not Detected (NotDetected); Benzodiazepines Screen,Urine Detected (NotDetected); Cocaine Screen,Urine Not Detected (NotDetected); Methadone Screen, Urine Not Detected (NotDetected); Opiate Screen,Urine Not Detected (NotDetected); Oxycodone Screen, Urine Not Detected (NotDetected); Phencyclidine Screen,Urine Not Detected (NotDetected); Tricyclic Antidepressant,Urine Not Detected (NotDetected); Urn Cannabinoid Scrn Not Detected (NotDetected)
[2021-05-26 20:28] LABS: Basophils # (A) 0.1 k/uL (0-0.2); Basophils % (A) 1 %; Eosinophils # (A) 0.1 k/uL (0-0.7); Eosinophils % (A) 1 %; HGB 15.4 gm/dL (13.0-17.5); Lymphocytes # (A) 1.6 k/uL (1.0-4.8); Lymphocytes % (A) 19 %; MCH 34.2 pg (25.0-35.0); MCV 97.8 fL (80.0-100.0); Mean Platelet Volume 8.3; Monocytes # (A) 0.6 k/uL (0-1.0); Monocytes % (A) 7 %; Neutrophils # (A) 5.9 k/uL (1.3-7.7); Neutrophils % (A) 70 %; RDW 13.4 % (11.5-15.5); WBC 8.4 k/uL (3.8-10.6)
[2021-05-26 20:29] LABS: Platelet Count 187 k/uL (150-450)
[2021-05-27] MEDS ORDERED: LORazepam 1 MG TAB PO STA (01:35)
[2021-05-27] MEDS ORDERED: LORazepam 2 MG/ML INJ IV PRN (05:08)
[2021-05-27] MEDS ORDERED: NALOXONE 0.4 MG/ML 1 ML VIAL IV PRN (05:08)
[2021-05-27] MEDS: LORazepam 2 MG/ML INJ IV PRN ×5 (05:31→18:55)
[2021-05-27] MEDS: SODIUM CHLORIDE 0.9% 1,000 ML IV SCH ×3 (05:36→21:49)
[2021-05-27] MEDS ORDERED: ALBUTEROL HFA INHALER INHALATION PRN (08:00)
[2021-05-27] MEDS: MULTIVITAMINS, THERA 1 EACH TAB PO SCH (10:25)
--- NOTE | 2021-05-27 12:32 | P.HPIM ---
History of Present Illness 55-year-old male came in with a suicidal ideations and the patient still admits to suicidal ideations. Psychiatry was consulted. Patient the SASE drinks about 15-20 beers a day and patient last drink was yesterday afternoon. Patient states he is depressed. Patient denied any fever chills nausea vomiting abdominal pain dysuria. She had mild low-grade fever 1 episode. Patient drug screen is positive for benzodiazepines. Patient labs are within normal limits including MCV. REVIEW OF SYSTEMS: CONSTITUTIONAL: No fever, no malaise, no fatigue. HEENT: No recent visual problems or hearing problems. Denied any sore throat. CARDIOVASCULAR: No chest pain, orthopnea, PND, no palpitations, no syncope. PULMONARY: No shortness of breath, no cough, no hemoptysis. GASTROINTESTINAL: No diarrhea, no nausea, no vomiting, no abdominal pain. NEUROLOGICAL: No headaches, no weakness, no numbness. HEMATOLOGICAL: Denies any bleeding or petechiae. GENITOURINARY: Denies any burning micturition, frequency, or urgency. MUSCULOSKELETAL/RHEUMATOLOGICAL: Denies any joint pain, swelling, or any muscle pain. ENDOCRINE: Denies any polyuria or polydipsia. The rest of the 14-point review of systems is negative. PHYSICAL EXAMINATION: GENERAL: The patient is alert and oriented x3, not in any acute distress. Well developed, well nourished. HEENT: Pupils are round and equally reacting to light. EOMI. No scleral icterus. No conjunctival pallor. Normocephalic, atraumatic. No pharyngeal erythema. No thyromegaly. CARDIOVASCULAR: S1 and S2 present. No murmurs, rubs, or gallops. PULMONARY: Chest is clear to auscultation, no wheezing or crackles. ABDOMEN: Soft, nontender, nondistended, normoactive bowel sounds. No palpable organomegaly. MUSCULOSKELETAL: No joint swelling or deformity. EXTREMITIES: No cyanosis, clubbing, or pedal edema. NEUROLOGICAL: Gross neurological examination did not reveal any focal deficits. SKIN: No rashes. Assessment and plan -Depression and suicidal ideation: Patient has a sitter and psychiatry was consulted -Alcohol abuse: Patient will be monitored for withdrawals but I do not expect the much of withdrawals will be monitored over 90. The patient is withdrawals A will be cleared to be discharged to psychiatric floor if that's necessary. -Hypertension DVT prophylaxis: Lovenox Past Medical History Past Medical History: Hypertension Additional Past Medical History / Comment(s): anxiety, personality disorder, ma maxine depression, etoh abuse, COVID 19 12/13 History of Any Multi-Drug Resistant Organisms: None Reported Past Surgical History: Tonsillectomy Past Anesthesia/Blood Transfusion Reactions: No Reported Reaction Past Psychological History: Anxiety, Depression Additional Psychological History / Comment(s): personality disorder Smoking Status: Never smoker Past Alcohol Use History: Daily, Heavy Additional Past Alcohol Use History / Comment(s): heavily drinking since age 10, with a 7 year sober period, from [id number], now drinks 12 white calws daily. x- drug use: every kind of drug per patient- been clean for 10 years. Date of Last drink: 03/13/2021 around 10 am Past Drug Use History: Marijuana Additional Drug Use History / Comment(s): edibles - Past Family History Father Family Medical History: CVA/TIA, Myocardial Infarction (ND) Mother Family Medical History: Thyroid Disorder Medications and Allergies Home Medications Medication Instructions Recorded Confirmed Type amLODIPine [Norvasc] 5 mg PO HS 02/28/21 05/26/21 History Albuterol Sulfate [Proair Hfa] 2 puff INHALATION RT-Q6H PRN 04/17/21 05/26/21 H istory chlordiazePOXIDE HCl [Librium] 25 mg PO TID PRN 04/17/21 05/26/21 History Acetaminophen Tab [Tylenol] 650 mg PO Q6HR PRN tab 04/23/21 05/26/21 Rx Baclofen [Lioresal] 10 mg PO TID PRN #90 tab 04/23/21 05/26/21 Rx Thiamine [Vitamin B-1] 100 mg PO BID-W/MEALS tab 04/23/21 05/26/21 Rx Multivitamin [Multivitamins Adult 1 tab PO DAILY 05/26/21 05/26/21 History Gummies] Allergies Allergy/AdvReac Type Severity Reaction Status Date / Time allopurinol Allergy Unknown Verified 04/17/21 17:30 azithromycin Allergy Anaphylaxis Verified 04/17/21 17:30 Physical Exam Vitals: Vital Signs Temp Pulse Pulse Resp BP BP Pulse Ox 05/27/21 10:48 17 05/27/21 10:22 99.8 F H 84 17 142/73 96 05/27/21 09:18 98.0 F 79 18 120/77 97 05/27/21 05:10 77 20 129/77 98 05/27/21 01:29 67 20 123/79 98 05/26/21 18:24 98.3 F 71 16 126/76 96 Intake and Output 05/26/21 05/27/21 05/27/21 22:59 06:59 14:59 Intake Total 130 Balance 130 Intake: IV 130 Sodium Chloride 0.9% 1, 130 000 ml @ 130 mls/hr IV . Q7H42M [facility] Rx#:[id number] Other: Weight 88.451 kg 88.451 kg Results CBC & Chem 7: 05/26/21 19:31 05/26/21 19:31 Labs: Abnormal Lab Results - Last 24 Hours (Table) 05/26/21 05/26/21 Range/Units 19:31 19:31 U Benzodiazepines Scrn Detected H (NotDetected) Serum Alcohol 204 H* mg/dL Thrombosis Risk Factor Assmnt - Choose All That Apply Any of the Below Risk Factors Present?: Yes Each Factor Represents 1 point: Age 41-60 years, Medical pt on bed rest Other Risk Factors: Yes Thrombosis Risk Factor Assessment Total Risk Factor Score: 2 Thrombosis Risk Factor Assessment Level: Low Risk
[2021-05-27] MEDS: DIVALPROEX 250 MG TABLET.DR PO SCH ×2 (16:00→21:46)
[2021-05-27] MEDS: THIAMINE 100 MG TAB PO SCH (17:00)
[2021-05-27] MEDS: ACETAMINOPHEN TAB 325 MG TAB PO PRN (19:38)
[2021-05-27] MEDS ORDERED: amLODIPine 5 MG TAB PO SCH (21:00)
[2021-05-27] MEDS: FAMOTIDINE 20 MG TAB PO SCH (21:46)
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
[2021-05-28] MEDS: SODIUM CHLORIDE 0.9% 1,000 ML IV SCH (03:50)
[2021-05-28] MEDS: ACETAMINOPHEN TAB 325 MG TAB PO PRN (03:56)
[2021-05-28] MEDS: MULTIVITAMINS, THERA 1 EACH TAB PO SCH (08:14)
[2021-05-28] MEDS: DIVALPROEX 250 MG TABLET.DR PO SCH ×2 (08:14→16:38)
[2021-05-28] MEDS: FAMOTIDINE 20 MG TAB PO SCH (08:14)
[2021-05-28] MEDS: THIAMINE 100 MG TAB PO SCH ×2 (08:14→16:38)
[2021-05-28] MEDS: LORazepam 2 MG/ML INJ IV PRN ×2 (08:19→16:53)
[2021-05-28 08:20] VITALS: RESP 16
[2021-05-28] MEDS ORDERED: ENOXAPARIN 40 MG/0.4 ML SYRINGE SQ SCH (09:00)
[2021-05-28] MEDS ORDERED: HYDROCORTISONE 1% CREAM 30 GM TUBE TOPICAL PRN (11:52)
--- NOTE | 2021-05-28 12:18 | P.DS ---
Providers Date of admission: 05/27/21 07:40 Attending physician: Ester Sims Consults: 05/27/21 05:09 Consult Physician Routine Consulting Provider: Axel Marr Consult Reason/Comments: mood disorder, suicidal ideation Do you want consulting provider notified?: Yes Primary care physician: MIKE Garland Hospital Course: Final diagnoses Assessment and plan -Depression and suicidal ideation: Patient has a sitter and psychiatry was consulted -Alcohol abuse: Patient has received IV Ativan a couple times most recently at 0800 today however he is not experiencing any acute symptoms alert and oriented 3. -Hypertension continue Norvasc Discharge disposition Patient is cleared medically for discharge to an inpatient psychiatric facility as recommended by Dr. Garner. We will continue the patient on Depakote as was recommended. Hospital course This is a [age] male who came in with suicidal ideations and patient still admits to suicidal ideations. Psychiatry was consulted and recommend inpatient treatment. Patient says he drinks about 12-18 beers a day as last was yesterday afternoon. He does admit to depression. He denies any fever, chills, nausea, vomiting, abdominal pain, dysuria. He denies any chest pain cough or shortness of breath. Patient structurally was positive for benzodiazepines. Patient's labs were all within normal limits. Covid was not detectable. Vital signs include a heart rate of 69, sinus rhythm, blood pressure 106/69 and 98% on room air. Patient has been alert and oriented 3. 05/28/2021 Patient was evaluated today at the bedside, once a clear, S1-S2 auscultated. Abdomen is soft nontender with positive bowel sounds. Patient is alert and oriented 3 in focal neurological exam is negative for any deficits. Patient is cleared medically for discharge to an inpatient psychiatric facility as recommended for ongoing treatment. He was started on Depakote as tolerated well. Please see medication with physician for a list o current medications. Thank you for allowing us to participate in the care of this patient. Patient Condition at Discharge: Fair Plan - Discharge Summary Discharge Rx Participant: No New Discharge Prescriptions: New Divalproex [Depakote] 250 mg PO TID tablet Famotidine [Pepcid] 20 mg PO BID tab Hydrocortisone Cream [Hydrocortisone 1% Cream] 1 applic TOPICAL BID PRN gm PRN Reason: Skin Irritation Continue Albuterol Sulfate [Proair Hfa] 2 puff INHALATION RT-Q6H PRN PRN Reason: Shortness Of Breath Baclofen [Lioresal] 10 mg PO TID PRN #90 tab PRN Reason: Muscle Spasm Acetaminophen Tab [Tylenol] 650 mg PO Q6HR PRN tab PRN Reason: Fever And/ Or Pain Thiamine [Vitamin B-1] 100 mg PO BID-W/MEALS tab Multivitamin [Multivitamins Adult Gummies] 1 tab PO DAILY amLODIPine [Norvasc] 5 mg PO HS chlordiazePOXIDE HCl [Librium] 25 mg PO TID PRN PRN Reason: Anxiety Discharge Medication List amLODIPine [Norvasc] 5 mg PO HS 02/28/21 [History] Albuterol Sulfate [Proair Hfa] 2 puff INHALATION RT-Q6H PRN 04/17/21 [History] chlordiazePOXIDE HCl [Librium] 25 mg PO TID PRN 04/17/21 [History] Acetaminophen Tab [Tylenol] 650 mg PO Q6HR PRN tab 04/23/21 [Rx] Baclofen [Lioresal] 10 mg PO TID PRN #90 tab 04/23/21 [Rx] Thiamine [Vitamin B-1] 100 mg PO BID-W/MEALS tab 04/23/21 [Rx] Multivitamin [Multivitamins Adult Gummies] 1 tab PO DAILY 05/26/21 [History] Divalproex [Depakote] 250 mg PO TID tablet 05/28/21 [Rx] Famotidine [Pepcid] 20 mg PO BID tab 05/28/21 [Rx] Hydrocortisone Cream [Hydrocortisone 1% Cream] 1 applic TOPICAL BID PRN gm 05/28/21 [Rx] Follow up Appointment(s)/Referral(s): Sandra Giron, MIKE [Primary Care Provider] - 1-2 days Activity/Diet/Wound Care/Special Instructions: Patient is medically stable for discharge to inpatient psych Discharge Disposition: TRANSFER TO PSYCH HOSP/UNIT
[2021-05-28 13:32] VITALS: BP 137/83; PULSE 73; TEMP 98.2
== END 2021-05-28 18:24 ==
LOC: EC 17:29 → 4SSUR 05-27 07:40
PROVIDERS: ADMIT Hospitalist; ATTEND Hospitalist
DX: F31.30 Bipolar disorder, current episode depressed, mild or moderate severity, unspecified (principal); R45.851 Suicidal ideations; F10.239 Alcohol dependence with withdrawal, unspecified; F10.229 Alcohol dependence with intoxication, unspecified; Y90.7 Blood alcohol level of 200-239 mg/100 ml; I10 Essential (primary) hypertension; F60.9 Personality disorder, unspecified; F10.20 Alcohol dependence, uncomplicated; F41.9 Anxiety disorder, unspecified; R50.9 Fever, unspecified; Z20.822 Contact with and (suspected) exposure to COVID-19; Z86.16 Personal history of COVID-19; Z56.0 Unemployment, unspecified; Z79.899 Other long term (current) drug therapy; Z88.8 Allergy status to other drugs, medicaments and biological substances; Z88.1 Allergy status to other antibiotic agents; Z82.49 Family history of ischemic heart disease and other diseases of the circulatory system; Z82.3 Family history of stroke; Z83.49 Family history of other endocrine, nutritional and metabolic diseases
CPT/HCPCS: 96376 ×3; 96361 ×3; 96372; 82075; 96374; 99285; 36415; 80053; 83690; 83735; 85025; 80306; 87635; G0378 ×2; G0480; J2060 ×2; J1650; 80320

== ENCOUNTER 2021-05-28 18:01 | Inpatient (IN) | payer MEDICAID ==
[2021-05-28] MEDS ORDERED: ALBUTEROL HFA INHALER INHALATION PRN (18:05)
[2021-05-28] MEDS ORDERED: CHLORDIAZEPOXIDE PO PRN (18:05)
[2021-05-28] MEDS ORDERED: BACLOFEN 10 MG TAB PO PRN (18:05)
[2021-05-28] MEDS ORDERED: MAGNESIUM HYDROXIDE 2,400 MG/10 ML CUP PO PRN (18:10)
[2021-05-28] MEDS ORDERED: MAG HYDROX/AL HYDROX/SIMETH 30 ML CUP PO PRN (18:10)
[2021-05-28] MEDS ORDERED: LORazepam 2 MG/ML INJ IM PRN (18:13)
[2021-05-28] MEDS ORDERED: haloperidoL 5 MG TAB PO PRN (18:13)
[2021-05-28] MEDS ORDERED: HALOPERIDOL LACTATE 5 MG/ML 1 ML VIAL IM PRN (18:13)
[2021-05-28] MEDS: amLODIPine 5 MG TAB PO SCH (20:35)
[2021-05-28] MEDS: FAMOTIDINE 20 MG TAB PO SCH (20:35)
[2021-05-28] MEDS: DIVALPROEX 250 MG TABLET.DR PO SCH (20:35)
[2021-05-28] MEDS: LORazepam 1 MG TAB PO PRN (21:10)
[2021-05-28] MEDS ORDERED: LORazepam 1 MG TAB PO STA (23:49)
[2021-05-29] MEDS: DIVALPROEX 250 MG TABLET.DR PO SCH (08:32)
[2021-05-29] MEDS: FAMOTIDINE 20 MG TAB PO SCH ×2 (08:32→20:45)
[2021-05-29] MEDS: MULTIVITAMINS, THERA 1 EACH TAB PO SCH (08:32)
[2021-05-29] MEDS: THIAMINE 100 MG TAB PO SCH ×2 (08:32→18:04)
[2021-05-29] MEDS: LORazepam 1 MG TAB PO PRN (08:34)
[2021-05-29] MEDS ORDERED: VENLAFAXINE HCL ER 37.5 MG CAP PO STA (10:46)
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
[2021-05-29] MEDS ORDERED: INFLUENZA VACC (6 MOS-64 YRS) 60 MCG/0.5 ML SYRINGE IM ONE (12:35)
[2021-05-29] MEDS: CHLORDIAZEPOXIDE 25 MG PO PRN ×2 (13:47→21:00)
--- NOTE | 2021-05-29 19:55 | P.CONS ---
History of Present Illness - History of Present Illness This is a pleasant 55 years old male who was admitted to medical floor yesterday at transfer to psychiatric floor thereafter. He was admitted with severe depression and suicidal ideation. Medical consult was requested for routine medical management. Patient originally admitted to the medical floor for alcohol withdrawal. Per records patient is taken 15-20 beers a day. However patient currently does not have any signs or symptoms of alcohol withdrawal. His CIWA score 0. His walking in the hallway is calm and steady. He denies chest pain or dyspnea. No abdominal pain. No change in urine or bowel habits. No fever Vital signs labs reviewed showing unremarkable CBC, BMP, liver enzymes. Urine drug screen is positive for benzodiazepine and alcohol level was elevated 204 upon admission. [place] is not detected Review of Systems CONSTITUTIONAL: No fever, no malaise, no fatigue. HEENT: No recent visual problems or hearing problems. Denied any sore throat. CARDIOVASCULAR: No orthopnea, PND, no palpitations, no syncope. PULMONARY: No shortness of breath, no cough, no hemoptysis. GASTROINTESTINAL: No diarrhea, no nausea, no vomiting, no abdominal pain. Normoactive bowel sounds. NEUROLOGICAL: No headaches, no weakness, no numbness. HEMATOLOGICAL: Denies any bleeding or petechiae. GENITOURINARY: Denies any burning micturition, frequency, or urgency. MUSCULOSKELETAL/RHEUMATOLOGICAL: Denies any joint pain, swelling, or any muscle pain. ENDOCRINE: Denies any polyuria or polydipsia. Past Medical History Past Medical History: Hypertension Additional Past Medical History / Comment(s): anxiety, personality disorder, manic depression, etoh abuse, COVID 19 12/13 History of Any Multi-Drug Resistant Organisms: None Reported Past Surgical History: Unable to Obtain Past Anesthesia/Blood Transfusion Reactions: No Reported Reaction Past Psychological History: Anxiety, Depression Additional Psychological History / Comment(s): personality disorder Smoking Status: Never smoker Past Alcohol Use History: Daily, Heavy Additional Past Alcohol Use History / Comment(s): heavily drinking since age 10, with a 7 year sober period, from [id number], now drinks 12 white calws daily. x- drug use: every kind of drug per patient- been clean for 10 years. Date of Last drink: 03/13/2021 around 10 am Past Drug Use History: Marijuana Additional Drug Use History / Comment(s): edibles - Past Family History Father Family Medical History: CVA/TIA, Myocardial Infarction ([place]) Mother Family Medical History: Thyroid Disorder Medications and Allergies Home Medications Medication Instructions Recorded Confirmed Type amLODIPine [Norvasc] 5 mg PO HS 02/28/21 05/26/21 History Albuterol Sulfate [Proair Hfa] 2 puff INHALATION RT-Q6H PRN 04/17/21 05/26/21 History chlordiazePOXIDE HCl [Librium] 25 mg PO TID PRN 04/17/21 05/26/21 History Acetaminophen Tab [Tylenol] 650 mg PO Q6HR PRN tab 04/23/21 05/26/21 Rx Baclofen [Lioresal] 10 mg PO TID PRN #90 tab 04/23/21 05/26/21 Rx Thiamine [Vitamin B-1] 100 mg PO BID-W/MEALS tab 04/23/21 05/26/21 Rx Multivitamin [Multivitamins Adult 1 tab PO DAILY 05/26/21 05/26/21 History Gummies] Divalproex [Depakote] 250 mg PO TID tablet 05/28/21 Rx Famotidine [Pepcid] 20 mg PO BID tab 05/28/21 Rx Hydrocortisone Cream 1 applic TOPICAL BID PRN gm 05/28/21 Rx [Hydrocortisone 1% Cream] Allergies Allergy/AdvReac Type Severity Reaction Status Date / Time allopurinol Allergy Unknown Verified 05/29/21 12:08 azithromycin Allergy Anaphylaxis Verified 05/29/21 12:08 Physical Exam Vitals: Vital Signs Temp Pulse Resp BP Pulse Ox 05/29/21 08:35 116 H 139/91 05/29/21 06:28 97.4 F L 65 18 131/65 95 05/28/21 18:38 97.6 F 95 14 128/86 98 Intake and Output 05/28/21 05/29/21 05/29/21 22:59 06:59 14:59 Other: Weight 88.451 kg 225 kg GENERAL: The patient is alert and oriented x3, not in any acute distress. Well developed, well nourished. HEENT: Pupils are round and equally reacting to light. EOMI. No scleral icterus. No conjunctival pallor. Normocephalic, atraumatic. No pharyngeal erythema. No thyromegaly. CARDIOVASCULAR: S1 and S2 present. No murmurs, rubs, or gallops. PULMONARY: Chest is clear to auscultation, no wheezing or crackles. ABDOMEN: Soft, nontender, nondistended, normoactive bowel sounds. No palpable organomegaly. MUSCULOSKELETAL: No joint swelling or deformity. EXTREMITIES: No cyanosis, clubbing, or pedal edema. NEUROLOGICAL: Gross neurological examination did not reveal any focal deficits. SKIN: No rashes. No petechiae Assessment and Plan Assessment: -Depression and suicidal ideation: Management as per psychiatry primary team -Alcohol abuse: Patient is not with alcohol withdrawal symptoms. Patient was counseled to quit and can alcohol. -Hypertension We recommend patient follow up with his PCP in one week after discharge, he was instructed with the same Thank you for consulting us, we will follow up with the patient on an as-needed basis. Please feel free to contact us for any further question or clarification
[2021-05-29] MEDS: PRAZOSIN 1 MG CAP PO SCH (20:45)
[2021-05-29] MEDS: amLODIPine 5 MG TAB PO SCH (20:45)
[2021-05-30] MEDS: ACETAMINOPHEN TAB 325 MG TAB PO PRN ×2 (04:51→16:43)
[2021-05-30] MEDS: THIAMINE 100 MG TAB PO SCH ×2 (08:59→16:43)
[2021-05-30] MEDS: FAMOTIDINE 20 MG TAB PO SCH ×2 (08:59→21:58)
[2021-05-30] MEDS: MULTIVITAMINS, THERA 1 EACH TAB PO SCH (08:59)
[2021-05-30] MEDS ORDERED: VENLAFAXINE HCL ER 75 MG CAP PO SCH (09:00)
--- NOTE | 2021-05-30 13:28 | P.PN ---
Progress Note - Text Progress Note Date: 05/30/21 Interval History: Patient was seen resting in bed and was agreeable to speak with the teletypewriter installer in his room. The patient states that he is not feeling well after receiving the influenza vaccine yesterday. The patient is complaining of nausea, fever, and chills. He is also expressing myalgias. In regards to mood however, the patient is not endorsing any suicidal or homicidal ideation, intention, and/or plan. He is not reporting any auditory or visual hallucinations. Patient is denying any paranoia or other delusions. The patient has been adherent with his medications and is not endorsing any significant side effects at this time. The patient is not interested in alcohol rehabilitation at this time. Mental Status Exam: General Appearance: Patient appears to be stated age is alert, directable, and cooperative. Behavior: Patient is calmly lying in bed without any agitated behavior. Speech: Patient's speech is fluent and nonpressured. Mood/Affect: Mood is "I feel sick," affect is congruent and malaised. Suicidality/Homicidality: Patient is denying any suicidal or homicidal ideation, intention,/or plan. Perceptions: Patient denies any visual hallucinations and denies any auditory hallucinations Though content/process: There is no evidence of any delusional thought content and thought process is linear and goal-directed. Memory and concentration: AOX3, grossly intact for the purposes of this session Judgment and insight: Improving mildly Vital Signs Temp 98.0 F 05/30/21 04:56 Pulse 136 H 05/30/21 04:56 Resp 17 05/30/21 04:56 BP 104/62 05/30/21 04:56 Pulse Ox 98 05/30/21 04:56 Intake & Output 05/29/21 05/30/21 05/30/21 18:59 06:59 18:59 Weight 225 kg Assessment Major depressive disorder, recurrent, severe, without psychotic features Alcohol use disorder, severe Posttraumatic stress disorder Unspecified personality disorder Cannabis use disorder, mild Plan: -Patient continues to meet criteria for inpatient psychiatric admission for symptom stabilization and safety. Patient has signed adult voluntary form and medication consent and was placed in patient's chart. -Medications: Increase Effexor XR to 150 mg by mouth daily for depression/anxiety/PTSD Continue prazosin 2 mg by mouth at bedtime for PTSD related nightmares -When necessary Ativan and Haldol for agitation/aggression. -NRT - nicotine patch -SW on board for discharge planning. Encouraged the patient to participate in milieu.
[2021-05-30] MEDS: CHLORDIAZEPOXIDE 25 MG PO PRN (14:52)
[2021-05-30] MEDS: LORazepam 1 MG TAB PO PRN (16:43)
[2021-05-30] MEDS: PRAZOSIN 1 MG CAP PO SCH (21:57)
[2021-05-30] MEDS: amLODIPine 5 MG TAB PO SCH (21:57)
[2021-05-31] MEDS: LORazepam 1 MG TAB PO PRN (06:18)
[2021-05-31 06:57] VITALS: BP 114/77; PULSE 132; RESP 18; TEMP 97.1
[2021-05-31] MEDS ORDERED: VENLAFAXINE HCL ER 150 MG CAP PO SCH (09:00)
[2021-05-31] MEDS: MULTIVITAMINS, THERA 1 EACH TAB PO SCH (09:04)
[2021-05-31] MEDS: FAMOTIDINE 20 MG TAB PO SCH (09:04)
[2021-05-31] MEDS: THIAMINE 100 MG TAB PO SCH (09:04)
[2021-05-31] MEDS: CHLORDIAZEPOXIDE 25 MG PO PRN (09:46)
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
== END 2021-05-31 11:51 | disposition home or self-care (01) | DRG 885 ==
LOC: 3MHU 18:35
PROVIDERS: ADMIT Psychiatry & Neurology Psychiatry; ATTEND Psychiatry & Neurology Psychiatry
DX: F33.2 Major depressive disorder, recurrent severe without psychotic features (principal); F10.239 Alcohol dependence with withdrawal, unspecified; R45.851 Suicidal ideations; F31.30 Bipolar disorder, current episode depressed, mild or moderate severity, unspecified; F43.10 Post-traumatic stress disorder, unspecified; F12.10 Cannabis abuse, uncomplicated; F60.9 Personality disorder, unspecified; I10 Essential (primary) hypertension; R56.9 Unspecified convulsions; Z82.49 Family history of ischemic heart disease and other diseases of the circulatory system; Z79.899 Other long term (current) drug therapy; Z65.3 Problems related to other legal circumstances; Z23 Encounter for immunization; Z86.16 Personal history of COVID-19
CPT/HCPCS: 90686

== ENCOUNTER 2021-06-12 16:54 | Observation (INO) | payer OTHER ==
[2021-06-12] MEDS ORDERED: SODIUM CHLORIDE 0.9% 500 ML 500 ML IV ONE (17:16)
[2021-06-12] MEDS ORDERED: SODIUM CHLORIDE 0.9% 1,000 ML IV ONE ×2 (17:16→20:04)
[2021-06-12] MEDS ORDERED: LORazepam 2 MG/ML INJ IV STA (17:18)
--- NOTE | 2021-06-12 17:22 | ED ---
General Adult HPI - General Chief complaint: Fall Stated complaint: mental health Source: patient, RN notes reviewed, old records reviewed Mode of arrival: EMS Limitations: no limitations - History of Present Illness Initial comments: This a 55-year-old male presents emergency Department stating he is suicidal states she's also been drinking today. Patient states he wants to kill himself but he does not currently have a plan. Patient denies any fever chills or cough. Patient denies taking any medicines or trying to overdose today. Patient states she's only been drinking denies any illegal drugs. Patient states he did fall today he's a little tender in the left side of his chest and states he hurt his neck. Patient denies hitting his head. Patient denies any abdominal pain. Patient denies any nausea vomiting diarrhea. - Related Data Home Medications Medication Instructions Recorded Confirmed Albuterol Sulfate [Proair Hfa] 2 puff INHALATION RT-Q6H PRN 04/17/21 06/12/21 Previous Rx's Medication Instructions Recorded Baclofen [Lioresal] 10 mg PO TID PRN #90 tab 04/23/21 Hydrocortisone Cream 1 applic TOPICAL BID PRN gm 05/28/21 [Hydrocortisone 1% Cream] Famotidine [Pepcid] 20 mg PO BID 30 Days tab 05/31/21 Multivitamins, Thera [Multivitamin 1 each PO DAILY 30 Days tab 05/31/21 (formulary)] Prazosin [Minipress] 2 mg PO HS 30 Days cap 05/31/21 Thiamine [Vitamin B-1] 100 mg PO BID-W/MEALS 30 Days tab 05/31/21 Venlafaxine HCl ER [Effexor XR] 150 mg PO DAILY 30 Days 05/31/21 amLODIPine [Norvasc] 5 mg PO HS 30 Days tab 05/31/21 Allergies Allergy/AdvReac Type Severity Reaction Status Date / Time allopurinol Allergy Unknown Verified 06/12/21 17:03 azithromycin Allergy Anaphylaxis Verified 06/12/21 17:03 Review of Systems ROS Statement: Those systems with pertinent positive or pertinent negative responses have been documented in the HPI. ROS Other: All systems not noted in ROS Statement are negative. Past Medical History Past Medical History: Hypertension Additional Past Medical History / Comment(s): anxiety, personality disorder, manic depression, etoh abuse, COVID 12/13 History of Any Multi-Drug Resistant Organisms: None Reported Past Surgical History: Unable to Obtain Past Anesthesia/Blood Transfusion Reactions: No Reported Reaction Past Psychological History: Anxiety, Depression Smoking Status: Never smoker Past Alcohol Use History: Abuse, Daily, Heavy Past Drug Use History: Marijuana - Past Family History Father Family Medical History: CVA/TIA, Myocardial Infarction ([place]) Mother Family Medical History: Thyroid Disorder General Exam - General Exam Comments Initial Comments: GENERAL: Patient is well-developed and well-nourished. Patient is nontoxic and well- hydrated and is in no acute distress. Patient appears intoxicated. ENT: Neck is soft and supple. No significant lymphadenopathy is noted. Oropharynx is clear. Moist mucous membranes. Neck has full range of motion without eliciting any pain. EYES: The sclera were anicteric and conjunctiva were pink and moist. Extraocular movements were intact and pupils were equal round and reactive to light. Eyelids were unremarkable. PULMONARY: Unlabored respirations. Good breath sounds bilaterally. No audible rales rhonchi or wheezing was noted. CARDIOVASCULAR: There is a regular rate and rhythm without any murmurs gallops or rubs. ABDOMEN: Soft and nontender with normal bowel sounds. SKIN: Skin is clear with no lesions or rashes and otherwise unremarkable. NEUROLOGIC: Patient is alert and oriented x3. Cranial nerves II through XII are grossly intact. Motor and sensory are also intact. Normal speech, volume and content. Symmetrical smile. MUSCULOSKELETAL: Normal extremities with adequate strength and full range of motion. LYMPHATICS: No significant lymphadenopathy is noted PSYCHIATRIC: Patient states he suicidal. Limitations: no limitations Course Vital Signs 06/12/21 06/12/21 16:57 18:43 Temperature 99.1 F 97.6 F Pulse Rate 88 80 Respiratory 20 16 Rate Blood Pressure 155/106 122/75 O2 Sat by Pulse 96 97 Oximetry Medical Decision Making - Medical Decision Making Patient is intoxicated and suicidal I spoke with Dr. Franklin agreed to admit the patient admitted the patient I consulted psych. - Lab Data Result diagrams: 06/12/21 17:36 06/12/21 17:36 Lab Results 06/12/21 06/12/21 06/12/21 Range/Units 17:36 17:36 18:15 WBC 8.0 (3.8-10.6) k/uL RBC 5.02 (4.30-5.90) m/uL Hgb 17.1 (13.0-17.5) gm/dL Hct 48.3 (39.0-53.0) % MCV 96.1 (80.0-100.0) fL MCH 34.0 (25.0-35.0) pg MCHC 35.3 (31.0-37.0) g/dL RDW 14.1 (11.5-15.5) % Plt Count 209 (150-450) k/uL MPV 8.1 Neutrophils % 63 % Lymphocytes % 24 % Monocytes % 6 % Eosinophils % 3 % Basophils % 1 % Neutrophils # 5.0 (1.3-7.7) k/uL Lymphocytes # 1.9 (1.0-4.8) k/uL Monocytes # 0.4 (0-1.0) k/uL Eosinophils # 0.2 (0-0.7) k/uL Basophils # 0.1 (0-0.2) k/uL Sodium 137 (137-145) mmol/L Potassium 4.0 (3.5-5.1) mmol/L Chloride 101 (98-107) mmol/L Carbon Dioxide 22 (22-30) mmol/L Anion Gap 14 mmol/L BUN 17 (9-20) mg/dL Creatinine 0.99 (0.66-1.25) mg/dL Est GFR (CKD-EPI)AfAm >90 (>60 ml/min/1.73 sqM) Est GFR (CKD-EPI)NonAf 84 (>60 ml/min/1.73 sqM) Glucose 106 H (74-99) mg/dL Calcium 9.2 (8.4-10.2) mg/dL Magnesium 2.0 (1.6-2.3) mg/dL Total Bilirubin 0.6 (0.2-1.3) mg/dL AST 30 (17-59) U/L ALT 15 (4-49) U/L Alkaline Phosphatase 80 (38-126) U/L Total Protein 7.4 (6.3-8.2) g/dL Albumin 4.4 (3.5-5.0) g/dL Serum Alcohol 283 H* mg/dL Coronavirus (PCR) Not Detected (Not Detectd) Disposition Clinical Impression: Alcohol intoxication, Suicidal ideation Disposition: ADMITTED IP TO THIS HOSP Referrals: Nonstaff,Physician [Primary Care Provider] - 1-2 days Time of Disposition: 20:00
[2021-06-12 17:47] LABS: Basophils # (A) 0.1 k/uL (0-0.2); Basophils % (A) 1 %; Eosinophils # (A) 0.2 k/uL (0-0.7); Eosinophils % (A) 3 %; HCT 48.3 % (39.0-53.0); HGB 17.1 gm/dL (13.0-17.5); Lymphocytes # (A) 1.9 k/uL (1.0-4.8); Lymphocytes % (A) 24 %; MCHC 35.3 g/dL (31.0-37.0); MCV 96.1 fL (80.0-100.0); Mean Platelet Volume 8.1; Monocytes # (A) 0.4 k/uL (0-1.0); Monocytes % (A) 6 %; Neutrophils % (A) 63 %; Platelet Count 209 k/uL (150-450); RBC 5.02 m/uL (4.30-5.90); RDW 14.1 % (11.5-15.5)
[2021-06-12 17:56] LABS: ALT 15 U/L (4-49); AST 30 U/L (17-59); African American GFR (CKD) >90 (>60 ml/min/1.73 sqM); Albumin 4.4 g/dL (3.5-5.0); Alkaline Phosphatase 80 U/L (38-126); Anion Gap 14 mmol/L; Blood Urea Nitrogen 17 mg/dL (9-20); Calcium 9.2 mg/dL (8.4-10.2); Carbon Dioxide 22 mmol/L (22-30); Chloride 101 mmol/L (98-107); Glucose 106 mg/dL (74-99); Non-African American GFR(CKD) 84 (>60 ml/min/1.73 sqM); Sodium 137 mmol/L (137-145); Total Bilirubin 0.6 mg/dL (0.2-1.3); Total Protein 7.4 g/dL (6.3-8.2)
[2021-06-12 17:59] LABS: Alcohol 283 mg/dL
[2021-06-12] MEDS ORDERED: ACETAMINOPHEN TAB 325 MG TAB PO STA (18:24)
[2021-06-12] MEDS ORDERED: ZIPRASIDONE 20 MG VIAL IM STA (18:45)
--- NOTE | 2021-06-12 19:17 | CT ---
EXAMINATION TYPE: CT brain gautam adair con DATE OF EXAM: 06/12/2021 COMPARISON: 04/17/2021 HISTORY: Fall today. TECHNIQUE: CT scan of the head and cervical spine performed without contrast CT DLP: 1541.9 mGycm Automated exposure control for dose reduction was used. FINDINGS: CT head: No acute intracranial hemorrhage, midline shift or mass effect. The cruz-white matter differentiation is preserved. There are scattered patchy areas of low attenuation in the deep white matter and subcortical regions which could be on the basis of chronic microvascular ischemic changes. The CSF spaces and ventricular system are normal in configuration. No air-fluid levels in the paranasal sinuses or mastoid cell effusion. CT CERVICAL SPINE: There is a linear lucency through the posterior inferior corner of C5 which was not definitely seen o n the prior study. There are healing changes in the anterior inferior C5 vertebral body from prior fr acture. Craniocervical junction is maintained. Vertebral body heights are normal. Few osseous lesions are seen posterior to C4-5 spinous processes without significant posterior soft t issue swelling favored to represent remote injury correlation with point tenderness recommended. There are multilevel mild narrowing of the intervertebral spaces and disc osteophyte complexes in add ition to ventral hernia. There is minimal uncovertebral facet joint arthropathy. No significant soft tissue swelling seen. The lung apices are grossly unremarkable. IMPRESSION: 1. NO ACUTE INTRACRANIAL HEMORRHAGE, MIDLINE SHIFT OR MASS EFFECT. 2. LINEAR LUCENCY THROUGH THE POSTERIOR INFERIOR CORNER OF C5 NOT SEEN ON PRIOR STUDY MAY REPRESENT AN ACUTE FRACTURE. 3. HEALING CHANGES ANTERIOR INFERIOR CORNER OF C5.
--- NOTE | 2021-06-12 19:36 | XR ---
EXAMINATION TYPE: XR chest 2V DATE OF EXAM: 06/12/2021 COMPARISON: 04/17/2021 HISTORY: 55 years Male. STUDY INDICATION GIVEN: Difficulty breathing . TECHNIQUE: Frontal lateral chest radiographs IMPRESSION: There is a right retrodiaphragmatic that is best seen on the lateral view right lower lobe suspicious for pneumonia. There is stable right hemidiaphragm eventration. No pleural effusion or pneumothorax appreciated. There is mild cardiomegaly. No acute osseous abnormality identified.
[2021-06-12] MEDS ORDERED: THIAMINE 100 MG/ML 2 ML VIAL IM STA (20:08)
[2021-06-12] MEDS ORDERED: LORazepam 2 MG/ML INJ IV PRN ×2 (20:08)
[2021-06-12] MEDS ORDERED: SODIUM CHLORIDE 0.9% 1,000 ML with THIAMINE 100 MG, FOLIC ACID 1 MG IV ONE ×3 (20:45)
[2021-06-12] MEDS ORDERED: HYDROCORTISONE 1% CREAM 30 GM TUBE TOPICAL PRN (21:45)
[2021-06-12] MEDS ORDERED: BACLOFEN 10 MG TAB PO PRN (21:45)
[2021-06-12] MEDS ORDERED: ALBUTEROL INHALER 60 PUFF/8 GM INHALER (MHU) INHALATION PRN (21:45)
--- NOTE | 2021-06-12 21:48 | P.HPIM ---
History of Present Illness H&P Date: 06/12/21 Chief Complaint: Suicidal ideation This is a 55-year-old patient who presented to ER. He told the ER that he has a drinking quite a bit. He was to give himself but currently does not have a plan. Suicidal. Denies use of any illegal drugs. He did say that he had fallen today and is a little tender the left side of his chest. It also hurts and neck. Computed tomography scan of the head cervical spine was unremarkable. Patient was somewhat agitated in the ER apparently and had received Geodon earlier. Just before I came to see the patient and the ER patient had suffered a fall bumping her head. Computed tomography scan of the head and neck is being repeated. Neuro checks. Patient is rather sedated and not able to give much of a history. Review of systems: Cannot be done as patient is somewhat sedated from Geodon. Past medical history to include: Hypertension, anxiety, personality did disorder, manic depression, alcohol use, COVID-19 in November 2020. Social history: Heavy drinking since age of 10. This 7 year sober period. Up to 2019. Now drinks 12 white) daily. Patient has been clean of drugs for about 10 years. Before that he was doing multiple drugs. Family history: Stroke, [place] Physical examination: VITAL SIGNS: 97.6, 80, 16, 122.75, 97% room air GENERAL: BMI 29, laying in the bed, rather lethargic barely arousable. Spider nevi. Face is flushed.. EYES: Pupils small. Conjunctiva normal. HEENT: External appearance of nose and ears normal, oral cavity grossly normal. NECK: [C-spine collar in place. HEART: First and second heart sounds are normal; no edema. LUNGS:[ Respiratory rate normal; decreased breath sounds. ABDOMEN: Soft, nontender, liver spleen not palpable, no masses palpable. PSYCH: Lethargic, unable to assessl. NEUROLOGICAL: [Cranial nerves grossly intact; no facial asymmetry, does move all his limbs. LYMPHATICS: No lymph nodes palpable in the axilla and neck INVESTIGATIONS, reviewed in the clinical context: WBC 8 hemoglobin 17.1 platelets 239 potassium 4 BUN 17 creatinine 0.99 Serum alcohol 23 Coronavirus [PCR]: Not detected Chest x-ray film personally reviewed by me-some cardiomegaly. No infiltrates Assessment and plan: -Acute alcohol intoxication. CIWA scale. -Major depression, with acute exacerbation Psychiatry consulted. Sitter. Effexor XR 150 mg daily -Fall with patient bumping his head. Stat computed tomography scan of the head and neck has been ordered. Neuro checks ordered. -Essential hypertension Prazosin 2 mg daily at bedtime Norvasc 5 mg daily at bedtime Resume home medications. Sitter. Pending repeat computed tomography scan of the head and neck. Consult psychiatry. Past Medical History Past Medical History: Hypertension Additional Past Medical History / Comment(s): anxiety, personality disorder, manic depression, etoh abuse, COVID 12/13 History of Any Multi-Drug Resistant Organisms: None Reported Past Surgical History: Unable to Obtain Past Anesthesia/Blood Transfusion Reactions: No Reported Reaction Past Psychological History: Anxiety, Depression Smoking Status: Never smoker Past Alcohol Use History: Abuse, Daily, Heavy Past Drug Use History: Marijuana - Past Family History Father Family Medical History: CVA/TIA, Myocardial Infarction ([place]) Mother Family Medical History: Thyroid Disorder Medications and Allergies Home Medications Medication Instructions Recorded Confirmed Type Albuterol Sulfate [Proair Hfa] 2 puff INHALATION RT-Q6H PRN 04/17/21 06/12/21 History Baclofen [Lioresal] 10 mg PO TID PRN #90 tab 04/23/21 06/12/21 Rx Hydrocortisone Cream 1 applic TOPICAL BID PRN gm 05/28/21 06/12/21 Rx [Hydrocortisone 1% Cream] Famotidine [Pepcid] 20 mg PO BID 30 Days tab 05/31/21 06/12/21 Rx Multivitamins, Thera [Multivitamin 1 each PO DAILY 30 Days tab 05/31/21 06/12/21 Rx (formulary)] Prazosin [Minipress] 2 mg PO HS 30 Days cap 05/31/21 06/12/21 Rx Thiamine [Vitamin B-1] 100 mg PO BID-W/MEALS 30 Days tab 05/31/21 06/12/21 Rx Venlafaxine HCl ER [Effexor XR] 150 mg PO DAILY 30 Days 05/31/21 06/12/21 Rx amLODIPine [Norvasc] 5 mg PO HS 30 Days tab 05/31/21 06/12/21 Rx Allergies Allergy/AdvReac Type Severity Reaction Status Date / Time allopurinol Allergy Unknown Verified 06/12/21 17:03 azithromycin Allergy Anaphylaxis Verified 06/12/21 17:03 Physical Exam Vitals: Vital Signs Temp Pulse Resp BP Pulse Ox 06/12/21 18:43 97.6 F 80 16 122/75 97 06/12/21 16:57 99.1 F 88 20 155/106 96 Intake and Output 06/12/21 06/12/21 06/12/21 06:59 14:59 22:59 Other: Weight 99.79 kg Results CBC & Chem 7: 06/12/21 17:36 06/12/21 17:36 Labs: Abnormal Lab Results - Last 24 Hours (Table) 06/12/21 Range/Units 17:36 Glucose 106 H (74-99) mg/dL Serum Alcohol 283 H* mg/dL
[2021-06-12] MEDS ORDERED: ALBUTEROL NEBULIZED 2.5 MG/3 ML INHALATION PRN (21:50)
[2021-06-12] MEDS ORDERED: PRAZOSIN 1 MG CAP PO SCH (22:00)
--- NOTE | 2021-06-12 22:08 | CT ---
EXAMINATION TYPE: CT brain cspine wo con DATE OF EXAM: 06/12/2021 COMPARISON: 06/12/2021 HISTORY: fall Pain CT DLP: 1739 mGycm Automated exposure control for dose reduction was used. Ventricles have fairly normal size. There is no mass effect nor midline shift. There is no sign of in tracranial hemorrhage. The calvarium is intact. The cervical vertebra have normal alignment. Posterior elements are intact. There is mild degenerativ e spurring of the endplates. Facet joints are intact. Prevertebral soft tissues appear normal. There is minimal cervical disc space narrowing in the lower cervical spine. Skull base is intact. There is normal aeration of the mastoid sinuses. IMPRESSION: Negative CT scan of the brain. No change. Mild degenerative changes in the cervical spine. No fracture. No change.
[2021-06-12] MEDS: amLODIPine 5 MG TAB PO SCH (22:51)
[2021-06-12] MEDS: NICOTINE 21MG/24HR PATCH TRANSDERM SCH (22:51)
[2021-06-12] MEDS: diazePAM 5 MG TAB PO SCH (22:51)
[2021-06-12] MEDS: FAMOTIDINE 20 MG TAB PO SCH (22:51)
[2021-06-12] MEDS: MULTIVITAMINS, THERA 1 EACH TAB PO SCH (23:14)
[2021-06-13] MEDS: LORazepam 2 MG/ML INJ IV PRN ×3 (00:45→13:56)
[2021-06-13] MEDS ORDERED: THIAMINE 100 MG TAB PO SCH ×2 (07:30)
[2021-06-13] MEDS: FAMOTIDINE 20 MG TAB PO SCH (08:07)
[2021-06-13] MEDS: diazePAM 5 MG TAB PO SCH (08:07)
[2021-06-13] MEDS: MULTIVITAMINS, THERA 1 EACH TAB PO SCH (08:07)
[2021-06-13] MEDS: NICOTINE 21MG/24HR PATCH TRANSDERM SCH ×2 (08:08→10:47)
[2021-06-13] MEDS ORDERED: VENLAFAXINE HCL ER 150 MG CAP PO SCH (09:00)
--- NOTE | 2021-06-13 14:13 | P.HP ---
Psychiatric H&P - . H&P Date: 06/13/21 History & Physical: Allergies Allergy/AdvReac Type Severity Reaction Status Date / Time allopurinol Allergy Unknown Verified 06/12/21 17:03 azithromycin Allergy Anaphylaxis Verified 06/12/21 17:03 Vital Signs Temp 97.6 F 06/13/21 08:09 Pulse 66 06/13/21 08:09 Resp 18 06/13/21 08:09 BP 117/71 06/13/21 08:09 Pulse Ox 98 06/13/21 08:09 Intake & Output 06/12/21 06/13/21 06/13/21 18:59 06:59 18:59 Weight 99.79 kg Laboratory Last Values WBC 8.0 k/uL (3.8-10.6) 06/12/21 17:36 RBC 5.02 m/uL (4.30-5.90) 06/12/21 17:36 Hgb 17.1 gm/dL (13.0-17.5) 06/12/21 17:36 Hct 48.3 % (39.0-53.0) 06/12/21 17:36 MCV 96.1 fL (80.0-100.0) 06/12/21 17:36 MCH 34.0 pg (25.0-35.0) 06/12/21 17:36 MCHC 35.3 g/dL (31.0-37.0) 06/12/21 17:36 RDW 14.1 % (11.5-15.5) 06/12/21 17:36 Plt Count 209 k/uL (150-450) 06/12/21 17:36 MPV 8.1 06/12/21 17:36 Neutrophils % 63 % 06/12/21 17:36 Lymphocytes % 24 % 06/12/21 17:36 Monocytes % 6 % 06/12/21 17:36 Eosinophils % 3 % 06/12/21 17:36 Basophils % 1 % 06/12/21 17:36 Neutrophils # 5.0 k/uL (1.3-7.7) 06/12/21 17:36 Lymphocytes # 1.9 k/uL (1.0-4.8) 06/12/21 17:36 Monocytes # 0.4 k/uL (0-1.0) 06/12/21 17:36 Eosinophils # 0.2 k/uL (0-0.7) 06/12/21 17:36 Basophils # 0.1 k/uL (0-0.2) 06/12/21 17:36 Sodium 137 mmol/L (137-145) 06/12/21 17:36 Potassium 4.0 mmol/L (3.5-5.1) 06/12/21 17:36 Chloride 101 mmol/L (98-107) 06/12/21 17:36 Carbon Dioxide 22 mmol/L (22-30) 06/12/21 17:36 Anion Gap 14 mmol/L 06/12/21 17:36 BUN 17 mg/dL (9-20) 06/12/21 17:36 Creatinine 0.99 mg/dL (0.66-1.25) 06/12/21 17:36 Est GFR (CKD-EPI)AfAm >90 (>60 ml/min/1.73 sqM) 06/12/21 17:36 Est GFR (CKD-EPI)NonAf 84 (>60 ml/min/1.73 sqM) 06/12/21 17:36 Glucose 106 mg/dL (74-99) H 06/12/21 17:36 Calcium 9.2 mg/dL (8.4-10.2) 06/12/21 17:36 Magnesium 2.0 mg/dL (1.6-2.3) 06/12/21 17:36 Total Bilirubin 0.6 mg/dL (0.2-1.3) 06/12/21 17:36 AST 30 U/L (17-59) 06/12/21 17:36 ALT 15 U/L (4-49) 06/12/21 17:36 Alkaline Phosphatase 80 U/L (38-126) 06/12/21 17:36 Total Protein 7.4 g/dL (6.3-8.2) 06/12/21 17:36 Albumin 4.4 g/dL (3.5-5.0) 06/12/21 17:36 Serum Alcohol 283 mg/dL H* 06/12/21 17:36 Coronavirus (PCR) Not Detected (Not Detectd) 06/12/21 18:15 06/13/21 14:09 IDENTIFYING DATA: This patient is a single, unemployed, on Social Security disability, 55 year old male who presented to the hospital with acute alcohol intoxication and endorsing suicidal ideation with no plan. HISTORY OF PRESENT ILLNESS: The patient presented to the hospital on 06/12/21, with a chief complaint of suicidal ideation in the context of alcohol intoxication. The patient was noted to fall multiple times on the emergency department and has also been noted to be agitated and required Geodon. Upon evaluation by this provider, the patient is reporting that he has been feeling depressed due to the fact that his aunt whom he was occasionally staying with has now moved down to [place] and is in an assisted living facility. He reports that she has significant dementia. He states that he is upset because her home was sold by his family. The patient reports low mood and heavy alcohol use. He reports he has been drinking up to a fifth of hard liquor per day. He reports that he has "bad thoughts." Upon further evaluation of these bad thoughts, the patient states that he is feeling increasingly sad and hopeless. He is otherwise not reporting any thoughts of suicide. The patient was previously admitted to the psychiatric unit. On 05/29/2021 and was subsequently discharged on 05/31/21 for suicidal ideation in the context of heavy alcohol use. At that time, the patient was discharged on a regimen of Effexor and Minipress for management of his depression/anxiety/PTSD. The patient was also offered the option to pursue inpatient substance abuse rehabilitation during that admission, but declined. In regards to depressive symptoms, the patient does report a low mood, low motivation, and generalized sadness. He is otherwise not reporting any suicidal or homicidal ideation, intention, and/or plan to this provider. The patient was also asked if he is willing to come into the psychiatric unit, to which he replies that he does not wish to be admitted to the psychiatric unit at this time. The patient is not reporting any significant manic symptoms. He is not reporting any auditory or visual hallucinations. He is denying any paranoia or delusions. The patient has not been in adherent with his prescribed medications of Effexor and prazosin since his discharge. PAST PSYCHIATRIC HISTORY: Patient has a history of anxiety, Covid, depression, and alcohol abuse. The patient has child numerous psychiatric medications in the past including Prozac, Paxil, Seroquel, Zoloft, and Wellbutrin. He was discharge in a regimen of Effexor and prazosin. The patient has had 2 prior inpatient psychiatric hospitalizations, one earlier this month, and the other 20 years ago. The patient has been nonadherent with his outpatient appointments for mental health follow-up after his discharge from the mental health unit. He denies any prior attempts at suicide. PAST MEDICAL HISTORY: Past Medical History: Hypertension Additional Past Medical History / Comment(s): anxiety, personality disorder, manic depression, etoh abuse, COVID 19 12/13 History of Any Multi-Drug Resistant Organisms: None Reported Past Surgical History: Unable to Obtain Past Anesthesia/Blood Transfusion Reactions: No Reported Reaction Past Psychological History: Anxiety, Depression Smoking Status: Never smoker Past Alcohol Use History: Abuse, Daily, Heavy Past Drug Use History: Marijuana ALLERGIES: as per EMR. CHEMICAL DEPENDENCY HISTORY: The patient began drinking at the age of 10. He has been drinking alcohol for most of his adult life. He has been drinking approximately a fifth of liquor per day. Prior to this, the patient was drinking 12-15 white claws per day. He has been to rehabilitation for his alcohol use disorder once before but states that he does not like it and does not wish to go to rehab again. He does not attend any 12 step groups or see any counselor or therapist for his alcohol use disorder. Although the patient appears to be contemplative regarding his substance use, he is very reluctant to begin any action. FAMILY PSYCHIATRIC/SUBSTANCE USE HISTORY: The patient's mother and father abused alcohol. No significant history of mental illness in the family otherwise. SOCIAL HISTORY: Patient was born and raised in [place], [place]. Patient has his GED. He is single, never , and has no children. He currently receives Social Security disability for his mental illness. He has 2 sisters, one of which was in [place] and the other in this area. The patient is vegan and gluten-free. MENTAL STATUS EXAM: General Appearance: Patient appears to be stated age is alert, pleasant, and cooperative. Patient appears to have poor hygiene and grooming wearing hospital gown with poor eye contact. Behavior: Patient is seated upright in bed without any agitated behavior. Eye contact is poor. Speech: Patient's speech is nonspontaneous, monotone. Mood/Affect: Patient reports their mood is "I have been having some bad thoughts", affect is withdrawn and malaised. Suicidality/Homicidality: Patient is denying any suicidal or homicidal ideation, intention,/or plan. Perceptions: Patient denies any visual hallucinations and denies any auditory hallucinations Though content/process: There is no evidence of any delusional thought content and thought process is linear and goal-directed. Memory and concentration: AOX3, grossly intact for the purposes of this session. Can spell "WORLD" backwards Judgment and insight: Poor IMPRESSIONS: Major depressive disorder Alcohol use disorder, severe; alcohol withdrawal Posttraumatic stress disorder Unspecified personality disorder - suspect borderline personality disorder due to instability of relationships, chronic suicidality, and history of heading pinner abuse. Cannabis use disorder, mild PLAN: -Continue your medical management for alcohol intoxication/withdrawal. -At this time patient DOES NOT meet criteria for inpatient psychiatric admission. The patient is not endorsing any significant plan or intention for suicide at this time. The patient is also requesting not to be placed in a psychiatric unit and does not want to sign in voluntarily for a psychiatric admission. He is currently not presenting with imminent risk of harm to self or others, but he is at chronically elevated risk due to his heavy alcohol use, and his age and gender demographic. Currently, the patient does not present with any petitionable or certifiable criteria for an inpatient involuntary admission. He is currently contemplative in regards to his alcohol use disorder but refuses to take action. -This provider spent engaging, and motivational interviewing with the patient in regards to his alcohol use disorder. -Would recommend the following medication changes/additions: No medication recommendations are going to be made at this time. Patient is okay to continue his Effexor and prazosin for management of his depression/anxiety/PTSD -May discontinue one-to-one sitter -Recommend that the patient is given resources for outpatient dual diagnosis psychotherapy/psychiatry for management of his substance use disorder and his mental health. -Psychiatry will sign off at this point, please contact with any questions. 06/13/21 14:10 06/13/21 14:11
[2021-06-13] MEDS ORDERED: ACETAMINOPHEN TAB 325 MG TAB PO PRN (14:38)
[2021-06-13 18:30] VITALS: BP 189/98; PULSE 98; RESP 16; TEMP 98.1
[2021-06-13] MEDS: amLODIPine 5 MG TAB PO SCH (18:31)
--- NOTE | 2021-06-13 22:02 | P.DS ---
Providers Date of admission: 06/12/21 20:04 Expected date of discharge: 06/13/21 Attending physician: Jan Franklin Consults: 06/12/21 20:04 Consult Physician Urgent Consulting Provider: Axel Marr Reason/Comments: Suicidal ideation Do you want consulting provider notified?: Yes Primary care physician: Physician Nonstaff Hospital Course: Chief Complaint: Suicidal ideation This is a 55-year-old patient who presented to ER. He told the ER that he has a drinking quite a bit. He was to give himself but currently does not have a plan. Suicidal. Denies use of any illegal drugs. He did say that he had fallen today and is a little tender the left side of his chest. It also hurts and neck. Computed tomography scan of the head cervical spine was unremarkable. Patient was somewhat agitated in the ER apparently and had received Geodon earlier. Just before I came to see the patient and the ER patient had suffered a fall bumping her head. Computed tomography scan of the head and neck is being repeated. Neuro checks. Patient is rather sedated and not able to give much of a history. 06/13/2020: Patient is morning did not want to be out of bed. Keep wanting Ativan. Did not want to eat. Me and the nurse walked him in the hallway. And then hadn't sit up in a chair for a few hours. Patient stated that he lives with his parents. And has drinking for a long time. Patient seen by psychiatrist. Cleared. Suicidal anymore. Patient wanted to go home. Family was called in to pick him up. Patient refused any alcohol-related treatment. For outpatient Discussion and discharge planning more than 35 minutes Consultation: Dr. Marr from psychiatry Past medical history to include: Hypertension, anxiety, personality did disorder, manic depression, alcohol use, COVID-19 in November 2020. Social history: Heavy drinking since age of 10. This 7 year sober period. Up to 2019. Now drinks 12 white) daily. Patient has been clean of drugs for about 10 years. Before that he was doing multiple drugs. Family history: Stroke, [place] Physical examination: VITAL SIGNS: 97.6, 66, 18, 117 with 71, 98% room air GENERAL: Sitting up in a chair, awake, tired EYES: Pupils small. Conjunctiva normal. HEENT: External appearance of nose and ears normal, oral cavity grossly normal. NECK: [C-spine collar in place. HEART: First and second heart sounds are normal; no edema. LUNGS:[ Respiratory rate normal; decreased breath sounds. ABDOMEN: Soft, nontender, liver spleen not palpable, no masses palpable. PSYCH: Tired but answering questions appropriately. NEUROLOGICAL: [Cranial nerves grossly intact; no facial asymmetry, sitting up in a chair. INVESTIGATIONS, reviewed in the clinical context: Computed tomography scan of the brain and spine without contrast: Negative for fracture WBC 8 hemoglobin 17.1 platelets 239 potassium 4 BUN 17 creatinine 0.99 Serum alcohol 23 Coronavirus [PCR]: Not detected Chest x-ray film personally reviewed by me-some cardiomegaly. No infiltrates Assessment and plan: -Acute alcohol intoxication.: Better CIWA scale. -Major depression, with acute exacerbation Psychiatry consulted. Okay for DC Effexor XR 150 mg daily -Alcohol use disorder Patient refuses any treatment for outside the hospital. -Essential hypertension Prazosin 2 mg daily at bedtime Norvasc 5 mg daily at bedtime Disposition: Home with family Plan - Discharge Summary New Discharge Prescriptions: New Nicotine 21Mg/24Hr Patch [Habitrol] 1 patch TRANSDERM DAILY #14 patch Acetaminophen Tab [Tylenol] 650 mg PO Q6HR PRN tab PRN Reason: Fever And/ Or Pain Thiamine [Vitamin B-1] 100 mg PO BID-W/MEALS #60 tab Continue Albuterol Sulfate [Proair Hfa] 2 puff INHALATION RT-Q6H PRN PRN Reason: Shortness Of Breath Baclofen [Lioresal] 10 mg PO TID PRN #90 tab PRN Reason: Muscle Spasm Multivitamins, Thera [Multivitamin (formulary)] 1 each PO DAILY 30 Days tab Famotidine [Pepcid] 20 mg PO BID 30 Days tab Thiamine [Vitamin B-1] 100 mg PO BID-W/MEALS 30 Days tab Hydrocortisone Cream [Hydrocortisone 1% Cream] 1 applic TOPICAL BID PRN gm PRN Reason: Skin Irritation Venlafaxine HCl ER [Effexor XR] 150 mg PO DAILY 30 Days Prazosin [Minipress] 2 mg PO HS 30 Days cap amLODIPine [Norvasc] 5 mg PO HS 30 Days tab Discharge Medication List Albuterol Sulfate [Proair Hfa] 2 puff INHALATION RT-Q6H PRN 04/17/21 [History] Baclofen [Lioresal] 10 mg PO TID PRN #90 tab 04/23/21 [Rx] Hydrocortisone Cream [Hydrocortisone 1% Cream] 1 applic TOPICAL BID PRN gm 05/28/21 [Rx] Famotidine [Pepcid] 20 mg PO BID 30 Days tab 05/31/21 [Rx] Multivitamins, Thera [Multivitamin (formulary)] 1 each PO DAILY 30 Days tab 05/31/21 [Rx] Prazosin [Minipress] 2 mg PO HS 30 Days cap 05/31/21 [Rx] Thiamine [Vitamin B-1] 100 mg PO BID-W/MEALS 30 Days tab 05/31/21 [Rx] Venlafaxine HCl ER [Effexor XR] 150 mg PO DAILY 30 Days 05/31/21 [Rx] amLODIPine [Norvasc] 5 mg PO HS 30 Days tab 05/31/21 [Rx] Acetaminophen Tab [Tylenol] 650 mg PO Q6HR PRN tab 06/13/21 [Rx] Nicotine 21Mg/24Hr Patch [Habitrol] 1 patch TRANSDERM DAILY #14 patch 06/13/21 [Rx] Thiamine [Vitamin B-1] 100 mg PO BID-W/MEALS #60 tab 06/13/21 [Rx] Follow up Appointment(s)/Referral(s): Sandra Giron NPC [Nurse Practitioner] - 3 Days Patient Instructions/Handouts: Alcohol Intoxication (DC), Alcohol Withdrawal (DC) Discharge Disposition: HOME SELF-CARE
== END 2021-06-13 19:45 | disposition home or self-care (01) ==
LOC: EC 16:54 → 5NMEDONC 20:04 → 4SSUR 20:46
PROVIDERS: ADMIT Hospitalist; ATTEND Hospitalist
DX: F10.129 Alcohol abuse with intoxication, unspecified (principal); F33.9 Major depressive disorder, recurrent, unspecified; R45.851 Suicidal ideations; F10.139 Alcohol abuse with withdrawal, unspecified; F41.9 Anxiety disorder, unspecified; F60.9 Personality disorder, unspecified; R45.1 Restlessness and agitation; I11.9 Hypertensive heart disease without heart failure; Y90.8 Blood alcohol level of 240 mg/100 ml or more; M54.2 Cervicalgia; W19.XXXA Unspecified fall, initial encounter; Z86.16 Personal history of COVID-19; Z79.899 Other long term (current) drug therapy; Z88.1 Allergy status to other antibiotic agents; Z88.8 Allergy status to other drugs, medicaments and biological substances; Z56.0 Unemployment, unspecified; Z91.81 History of falling; Z86.69 Personal history of other diseases of the nervous system and sense organs; F43.10 Post-traumatic stress disorder, unspecified; Z62.819 Personal history of unspecified abuse in childhood; Z81.1 Family history of alcohol abuse and dependence; Z82.3 Family history of stroke; Z82.49 Family history of ischemic heart disease and other diseases of the circulatory system; Z83.49 Family history of other endocrine, nutritional and metabolic diseases
CPT/HCPCS: 96376; 82075; 96361 ×2; 96372; 96374; 99285; 36415; 80053; 83735; 85025; 87635; 71046; 72125; 70450; G0378; G0480; S4990; J2060 ×2; J3411; J3486; 80320

== ENCOUNTER 2021-06-27 18:08 | Inpatient (IN) | payer OTHER ==
[2021-06-27] MEDS ORDERED: SODIUM CHLORIDE 0.9% 1,000 ML IV ONE (19:43)
[2021-06-27] MEDS ORDERED: SODIUM CHLORIDE 0.9% 500 ML 500 ML IV ONE (19:43)
[2021-06-27] MEDS ORDERED: LORazepam 2 MG/ML INJ IV STA ×2 (19:48→21:04)
--- NOTE | 2021-06-27 19:49 | ED ---
Psych HPI - General Chief Complaint: Psychiatric Symptoms Stated Complaint: Suicidal Time Seen by Provider: 06/27/21 19:27 Source: patient, RN notes reviewed Mode of arrival: ambulatory Limitations: no limitations - History of Present Illness Initial Comments: This a 55-year-old male presents emergency Department with chief complaint of needing psychiatric help. Patient states she is severely depressed, suicidal, states that he does get angry and has had some thoughts of hurting other people. Patient denies any illicit drug use does admit to daily alcohol use. Patient states he denies any self-harm at this time. Patient is notably intoxicated. - Related Data Home Medications Medication Instructions Recorded Confirmed Albuterol Sulfate [Proair Hfa] 2 puff INHALATION RT-Q6H PRN 04/17/21 06/27/21 Previous Rx's Medication Instructions Recorded Baclofen [Lioresal] 10 mg PO TID PRN #90 tab 04/23/21 Hydrocortisone Cream 1 applic TOPICAL BID PRN gm 05/28/21 [Hydrocortisone 1% Cream] Famotidine [Pepcid] 20 mg PO BID 30 Days tab 05/31/21 Multivitamins, Thera [Multivitamin 1 each PO DAILY 30 Days tab 05/31/21 (formulary)] Prazosin [Minipress] 2 mg PO HS 30 Days cap 05/31/21 Thiamine [Vitamin B-1] 100 mg PO BID-W/MEALS 30 Days tab 05/31/21 Venlafaxine HCl ER [Effexor XR] 150 mg PO DAILY 30 Days 05/31/21 amLODIPine [Norvasc] 5 mg PO HS 30 Days tab 05/31/21 Acetaminophen Tab [Tylenol] 650 mg PO Q6HR PRN tab 06/13/21 Nicotine 21Mg/24Hr Patch [Habitrol] 1 patch TRANSDERM DAILY #14 patch 06/13/21 Allergies Allergy/AdvReac Type Severity Reaction Status Date / Time allopurinol Allergy Unknown Verified 06/27/21 20:49 azithromycin Allergy Anaphylaxis Verified 06/27/21 20:49 Review of Systems ROS Statement: Those systems with pertinent positive or pertinent negative responses have been documented in the HPI. ROS Other: All systems not noted in ROS Statement are negative. Past Medical History Past Medical History: Hypertension Additional Past Medical History / Comment(s): anxiety, personality disorder, manic depression, etoh abuse, COVID 19 4/21 History of Any Multi-Drug Resistant Organisms: None Reported Past Surgical History: No Surgical Hx Reported Past Anesthesia/Blood Transfusion Reactions: No Reported Reaction Past Psychological History: Anxiety, Depression Smoking Status: Never smoker Past Alcohol Use History: Abuse, Daily, Heavy Past Drug Use History: Marijuana - Past Family History Father Family Medical History: CVA/TIA, Myocardial Infarction ([place]) Mother Family Medical History: Thyroid Disorder General Exam Limitations: no limitations General appearance: alert, in no apparent distress, appears intoxicated Head exam: Present: atraumatic, normocephalic, normal inspection ENT exam: Present: normal exam, mucous membranes moist Neck exam: Present: normal inspection. Absent: tenderness, meningismus, lymphadenopathy Respiratory exam: Present: normal lung sounds bilaterally. Absent: respiratory distress, wheezes, rales, rhonchi, stridor Cardiovascular Exam: Present: regular rate, normal rhythm, normal heart sounds. Absent: systolic murmur, diastolic murmur, rubs, gallop, clicks GI/Abdominal exam: Present: soft, normal bowel sounds. Absent: distended, tenderness, guarding, rebound, rigid Course Vital Signs 06/27/21 06/27/21 19:19 21:13 Temperature 97.6 F Pulse Rate 82 89 Respiratory 20 19 Rate Blood Pressure 149/102 111/73 O2 Sat by Pulse 96 97 Oximetry Medical Decision Making - Medical Decision Making Patient required multiple doses of benzodiazepines with severe withdrawal symptoms. Patient will be admitted for alcohol withdrawal, alcohol intoxication, pending evaluation by psychiatric services. - Lab Data Result diagrams: 06/27/21 20:03 06/27/21 20:03 Lab Results 06/27/21 06/27/21 Range/Units 20:03 20:03 WBC 5.9 (3.8-10.6) k/uL RBC 5.17 (4.30-5.90) m/uL Hgb 17.7 H (13.0-17.5) gm/dL Hct 51.2 (39.0-53.0) % MCV 99.0 (80.0-100.0) fL MCH 34.2 (25.0-35.0) pg MCHC 34.6 (31.0-37.0) g/dL RDW 13.4 (11.5-15.5) % Plt Count 164 (150-450) k/uL MPV 8.9 Neutrophils % 51 % Lymphocytes % 34 % Monocytes % 7 % Eosinophils % 3 % Basophils % 1 % Neutrophils # 3.0 (1.3-7.7) k/uL Lymphocytes # 2.0 (1.0-4.8) k/uL Monocytes # 0.4 (0-1.0) k/uL Eosinophils # 0.2 (0-0.7) k/uL Basophils # 0.1 (0-0.2) k/uL Sodium 142 (137-145) mmol/L Potassium 4.2 (3.5-5.1) mmol/L Chloride 105 (98-107) mmol/L Carbon Dioxide 24 (22-30) mmol/L Anion Gap 13 mmol/L BUN 11 (9-20) mg/dL Creatinine 0.76 (0.66-1.25) mg/dL Est GFR (CKD-EPI)AfAm >90 (>60 ml/min/1.73 sqM) Est GFR (CKD-EPI)NonAf >90 (>60 ml/min/1.73 sqM) Glucose 100 H (74-99) mg/dL Calcium 9.2 (8.4-10.2) mg/dL Magnesium 2.2 (1.6-2.3) mg/dL Total Bilirubin 0.4 (0.2-1.3) mg/dL AST 43 (17-59) U/L ALT 17 (4-49) U/L Alkaline Phosphatase 90 (38-126) U/L Total Protein 8.0 (6.3-8.2) g/dL Albumin 4.7 (3.5-5.0) g/dL Disposition Clinical Impression: Suicidal ideation, Acute alcohol intoxication, Alcohol withdrawal Disposition: ADMITTED IP TO THIS [facility] Condition: Fair Referrals: Sandra Benoit DO [Primary Care Provider] - 1-2 days
[2021-06-27 20:15] LABS: Basophils # (A) 0.1 k/uL (0-0.2); Basophils % (A) 1 %; Eosinophils # (A) 0.2 k/uL (0-0.7); Eosinophils % (A) 3 %; HCT 51.2 % (39.0-53.0); HGB 17.7 gm/dL (13.0-17.5); Lymphocytes % (A) 34 %; MCH 34.2 pg (25.0-35.0); MCHC 34.6 g/dL (31.0-37.0); Mean Platelet Volume 8.9; Monocytes # (A) 0.4 k/uL (0-1.0); Monocytes % (A) 7 %; Neutrophils % (A) 51 %; Platelet Count 164 k/uL (150-450); RBC 5.17 m/uL (4.30-5.90); RDW 13.4 % (11.5-15.5); WBC 5.9 k/uL (3.8-10.6)
[2021-06-27 20:26] LABS: ALT 17 U/L (4-49); AST 43 U/L (17-59); African American GFR (CKD) >90 (>60 ml/min/1.73 sqM); Albumin 4.7 g/dL (3.5-5.0); Alkaline Phosphatase 90 U/L (38-126); Anion Gap 13 mmol/L; Blood Urea Nitrogen 11 mg/dL (9-20); Calcium 9.2 mg/dL (8.4-10.2); Carbon Dioxide 24 mmol/L (22-30); Chloride 105 mmol/L (98-107); Glucose 100 mg/dL (74-99); Magnesium 2.2 mg/dL (1.6-2.3); Non-African American GFR(CKD) >90 (>60 ml/min/1.73 sqM); Potassium 4.2 mmol/L (3.5-5.1); Sodium 142 mmol/L (137-145); Total Bilirubin 0.4 mg/dL (0.2-1.3)
[2021-06-27] MEDS ORDERED: DIAZEPAM 5 MG/ML 2 ML INJ IVP STA (21:54)
[2021-06-27] MEDS ORDERED: ONDANSETRON 4 MG/2 ML VIAL IVP PRN (23:45)
[2021-06-27] MEDS ORDERED: NALOXONE 0.4 MG/ML 1 ML VIAL IV PRN (23:45)
[2021-06-28] MEDS: 1: MVI, ADULT NO.4 WITH VIT K 10 ML, THIAMINE 100 MG, FOLIC ACID 1 MG in SODIUM CHLORIDE IV SCH ×8 (01:09→01:21)
[2021-06-28 02:02] LABS: Appearance,Urine Clear (Clear); Bilirubin,Urine Negative (Negative); Blood,Urine Negative (Negative); Color,Urine Light Yellow; Glucose,Urine (UA) Negative (Negative); Ketones,Urine Negative (Negative); Leukocyte Esterase,Urine Negative (Negative); Nitrite,Urine Negative (Negative); PH, Urine 5.5 (5.0-8.0); Protein,Urine Negative (Negative); Specific Gravity,Urine 1.007 (1.001-1.035); Urobilinogen,Urine <2.0 mg/dL (<2.0)
[2021-06-28] MEDS: LORazepam 2 MG/ML INJ IV PRN ×9 (02:09→21:55)
[2021-06-28 02:21] LABS: Amphetamine Screen,Urine Not Detected (NotDetected); Barbiturate Screen,Urine Not Detected (NotDetected); Benzodiazepines Screen,Urine Detected (NotDetected); Cocaine Screen,Urine Not Detected (NotDetected); Methadone Screen, Urine Not Detected (NotDetected); Opiate Screen,Urine Not Detected (NotDetected); Oxycodone Screen, Urine Not Detected (NotDetected); Phencyclidine Screen,Urine Not Detected (NotDetected); Tricyclic Antidepressant,Urine Not Detected (NotDetected); Urn Cannabinoid Scrn Detected (NotDetected)
[2021-06-28] MEDS: THIAMINE 100 MG TAB PO SCH ×3 (05:00→17:41)
[2021-06-28] MEDS ORDERED: BACLOFEN 10 MG TAB PO PRN (09:55)
[2021-06-28] MEDS ORDERED: ALBUTEROL HFA INHALER INHALATION PRN (09:55)
[2021-06-28] MEDS ORDERED: HYDROCORTISONE 1% CREAM 30 GM TUBE TOPICAL PRN (09:55)
--- NOTE | 2021-06-28 12:00 | P.HPIM ---
History of Present Illness 55-year-old male came in with the suicidal thoughts although he denied any cystostomy although patient is severely depressed. Patient was intoxicated and patient admits to drinking about 15 beers a day. Patient has been sober for 10 years and started drinking again. Patient denied any fever chills was complaining of some abdominal discomfort and nausea. Patient had history of drug abuse multiple drugs including IV drugs, present urine drug screen showed marijuana and benzodiazepines. Patient is presently not having any withdrawals REVIEW OF SYSTEMS: CONSTITUTIONAL: No fever, no malaise, no fatigue. HEENT: No recent visual problems or hearing problems. Denied any sore throat. CARDIOVASCULAR: No chest pain, orthopnea, PND, no palpitations, no syncope. PULMONARY: No shortness of breath, no cough, no hemoptysis. GASTROINTESTINAL: No diarrhea, no nausea, no vomiting, no abdominal pain. NEUROLOGICAL: No headaches, no weakness, no numbness. HEMATOLOGICAL: Denies any bleeding or petechiae. GENITOURINARY: Denies any burning micturition, frequency, or urgency. MUSCULOSKELETAL/RHEUMATOLOGICAL: Denies any joint pain, swelling, or any muscle pain. ENDOCRINE: Denies any polyuria or polydipsia. The rest of the 14-point review of systems is negative. PHYSICAL EXAMINATION: GENERAL: The patient is alert and oriented x3, not in any acute distress. Obese HEENT: Pupils are round and equally reacting to light. EOMI. No scleral icterus. No conjunctival pallor. Normocephalic, atraumatic. No pharyngeal erythema. No thyromegaly. CARDIOVASCULAR: S1 and S2 present. No murmurs, rubs, or gallops. PULMONARY: Chest is clear to auscultation, no wheezing or crackles. ABDOMEN: Soft, nontender, nondistended, normoactive bowel sounds. No palpable organomegaly. MUSCULOSKELETAL: No joint swelling or deformity. EXTREMITIES: No cyanosis, clubbing, or pedal edema. NEUROLOGICAL: Gross neurological examination did not reveal any focal deficits. SKIN: No rashes. Assessment and plan -Alcohol withdrawal: Patient is expected to have alcohol withdrawal later today will be monitored and treated, patient is presently on Ativan CIWA protocol. -Alcoholic gastritis: Patient was started on IV Protonix and Zofran as needed for nausea -Severe depression: Patient the did complain of suicidal ideation in ER because of which psychiatry was consulted. -Hypertension DVT prophylaxis: Lovenox Past Medical History Past Medical History: Hypertension Additional Past Medical History / Comment(s): anxiety, personality disorder, manic depression, etoh abuse, COVID 19 12/13 History of Any Multi-Drug Resistant Organisms: None Reported Past Surgical History: No Surgical Hx Reported Past Anesthesia/Blood Transfusion Reactions: No Reported Reaction Past Psychological History: Anxiety, Depression Additional Psychological History / Comment(s): personality disorder Smoking Status: Never smoker Past Alcohol Use History: Abuse, Daily, Heavy Additional Past Alcohol Use History / Comment(s): heavily drinking since age 10, with a 7 year sober period, from [id number], now drinks 12 white calws daily. x- drug use: every kind of drug per patient- been clean for 10 years. Date of Last drink: 03/13/2021 around 10 am Past Drug Use History: Marijuana Additional Drug Use History / Comment(s): edibles - Past Family History Father Family Medical History: CVA/TIA, Myocardial Infarction ([place]) Mother Family Medical History: Thyroid Disorder Medications and Allergies Home Medications Medication Instructions Recorded Confirmed Type Albuterol Sulfate [Proair Hfa] 2 puff INHALATION RT-Q6H PRN 04/17/21 06/27/21 History Baclofen [Lioresal] 10 mg PO TID PRN #90 tab 04/23/21 06/27/21 Rx Hydrocortisone Cream 1 applic TOPICAL BID PRN gm 05/28/21 06/27/21 Rx [Hydrocortisone 1% Cream] Famotidine [Pepcid] 20 mg PO BID 30 Days tab 05/31/21 06/27/21 Rx Multivitamins, Thera [Multivitamin 1 each PO DAILY 30 Days tab 05/31/21 06/27/21 Rx (formulary)] Prazosin [Minipress] 2 mg PO HS 30 Days cap 05/31/21 06/27/21 Rx Thiamine [Vitamin B-1] 100 mg PO BID-W/MEALS 30 Days tab 05/31/21 06/27/21 Rx Venlafaxine HCl ER [Effexor XR] 150 mg PO DAILY 30 Days 05/31/21 06/27/21 Rx amLODIPine [Norvasc] 5 mg PO HS 30 Days tab 05/31/21 06/27/21 Rx Acetaminophen Tab [Tylenol] 650 mg PO Q6HR PRN tab 06/13/21 06/27/21 Rx Nicotine 21Mg/24Hr Patch [Habitrol] 1 patch TRANSDERM DAILY #14 patch 06/13/21 06/27/21 Rx Allergies Allergy/AdvReac Type Severity Reaction Status Date / Time allopurinol Allergy Unknown Verified 06/27/21 20:49 azithromycin Allergy Anaphylaxis Verified 06/27/21 20:49 Physical Exam Vitals: Vital Signs Temp Pulse Pulse Resp BP BP Pulse Ox 06/28/21 11:13 98.9 F 74 20 106/68 91 L 06/28/21 10:21 98.5 F 70 17 122/76 06/28/21 05:00 97.8 F 83 18 111/69 95 06/28/21 02:40 97.6 F 75 16 127/81 94 L 06/28/21 02:12 82 18 119/75 99 06/27/21 21:13 89 19 111/73 97 06/27/21 19:19 97.6 F 82 20 149/102 96 Intake and Output 06/27/21 06/28/21 06/28/21 22:59 06:59 14:59 Intake Total 450 Balance 450 Intake: Oral 450 Other: Voiding Method Urinal # Voids 0 Weight 104.326 kg 104.326 kg Results CBC & Chem 7: 06/27/21 20:03 06/27/21 20:03 Labs: Abnormal Lab Results - Last 24 Hours (Table) 06/27/21 06/27/21 06/28/21 Range/Units 20:03 20:03 01:43 Hgb 17.7 H (13.0-17.5) gm/dL Glucose 100 H (74-99) mg/dL U Benzodiazepines Scrn Detected H (NotDetected) U Marijuana (THC) Screen Detected H (NotDetected) Thrombosis Risk Factor Assmnt - Choose All That Apply Any of the Below Risk Factors Present?: Yes Each Factor Represents 1 point: Age 41-60 years Other Risk Factors: No Other congenital or acquired thrombophilia - If yes, enter type in comment: No Thrombosis Risk Factor Assessment Total Risk Factor Score: 1 Thrombosis Risk Factor Assessment Level: Low Risk
[2021-06-28] MEDS: PANTOPRAZOLE 40 MG/10 ML VIAL IVP SCH (12:29)
[2021-06-28] MEDS: SODIUM CHLORIDE 0.9% 1,000 ML IV SCH ×2 (13:49→23:58)
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
[2021-06-28 20:41] VITALS: RESP 18
[2021-06-28] MEDS ORDERED: PRAZOSIN 1 MG CAP PO SCH (21:00)
[2021-06-28] MEDS ORDERED: ACETAMINOPHEN TAB 325 MG TAB PO PRN (21:34)
[2021-06-29] MEDS: 1: MVI, ADULT NO.4 WITH VIT K 10 ML, THIAMINE 100 MG, FOLIC ACID 1 MG in SODIUM CHLORIDE IV SCH ×8 (00:32→08:01)
[2021-06-29 04:38] VITALS: BP 127/78; PULSE 70; TEMP 97.5
[2021-06-29] MEDS: THIAMINE 100 MG TAB PO SCH (07:54)
[2021-06-29] MEDS: PANTOPRAZOLE 40 MG/10 ML VIAL IVP SCH (07:54)
[2021-06-29] MEDS: LORazepam 2 MG/ML INJ IV PRN (07:55)
[2021-06-29] MEDS ORDERED: MULTIVITAMINS, THERA 1 EACH TAB PO SCH (09:00)
[2021-06-29] MEDS ORDERED: VENLAFAXINE HCL ER 150 MG CAP PO SCH (09:00)
[2021-06-29] MEDS ORDERED: LORazepam 1 MG TAB PO PRN (11:34)
--- NOTE | 2021-06-30 12:30 | P.DS ---
Providers Date of admission: 06/27/21 23:45 Expected date of discharge: 06/29/21 Attending physician: Ester Sims Consults: 06/27/21 23:45 Consult Physician Urgent Consulting Provider: Taurus Chiang Consult Reason/Comments: Depression, suicidal ideation, alcohol abuse Do you want consulting provider notified?: Already Contacted Primary care physician: Sandra Benoit [facility] Course: Final Diagnosis -Alcohol withdrawal -Alcoholic gastritis, improved -Severe depression, does not meet inpatient criteria to psych unit and has been evaluated by psych. -Hypertension -DVT prophylaxis Discharge disposition Patient is being discharged in a stable condition with guarded prognosis to home. Patient will follow-up with upon discharge. Patient will also need close outpatient follow up with [facility] for possible alcohol rehab. Total time taken is greater than 35 minutes. Hospital course 55-year-old male came in with the suicidal thoughts although he denied any cystostomy although patient is severely depressed. Patient was intoxicated and patient admits to drinking about 15 beers a day. Patient has been sober for 10 years and started drinking again. Patient denied any fever chills was complaining of some abdominal discomfort and nausea. Patient had history of drug abuse multiple drugs including IV drugs, present urine drug screen showed marijuana and benzodiazepines. Patient is presently not having any withdrawals 06/29/2021 Patient has been seen and evaluated this morning in follow-up and was maintained on CIWA protocol and has received minimal ativan. Patient has been mostly sleeping per nursing staff and has only had 2 doses since last night. Patient was seen and evaluated by psych and cleared recommending outpatient follow up with [facility] for outside resources. Patient met with social work and provided community resources. Patient currently not interested in alcohol rehab. Patient encouraged to refrain from alcohol use. Currently no reports of chest pain, worsening shortness of breath, or palpitations. Patient is afebrile. No reports of nausea or vomiting and patient is tolerating diet. Patient will be discharged home today. Guarded prognosis. Patient is lying in the bed comfortably, no acute distress, asleep, but easily arousable, alert and oriented HEENT: Normocephalic. Neck is supple. Pupils reactive. Nostrils clear. Oral cavity is moist. Neck reveals no JVD, carotid bruits, or thyromegaly. CHEST EXAMINATION: Trachea is central. Symmetrical expansion. No rhonchi or wheezing. Lung maya clear to auscultation and percussion. CARDIAC: Normal S1, S2 with no gallops. No murmurs ABDOMEN: Soft. Bowel sounds normal. No organomegaly. No abdominal bruits. Extremities: reveal no edema. No clubbing or cyanosis Neurologically awake, alert, oriented x3 with well-coordinated movements. No focal deficits noted Skin: No rash or skin lesions. Psychiatric: Cooperative. Non-suicidal Musculoskeletal: No joint swelling or deformity. Normal range of motion. Please refer to medication reconciliation sheet for a list of medications. Patient Condition at Discharge: Fair Plan - Discharge Summary Discharge Rx Participant: No New Discharge Prescriptions: New LORazepam [Ativan] 1 mg PO Q6H PRN #6 tab PRN Reason: Alcohol Withdrawal Continue Albuterol Sulfate [Proair Hfa] 2 puff INHALATION RT-Q6H PRN PRN Reason: Shortness Of Breath Baclofen [Lioresal] 10 mg PO TID PRN #90 tab PRN Reason: Muscle Spasm Multivitamins, Thera [Multivitamin (formulary)] 1 each PO DAILY 30 Days tab Famotidine [Pepcid] 20 mg PO BID 30 Days tab Thiamine [Vitamin B-1] 100 mg PO BID-W/MEALS 30 Days tab Nicotine 21Mg/24Hr Patch [Habitrol] 1 patch TRANSDERM DAILY #14 patch Acetaminophen Tab [Tylenol] 650 mg PO Q6HR PRN tab PRN Reason: Fever And/ Or Pain Hydrocortisone Cream [Hydrocortisone 1% Cream] 1 applic TOPICAL BID PRN gm PRN Reason: Skin Irritation Venlafaxine HCl ER [Effexor XR] 150 mg PO DAILY 30 Days Prazosin [Minipress] 2 mg PO HS 30 Days cap amLODIPine [Norvasc] 5 mg PO HS 30 Days tab Discharge Medication List Albuterol Sulfate [Proair Hfa] 2 puff INHALATION RT-Q6H PRN 04/17/21 [History] Baclofen [Lioresal] 10 mg PO TID PRN #90 tab 04/23/21 [Rx] Hydrocortisone Cream [Hydrocortisone 1% Cream] 1 applic TOPICAL BID PRN gm 05/28/21 [Rx] Famotidine [Pepcid] 20 mg PO BID 30 Days tab 05/31/21 [Rx] Multivitamins, Thera [Multivitamin (formulary)] 1 each PO DAILY 30 Days tab 05/31/21 [Rx] Prazosin [Minipress] 2 mg PO HS 30 Days cap 05/31/21 [Rx] Thiamine [Vitamin B-1] 100 mg PO BID-W/MEALS 30 Days tab 05/31/21 [Rx] Venlafaxine HCl ER [Effexor XR] 150 mg PO DAILY 30 Days 05/31/21 [Rx] amLODIPine [Norvasc] 5 mg PO HS 30 Days tab 05/31/21 [Rx] Acetaminophen Tab [Tylenol] 650 mg PO Q6HR PRN tab 06/13/21 [Rx] Nicotine 21Mg/24Hr Patch [Habitrol] 1 patch TRANSDERM DAILY #14 patch 06/13/21 [Rx] LORazepam [Ativan] 1 mg PO Q6H PRN #6 tab 06/29/21 [Rx] Follow up Appointment(s)/Referral(s): Sandra Benoit DO [Primary Care Provider] - 1-2 days (Call [facility] Friday to get a follow up appointment it is a first come first serve office I would advise you to look for a primary care doctor as this office is for when you cannot get in to the doctor.) Patient Instructions/Handouts: Gastritis (DC), Abuse of Alcohol (DC), Alcohol Withdrawal (DC) Activity/Diet/Wound Care/Special Instructions: Activity Limited until follow-up Follow-up with primary care provider on discharge Follow-up with [facility] in regards to alcohol rehab Avoid alcohol intake Continue current diet Discharge Disposition: HOME SELF-CARE
== END 2021-06-29 14:35 | disposition home or self-care (01) | DRG 897 ==
LOC: EC 18:08 → 5NMEDONC 23:45
PROVIDERS: ADMIT Hospitalist; ATTEND Hospitalist
DX: F10.229 Alcohol dependence with intoxication, unspecified (principal); F31.30 Bipolar disorder, current episode depressed, mild or moderate severity, unspecified; R45.851 Suicidal ideations; F10.239 Alcohol dependence with withdrawal, unspecified; F41.9 Anxiety disorder, unspecified; F60.9 Personality disorder, unspecified; F60.4 Histrionic personality disorder; F43.10 Post-traumatic stress disorder, unspecified; I10 Essential (primary) hypertension; K29.20 Alcoholic gastritis without bleeding; Z79.899 Other long term (current) drug therapy; Z82.49 Family history of ischemic heart disease and other diseases of the circulatory system; Z86.16 Personal history of COVID-19; Z56.0 Unemployment, unspecified; Z20.822 Contact with and (suspected) exposure to COVID-19; Z88.1 Allergy status to other antibiotic agents; Z88.8 Allergy status to other drugs, medicaments and biological substances; F60.81 Narcissistic personality disorder; Z82.3 Family history of stroke
CPT/HCPCS: 36415; 80053; 80306; 81003; 82075; 83735; 85025; 87635; 96374; 96375; 96376; 99285

== ENCOUNTER 2022-03-11 15:54 | Inpatient (IN) | payer OTHER ==
--- NOTE | 2022-03-11 16:45 | ED ---
Fall HPI - General Chief Complaint: Fall Stated Complaint: Fall Time Seen by Provider: 03/11/22 16:33 Source: EMS Mode of arrival: EMS - History of Present Illness Initial Comments: Patient is a 56-year-old male presents the emergency room via EMS after falling at home while intoxicated with alcohol. The fall was witnessed and witnessed denies any loss of consciousness however he is significantly intoxicated with alcohol and is unsure of his LOC status. He admitted to EMS that he was feeling suicidal and his plan was to make it look like an accident however he is not voicing these complaints at this time. He is complaining of a headache, neck, pain bilateral knee pain and bilateral elbow pain. He denies any weakness, nausea, vomiting, dizziness not as associated with his whole intoxication or focal neuro deficits. He was placed in a c-collar by EMS. He reports that he typically has approximately 12 drinks a day and only had 12 of them today. He has a past medical history significant for hypertension. He does have a significant mental health history of bipolar depression, anxiety along with alcohol abuse disorder. - Related Data Home Medications Medication Instructions Recorded Confirmed Colchicine [Colcrys] 0.6 - 1.2 mg PO DIRECTED PRN 01/06/22 01/06/22 LORazepam [Ativan] 1 mg PO Q12H PRN 01/06/22 01/06/22 atenoloL [Tenormin] 50 mg PO DAILY 01/06/22 01/06/22 Previous Rx's Medication Instructions Recorded amLODIPine [Norvasc] 5 mg PO HS 30 Days tab 05/31/21 Allergies Allergy/AdvReac Type Severity Reaction Status Date / Time allopurinol Allergy Unknown Verified 01/06/22 16:51 azithromycin Allergy Anaphylaxis Verified 01/06/22 16:51 Review of Systems ROS Statement: Those systems with pertinent positive or pertinent negative responses have been documented in the HPI. ROS Other: All systems not noted in ROS Statement are negative. Past Medical History Past Medical History: Hypertension Additional Past Medical History / Comment(s): anxiety, personality disorder, manic depression, etoh abuse, COVID 19 12/13 History of Any Multi-Drug Resistant Organisms: None Reported Past Surgical History: No Surgical Hx Reported Past Anesthesia/Blood Transfusion Reactions: No Reported Reaction Past Psychological History: Anxiety, Depression Smoking Status: Never smoker Past Alcohol Use History: Abuse, Daily, Heavy Past Drug Use History: Marijuana - Past Family History Father Family Medical History: CVA/TIA, Myocardial Infarction ([place]) Mother Family Medical History: Thyroid Disorder General Exam General appearance: appears intoxicated, lethargic Head exam: Present: normocephalic Eye exam: Present: PERRL, periorbital swelling, other (Ecchymosis right upper eye lid) ENT exam: Present: mucous membranes moist Expanded Teeth exam: Present: other (multiple missing teeth) Throat exam: normal inspection Neck exam: Present: normal inspection Respiratory exam: Present: normal lung sounds bilaterally. Absent: respiratory distress, rales, accessory muscle use Cardiovascular Exam: Present: regular rate, normal rhythm. Absent: systolic murmur, diastolic murmur GI/Abdominal exam: Present: soft, normal bowel sounds. Absent: distended, tenderness Extremities exam: Present: other (Abrasion bilateral knee). Absent: pedal edema, joint swelling Back exam: Present: normal inspection Expanded Patient oriented to: Present: person, place, time Speech: Present: fluid speech (Occasional garbling and slurring consistent with alcohol intoxication) Eye Response: (3) open to voice Motor Response: (6) obeys commands Verbal Response: (5) oriented [place] Total: 14 Psychiatric exam: Present: flat affect Course Vital Signs 03/11/22 15:56 Temperature 98.2 F Pulse Rate 79 Respiratory 18 Rate Blood Pressure 156/96 O2 Sat by Pulse 96 Oximetry Medical Decision Making - Medical Decision Making Alcohol intoxication with head and neck pain and known fall. Will check CT of head and C-spine. Will check CBC, CMP along with serum alcohol levels also in addition to acute alcohol poisoning will check clotting times due to increased risk for bleeding. Fall with abrasions to bilateral knees with bilateral knee pain will also check knee x-rays as well. Computed tomography scan head and spine negative for acute changes with the exc eption of right periorbital soft tissue swelling consistent with right ocular hematoma. Patient complaining of concern for EtOH withdrawal along with headache. Oral Ativan given and Toradol ordered. He admits to being suicidal with a plan of continued alcohol intoxication until fatal levels. Patient needs admission for acute alcohol intoxication and once serum alcohol levels are normal will need psychiatric evaluation. Dr. Franklin on for patient's previous primary care provider. Case findings discussed with Dr. page. Will admit for acute alcohol intoxication with ciwa, Suicide sitter along with consult to neuro and financial report service sales agent call consult per Dr. Franklin request. Case discussed with Dr. Blair. - Lab Data Result diagrams: 03/11/22 16:58 03/11/22 16:58 Lab Results 03/11/22 03/11/22 03/11/22 Range/Units 16:58 16:58 16:58 WBC 5.4 (3.8-10.6) k/uL RBC 4.31 (4.30-5.90) m/uL Hgb 14.8 (13.0-17.5) gm/dL Hct 44.4 (39.0-53.0) % MCV 103.0 H (80.0-100.0) fL MCH 34.4 (25.0-35.0) pg MCHC 33.4 (31.0-37.0) g/dL RDW 12.9 (11.5-15.5) % Plt Count 126 L (150-450) k/uL MPV 8.8 Neutrophils % 73 % Lymphocytes % 16 % Monocytes % 6 % Eosinophils % 2 % Basophils % 1 % Neutrophils # 4.0 (1.3-7.7) k/uL Lymphocytes # 0.9 L (1.0-4.8) k/uL Monocytes # 0.3 (0-1.0) k/uL Eosinophils # 0.1 (0-0.7) k/uL Basophils # 0.0 (0-0.2) k/uL Macrocytosis Slight PT 10.0 (9.0-12.0) sec INR 0.9 (<1.2) Sodium 131 L (137-145) mmol/L Potassium 3.8 (3.5-5.1) mmol/L Chloride 93 L (98-107) mmol/L Carbon Dioxide 20 L (22-30) mmol/L Anion Gap 18 mmol/L BUN 3 L (9-20) mg/dL Creatinine 0.60 L (0.66-1.25) mg/dL Est GFR (CKD-EPI)AfAm >90 (>60 ml/min/1.73 sqM) Est GFR (CKD-EPI)NonAf >90 (>60 ml/min/1.73 sqM) Glucose 80 (74-99) mg/dL Calcium 8.3 L (8.4-10.2) mg/dL Total Bilirubin 0.6 (0.2-1.3) mg/dL AST 433 H (17-59) U/L ALT 218 H (4-49) U/L Alkaline Phosphatase 105 (38-126) U/L Total Protein 6.7 (6.3-8.2) g/dL Albumin 4.5 (3.5-5.0) g/dL Serum Alcohol 399 H* mg/dL - Radiology Data Radiology results: report reviewed, image reviewed CT brain C-spine without contrast impression negative degenerative mild hyper trophic changes in the lower cervical spine no fracture. No subluxation. Negative computed tomography scan of the brain. No change compared to old exam on 01/06/2022. Right periorbital soft tissue swelling. Bilateral knee x-rays negative for fracture, dislocation or joint effusion. Disposition Clinical Impression: Alcohol intoxication Disposition: ADMITTED IP TO THIS HOSP Condition: Stable Is patient prescribed a controlled substance at d/c from ED?: No Referrals: Sandra Benoit DO [Primary Care Provider] - 1-2 days Time of Disposition: 18:17
[2022-03-11 17:06] LABS: Basophils % (A) 1 %; Eosinophils # (A) 0.1 k/uL (0-0.7); Eosinophils % (A) 2 %; HCT 44.4 % (39.0-53.0); HGB 14.8 gm/dL (13.0-17.5); Lymphocytes # (A) 0.9 k/uL (1.0-4.8); Lymphocytes % (A) 16 %; MCH 34.4 pg (25.0-35.0); MCHC 33.4 g/dL (31.0-37.0); Macrocytosis Slight; Mean Platelet Volume 8.8; Monocytes # (A) 0.3 k/uL (0-1.0); Monocytes % (A) 6 %; Neutrophils % (A) 73 %; Platelet Count 126 k/uL (150-450); RBC 4.31 m/uL (4.30-5.90); RDW 12.9 % (11.5-15.5); WBC 5.4 k/uL (3.8-10.6)
--- NOTE | 2022-03-11 17:10 | CT ---
EXAMINATION TYPE: CT brain cspine wo con DATE OF EXAM: 03/11/2022 COMPARISON: 01/06/2022 HISTORY: fall CT DLP: 1473 mGycm Automated exposure control for dose reduction was used. Ventricles have normal size. There is no mass effect or midline shift. No sign of intracranial hemorr melquiades. There is normal aeration of the mastoid sinuses. There is right-sided periorbital soft tissue s welling. The cervical vertebra have normal alignment. There is mild disc space narrowing and spur formation at C4-5 and C5-6 and C6-7. There is mild hypertrophic facet arthropathy. No compression fracture. No keys bluxation. IMPRESSION: Degenerative mild hypertrophic changes in the lower cervical spine. No fracture. Negative CT scan of the brain. No change compared to old exam. Right periorbital soft tissue swelling .
[2022-03-11 17:21] LABS: ALT 218 U/L (4-49); AST 433 U/L (17-59); African American GFR (CKD) >90 (>60 ml/min/1.73 sqM); Albumin 4.5 g/dL (3.5-5.0); Alkaline Phosphatase 105 U/L (38-126); Anion Gap 18 mmol/L; Blood Urea Nitrogen 3 mg/dL (9-20); Calcium 8.3 mg/dL (8.4-10.2); Carbon Dioxide 20 mmol/L (22-30); Chloride 93 mmol/L (98-107); Glucose 80 mg/dL (74-99); Non-African American GFR(CKD) >90 (>60 ml/min/1.73 sqM); Potassium 3.8 mmol/L (3.5-5.1); Sodium 131 mmol/L (137-145); Total Bilirubin 0.6 mg/dL (0.2-1.3); Total Protein 6.7 g/dL (6.3-8.2)
[2022-03-11 17:32] LABS: Alcohol 399 mg/dL; INR 0.9 (<1.2)
[2022-03-11] MEDS ORDERED: LORazepam 1 MG TAB PO STA (17:32)
--- NOTE | 2022-03-11 17:53 | XR ---
EXAMINATION TYPE: XR knee complete bilateral DATE OF EXAM: 03/11/2022 COMPARISON: NONE HISTORY: Knee pain TECHNIQUE: 6 views FINDINGS: There is no evidence of fracture nor dislocation. Joint spaces are fairly normal. No sign o f joint effusion. IMPRESSION: Negative bilateral knee exam. No fracture.
[2022-03-11] MEDS ORDERED: NALOXONE 0.4 MG/ML 1 ML VIAL IV PRN (18:11)
[2022-03-11] MEDS: KETOROLAC 15 MG/ML 1 ML VIAL IVP PRN (19:53)
[2022-03-11] MEDS ORDERED: THIAMINE 100 MG/ML 2 ML VIAL IM STA (20:51)
[2022-03-11] MEDS ORDERED: LORazepam 1 MG TAB PO PRN (20:51)
[2022-03-11] MEDS ORDERED: ONDANSETRON 4 MG/2 ML VIAL IVP PRN (20:55)
[2022-03-11] MEDS: amLODIPine 5 MG TAB PO SCH (22:17)
[2022-03-12] MEDS: LORazepam 1 MG TAB PO PRN ×5 (00:11→21:25)
[2022-03-12] MEDS: THIAMINE 100 MG TAB PO SCH ×2 (08:09→17:39)
[2022-03-12] MEDS: atenoloL 50 MG TAB PO SCH (08:09)
[2022-03-12] MEDS: KETOROLAC 15 MG/ML 1 ML VIAL IVP PRN ×2 (08:19→15:26)
--- NOTE | 2022-03-12 11:02 | P.CNNES ---
History of Present Illness Consult date: 03/12/22 Requesting physician: Elizabeth Nunez Reason for Consult: head trauma History of Present Illness: This is a 56-year-old gentleman with ongoing chronic ongoing alcohol abuse who presented to the emergency department after a fall. Patient stated that that he drinks about 12 cans of of beer daily. As a result the patient had a fall. He does not recall losing consciousness but he notified the ED team is unsure if he lost his consciousness. As a result he had trauma around the right eye. He denies of any focal weakness or numbness. He denies of any headache. It seems that he was complaining of headache neck pain and bilateral knee pain and elbow pain on presentation. According to the patient he is a having suicidal ideation and as a result he is drinking himself and he notified that to me as well as to the nursing staff Some of the workup in our facility during this hospital visit consisted of: CT of the head is reported as negative CT scan of the brain. No change compared to old exam. Right periorbital soft tissue swelling. I personally reviewed the CT of the head and I agree with the report. CT cervical spine was reported as degenerative mild hypertrophic change in the lower cervical spine. No fracture. Patient MCV is 103, platelets 126,000 Alcohol level was 399 Review of Systems Review of system: The 12 point system was reviewed and apparent positive and negative per HPI. Past Medical History Past Medical History: Hypertension Additional Past Medical History / Comment(s): anxiety, personality disorder, manic depression, etoh abuse, COVID 19 12/13 History of Any Multi-Drug Resistant Organisms: None Reported Past Surgical History: No Surgical Hx Reported Additional Past Surgical History / Comment(s): tonsillectomy Past Anesthesia/Blood Transfusion Reactions: No Reported Reaction Past Psychological History: Anxiety, Depression Additional Psychological History / Comment(s): personality disorder Smoking Status: Never smoker Past Alcohol Use History: Abuse, Daily, Heavy Additional Past Alcohol Use History / Comment(s): heavily drinking since age 10, with a 7 year sober period, from [id number], now drinks 12-20 white claws daily. x-drug use: every kind of drug per patient- been clean for 10 years. Date of Last drink: "this morning" 03/11/22 Past Drug Use History: Marijuana Additional Drug Use History / Comment(s): edibles - Past Family History Father Family Medical History: CVA/TIA, Myocardial Infarction ([place]) Mother Family Medical History: Thyroid Disorder Medications and Allergies Home Medications Medication Instructions Recorded Confirmed Type amLODIPine [Norvasc] 5 mg PO HS 30 Days tab 05/31/21 03/11/22 Rx Colchicine [Colcrys] 0.6 - 1.2 mg PO DIRECTED PRN 01/06/22 03/11/22 History LORazepam [Ativan] 1 mg PO Q12H PRN 01/06/22 03/11/22 History atenoloL [Tenormin] 50 mg PO DAILY 01/06/22 03/11/22 History Allergies Allergy/AdvReac Type Severity Reaction Status Date / Time allopurinol Allergy Unknown Verified 03/11/22 18:42 azithromycin Allergy Anaphylaxis Verified 03/11/22 18:42 Physical Examination - Vital Signs Vital Signs: Vital Signs Temp Pulse Pulse Resp BP BP Pulse Ox 03/12/22 08:00 98.8 F 83 17 110/65 99 03/12/22 00:58 98.8 F 76 15 97/55 95 03/11/22 20:39 16 03/11/22 20:35 98.5 F 71 16 132/75 96 03/11/22 19:57 73 16 130/88 95 03/11/22 15:56 98.2 F 79 18 156/96 96 Intake and Output 03/11/22 03/12/22 03/12/22 22:59 06:59 14:59 Intake Total 350 Output Total 850 1700 Balance -850 -1350 Intake: Oral 350 Output: Urine 850 1700 Other: Voiding Method Urinal # Voids 2 # Bowel Movements 0 Weight 104.326 kg GENERAL: The patient is lying in bed and is not in acute distress. HENT: Echymoses around right periorbital from fall. CHEST: The heart rate is regular rate rhythm. No murmurs to auscultation. LUNG: Clear to auscultation bilaterally no wheezing noted throughout. Not labored breathing. ABDOMEN/GI: Bowel sounds present in all 4 quadrants. No tenderness to palpation throughout. NEUROLOGICAL: Higher mental function: The patient is awake, alert, oriented to self, place and time. Patient is following commands. No aphasia and no neglect. Cranial nerves: The pupils are round, equal and reactive to light and accommodat ion. Visual maya are full to confrontation throughout. Extraocular movement is intact no nystagmus is noted. Facial sensation is normal to touch throughout. The facial strength is normal throughout. Hearing is normal bilaterally to hand rub. Tongue is midline and moved [id number] without any difficulty. Mild dysarthria at times but at times sounded clear. Shoulder shrug is normal bilaterally. Motor: The strength is 5 over 5 throughout. Normal tone and bulk. Has tremors at rest and with action. Cerebellum: Normal finger to nose bilaterally. Sensation: Sensation is normal to touch throughout. Reflexes (right/left): 2+ in uppers while lowers hard to assess because of pain. Plantars are mute bilaterally. Results - Laboratory Findings CBC and BMP: 03/11/22 16:58 03/11/22 16:58 Abnormal Lab Findings: Abnormal Labs 03/11/22 07 16:58 16:58 MCV 103.0 H Plt Count 126 L Lymphocytes # 0.9 L Sodium 131 L Chloride 93 L Carbon Dioxide 20 L BUN 3 L Creatinine 0.60 L Calcium 8.3 L AST 433 H ALT 218 H Serum Alcohol 399 H* Assessment and Plan Assessment: Fall due to alcohol intoxication Alcohol intoxication Suicidal ideation Plan: I consulted psychiatry team since the patient having suicidal ideation Patient was counseled on alcohol cessation Patient is on Thiamine 100mg bid. Consulted physical therapy and occupational therapy. Will defer CIWA protocol to primary team. We'll defer the rest of medical management to primary team No additional workup needed from a neurologic perspective. Will sign off. Please notify neurology team if any further concerns. The plan is discussed with patient and his nurse. Thank you for consultation. Eric Carrion M.D. Neuro-hospitalist Time with Patient: Greater than 30
[2022-03-12 12:19] LABS: African American GFR (CKD) >90 (>60 ml/min/1.73 sqM); Albumin 4.2 g/dL (3.5-5.0); Albumin/Globulin Ratio 1.8; Anion Gap 9 mmol/L; Carbon Dioxide 26 mmol/L (22-30); Chloride 103 mmol/L (98-107); Globulin 2.3 g/dL; Glucose 59 mg/dL (74-99); Non-African American GFR(CKD) >90 (>60 ml/min/1.73 sqM); Potassium 3.9 mmol/L (3.5-5.1); Sodium 138 mmol/L (137-145); Total Protein 6.5 g/dL (6.3-8.2)
[2022-03-12 12:20] LABS: ALT 198 U/L (4-49); AST 325 U/L (17-59); Alkaline Phosphatase 111 U/L (38-126); Blood Urea Nitrogen 7 mg/dL (9-20); Calcium 8.6 mg/dL (8.4-10.2); Total Bilirubin 1.2 mg/dL (0.2-1.3)
[2022-03-12] MEDS: diazePAM 5 MG TAB PO SCH ×2 (12:21→19:39)
--- NOTE | 2022-03-12 13:56 | P.HPIM ---
History of Present Illness H&P Date: 03/12/22 Chief Complaint: Intoxicated This is a 56-year-old patient , follows with Sandra Benoit. who presented to ER. Patient presented to ER. Per the EMS report patient's found in the backyard on the ground in the right lateral recumbent position. He was awake and alert. Was stating that everything hurts. Patient tripped and fell it was witnessed by a bad stander on the scene. Patient did not lose consciousness. Patient drinks an average of 12 white blood every day for a long time. Patient is stated to the EMS that his head hit the ground and he has some bruising around the right eye. In the ER he has some headache. I spoke to the ER physician computed ofe graphy scan of the head and neck was both negative. In the neck collar was taken off. Patient is also suicidal depressed. Has a sitter. This morning patient is still somewhat intoxicated. Tremors. Slight slurring of speech. Not really hungry. Some nausea. Moving all his limbs. 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 Social history: Heavy drinking since age of 10. 7 year sober period. Up to 2019. Now drinks 12 whiteclaws daily. Patient has been clean of drugs for about 10 years. Before that he was doing multiple drugs. Does chew marijuana sometimes. Lives with his parents. On disability. Family history: Stroke, [place] Physical examination: VITAL SIGNS: 98.8, 83, 17, 1 10 x 65, 99% on 2 L GENERAL: BMI 31.2, slightly unkempt, lethargic but able tonsil simple questions EYES: Pupils normal. Conjunctiva normal. HEENT: Bruising around the right eye. NECK: Able to move in all directions. JVD not raised. No mass palpable HEART: First and second heart sounds are normal; no edema. LUNGS:[ Respiratory rate normal; decreased breath sounds. ABDOMEN: Soft, nontender, liver spleen not palpable, no masses palpable. PSYCH: Able to answer questions slowly. Somewhat depressed appearing, anxious NEUROLOGICAL: [Cranial nerves grossly intact; no facial asymmetry, does move all his limbs. Speech is a bit slow. Tremors. LYMPHATICS: No lymph nodes palpable in the axilla and neck INVESTIGATIONS, reviewed in the clinical context: White count 5.4 hemoglobin 14.8 platelets 126 sodium 131 potassium 3.8 creatinine 0.6 AST 433 ALT 218 Serum alcohol 399 Assessment and plan: -Acute alcohol withdrawal syndrome Valium 5 mg every 8. CIWA scale. Beta curtis. -Acute alcohol intoxication.: Admission alcohol 319 9 -Major depression, with currently suicidal ideation Psychiatry consulted. Sitter in place. -Alcohol use disorder We'll have a further discussion with the patient when doing better -Essential hypertension Tenormin 50 mg a day Norvasc 5 mg daily at bedtime -Likely acute on chronic gastritis from alcohol Pepcid 20 mg twice a day -Alcoholic hepatitis Follow-up with GI outpatient -Hyponatremia likely from decreased solid intake Encourage oral intake Valium. CIWA scale. Resume home medications. Sitter. Psychiatry neurology consulted. Fall precautions. Pepcid. Thiamine. D5W. Given the complexity and severity of patient's condition expect the patient to be in the hospital at least for 2 overnights Past Medical History Past Medical History: Hypertension Additional Past Medical History / Comment(s): anxiety, personality disorder, manic depression, etoh abuse, COVID 19 12/13 History of Any Multi-Drug Resistant Organisms: None Reported Past Surgical History: No Surgical Hx Reported Additional Past Surgical History / Comment(s): tonsillectomy Past Anesthesia/Blood Transfusion Reactions: No Reported Reaction Past Psychological History: Anxiety, Depression Additional Psychological History / Comment(s): personality disorder Smoking Status: Never smoker Past Alcohol Use History: Abuse, Daily, Heavy Additional Past Alcohol Use History / Comment(s): heavily drinking since age 10, with a 7 year sober period, from 4824-8254, now drinks 12-20 white claws daily. x-drug use: every kind of drug per patient- been clean for 10 years. Date of Last drink: "this morning" 03/11/22 Past Drug Use History: Marijuana Additional Drug Use History / Comment(s): edibles - Past Family History Father Family Medical History: CVA/TIA, Myocardial Infarction ([place]) Mother Family Medical History: Thyroid Disorder Medications and Allergies Home Medications Medication Instructions Recorded Confirmed Type amLODIPine [Norvasc] 5 mg PO HS 30 Days tab 05/31/21 03/11/22 Rx Colchicine [Colcrys] 0.6 - 1.2 mg PO DIRECTED PRN 01/06/22 03/11/22 History LORazepam [Ativan] 1 mg PO Q12H PRN 01/06/22 03/11/22 History atenoloL [Tenormin] 50 mg PO DAILY 01/06/22 03/11/22 History Allergies Allergy/AdvReac Type Severity Reaction Status Date / Time allopurinol Allergy Unknown Verified 03/11/22 18:42 azithromycin Allergy Anaphylaxis Verified 03/11/22 18:42 Physical Exam Vitals: Vital Signs Temp Pulse Pulse Resp BP BP Pulse Ox 03/12/22 08:00 98.8 F 83 17 110/65 99 03/12/22 00:58 98.8 F 76 15 97/55 95 03/11/22 20:39 16 03/11/22 20:35 98.5 F 71 16 132/75 96 03/11/22 19:57 73 16 130/88 95 03/11/22 15:56 98.2 F 79 18 156/96 96 Intake and Output 03/11/22 03/12/22 03/12/22 22:59 06:59 14:59 Intake Total 350 Output Total 850 1700 Balance -850 -1350 Intake: Oral 350 Output: Urine 850 1700 Other: Voiding Method Urinal # Voids 2 # Bowel Movements 0 Weight 104.326 kg Results CBC & Chem 7: 03/11/22 16:58 03/12/22 11:52 Labs: Abnormal Lab Results - Last 24 Hours (Table) 03/11/22 03/11/22 Range/Units 16:58 16:58 MCV 103.0 H (80.0-100.0) fL Plt Count 126 L (150-450) k/uL Lymphocytes # 0.9 L (1.0-4.8) k/uL Sodium 131 L (137-145) mmol/L Chloride 93 L (98-107) mmol/L Carbon Dioxide 20 L (22-30) mmol/L BUN 3 L (9-20) mg/dL Creatinine 0.60 L (0.66-1.25) mg/dL Calcium 8.3 L (8.4-10.2) mg/dL AST 433 H (17-59) U/L ALT 218 H (4-49) U/L Serum Alcohol 399 H* mg/dL Thrombosis Risk Factor Assmnt - Choose All That Apply Each Factor Represents 1 point: Age 41-60 years Thrombosis Risk Factor Assessment Total Risk Factor Score: 1 Thrombosis Risk Factor Assessment Level: Low Risk
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
--- NOTE | 2022-03-12 14:16 | XR ---
EXAMINATION TYPE: XR chest 1V portable DATE OF EXAM: 03/12/2022 COMPARISON: NONE HISTORY: pain from fall TECHNIQUE: Single frontal view of the chest is obtained. FINDINGS: There is no focal air space opacity, pleural effusion, or pneumothorax seen. The cardiac silhouette size is within normal limits. The osseous structures are intact. Linear changes right francis ng base suggestive of scar or atelectasis. Arthropathy of the right AC joint. Hyperinflation suggests COPD. IMPRESSION: No acute process.
[2022-03-12] MEDS: DEXTROSE 5% IN WATER 1,000 ML with SODIUM BICARB (1 MEQ/ML) 100 ML IV SCH (15:13)
[2022-03-12] MEDS: FAMOTIDINE 20 MG TAB PO SCH ×2 (15:25→19:39)
[2022-03-12] MEDS: amLODIPine 5 MG TAB PO SCH (19:39)
[2022-03-13] MEDS: DEXTROSE 5% IN WATER 1,000 ML with SODIUM BICARB (1 MEQ/ML) 100 ML IV SCH ×2 (02:44→13:50)
[2022-03-13] MEDS: diazePAM 5 MG TAB PO SCH ×3 (04:34→19:34)
[2022-03-13] MEDS: LORazepam 1 MG TAB PO PRN ×6 (07:51→23:33)
[2022-03-13] MEDS: KETOROLAC 15 MG/ML 1 ML VIAL IVP PRN ×3 (07:52→19:51)
[2022-03-13] MEDS: atenoloL 50 MG TAB PO SCH (07:57)
[2022-03-13] MEDS: THIAMINE 100 MG TAB PO SCH ×2 (07:57→17:30)
[2022-03-13] MEDS: FAMOTIDINE 20 MG TAB PO SCH ×2 (07:57→19:33)
[2022-03-13] MEDS: ENOXAPARIN 40 MG/0.4 ML SYRINGE SQ SCH (13:29)
--- NOTE | 2022-03-13 13:30 | P.PN ---
Subjective Progress Note Date: 03/13/22 Patient is seen at bedside and denies of any new neurological issues. Feels somewhat tremelous and is on PO Ativan (Not IV because of shortage). Objective - Vital Signs Vital signs: Vital Signs Temp 98.2 F 03/13/22 08:00 Pulse 58 L 03/13/22 08:00 Resp 17 03/13/22 08:00 BP 129/74 03/13/22 08:00 Pulse Ox 99 03/13/22 08:00 FiO2 Intake & Output 03/12/22 03/13/22 03/13/22 18:59 06:59 18:59 Output Total 250 800 Balance -250 -800 Output: Urine 250 800 Other: Voiding Method Urinal Urinal Urinal # Voids 4 - Exam GENERAL: The patient is lying in bed and is not in acute distress. HENT: Echymoses around right periorbital from fall prior to presenting to hospital. NEUROLOGICAL: Higher mental function: The patient is awake, alert, oriented to self, place and time. Patient is following commands. No aphasia and no neglect. Cranial nerves: The pupils are round, equal and reactive to light and accommodation. Visual maya are full to confrontation throughout. Extraocular movement is intact no nystagmus is noted. Facial sensation is normal to touch throughout. The facial strength is normal throughout. Hearing is normal bilaterally to hand rub. Tongue is midline and moved [id number] without any difficulty. No dysarthria. Shoulder shrug is normal bilaterally. Motor: The strength is 5 over 5 throughout. Normal tone and bulk. Has tremors at rest and with action. Cerebellum: Normal finger to nose bilaterally. Sensation: Sensation is normal to touch throughout. Plantars are mute bilaterally. - Labs CBC & Chem 7: 03/11/22 16:58 03/12/22 11:52 Assessment and Plan Assessment: Fall due to alcohol intoxication Alcohol intoxication Suicidal ideation Plan: Psychiatry team is consulted since the patient having suicidal ideation to nursing staff and myself (and stated he is drinking himself to ). Psychiatry team evaluated patient and they did not feel patient was endorsing suicidal or homocidal idealtion or plans. Patient was counseled on alcohol cessation Patient is on Thiamine 100mg bid. Physical therapy and occupational therapy is consulted. Will defer CIWA protocol to primary team. We'll defer the rest of medical management to primary team No additional workup needed from a neurologic perspective. Will sign off. Please notify neurology team if any further concerns. The plan is discussed with patient and his nurse. Eric Carrion M.D. Neuro-hospitalist Time with Patient: Less than 30
[2022-03-13] MEDS: amLODIPine 5 MG TAB PO SCH (19:33)
--- NOTE | 2022-03-13 19:44 | P.PN ---
Progress Note - Text Progress Note Date: 03/13/22 Chief Complaint: Intoxicated This is a 56-year-old patient , follows with Sandra Benoit. who presented to ER. Patient presented to ER. Per the EMS report patient's found in the backyard on the ground in the right lateral recumbent position. He was awake and alert. Was stating that everything hurts. Patient tripped and fell it was witnessed by a bad stander on the scene. Patient did not lose consciousness. Patient drinks an average of 12 white blood every day for a long time. Patient is stated to the EMS that his head hit the ground and he has some bruising around the right eye. In the ER he has some headache. I spoke to the ER physician computed tomography scan of the head and neck was both negative. In the neck collar was taken off. Patient is also suicidal depressed. Has a sitter. This morning patient is still somewhat intoxicated. Tremors. Slight slurring of speech. Not really hungry. Some nausea. Moving all his limbs. Admitted with acute alcohol withdrawal syndrome, acute alcohol intoxication, gastritis, depression. Started on Valium, CIWA scale. March 13: Patient having slight delirium. Tremors. Dose of Valium being increased to 7.5 mg every 8. Continue CIWA scale. Was seen by psychiatry. Sitter was discontinued. Encouraged oral intake. Patient has no appetite. Active Medications Amlodipine Besylate (Amlodipine 5 Mg Tab) 5 mg PO HS [facility] Last Admin: 03/13/22 19:33 Dose: 5 mg Atenolol (Atenolol 50 Mg Tab) 50 mg PO DAILY [facility] Last Admin: 03/13/22 07:57 Dose: 50 mg Diazepam (Diazepam 5 Mg Tab) 7.5 mg PO Q8H [facility] Last Admin: 03/13/22 19:34 Dose: 7.5 mg Enoxaparin Sodium (Enoxaparin 40 Mg/0.4 Ml Syringe) 40 mg SQ DAILY [facility] Last Admin: 03/13/22 13:29 Dose: 40 mg Famotidine (Famotidine 20 Mg Tab) 20 mg PO BID [facility] Last Admin: 03/13/22 19:33 Dose: 20 mg Sodium Bicarbonate 100 ml/ (Dextrose/Water) 1,100 mls @ 100 mls/hr IV .Q11H [facility] Last Admin: 03/13/22 13:50 Dose: 100 mls/hr Ketorolac Tromethamine (Ketorolac 15 Mg/Ml 1 Ml Vial) 15 mg IVP Q6HR PRN PRN Reason: Pain Stop: 03/14/22 18:01 Last Admin: 03/13/22 13:57 Dose: 15 mg Lorazepam (Lorazepam 1 Mg Tab) 1 mg PO Q2HR PRN PRN Reason: CIWA 8 or 9 Last Admin: 03/12/22 21:25 Dose: 1 mg Lorazepam (Lorazepam 1 Mg Tab) 1 mg PO Q1HR PRN PRN Reason: CIWA 10 to 15 Last Admin: 03/13/22 17:30 Dose: 1 mg Lorazepam (Lorazepam 1 Mg Tab) 2 mg PO Q10M PRN PRN Reason: CIWA 16 or higher Stop: 03/13/22 20:51 Naloxone HCl (Naloxone 0.4 Mg/Ml 1 Ml Vial) 0.2 mg IV Q2M PRN PRN Reason: Opioid Reversal Ondansetron HCl (Ondansetron 4 Mg/2 Ml Vial) 4 mg IVP Q6HR PRN PRN Reason: Nausea And Vomiting Thiamine HCl (Thiamine 100 Mg Tab) 100 mg PO BID-W/[facility] Last Admin: 03/13/22 17:30 Dose: 100 mg Past medical history to include: Hypertension, anxiety, 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 Social history: Heavy drinking since age of 10. 7 year sober period. Up to 2019. Now drinks 12 whiteclaws daily. Patient has been clean of drugs for about 10 years. Before that he was doing multiple drugs. Does chew marijuana sometimes. Lives with his parents. On disability. Family history: Stroke, [place] Physical examination: VITAL SIGNS: 98.5, 52, 18, 142/87, 99% 2 L GENERAL: Slightly delirious, anxious, laying in bed EYES: Pupils normal. Conjunctiva normal. HEENT: Bruising around the right eye. NECK: Able to move in all directions. JVD not raised. No mass palpable HEART: First and second heart sounds are normal; no edema. LUNGS:[ Respiratory rate normal; decreased breath sounds. ABDOMEN: Soft, nontender, liver spleen not palpable, no masses palpable. PSYCH: Answering questions slowly, anxious NEUROLOGICAL: [Cranial nerves grossly intact; no facial asymmetry, does move all his limbs. Speech is a bit slow. Tremors. INVESTIGATIONS, reviewed in the clinical context: March 12: Potassium 3.9 creatinine 0.66 AST 325 ALT 198 White count 5.4 hemoglobin 14.8 platelets 126 sodium 131 potassium 3.8 creatinine 0.6 AST 433 ALT 218 Serum alcohol 399 Assessment and plan: -Acute alcohol withdrawal syndrome with delirium: Slow to respond Increase Valium 7.5 mg every 8. CIWA scale. Beta curtis. -Acute alcohol intoxication.: Admission alcohol 319 9 -Major depression, Seen by psychiatry. Sitter discontinued. -Alcohol use disorder We'll have a further discussion with the patient when doing better -Essential hypertension Tenormin 50 mg a day Norvasc 5 mg daily at bedtime -acute on chronic gastritis from alcohol Pepcid 20 mg twice a day -Alcoholic hepatitis Follow-up with GI outpatient -Hyponatremia likely from decreased solid intake: Better Encourage oral intake. Increase Valium to 7.5 mg every 8. Repeat LFTs. Sitter discontinued by psychiatry. Follow. Continue D5W with thiamine
[2022-03-14] MEDS: DEXTROSE 5% IN WATER 1,000 ML with SODIUM BICARB (1 MEQ/ML) 100 ML IV SCH ×3 (00:02→22:50)
[2022-03-14] MEDS: diazePAM 5 MG TAB PO SCH ×3 (03:39→19:06)
[2022-03-14 07:51] LABS: ALT 126 U/L (4-49); AST 151 U/L (17-59); African American GFR (CKD) >90 (>60 ml/min/1.73 sqM); Albumin 3.7 g/dL (3.5-5.0); Albumin/Globulin Ratio 1.5; Alkaline Phosphatase 94 U/L (38-126); Anion Gap 5 mmol/L; Blood Urea Nitrogen 3 mg/dL (9-20); Calcium 8.8 mg/dL (8.4-10.2); Carbon Dioxide 35 mmol/L (22-30); Chloride 96 mmol/L (98-107); Globulin 2.4 g/dL; Glucose 115 mg/dL (74-99); Magnesium 1.7 mg/dL (1.6-2.3); Non-African American GFR(CKD) >90 (>60 ml/min/1.73 sqM); Sodium 136 mmol/L (137-145); Total Protein 6.1 g/dL (6.3-8.2)
[2022-03-14] MEDS: THIAMINE 100 MG TAB PO SCH ×2 (08:38→17:02)
[2022-03-14] MEDS ORDERED: Potassium Replacement Protocol 1 EACH MISC MISCELLANE PRN ×2 (09:25→13:50)
[2022-03-14] MEDS ORDERED: Magnesium Replacement Protocol 1 EACH MISC MISCELLANE PRN (09:26)
[2022-03-14] MEDS ORDERED: POTASSIUM CHLORIDE ER 20 MEQ TAB.ER PO ONE (09:30)
[2022-03-14] MEDS: MAGNESIUM SULFATE-D5W PMX 1 GM in DEXTROSE/WATER 1 100ML.BAG IVPB SCH ×2 (10:34→11:55)
[2022-03-14] MEDS: LORazepam 1 MG TAB PO PRN ×4 (11:28→23:16)
[2022-03-14] MEDS: ENOXAPARIN 40 MG/0.4 ML SYRINGE SQ SCH (11:40)
[2022-03-14] MEDS: atenoloL 50 MG TAB PO SCH (11:40)
[2022-03-14] MEDS: FAMOTIDINE 20 MG TAB PO SCH ×2 (11:40→20:49)
[2022-03-14] MEDS: POTASSIUM CHLORIDE ER 20 MEQ TAB.ER PO SCH ×2 (15:21→17:01)
[2022-03-14] MEDS: KETOROLAC 15 MG/ML 1 ML VIAL IVP PRN (15:44)
--- NOTE | 2022-03-14 15:49 | P.PN ---
Subjective Progress Note Date: 03/14/22 This is a 56-year-old patient , follows with Sandra Benoit. who presented to ER. Patient presented to ER. Per the EMS report patient's found in the backyard on the ground in the right lateral recumbent position. He was awake and alert. Was stating that everything hurts. Patient tripped and fell it was witnessed by a bad stander on the scene. Patient did not lose consciousness. Patient drinks an average of 12 white blood every day for a long time. Patient is stated to the EMS that his head hit the ground and he has some bruising around the right eye. In the ER he has some headache. I spoke to the ER physician computed tomography scan of the head and neck was both negative. In the neck collar was taken off. Patient is also suicidal depressed. Has a sitter. This morning patient is still somewhat intoxicated. Tremors. Slight slurring of speech. Not really hungry. Some nausea. Moving all his limbs. Admitted with acute alcohol withdrawal syndrome, acute alcohol intoxication, gastritis, depression. Started on Valium, CIWA scale. March 13: Patient having slight delirium. Tremors. Dose of Valium being increased to 7.5 mg every 8. Continue CIWA scale. Was seen by psychiatry. Sitter was discontinued. Encouraged oral intake. Patient has no appetite. 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 Social history: Heavy drinking since age of 10. 7 year sober period. Up to 2019. Now drinks 12 whiteclaws daily. Patient has been clean of drugs for about 10 years. Before that he was doing multiple drugs. Does chew marijuana sometimes. Lives with his parents. On disability. Family history: [place] INVESTIGATIONS, reviewed in the clinical context: March 12: Potassium 3.9 creatinine 0.66 AST 325 ALT 198 White count 5.4 hemoglobin 14.8 platelets 126 sodium 131 potassium 3.8 creatinine 0.6 AST 433 ALT 218 Serum alcohol 399 03/14/2022 Patient evaluated today resting in bed. He continues to deny suicidal ideations, reports feeling down and depressed. Not working, lives with parents. Drinks 12 white claws daily. Denies smoking. He states he has gone to rehab for alcohol withdrawal at [place] one time and states he left after one day as he was r oomed with 2 younger males and states hard to concentrate on treatment in that environment. He does report headache, tremors, sensitivity to light. Also has nausea with poor oral intake. Received a total of 60 meq of oral potassium, also 2 grams IV magnesium today repeat labs in the AM. He is afebrile, heart rate 65, blood pressure 147/86, 96% room air. Labs reviewed: sodium 136, potassium 3.0 and 3.4, chloride 96, CO2 35, BUn 3 creatinine 0.64, glucose 115, AST 151, ALT 126, albumin 6.1. Review of Systems Constitutional: Reports fatigue. denied any fever. Cardio vascular: denied any chest pain, palpitations Gastrointestinal: denied vomiting, diarrhea. Reports nausea. Pulmonary: Denied any shortness of breath cough Neurologic denied any new focal deficits All inpatient medications were reviewed and appropriate changes in these medications as dictated in the interval history and assessment and plan. PHYSICAL EXAMINATION: GENERAL: The patient is alert and oriented x3, not in any acute distress. Well developed, well nourished. Depressed affect. HEENT: Pupils are round and equally reacting to light. EOMI. No scleral icterus. No conjunctival pallor. Normocephalic, atraumatic. No pharyngeal erythema. No thyromegaly. CARDIOVASCULAR: S1 and S2 present. No murmurs, rubs, or gallops. PULMONARY: Chest is clear to auscultation, no wheezing or crackles. ABDOMEN: Soft, nontender, nondistended, normoactive bowel sounds. No palpable organomegaly. MUSCULOSKELETAL: No joint swelling or deformity. EXTREMITIES: No cyanosis, clubbing, or pedal edema. NEUROLOGICAL: Gross neurological examination did not reveal any focal deficits. Mild tremoring with arms held out. SKIN: No rashes. right eye orbital bruising. Scattered bruising. Assessment and plan: -Acute alcohol withdrawal syndrome with delirium: Slow to respond Valium Q8h and also On oral ativan. CIWA scale. Beta curtis. -Acute alcohol intoxication.: Admission alcohol 319 -Major depression, Seen by psychiatry. Sitter discontinued. -Alcohol use disorder Discussed importance of cessation and to consider alcohol rehab. Follow up education recommended. Needs community resources for discharge such as AA. -Essential hypertension Tenormin 25 mg a day Norvasc 10 mg daily at bedtime -acute on chronic gastritis from alcohol Pepcid 20 mg twice a day -Alcoholic hepatitis Follow-up with GI outpatient, LFTs improving -Hyponatremia likely from decreased solid intake: improved -Hypokalemia, likely from poor oral intake Replace per protocol and repeat level in AM Patient will continue to be monitored overnight. Repeat labs in AM and replace potassium as needed. Continues on oral ativan CIWA protocol. He is also on valium every 8 hours. Withdrawals are improving. Heart rate has dipped into the 50's atenolol decreased to 25 mg po daily, norvasc was increased to 10 mg HS. Patient most likely will need subacute rehab on discharge. Possible DC in the next 24 hours pending clinical course. The impression and plan of care has been dictated by Jazmine Kinney, Nurse Practitioner as directed. Dr. Arnel MD I have performed a history and physical examination and medical decision making of this patient, discussed the same with the dictator, and agree with the dictators assessment and plan as written, documented as a scribe. Based on total visit time, I have performed more than 50% of this visit. Objective - Vital Signs Vital signs: Vital Signs Temp 98.1 F 03/14/22 08:00 Pulse 65 03/14/22 08:00 Resp 16 03/14/22 08:00 BP 149/95 03/14/22 07:27 Pulse Ox 97 03/14/22 08:00 FiO2 Intake & Output 03/13/22 03/14/22 03/14/22 18:59 06:59 18:59 Intake Total 1200 Output Total 720 1360 425 Balance 480 -1360 -425 Intake: IV 1200 Dextrose 5% in Water 1, 1200 000 ml @ 100 mls/hr IV . Q11H CHANDAN with Sodium Bicarb (1 Meq/ml) 100 ml Rx#:[id number] Output: Urine 720 1360 425 Other: Voiding Method Urinal Urinal # Voids 3 - Labs CBC & Chem 7: 03/11/22 16:58 03/14/22 12:50 Labs: Abnormal Lab Results - Last 24 Hours (Table) 03/14/22 Range/Units 06:19 Sodium 136 L (137-145) mmol/L Potassium 3.0 L (3.5-5.1) mmol/L Chloride 96 L (98-107) mmol/L Carbon Dioxide 35 H (22-30) mmol/L BUN 3 L (9-20) mg/dL Creatinine 0.64 L (0.66-1.25) mg/dL Glucose 115 H (74-99) mg/dL AST 151 H (17-59) U/L ALT 126 H (4-49) U/L Total Protein 6.1 L (6.3-8.2) g/dL Assessment and Plan Time with Patient: Greater than 30
[2022-03-14] MEDS ORDERED: amLODIPine 10 MG TAB PO SCH (21:00)
[2022-03-15] MEDS: diazePAM 5 MG TAB PO SCH ×2 (04:17→13:47)
[2022-03-15] MEDS: THIAMINE 100 MG TAB PO SCH (08:22)
[2022-03-15] MEDS: ENOXAPARIN 40 MG/0.4 ML SYRINGE SQ SCH (08:23)
[2022-03-15] MEDS: FAMOTIDINE 20 MG TAB PO SCH (08:23)
[2022-03-15] MEDS ORDERED: atenoloL 25 MG TAB PO SCH (09:00)
[2022-03-15 09:08] LABS: African American GFR (CKD) 117.8 (60.0-200.0); Albumin 3.8 g/dL (3.8-4.9); Albumin/Globulin Ratio 1.98 (1.60-3.17); Anion Gap 12.1 mmol/L (10.00-18.00); BUN/Creat Ratio 2.73 Ratio (12.00-20.00); Calcium 8.9 mg/dL (8.7-10.3); Carbon Dioxide 29.5 mmol/L (20.0-27.5); Globulin 1.9 g/dL (1.6-3.3); Magnesium 2.1 mg/dL (1.5-2.4); Non-African American GFR(CKD) 101.6 (60.0-200.0); Potassium 3.4 mmol/L (3.5-5.5); Total Bilirubin 0.8 mg/dL (0.30-1.20); Total Protein 5.8 g/dL (6.2-8.2)
[2022-03-15] MEDS: LORazepam 1 MG TAB PO PRN (09:38)
[2022-03-15] MEDS: DEXTROSE 5% IN WATER 1,000 ML with SODIUM BICARB (1 MEQ/ML) 100 ML IV SCH (13:47)
[2022-03-15 14:10] VITALS: BP 131/80; PULSE 58; RESP 17; TEMP 98.6
--- NOTE | 2022-03-17 13:59 | P.DS ---
Providers Date of admission: 03/11/22 18:12 Expected date of discharge: 03/15/22 Attending physician: Jan Franklin Consults: 03/11/22 18:11 Consult Physician Routine Consulting Provider: Junior Garcia Consult Reason/Comments: Right periorbital hematoma Do you want consulting provider notified?: Yes Consult Physician Routine Consulting Provider: Eric Carrion Consult Reason/Comments: Head trauma Do you want consulting provider notified?: Yes 03/12/22 10:04 Consult Physician Urgent Consulting Provider: Taurus Chiang Consult Reason/Comments: suicidal ideations Do you want consulting provider notified?: Yes Primary care physician: [facility] Course: 56-year-old patient , follows with [facility]. who presented to ER. Patient presented to ER. Per the EMS report patient's found in the backyard on the ground in the right lateral recumbent position. He was awake and alert. Was stating that everything hurts. Patient tripped and fell it was witnessed by a bad stander on the scene. Patient did not lose consciousness. Patient drinks an average of 12 white blood every day for a long time. Patient is stated to the EMS that his head hit the ground and he has some bruising around the right eye. In the ER he has some headache. I spoke to the ER physician computed tomography scan of the head and neck was both negative. In the neck collar was taken off. Patient is also suicidal depressed. Has a sitter. This morning patient is still somewhat intoxicated. Tremors. Slight slurring of speech. Not really hungry. Some nausea. Moving all his limbs. Admitted with acute alcohol withdrawal syndrome, acute alcohol intoxication, gastritis, depression. Started on Valium, CIWA scale. March 13: Patient having slight delirium. Tremors. Dose of Valium being increased to 7.5 mg every 8. Continue CIWA scale. Was seen by psychiatry. Sitter was discontinued. Encouraged oral intake. Patient has no appetite. 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 Social history: Heavy drinking since age of 10. 7 year sober period. Up to 2019. Now drinks 12 whiteclaws daily. Patient has been clean of drugs for about 10 years. Before that he was doing multiple drugs. Does chew marijuana sometimes. Lives with his parents. On disability. Family history: Stroke, [place] INVESTIGATIONS, reviewed in the clinical context: March 12: Potassium 3.9 creatinine 0.66 AST 325 ALT 198 White count 5.4 hemoglobin 14.8 platelets 126 sodium 131 potassium 3.8 creatinine 0.6 AST 433 ALT 218 Serum alcohol 399 03/14/2022 Patient evaluated today resting in bed. He continues to deny suicidal ideations, reports feeling down and depressed. Not working, lives with parents. Drinks 12 white claws daily. Denies smoking. He states he has gone to rehab for alcohol withdrawal at [place] one time and states he left after one day as he was roomed with 2 younger males and states hard to concentrate on treatment in that environment. He does report headache, tremors, sensitivity to light. Also has nausea with poor oral intake. Received a total of 60 meq of oral potassium, also 2 grams IV magnesium today repeat labs in the AM. He is afebrile, heart rate 65, blood pressure 147/86, 96% room air. Labs reviewed: sodium 136, potassium 3.0 and 3.4, chloride 96, CO2 35, BUn 3 creatinine 0.64, glucose 115, AST 151, ALT 126, albumin 6.1. Review of Systems Constitutional: Reports fatigue. denied any fever. Cardio vascular: denied any chest pain, palpitations Gastrointestinal: denied vomiting, diarrhea. Reports nausea. Pulmonary: Denied any shortness of breath cough Neurologic denied any new focal deficits All inpatient medications were reviewed and appropriate changes in these medications as dictated in the interval history and assessment and plan. PHYSICAL EXAMINATION: GENERAL: The patient is alert and oriented x3, not in any acute distress. Well developed, well nourished. Depressed affect. HEENT: Pupils are round and equally reacting to light. EOMI. No scleral icterus. No conjunctival pallor. Normocephalic, atraumatic. No pharyngeal erythema. No thyromegaly. CARDIOVASCULAR: S1 and S2 present. No murmurs, rubs, or gallops. PULMONARY: Chest is clear to auscultation, no wheezing or crackles. ABDOMEN: Soft, nontender, nondistended, normoactive bowel sounds. No palpable organomegaly. MUSCULOSKELETAL: No joint swelling or deformity. EXTREMITIES: No cyanosis, clubbing, or pedal edema. NEUROLOGICAL: Gross neurological examination did not reveal any focal deficits. Mild tremoring with arms held out. SKIN: No rashes. right eye orbital bruising. Scattered bruising. Assessment and plan: -Acute alcohol withdrawal syndrome with delirium: Slow to respond Valium Q8h and also On oral ativan. CIWA scale. Beta curtis. -Acute alcohol intoxication.: Admission alcohol 319 -Major depression, Seen by psychiatry. Sitter discontinued. -Alcohol use disorder Discussed importance of cessation and to consider alcohol rehab. Follow up education recommended. Needs community resources for discharge such as . -Essential hypertension Tenormin 25 mg a day Norvasc 10 mg daily at bedtime -acute on chronic gastritis from alcohol Pepcid 20 mg twice a day -Alcoholic hepatitis Follow-up with GI outpatient, LFTs improving -Hyponatremia likely from decreased solid intake: improved -Hypokalemia, likely from poor oral intake Replace per protocol and repeat level in AM Patient will continue to be monitored overnight. Repeat labs in AM and replace potassium as needed. Continues on oral ativan CIWA protocol. He is also on valium every 8 hours. Withdrawals are improving. Heart rate has dipped into the 50's atenolol decreased to 25 mg po daily, norvasc was increased to 10 mg HS. Patient most likely will need subacute rehab on discharge. Possible DC in the next 24 hours pending clinical course. 03/15/2022; patient stable for discharge; refuses skilled rehab and will be discharged home with home health. Patient Condition at Discharge: Stable Plan - Discharge Summary Discharge Rx Participant: Yes New Discharge Prescriptions: New atenoloL [Tenormin] 25 mg PO DAILY 30 Days #30 tab Thiamine [Vitamin B-1] 100 mg PO BID-W/MEALS tab Continue Colchicine [Colcrys] 0.6 - 1.2 mg PO DIRECTED PRN PRN Reason: gout flare LORazepam [Ativan] 1 mg PO Q12H PRN PRN Reason: Alcohol Withdrawal amLODIPine [Norvasc] 5 mg PO HS 30 Days tab Discontinued atenoloL [Tenormin] 50 mg PO DAILY Discharge Medication List amLODIPine [Norvasc] 5 mg PO HS 30 Days tab 05/31/21 [Rx] Colchicine [Colcrys] 0.6 - 1.2 mg PO DIRECTED PRN 01/06/22 [History] LORazepam [Ativan] 1 mg PO Q12H PRN 01/06/22 [History] Thiamine [Vitamin B-1] 100 mg PO BID-W/MEALS tab 03/15/22 [Rx] atenoloL [Tenormin] 25 mg PO DAILY 30 Days #30 tab 03/15/22 [Rx] Follow up Appointment(s)/Referral(s): Sandra Benoit DO [Primary Care Provider] - 1-2 days (office closed at this time patient to call and make appointment after discharge ) Discharge Disposition: HOME SELF-CARE
== END 2022-03-15 16:12 | disposition home or self-care (01) | DRG 897 ==
LOC: EC 15:54 → 4SSUR 18:12
PROVIDERS: ADMIT Hospitalist; ATTEND Hospitalist
PROC: HZ2ZZZZ Detoxification Services for Substance Abuse Treatment (ICD-10-PCS; principal; 2022-03-11)
DX: F10.231 Alcohol dependence with withdrawal delirium (principal); E87.1 Hypo-osmolality and hyponatremia; F31.30 Bipolar disorder, current episode depressed, mild or moderate severity, unspecified; R45.851 Suicidal ideations; F10.229 Alcohol dependence with intoxication, unspecified; K29.00 Acute gastritis without bleeding; Y90.8 Blood alcohol level of 240 mg/100 ml or more; K29.50 Unspecified chronic gastritis without bleeding; K29.20 Alcoholic gastritis without bleeding; E87.6 Hypokalemia; F41.9 Anxiety disorder, unspecified; F60.9 Personality disorder, unspecified; I10 Essential (primary) hypertension; K70.10 Alcoholic hepatitis without ascites; S00.11XA Contusion of right eyelid and periocular area, initial encounter; S09.90XA Unspecified injury of head, initial encounter; S80.211A Abrasion, right knee, initial encounter; S80.212A Abrasion, left knee, initial encounter; W01.0XXA Fall on same level from slipping, tripping and stumbling without subsequent striking against object, initial encounter; Y92.009 Unspecified place in unspecified non-institutional (private) residence as the place of occurrence of the external cause; Z79.899 Other long term (current) drug therapy; Z82.3 Family history of stroke; Z82.49 Family history of ischemic heart disease and other diseases of the circulatory system; Z86.16 Personal history of COVID-19; Z86.73 Personal history of transient ischemic attack (TIA), and cerebral infarction without residual deficits; Z71.41 Alcohol abuse counseling and surveillance of alcoholic; Z88.1 Allergy status to other antibiotic agents; Z88.8 Allergy status to other drugs, medicaments and biological substances
CPT/HCPCS: 36415; 70450; 71045; 72125; 80053; 80320; 82075; 83735; 84132; 85025; 85610; 93005; 96374; 99285

== ENCOUNTER 2023-05-13 05:51 | Day surgery (SDC) | payer OTHER ==
[2023-05-09 15:29] VITALS: BMI 33.0
[2023-05-13] MEDS ORDERED: LACTATED RINGERS 1,000 ML IV SCH (06:18)
[2023-05-13 06:29] VITALS: TEMP 98.1
[2023-05-13] MEDS ORDERED: fentaNYL (PF) 50 MCG/ML 2 ML AMP IVP ONE ×3 (06:38→06:46)
[2023-05-13] MEDS ORDERED: PROPOFOL 10 MG/ML 20 ML VIAL IV ONE (07:04)
[2023-05-13] MEDS ORDERED: LIDOCAINE 2% INJ 20 MG/ML (2 ML VIAL) ONE (07:04)
--- NOTE | 2023-05-13 07:28 | P.PCN ---
Date of Procedure: 05/13/23 Procedure(s) Performed: Brief history: Patient is a pleasant 57-year-old white male scheduled for an elective upper endoscopy as well as colonoscopy as a part of evaluation of GERD and screening for colon cancer Procedure performed: Esophagogastroduodenoscopy Colonoscopy Preoperative diagnosis: GERD Screening for colon cancer Anesthesia: MAC Procedure: After informed consent was obtained from the patient was brought into the endoscopy unit and IV sedation was administered by anesthesia under continuous monitoring. Initially upper endoscopy was done. The Olympus GF 160 video endoscope was inserted inserted into the mouth and esophagus intubated without any difficulty and was gradually advanced into the stomach and duodenum and carefully examined. The bulb and second part of the duodenum appeared normal. The scope was then withdrawn into the stomach adequately insufflated with air and upon careful examination the antrum and body, cardia and fundus appeared normal. The scope was then withdrawn into the esophagus. The GE junction was located at 40 cm to the incisors. Small hiatal hernia. It appeared regular with no erythema erosions or ulcerations. Rest of the esophagus appeared normal. Patient tolerated the procedure well. At this time the patient continued to remain sedation. Initial digital rectal examination was normal. Olympus CF 160 video colonoscope was then inserted into the rectum and gradually advanced to the cecum without any difficulty. Careful examination was performed as the scope was gradually being withdrawn. The prep was excellent. The cecum, ascending colon, transverse colon, descending colon, sigmoid colon and rectum appeared normal. Retroflexion was performed in the rectum and no lesions were noted. Patient tolerated the procedure well. Impression: 1. Upper endoscopy revealed small hiatal hernia but no evidence of esophagitis or Sullivan's esophagus 2. Colonoscopy was within normal limits with no evidence of colorectal neoplasia Recommendations: Findings of this examination were discussed with the patient as well as his family. Continue with current medications and follow reflux measures. He was advised to have a repeat screening colonoscopy in 10 years.
[2023-05-13 07:51] VITALS: BP 149/93; PULSE 67; RESP 20
== END 2023-05-13 08:22 ==
LOC: ORWHC2ENDO 05:51
PROVIDERS: ATTEND Internal Medicine Gastroenterology
DX: Z12.11 Encounter for screening for malignant neoplasm of colon (principal); K44.9 Diaphragmatic hernia without obstruction or gangrene; K21.9 Gastro-esophageal reflux disease without esophagitis; I10 Essential (primary) hypertension; E07.9 Disorder of thyroid, unspecified; E78.5 Hyperlipidemia, unspecified; Z88.1 Allergy status to other antibiotic agents; Z79.82 Long term (current) use of aspirin; Z79.811 Long term (current) use of aromatase inhibitors; Z79.899 Other long term (current) drug therapy
CPT/HCPCS: 43235; J3010; J2704; J2001; G0121

== ENCOUNTER → 2023-07-22 | Outpatient (CLI) | payer OTHER ==
--- NOTE | 2023-07-22 09:56 | US ---
EXAMINATION TYPE: US abdomen complete DATE OF EXAM: 07/22/2023 COMPARISON: NONE CLINICAL INDICATION: Male, 57 years old with history of F10.20 ALCOHOL DEPENDENCE; Alcohol dependence . TECHNIQUE: Multiple sonographic images of the abdomen are obtained. FINDINGS: EXAM MEASUREMENTS: Liver Length: 17.5 cm Gallbladder Wall: 0.24 cm CBD: Obscured Spleen: 12.4 cm Right Kidney: 12.0 x 6.6 x 5.5 cm Left Kidney: 11.1 x 6.0 x 5.7 cm WILDLIFE BIOSTATION RESEARCH ECOLOGIST NOTES: Exam is extremely limited due to gas and patient's high pain level with transducer pressure. Pancreas: Obscured Liver: Measures upper limits. Very coarse/heterogeneous in echotexture with increased attenuation. Gallbladder: Appears distended measuring 10.2 cm in length. Evidence for sonographic Posada's sign: No CBD: Obscured Spleen: Appears wnl Right Kidney: No hydronephrosis or masses seen Left Kidney: No hydronephrosis or masses seen Upper IVC: Appears wnl Abd Aorta: Proximal segment appears ectatic measuring 2.8 cm. Unable to visualize the mid-distal ao rta or bifurcation. IMPRESSION: 1. No evidence for acute process. 2. Hepatocellular disease commonly relating to hepatic steatosis. 3. 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
== END | disposition home or self-care (01) ==
LOC: RADUSWWP 06:53
PROVIDERS: ATTEND Internal Medicine Gastroenterology
DX: I77.811 Abdominal aortic ectasia (principal); K76.0 Fatty (change of) liver, not elsewhere classified; F10.20 Alcohol dependence, uncomplicated
CPT/HCPCS: 76700

== ENCOUNTER → 2023-07-29 | Outpatient (CLI) | payer OTHER ==
[2023-07-29 16:43] LABS: Basophils # (A) 0.06 X 10*3/uL (0.00-0.10); Basophils % (A) 0.9 %; Eosinophils # (A) 0.15 X 10*3/uL (0.04-0.35); Eosinophils % (A) 2.3 %; HCT 49.2 % (39.6-50.0); HGB 16.1 g/dL (13.0-17.0); Lymphocytes # (A) 1.47 X 10*3/uL (0.90-5.00); Lymphocytes % (A) 22.1 %; MCH 32.1 pg (27.0-32.0); MCHC 32.7 g/dL (32.0-37.0); MCV 98.2 FL (80.0-97.0); Mean Platelet Volume 12.2 FL (9.5-12.2); Monocytes # (A) 0.77 X 10*3/uL (0.20-1.00); Monocytes % (A) 11.6 %; NRBC Per 100 WBC 0 X 10*3/uL (0.00-0.01); Neutrophils # (A) 4.17 X 10*3/uL (1.80-7.70); Neutrophils % (A) 62.8 %; Platelet Count 181 X 10*3/uL (140-440); RBC 5.01 X 10*6/uL (4.40-5.60); RDW 13.2 % (11.5-14.5); WBC 6.64 X 10*3/uL (4.50-10.00)
[2023-07-29 17:10] LABS: Hepatitis B Surface Antigen Nonreactive; Hepatitis C IgG Antibody Nonreactive
[2023-07-29 17:23] LABS: ALT 43 U/L (10-49); AST 48 U/L (14-35); Albumin 4.8 g/dL (3.8-4.9); Albumin/Globulin Ratio 1.85 Ratio (1.60-3.17); Alkaline Phosphatase 90 U/L (41-126); BUN/Creat Ratio 12.44 Ratio (12.00-20.00); Blood Urea Nitrogen 11.2 mg/dL (9.0-27.0); Calcium 10.4 mg/dL (8.7-10.3); Carbon Dioxide 27.5 mmol/L (21.6-31.8); Chloride 100 mmol/L (96-109); Globulin 2.6 g/dL (1.6-3.3); Glucose 104 mg/dL (70-110); Potassium 4.4 mmol/L (3.5-5.5); Sodium 142 mmol/L (135-145); Total Bilirubin 0.6 mg/dL (0.3-1.2); Total Protein 7.4 g/dL (6.2-8.2)
== END | disposition home or self-care (01) ==
LOC: LABWHC1 08:26
PROVIDERS: ATTEND Internal Medicine Gastroenterology
DX: R74.01 Elevation of levels of liver transaminase levels (principal)
CPT/HCPCS: 36415; 80053; 85025; 86803; 87340

== ENCOUNTER 2023-08-24 09:02 | Emergency (ER) | payer OTHER ==
[2023-08-24 09:27] VITALS: TEMP 97.5
--- NOTE | 2023-08-24 10:11 | ED ---
Fall HPI - General Chief Complaint: Fall Stated Complaint: Head Injury Time Seen by Provider: 08/24/23 09:16 Source: patient, RN notes reviewed Mode of arrival: ambulatory Limitations: no limitations - History of Present Illness Initial Comments: 57-year-old male presents emergency Department with chief complaint of head injury. He states he fell down some steps month ago a complaint of head neck pain. He states he started feeling better a recliner yesterday striking his head he states he fell against whiplash he fell backwards had no forward falls. Patient states that he has had neck pain. He states now his inside he has bothering him states he has tingling all over he denies any lower extremity weakness no upper extremity weakness. - Related Data Home Medications Medication Instructions Recorded Confirmed Colchicine [Colcrys] 0.6 - 1.2 mg PO DIRECTED PRN 01/06/22 05/13/23 LORazepam [Ativan] 1 mg PO Q12H PRN 01/06/22 05/13/23 Omeprazole 40 mg PO DAILY 05/09/23 05/13/23 hydrOXYzine HCL [Hydroxyzine HCl] 10 mg PO DAILY 05/09/23 05/13/23 Previous Rx's Medication Instructions Recorded amLODIPine [Norvasc] 5 mg PO HS 30 Days tab 05/31/21 atenoloL [Tenormin] 25 mg PO DAILY 30 Days #30 tab 03/15/22 Cyclobenzaprine [Flexeril] 10 mg PO TID PRN #15 tab 08/24/23 Allergies Allergy/AdvReac Type Severity Reaction Status Date / Time allopurinol Allergy Unknown Verified 08/24/23 09:10 azithromycin Allergy Anaphylaxis Verified 08/24/23 09:10 Review of Systems ROS Statement: Those systems with pertinent positive or pertinent negative responses have been documented in the HPI. ROS Other: All systems not noted in ROS Statement are negative. Past Medical History Past Medical History: Hypertension Additional Past Medical History / Comment(s): anxiety, personality disorder, manic depression, etoh abuse, COVID 19 12/13 drinks everyday 6-12 daily edibles 3 times week. History of Any Multi-Drug Resistant Organisms: None Reported Past Surgical History: No Surgical Hx Reported Additional Past Surgical History / Comment(s): tonsillectomy Past Anesthesia/Blood Transfusion Reactions: No Reported Reaction Additional Past Anesthesia/Blood Transfusion Reaction / Comment(s): no blood transfusion Past Psychological History: Anxiety, Depression, Panic Disorder Smoking Status: Never smoker Past Alcohol Use History: None Reported, Daily Past Drug Use History: None Reported - Past Family History Father Family Medical History: CVA/TIA, Myocardial Infarction (OR) Mother Family Medical History: Thyroid Disorder General Exam Limitations: no limitations General appearance: alert, in no apparent distress Head exam: Present: atraumatic, normocephalic, normal inspection Eye exam: Present: normal appearance, PERRL, EOMI. Absent: scleral icterus, conjunctival injection, periorbital swelling ENT exam: Present: normal exam, mucous membranes moist Neck exam: Present: normal inspection. Absent: tenderness, meningismus, full ROM (in c-collar), lymphadenopathy Respiratory exam: Present: normal lung sounds bilaterally. Absent: respiratory distress, wheezes, rales, rhonchi, stridor Cardiovascular Exam: Present: regular rate, normal rhythm, normal heart sounds. Absent: systolic murmur, diastolic murmur, rubs, gallop, clicks Extremities exam: Present: other Neurological exam: Present: alert, oriented X3, CN II-XII intact, reflexes normal. Absent: motor sensory deficit Skin exam: Present: warm, dry, intact, normal color. Absent: rash Course Vital Signs 08/24/23 08/24/23 09:06 11:09 Temperature 97.5 F L Pulse Rate 69 75 Respiratory 18 20 Rate Blood Pressure 152/94 156/85 O2 Sat by Pulse 96 98 Oximetry Medical Decision Making - Medical Decision Making Was pt. sent in by a medical professional or institution (, PA, COMMUNICATIONS ENGINEERING TECHNICIAN, urgent care, hospital, or longterm...) When possible be specific @ -No Did you speak to anyone other than the patient for history (EMS, parent, family, police, friend...)? What history was obtained from this source @ -No Did you review nursing and triage notes (agree or disagree)? Why? @ -I reviewed and agree with nursing and triage notes Were old charts reviewed (outside hosp., previous admission, EMS record, old EKG, old radiological studies, urgent care reports/EKG's, longterm records)? Report findings @ -No old charts were reviewed Differential Diagnosis (chest pain, altered mental status, abdominal pain women, abdominal pain men, vaginal bleeding, weakness, fever, dyspnea, syncope, headache, dizziness, GI bleed, back pain, seizure, CVA, palpatations, mental health, musculoskeletal)? @ -Fall, intracranial hemorrhage, concussion, neck pain, neck fracture, anxiety EKG interpreted by me (3pts min.). @ -None X-rays interpreted by me (1pt min.). @ -None done CT interpreted by me (1pt min.). @ -CT brain, C-spine show no acute intracranial hemorrhage, mass effect, cervical fracture or malalignment U/S interpreted by me (1pt. min.). @ -None done What testing was considered but not performed or refused? (CT, X-rays, U/S, labs)? Why? @ -None What meds were considered but not given or refused? Why? @ -None Did you discuss the management of the patient with other professionals (pro fessionals i.e. , PA, COMMUNICATIONS ENGINEERING TECHNICIAN, lab, RT, psych nurse, director of social media marketing, waste paper hammermill operator, teacher, chief science officer, director case management)? Give summary @ -No Was smoking cessation discussed for >3mins.? @ -No Was critical care preformed (if so, how long)? @ -No Were there social determinants of health that impacted care today? How? (Homelessness, low income, unemployed, alcoholism, drug addiction, transportation, low edu. Level, literacy, decrease access to med. care, senior living, rehab)? @ -No Was there de-escalation of care discussed even if they declined (Discuss DNR or withdrawal of care, Hospice)? DNR status @ -No What co-morbidities impacted this encounter? (DM, HTN, Smoking, COPD, CAD, Cancer, CVA, ARF, Chemo, Hep., AIDS, mental health diagnosis, sleep apnea, morbid obesity)? @ -Anxiety Was patient admitted / discharged? Hospital course, mention meds given and route, prescriptions, significant lab abnormalities, going to OR and other pertinent info. @ -Discharge patient felt greatly improved after Valium he has no residual paresthesias from his anxiety. Patient had full range of motion of all extremities CT was unremarkable discharged in stable condition patient agrees to plan. Undiagnosed new problem with uncertain prognosis? @ -No Drug Therapy requiring intensive monitoring for toxicity (Heparin, Nitro, Insulin, Cardizem)? @ -No Were any procedures done? @ -No Diagnosis/symptom? @ -Fall, cervical strain, anxiety Acute, or Chronic, or Acute on Chronic? @ -Acute Uncomplicated (without systemic symptoms) or Complicated (systemic symptoms)? @ -Uncomplicated Side effects of treatment? @ -No Exacerbation, Progression, or Severe Exacerbation? @ -No Poses a threat to life or bodily function? How? (Chest pain, [place], [place], pneumonia, PE, COPD, DKA, ARF, appy, cholecystitis, CVA, Diverticulitis, Homicidal, Suicidal, threat to staff... and all critical care pts) @ -No Disposition Clinical Impression: Fall, Neck pain Disposition: HOME SELF-CARE Condition: Stable Instructions (If sedation given, give patient instructions): Acute Neck Pain (ED) Additional Instructions: Your prescription is at [facility]. Please return to the Emergency Department if symptoms worsen or any other concerns. Prescriptions: Cyclobenzaprine [Flexeril] 10 mg PO TID PRN #15 tab PRN Reason: Muscle Spasm Is patient prescribed a controlled substance at d/c from ED?: No Referrals: Gissell Blum [Primary Care Provider] - 1-2 days Time of Disposition: 10:52
--- NOTE | 2023-08-24 10:38 | CT ---
EXAMINATION TYPE: CT brain cspine wo con CT DLP: 1559.4 mGycm, Automated exposure control for dose reduction was used. DATE OF EXAM: 08/24/2023 9:58 AM COMPARISON: None. CLINICAL INDICATION:Male, 57 years old with history of pain/fall; head and neck pain post fall TECHNIQUE: Brain: Multiple axial CT images of the brain were obtained without IV contrast. Cspine: Axial CT images from the skull base to the inferior aspect of T2 we obtained without intraven ous contrast. Coronal and sagittal reformatted images were also reviewed. FINDINGS: Brain: Extra-axial spaces: No abnormal extra-axial fluid collections. Ventricular system: Appear dilated in proportion to the degree of cerebral atrophy. Cerebral parenchyma: No increased attenuation to suggest acute intraparenchymal hemorrhage. The gra y-white matter interface appears maintained. Mild generalized brain atrophy. Scattered hypoattenuat ing areas are seen within the cerebral white matter, nonspecific but most often seen with chronic karen rovascular ischemic changes; mild/moderate in degree. Cerebellum: No acute abnormality. Mass effect: No evidence of mass effect or midline shift. Intracranial vasculature: Minor calcifications of the larger arteries near the skull base. Soft tissues: Normal. Visualized orbits: Orbital contents appear grossly intact. Calvarium/osseous structures: No evidence of calvarial fracture. Paranasal sinuses and mastoid air cells: Clear MRI is more sensitive for detecting acute processes such as infarct, and may be considered if clinica lly warranted. Cervical spine: Fracture: None seen. Osseous structures, spinal canal/neural foramina: Craniocervical junction is intact. There are mild t o moderate degenerative changes throughout the cervical spine without evidence of critical stenosis. Mild to moderate canal and neural foraminal stenoses at C4-C5, C5-C6 and C6-C7. Vertebral alignment: No traumatic malalignment. Slight straightening of the normal cervical lordosis. Neck soft tissues: No acute finding. Calcifications noted involving the cervical carotid arteries mos tly in the bifurcation regions, and along aortic arch. Other: Lung apices show no acute infiltrate or pneumothorax. IMPRESSION: CT head: 1. No acute intracranial CT abnormality. 2. Atrophy and chronic microvascular ischemic changes. CT cervical spine: 1. No evidence of cervical spine fracture or traumatic malalignment. 2. Mild/moderate cervical spondylosis.
[2023-08-24 11:19] VITALS: BP 156/85; PULSE 75; RESP 20
== END 2023-08-24 11:10 | disposition home or self-care (01) ==
LOC: EC 09:02 → SUPCPDRO 09:02 → EC 11:10
DX: S16.1XXA Strain of muscle, fascia and tendon at neck level, initial encounter (principal); F41.9 Anxiety disorder, unspecified; I10 Essential (primary) hypertension; Z86.16 Personal history of COVID-19; Z79.899 Other long term (current) drug therapy; Z88.1 Allergy status to other antibiotic agents; Z88.8 Allergy status to other drugs, medicaments and biological substances; W10.9XXA Fall (on) (from) unspecified stairs and steps, initial encounter
CPT/HCPCS: 72125; 70450; 99284; 96372; J3360

== ENCOUNTER 2023-08-27 10:54 | Emergency (ER) | payer OTHER ==
[2023-08-27] MEDS ORDERED: KETOROLAC 15 MG/ML 1 ML VIAL IM STA (11:12)
[2023-08-27] MEDS ORDERED: HYDROmorphone 1 MG/ML 1 ML SYRINGE IM STA (11:12)
[2023-08-27 11:20] VITALS: RESP 18; TEMP 98.7
--- NOTE | 2023-08-27 11:25 | ED ---
Fall HPI - General Chief Complaint: Fall Stated Complaint: Fall Time Seen by Provider: 08/27/23 10:56 Source: patient, RN notes reviewed Mode of arrival: EMS Limitations: no limitations - History of Present Illness Initial Comments: This is a 57 year old male who presents to the emergency department for a fall. States that just prior to arrival he tripped and fell down the stairs. He is unsure about the details of the fall, such as how he landed or how many steps he fell down. Per EMS, he fell down 7 steps. Currently complaining of pain in his head, eyes, chest, back, and left arm. Denies any loss of consciousness and he is not taking any blood thinners. MD Complaint: fall - Related Data Home Medications Medication Instructions Recorded Confirmed Colchicine [Colcrys] 0.6 - 1.2 mg PO DIRECTED PRN 01/06/22 05/13/23 LORazepam [Ativan] 1 mg PO Q12H PRN 01/06/22 05/13/23 Omeprazole 40 mg PO DAILY 05/09/23 05/13/23 hydrOXYzine HCL [Hydroxyzine HCl] 10 mg PO DAILY 05/09/23 05/13/23 Previous Rx's Medication Instructions Recorded amLODIPine [Norvasc] 5 mg PO HS 30 Days tab 05/31/21 atenoloL [Tenormin] 25 mg PO DAILY 30 Days #30 tab 03/15/22 Cyclobenzaprine [Flexeril] 10 mg PO TID PRN #15 tab 08/24/23 HYDROcodone/APAP 5-325MG [[place] 1 tab PO Q6HR PRN 3 Days #12 tab 08/27/23 5-325] Ketorolac [Toradol] 10 mg PO Q6HR PRN #15 tab 08/27/23 Lidocaine 5% Patch [Lidoderm 5% 1 patch TOPICAL DAILY PRN #30 patch 08/27/23 Patch] methocarbamoL [Robaxin-750] 1,500 mg PO TID PRN #30 tab 08/27/23 Allergies Allergy/AdvReac Type Severity Reaction Status Date / Time allopurinol Allergy Unknown Verified 08/24/23 09:10 azithromycin Allergy Anaphylaxis Verified 08/24/23 09:10 Review of Systems ROS Statement: Those systems with pertinent positive or pertinent negative responses have been documented in the HPI. ROS Other: All systems not noted in ROS Statement are negative. Past Medical History Past Medical History: Hypertension Additional Past Medical History / Comment(s): anxiety, personality disorder, manic depression, etoh abuse, COVID 19 12/13 drinks everyday 6-12 daily edibles 3 times week. History of Any Multi-Drug Resistant Organisms: None Reported Past Surgical History: No Surgical Hx Reported Additional Past Surgical History / Comment(s): tonsillectomy Past Anesthesia/Blood Transfusion Reactions: No Reported Reaction Additional Past Anesthesia/Blood Transfusion Reaction / Comment(s): no blood transfusion Past Psychological History: Anxiety, Depression, Panic Disorder Smoking Status: Never smoker Past Alcohol Use History: None Reported, Daily Past Drug Use History: None Reported - Past Family History Father Family Medical History: CVA/TIA, Myocardial Infarction ([place]) Mother Family Medical History: Thyroid Disorder General Exam Limitations: no limitations General appearance: alert, in distress Head exam: Present: atraumatic, normocephalic, normal inspection Eye exam: Present: normal appearance, PERRL, EOMI. Absent: scleral icterus, conjunctival injection, periorbital swelling Respiratory exam: Present: normal lung sounds bilaterally. Absent: respiratory distress, wheezes, rales, rhonchi, stridor Cardiovascular Exam: Present: regular rate, normal rhythm, normal heart sounds. Absent: systolic murmur, diastolic murmur, rubs, gallop, clicks Extremities exam: Present: other (Tenderness to palpation of the left shoulder. No deformities. ROM limited by pain.) Back exam: Present: other (Tenderness throughout the thoracic and lumbar spine and over the left rib cage.) Neurological exam: Present: alert, oriented X3, CN II-XII intact Psychiatric exam: Present: normal affect, normal mood Skin exam: Present: warm, dry, intact, normal color. Absent: rash Course Vital Signs 08/27/23 08/27/23 11:11 17:01 Temperature 98.7 F Pulse Rate 108 H 67 Respiratory 18 18 Rate Blood Pressure 158/86 117/72 O2 Sat by Pulse 97 97 Oximetry Medical Decision Making - Medical Decision Making This is a 57-year-old male who presents to the emergency department for a fall. Was pt. sent in by a medical professional or institution? @ -No Did you speak to anyone other than the patient for history? @ -No Did you review nursing and triage notes? @ -Yes, and I agree, it is accurate with regards to the patient's symptoms. Were old charts reviewed? @ -No Differential Diagnosis? @ -Differential Musculoskeletal: Muscular strain, contusion, ligament sprain, fracture, arthritis, septic arthritis, bursitis, cellulitis, muscle spasm, nerve compression, DVT, arterial occlusion, herpes zoster, electrolyte abnormality, tumor.... This is not meant to be in all inclusive list EKG interpreted by me (3pts min.)? @ -Not obtained X-rays interpreted by me (1pt min.)? @ -X-ray of the left shoulder, left humerus, thoracic spine, and lumbar spine obtained. My interpretation identifies the left sided rib fractures that were seen on the CT scan without any other acute fractures. CT interpreted by me (1pt min.)? @ Computed tomography scan of the brain and c-spine obtained. My interpretation identifies no evidence of an acute intracranial hemorrhage, skull fracture, or cervical spine fracture. CT scan of the chest obtained. My interpretation identifies fractures of ribs 3-5 on the left. U/S interpreted by me (1pt. min.)? @ -Not obtained What testing was considered but not performed? (CT, X-rays, U/S, labs)? Why? @ -None What meds were considered but not given? Why? @ -None Did you discuss the management of the patient with other professionals? @ -No Did you reconcile home meds? @ -No Was smoking cessation discussed for >3mins.? @ -No Was critical care preformed (if so, how long)? @ -No Were there social determinants of health that impacted care today? How? (Homelessness, low income, unemployed, alcoholism, drug addiction, transportation, low edu. Level, literacy, decrease access to med. care, penitentiary, rehab)? @ -No Was there de-escalation of care discussed even if they declined? (Discuss DNR or withdrawal of care, Hospice)? @ -No What co-morbidities impacted this encounter? (DM, HTN, Smoking, COPD, CAD, Cancer, CVA, Hep., AIDS, mental health diagnosis, sleep apnea, morbid obesity)? @ -None Was patient admitted / discharged? @ -Discharged. Computed tomography scan of the brain, C-spine, and chest obtained. There is no acute intracranial abnormality or signs of a cervical fracture. He was found to have fractures to ribs 3 through 5 on the left without any displacement or evidence of a pneumothorax. X-ray of the left shoulder, left humerus, thoracic spine, and lumbar spine obtained. This redemonstrated rib fractures 3 through 5 on the left without any other acute process. His symptoms were well controlled in the emergency department. He was given prescriptions for Toradol, Robaxin, [place], and lidocaine patches with dosing instructions reviewed. He was also sent home with an incentive spirometer and advised that he needs to take several deep breaths an hour to reduce the risk of a secondary pneumonia. Otherwise advised follow up with his primary care provider. Undiagnosed new problem with uncertain prognosis? @ -None Drug Therapy requiring intensive monitoring for toxicity (Heparin, Nitro, Insulin, Cardizem)? @ -None Were any procedures done? @ -None Diagnosis/symptom? @ -Fall, multiple rib fractures, head injury Acute, or Chronic, or Acute on Chronic? @ -Acute Uncomplicated (without systemic symptoms) or Complicated (systemic symptoms)? @ -Uncomplicated Side effects of treatment? @ -None Exacerbation, Progression, or Severe Exacerbation] @ -Not applicable Poses a threat to life or bodily function? @ -The pain may impact his ability to function. Return precautions reviewed in depth, the patient is instructed to return to the emergency department with any new, worsening, or concerning symptoms. Patient verbalized understanding. This case was discussed in detail with the attending ED physician, Dr. Mar. Presentation, findings, and treatment plan discussed in detail as well. - Radiology Data Radiology results: report reviewed, image reviewed Disposition Clinical Impression: Fall, Multiple rib fractures, Head injury Disposition: HOME SELF-CARE Instructions (If sedation given, give patient instructions): Rib Fracture (ED) Additional Instructions: Return to the emergency department with any new, worsening, or concerning symptoms.Take the Toradol with Tylenol as needed for pain relief. If you choose to take the Toradol, do not take any other anti-inflammatories such as ibuprofen, take one or the other. Take the [place] sparingly when your pain is the most severe. You can take the Robaxin as 1-2 tablets up to 3-4x daily. Be aware that the [place] and Robaxin may make you drowsy and you should avoid driving or operating machinery when taking this. You can apply the lidocaine patches daily as well. Make sure you take several deep breaths an hour to reduce the risk of developing a secondary pneumonia. Follow up with your primary care provider in 1-2 days. Prescriptions: Lidocaine 5% Patch [Lidoderm 5% Patch] 1 patch TOPICAL DAILY PRN #30 patch PRN Reason: Pain HYDROcodone/APAP 5-325MG [[place] 5-325] 1 tab PO Q6HR PRN 3 Days #12 tab PRN Reason: Pain methocarbamoL [Robaxin-750] 1,500 mg PO TID PRN #30 tab PRN Reason: Pain Ketorolac [Toradol] 10 mg PO Q6HR PRN #15 tab PRN Reason: Pain Is patient prescribed a controlled substance at d/c from ED?: Yes When asked, does pt state using other controlled substances?: Yes If prescribed controlled substance>3 days was MAPS reviewed?: Prescribed <3 Days Referrals: Gissell Blum [Primary Care Provider] - 1-2 days
--- NOTE | 2023-08-27 12:18 | CT ---
EXAMINATION TYPE: CT brain cspine wo con DATE OF EXAM: 08/27/2023 COMPARISON: Prior trauma CT 3 days earlier HISTORY: Fall downstairs with injury CT DLP: 1754 mGycm. Automated Exposure Control for Dose Reduction was Utilized. TECHNIQUE: CT scan of the head and cervical spine are performed without contrast. FINDINGS: There is no acute intracranial hemorrhage or midline shift identified. Mild ventricular a nd sulcal prominence redemonstrated. Mild is moderate low-attenuation of the deep and periventricula r white matter redemonstrated. The calvarium is intact. The globes are intact and the visualized sinu ses are clear. Cervical spine is visualized in its entirety from C1 through upper thoracic levels and demonstrates s atisfactory alignment without evidence of acute fracture or dislocation. Prevertebral soft tissue ap pears within normal limits. The C1-C2 articulation is within normal limits on the coronal images. V ertebral body heights are maintained. Mild to moderate spurring and disc space narrowing C4-C5 throug h C6-C7 levels is redemonstrated. Posterior spurring and/or spur disc complexes efface the anterior t hecal sac at these levels. Axial images show multilevel uncovertebral facet degenerative changes bila terally. Lung apices show no pneumothorax. Thyroid gland appears within normal limits. Fatty atrophy of the bilateral submandibular and parotid gland is redemonstrated. IMPRESSION: 1. There is no acute fracture or dislocation evident in the cervical spine. 2. No acute intracranial hemorrhage or midline shift is seen. No significant change from most recent prior trauma CT.
--- NOTE | 2023-08-27 12:22 | CT ---
EXAMINATION TYPE: CT chest wo con DATE OF EXAM: 08/27/2023 COMPARISON: Prior chest CT March 14, 2019 HISTORY: Fall downstairs CT DLP: 724.5 mGycm. Automated Exposure Control for Dose Reduction was Utilized. TECHNIQUE: CT scan of the thorax is performed without IV contrast. FINDINGS: Suboptimal study with artifact over the lower thorax and upper abdomen LUNGS: Overall mosaic attenuation. No pleural effusion or pneumothorax seen bilaterally. Tracheobronc hial tree is patent. Mild linear scarring right lung base. MEDIASTINUM: Lack of IV contrast is noted to limit evaluation for mediastinal and especially hilar ad enopathy. There are no definitive greater than 1 cm mediastinal lymph nodes. Moderate coronary artery calcification is redemonstrated. No cardiomegaly or pericardial effusion is seen. OTHER: Acute nondisplaced fractures involving the posterior left fourth and fifth ribs with subacute or chronic fractures involving posterior right fourth and fifth ribs felt present as there is scleros is at this level noted. IMPRESSION: Suboptimal study. Acute nondisplaced fractures involving posterior left fourth and fifth ribs. No pneumothorax is seen. Mild diffuse edema bilaterally. No suspicious focal consolidation or p ulmonary contusion injury.
[2023-08-27] MEDS ORDERED: LIDOCAINE 4% PATCH TOPICAL ONE ×2 (12:26→14:11)
--- NOTE | 2023-08-27 13:13 | XR ---
EXAMINATION TYPE: XR lumbar spine 2 or 3V DATE OF EXAM: 08/27/2023 COMPARISON: 04/18/2021 HISTORY: Fall, pain TECHNIQUE: 3 view lumbar spine FINDINGS: There are 5 lumbar-type vertebral bodies. Pedicles are intact. Mild side bending right is p resent. Vertebral body heights are preserved. Some mild posterior disc space narrowing L4-5 and L5-S1 may be present. Disc heights are otherwise preserved. IMPRESSION: 1. No acute osseous abnormality lumbar spine. 2. Minimal degenerative loss of disc height may be in the posterior L4-5 and L5-S1 disc levels.
--- NOTE | 2023-08-27 13:16 | XR ---
EXAMINATION TYPE: XR shoulder complete LT DATE OF EXAM: 08/27/2023 COMPARISON: NONE HISTORY: Pain TECHNIQUE: Shoulder examined in 3 projections. FINDINGS: The humeral head articulates with the glenoid. The acromio-clavicular junction is normal. Fractures of the posterior lateral third fourth and fifth ribs appear to be present. No pneumothorax is evident. No additional fractures are evident within the shoulder. A follow up study can be performed 7-10 days from acute trauma for continued pain. MRI can be perfor med if soft tissue evaluation would be of benefit. IMPRESSION: 1. Fractures of the third through fifth posterior lateral right ribs. No obvious pneumothorax. 2. Left shoulder otherwise appears intact.
--- NOTE | 2023-08-27 13:37 | XR ---
EXAMINATION TYPE: XR thoracic spine complete DATE OF EXAM: 08/27/2023 COMPARISON: Lumbar spine HISTORY: Back pain, fall TECHNIQUE: 3 view thoracic spine FINDINGS: There is a scoliosis present. Lower thoracic vertebral bodies were included within the lumb ar spine portion of the study. Scoliosis is present. Convexity is to the right. Pedicles appear intac t. Disc heights are preserved. Vertebral body heights are preserved. Alignment is normal. IMPRESSION: 1. Scoliosis thoracic spine
--- NOTE | 2023-08-27 13:38 | XR ---
EXAMINATION TYPE: XR humerus LT DATE OF EXAM: 08/27/2023 COMPARISON: None HISTORY: Fall, pain TECHNIQUE: 2 view left humerus FINDINGS: Left humerus as visualized appears intact. No acute fracture or dislocation is evident. Bianka nt spaces as visualized appear preserved. Follow up exams can be performed 7-10 days from acute trauma for continued pain IMPRESSION: 1. No acute osseous abnormalities left humerus.
[2023-08-27] MEDS ORDERED: ORPHENADRINE 30 MG/ML 2 ML VIAL IVP STA (14:11)
[2023-08-27] MEDS ORDERED: MORPHINE SULFATE 4 MG/ML SYRINGE IVP STA (14:11)
[2023-08-27] MEDS ORDERED: KETOROLAC 15 MG/ML 1 ML VIAL IVP STA (14:11)
[2023-08-27] MEDS ORDERED: HYDROmorphone 1 MG/ML 1 ML SYRINGE IVP STA (15:49)
[2023-08-27] MEDS ORDERED: ACETAMINOPHEN TAB 500 MG TAB PO STA (15:49)
[2023-08-27 17:12] VITALS: BP 117/72; PULSE 67
== END 2023-08-27 17:08 | disposition home or self-care (01) ==
LOC: EC 10:54
DX: S22.42XA Multiple fractures of ribs, left side, initial encounter for closed fracture (principal); S09.90XA Unspecified injury of head, initial encounter; I10 Essential (primary) hypertension; F41.9 Anxiety disorder, unspecified; F32.A Depression, unspecified; Z88.0 Allergy status to penicillin; Z88.8 Allergy status to other drugs, medicaments and biological substances; Z79.899 Other long term (current) drug therapy; W10.8XXA Fall (on) (from) other stairs and steps, initial encounter
CPT/HCPCS: 72072; 72100; 73030; 73060; 72125; 70450; 71250; 99285; 96374; 96375 ×3; 96372 ×2; L0120; J2270; J2360; J1170; J1885

== ENCOUNTER 2023-09-14 16:16 | Emergency (ER) | payer OTHER ==
[2023-09-14 16:30] VITALS: RESP 20
[2023-09-14] MEDS ORDERED: LORazepam 2 MG/ML INJ IV STA (16:31)
[2023-09-14] MEDS ORDERED: SODIUM CHLORIDE 0.9% 1,000 ML IV STA (16:31)
--- NOTE | 2023-09-14 16:49 | ED ---
Arrhythmia/Palpitations HPI - General Chief Complaint: Arrhythmia/Palpitations Stated Complaint: High Blood Pressure Time Seen by Provider: 09/14/23 16:22 Source: patient Mode of arrival: ambulatory Limitations: no limitations - History of Present Illness Initial Comments: 57-year-old male with history of anxiety, personality disorder, and EtOH abuse presenting with chief complaint of palpitations. Patient states that at home he began to feel flushed and as though his heart was racing. He initially seemed he was having a panic attack as he probably passed it felt somewhat similar. He checked his blood pressure and it was noted to be over 200. He was recently taken off of atenolol, he took one tablet he is unsure if this was 50 or 25 mg. When symptoms persisted reported to the ER for evaluation. He reports he is had one beer today and no drug use. No chest pain. No nausea, vomiting, abdominal pain. No fever, chills, cough, congestion, sore throat, lower extremity swelling. - Related Data Home Medications Medication Instructions Recorded Confirmed Colchicine [Colcrys] 0.6 - 1.2 mg PO DIRECTED PRN 01/06/22 05/13/23 LORazepam [Ativan] 1 mg PO Q12H PRN 01/06/22 05/13/23 Omeprazole 40 mg PO DAILY 05/09/23 05/13/23 hydrOXYzine HCL [Hydroxyzine HCl] 10 mg PO DAILY 05/09/23 05/13/23 Previous Rx's Medication Instructions Recorded amLODIPine [Norvasc] 5 mg PO HS 30 Days tab 05/31/21 atenoloL [Tenormin] 25 mg PO DAILY 30 Days #30 tab 03/15/22 Cyclobenzaprine [Flexeril] 10 mg PO TID PRN #15 tab 08/24/23 HYDROcodone/APAP 5-325MG [[place] 1 tab PO Q6HR PRN 3 Days #12 tab 08/27/23 5-325] Ketorolac [Toradol] 10 mg PO Q6HR PRN #15 tab 08/27/23 Lidocaine 5% Patch [Lidoderm 5% 1 patch TOPICAL DAILY PRN #30 patch 08/27/23 Patch] methocarbamoL [Robaxin-750] 1,500 mg PO TID PRN #30 tab 08/27/23 Allergies Allergy/AdvReac Type Severity Reaction Status Date / Time allopurinol Allergy Unknown Verified 08/24/23 09:10 azithromycin Allergy Anaphylaxis Verified 08/24/23 09:10 Review of Systems ROS Statement: Those systems with pertinent positive or pertinent negative responses have been documented in the HPI. ROS Other: All systems not noted in ROS Statement are negative. Past Medical History Past Medical History: Hypertension Additional Past Medical History / Comment(s): anxiety, personality disorder, manic depression, etoh abuse, COVID 19 12/13 drinks everyday 6-12 daily edibles 3 times week. History of Any Multi-Drug Resistant Organisms: None Reported Past Surgical History: No Surgical Hx Reported Additional Past Surgical History / Comment(s): tonsillectomy Past Anesthesia/Blood Transfusion Reactions: No Reported Reaction Additional Past Anesthesia/Blood Transfusion Reaction / Comment(s): no blood transfusion Past Psychological History: Anxiety, Depression, Panic Disorder Smoking Status: Never smoker Past Alcohol Use History: None Reported, Daily Past Drug Use History: None Reported - Past Family History Father Family Medical History: CVA/TIA, Myocardial Infarction ([place]) Mother Family Medical History: Thyroid Disorder General Exam Limitations: no limitations General appearance: alert, in no apparent distress Head exam: Present: atraumatic, normocephalic Eye exam: Present: normal appearance, EOMI Neck exam: Present: normal inspection Respiratory exam: Present: normal lung sounds bilaterally. Absent: respiratory distress, wheezes, rales, rhonchi, stridor Cardiovascular Exam: Present: normal rhythm, tachycardia, normal heart sounds. Absent: systolic murmur, diastolic murmur, rubs, gallop, clicks Extremities exam: Absent: pedal edema Neurological exam: Present: alert, oriented X3 Psychiatric exam: Present: normal affect, normal mood Skin exam: Present: warm, dry Course Vital Signs 09/14/23 09/14/23 09/14/23 16:17 16:59 17:33 Temperature 97.4 F L Pulse Rate 112 H 90 84 Respiratory 20 24 20 Rate Blood Pressure 165/100 150/89 133/68 O2 Sat by Pulse 99 100 98 Oximetry 09/14/23 18:50 Temperature 97.6 F Pulse Rate 79 Respiratory 20 Rate Blood Pressure 151/91 O2 Sat by Pulse 97 Oximetry EKG Findings - EKG Comments: EKG Findings:: Sinus rhythm ventricular rate 89. FL interval 174. QRS 112. QT 363. QTC 409. Incomplete right bundle branch block. Medical Decision Making - Medical Decision Making Was pt. sent in by a medical professional or institution ([facility] Weinberg, [employer], urgent care, hospital, or care home...) When possible be specific @ -No Did you speak to anyone other than the patient for history (EMS, parent, family, police, friend...)? What history was obtained from this source @ -No Did you review nursing and triage notes (agree or disagree)? Why? @ -I reviewed and agree with nursing and triage notes Were old charts reviewed (outside hosp., previous admission, EMS record, old EKG, old radiological studies, urgent care reports/EKG's, care home records)? Report findings @ -No old charts were reviewed Differential Diagnosis (chest pain, altered mental status, abdominal pain women, abdominal pain men, vaginal bleeding, weakness, fever, dyspnea, syncope, headache, dizziness, GI bleed, back pain, seizure, CVA, palpatations, mental health, musculoskeletal)? @ -Differential Palpitations Ventricular arrhythmias, atrial arrhythmias, myocardial infarction, anemia, thyrotoxicosis, electrolyte imbalance, hypokalemia, pulmonary embolism, pulmonary disease, drugs, alcohol, anxiety, stress.... This is not meant to be an all-inclusive list. EKG interpreted by me (3pts min.). @ -Sinus rhythm ventricular rate 89. FL interval 174. QRS 112. QT 363. QTC 409. Incomplete right bundle branch block. X-rays interpreted by me (1pt min.). @ -X-ray shows mild cardiomegaly with mild pulmonary vascular congestion correlate for mild CHF CT interpreted by me (1pt min.). @ -None done U/S interpreted by me (1pt. min.). @ -None done What testing was considered but not performed or refused? (CT, X-rays, U/S, labs)? Why? @ -None What meds were considered but not given or refused? Why? @ -None Did you discuss the management of the patient with other professionals (professionals i.e. [facility] Weinberg, [employer], lab, RT, psych nurse, social worker psychiatric, fast food crew member, teacher, dog license officer supervisor, housing case manager)? Give summary @ -No Was smoking cessation discussed for >3mins.? @ -No Was critical care preformed (if so, how long)? @ -No Were there social determinants of health that impacted care today? How? (Homelessness, low income, unemployed, alcoholism, drug addiction, trans portation, low edu. Level, literacy, decrease access to med. care, longterm, rehab)? @ -No Was there de-escalation of care discussed even if they declined (Discuss DNR or withdrawal of care, Hospice)? DNR status @ -No What co-morbidities impacted this encounter? (DM, HTN, Smoking, COPD, CAD, Cancer, CVA, ARF, Chemo, Hep., AIDS, mental health diagnosis, sleep apnea, morbid obesity)? @ -None Was patient admitted / discharged? Hospital course, mention meds given and route, prescriptions, significant lab abnormalities, going to OR and other pertinent info. @ -57-year-old male presenting with chief complaint of palpitations. Patient believes he was having an anxiety attack at home but wanted to be evaluated to rule out anything else. History and physical exam were conducted. Patient is mildly tachycardic which is to be expected with anxiety. He is given 1 mg Ativan. Lab work requires no action. Negative troponin. EKG shows sinus rhythm. Chest x-ray shows mild cardiomegaly with mild pulmonary congestion, however BNP is 35. On reassessment patient reports resolution of his symptoms, he states he feels much better. Likely anxiety induced. Discharged home. Follow-up with PCP. Report back to ER with any new or worsening symptoms. Discussed return parameters and answered all questions. Patient conveyed verbal understanding and agreed to the plan. I discussed this case in detail with my attending Dr. Walker Undiagnosed new problem with uncertain prognosis? @ -No Drug Therapy requiring intensive monitoring for toxicity (Heparin, Nitro, Insulin, Cardizem)? @ -No Were any procedures done? @ -No Diagnosis/symptom? @ -Panic attack Acute, or Chronic, or Acute on Chronic? @ -Acute Uncomplicated (without systemic symptoms) or Complicated (systemic symptoms)? @ -Complicated Side effects of treatment? @ -No Exacerbation, Progression, or Severe Exacerbation? @ -No Poses a threat to life or bodily function? How? (Chest pain, [place], [place], pneumonia, PE, COPD, DKA, ARF, appy, cholecystitis, CVA, Diverticulitis, Homicidal, Suicidal, threat to staff... and all critical care pts) @ -No - Lab Data Result diagrams: 09/14/23 16:47 09/14/23 16:47 Lab Results 09/14/23 09/14/23 09/14/23 Range/Units 16:47 16:47 16:47 WBC 6.9 (3.8-10.6) k/uL RBC 5.25 (4.30-5.90) m/uL Hgb 16.3 (13.0-17.5) gm/dL Hct 48.7 (39.0-53.0) % MCV 92.8 (80.0-100.0) fL MCH 31.1 (25.0-35.0) pg MCHC 33.5 (31.0-37.0) g/dL RDW 12.9 (11.5-15.5) % Plt Count 162 (150-450) k/uL MPV 9.7 Neutrophils % 69 % Lymphocytes % 19 % Monocytes % 8 % Eosinophils % 2 % Basophils % 1 % Neutrophils # 4.8 (1.3-7.7) k/uL Lymphocytes # 1.3 (1.0-4.8) k/uL Monocytes # 0.5 (0-1.0) k/uL Eosinophils # 0.2 (0-0.7) k/uL Basophils # 0.1 (0-0.2) k/uL PT 10.5 (10.0-12.5) sec INR 1.0 (<1.2) APTT 25.3 (22.0-30.0) sec Sodium (137-145) mmol/L Potassium (3.5-5.1) mmol/L Chloride (98-107) mmol/L Carbon Dioxide (22-30) mmol/L Anion Gap mmol/L BUN (9-20) mg/dL Creatinine (0.66-1.25) mg/dL Est GFR (CKD-EPI)AfAm (>60 ml/min/1.73 sqM) Est GFR (CKD-EPI)NonAf (>60 ml/min/1.73 sqM) Glucose (74-99) mg/dL Calcium (8.4-10.2) mg/dL Magnesium (1.6-2.3) mg/dL Total Bilirubin (0.2-1.3) mg/dL AST (17-59) U/L ALT (4-49) U/L Alkaline Phosphatase (38-126) U/L Troponin I (0.000-0.034) ng/mL NT-Pro-B Natriuret Pep pg/mL Total Protein (6.3-8.2) g/dL Albumin (3.5-5.0) g/dL Urine Color Colorless Urine Appearance Clear (Clear) Urine pH 7.0 (5.0-8.0) Ur Specific Rule 1.003 (1.001-1.035) Urine Protein Negative (Negative) Urine Glucose (UA) Negative (Negative) Urine Ketones Negative (Negative) Urine Blood Negative (Negative) Urine Nitrite Negative (Negative) Urine Bilirubin Negative (Negative) Urine Urobilinogen <2.0 (<2.0) mg/dL Ur Leukocyte Esterase Negative (Negative) Urine Opiates Screen Not Detected (NotDetected) Ur Oxycodone Screen Not Detected (NotDetected) Urine Methadone Screen Not Detected (NotDetected) Ur Barbiturates Screen Not Detected (NotDetected) U Tricyclic Antidepress Not Detected (NotDetected) Ur Phencyclidine Scrn Not Detected (NotDetected) Ur Amphetamines Screen Not Detected (NotDetected) U Methamphetamines Scrn Not Detected (NotDetected) U Benzodiazepines Scrn Not Detected (NotDetected) Urine Cocaine Screen Not Detected (NotDetected) U Marijuana (THC) Screen Not Detected (NotDetected) Influenza Type A (PCR) (Not Detectd) Influenza Type B (PCR) (Not Detectd) RSV (PCR) (Not Detectd) SARS-CoV-2 (PCR) (Not Detectd) 09/14/23 09/14/23 09/14/23 Range/Units 16:47 16:47 16:47 WBC (3.8-10.6) k/uL RBC (4.30-5.90) m/uL Hgb (13.0-17.5) gm/dL Hct (39.0-53.0) % MCV (80.0-100.0) fL MCH (25.0-35.0) pg MCHC (31.0-37.0) g/dL RDW (11.5-15.5) % Plt Count (150-450) k/uL MPV Neutrophils % % Lymphocytes % % Monocytes % % Eosinophils % % Basophils % % Neutrophils # (1.3-7.7) k/uL Lymphocytes # (1.0-4.8) k/uL Monocytes # (0-1.0) k/uL Eosinophils # (0-0.7) k/uL Basophils # (0-0.2) k/uL PT (10.0-12.5) sec INR (<1.2) APTT (22.0-30.0) sec Sodium 139 (137-145) mmol/L Potassium 4.4 (3.5-5.1) mmol/L Chloride 104 (98-107) mmol/L Carbon Dioxide 24 (22-30) mmol/L Anion Gap 11 mmol/L BUN 8 L (9-20) mg/dL Creatinine 0.73 (0.66-1.25) mg/dL Est GFR (CKD-EPI)AfAm >90 (>60 ml/min/1.73 sqM) Est GFR (CKD-EPI)NonAf >90 (>60 ml/min/1.73 sqM) Glucose 97 (74-99) mg/dL Calcium 9.7 (8.4-10.2) mg/dL Magnesium 2.1 (1.6-2.3) mg/dL Total Bilirubin 0.5 (0.2-1.3) mg/dL AST 35 (17-59) U/L ALT 35 (4-49) U/L Alkaline Phosphatase 159 H (38-126) U/L Troponin I <0.012 (0.000-0.034) ng/mL NT-Pro-B Natriuret Pep 35 pg/mL Total Protein 7.4 (6.3-8.2) g/dL Albumin 4.5 (3.5-5.0) g/dL Urine Color Urine Appearance (Clear) Urine pH (5.0-8.0) Ur Specific Rule (1.001-1.035) Urine Protein (Negative) Urine Glucose (UA) (Negative) Urine Ketones (Negative) Urine Blood (Negative) Urine Nitrite (Negative) Urine Bilirubin (Negative) Urine Urobilinogen (<2.0) mg/dL Ur Leukocyte Esterase (Negative) Urine Opiates Screen (NotDetected) Ur Oxycodone Screen (NotDetected) Urine Methadone Screen (NotDetected) Ur Barbiturates Screen (NotDetected) U Tricyclic Antidepress (NotDetected) Ur Phencyclidine Scrn (NotDetected) Ur Amphetamines Screen (NotDetected) U Methamphetamines Scrn (NotDetected) U Benzodiazepines Scrn (NotDetected) Urine Cocaine Screen (NotDetected) U Marijuana (THC) Screen (NotDetected) Influenza Type A (PCR) (Not Detectd) Influenza Type B (PCR) (Not Detectd) RSV (PCR) (Not Detectd) SARS-CoV-2 (PCR) (Not Detectd) 09/14/23 Range/Units 17:34 WBC (3.8-10.6) k/uL RBC (4.30-5.90) m/uL Hgb (13.0-17.5) gm/dL Hct (39.0-53.0) % MCV (80.0-100.0) fL MCH (25.0-35.0) pg MCHC (31.0-37.0) g/dL RDW (11.5-15.5) % Plt Count (150-450) k/uL MPV Neutrophils % % Lymphocytes % % Monocytes % % Eosinophils % % Basophils % % Neutrophils # (1.3-7.7) k/uL Lymphocytes # (1.0-4.8) k/uL Monocytes # (0-1.0) k/uL Eosinophils # (0-0.7) k/uL Basophils # (0-0.2) k/uL PT (10.0-12.5) sec INR (<1.2) APTT (22.0-30.0) sec Sodium (137-145) mmol/L Potassium (3.5-5.1) mmol/L Chloride (98-107) mmol/L Carbon Dioxide (22-30) mmol/L Anion Gap mmol/L BUN (9-20) mg/dL Creatinine (0.66-1.25) mg/dL Est GFR (CKD-EPI)AfAm (>60 ml/min/1.73 sqM) Est GFR (CKD-EPI)NonAf (>60 ml/min/1.73 sqM) Glucose (74-99) mg/dL Calcium (8.4-10.2) mg/dL Magnesium (1.6-2.3) mg/dL Total Bilirubin (0.2-1.3) mg/dL AST (17-59) U/L ALT (4-49) U/L Alkaline Phosphatase (38-126) U/L Troponin I (0.000-0.034) ng/mL NT-Pro-B Natriuret Pep pg/mL Total Protein (6.3-8.2) g/dL Albumin (3.5-5.0) g/dL Urine Color Urine Appearance (Clear) Urine pH (5.0-8.0) Ur Specific Rule (1.001-1.035) Urine Protein (Negative) Urine Glucose (UA) (Negative) Urine Ketones (Negative) Urine Blood (Negative) Urine Nitrite (Negative) Urine Bilirubin (Negative) Urine Urobilinogen (<2.0) mg/dL Ur Leukocyte Esterase (Negative) Urine Opiates Screen (NotDetected) Ur Oxycodone Screen (NotDetected) Urine Methadone Screen (NotDetected) Ur Barbiturates Screen (NotDetected) U Tricyclic Antidepress (NotDetected) Ur Phencyclidine Scrn (NotDetected) Ur Amphetamines Screen (NotDetected) U Methamphetamines Scrn (NotDetected) U Benzodiazepines Scrn (NotDetected) Urine Cocaine Screen (NotDetected) U Marijuana (THC) Screen (NotDetected) Influenza Type A (PCR) Not Detected (Not Detectd) Influenza Type B (PCR) Not Detected (Not Detectd) RSV (PCR) Not Detected (Not Detectd) SARS-CoV-2 (PCR) Not Detected (Not Detectd) Disposition Clinical Impression: Panic attack Disposition: HOME SELF-CARE Condition: Good Instructions (If sedation given, give patient instructions): Heart Palpitations (ED), Panic Attack (ED) Additional Instructions: Follow-up with PCP. Report back to ER with any new or worsening symptoms. Is patient prescribed a controlled substance at d/c from ED?: No Referrals: Gissell Blum [Primary Care Provider] - 1-2 days Time of Disposition: 18:15
[2023-09-14 16:58] LABS: Basophils # (A) 0.1 k/uL (0-0.2); Basophils % (A) 1 %; Eosinophils # (A) 0.2 k/uL (0-0.7); Eosinophils % (A) 2 %; HCT 48.7 % (39.0-53.0); HGB 16.3 gm/dL (13.0-17.5); Lymphocytes # (A) 1.3 k/uL (1.0-4.8); Lymphocytes % (A) 19 %; MCH 31.1 pg (25.0-35.0); MCHC 33.5 g/dL (31.0-37.0); MCV 92.8 fL (80.0-100.0); Mean Platelet Volume 9.7; Monocytes # (A) 0.5 k/uL (0-1.0); Monocytes % (A) 8 %; Neutrophils # (A) 4.8 k/uL (1.3-7.7); Neutrophils % (A) 69 %; Platelet Count 162 k/uL (150-450); RBC 5.25 m/uL (4.30-5.90); RDW 12.9 % (11.5-15.5); WBC 6.9 k/uL (3.8-10.6)
[2023-09-14 17:16] LABS: Appearance,Urine Clear (Clear); Bilirubin,Urine Negative (Negative); Blood,Urine Negative (Negative); Color,Urine Colorless; Glucose,Urine (UA) Negative (Negative); Ketones,Urine Negative (Negative); Leukocyte Esterase,Urine Negative (Negative); Nitrite,Urine Negative (Negative); Protein,Urine Negative (Negative); Specific Gravity,Urine 1.003 (1.001-1.035); Urobilinogen,Urine <2.0 mg/dL (<2.0)
[2023-09-14 17:18] LABS: Partial Thromboplastin Time 25.3 sec (22.0-30.0); Prothrombin Time 10.5 sec (10.0-12.5)
[2023-09-14 17:19] LABS: ALT 35 U/L (4-49); AST 35 U/L (17-59); African American GFR (CKD) >90 (>60 ml/min/1.73 sqM); Albumin 4.5 g/dL (3.5-5.0); Alkaline Phosphatase 159 U/L (38-126); Anion Gap 11 mmol/L; Blood Urea Nitrogen 8 mg/dL (9-20); Calcium 9.7 mg/dL (8.4-10.2); Carbon Dioxide 24 mmol/L (22-30); Chloride 104 mmol/L (98-107); Glucose 97 mg/dL (74-99); Magnesium 2.1 mg/dL (1.6-2.3); Non-African American GFR(CKD) >90 (>60 ml/min/1.73 sqM); Potassium 4.4 mmol/L (3.5-5.1); Sodium 139 mmol/L (137-145); Total Bilirubin 0.5 mg/dL (0.2-1.3); Total Protein 7.4 g/dL (6.3-8.2)
[2023-09-14 17:32] LABS: Amphetamine Screen,Urine Not Detected (NotDetected); Barbiturate Screen,Urine Not Detected (NotDetected); Benzodiazepines Screen,Urine Not Detected (NotDetected); Cocaine Screen,Urine Not Detected (NotDetected); Methadone Screen, Urine Not Detected (NotDetected); Opiate Screen,Urine Not Detected (NotDetected); Oxycodone Screen, Urine Not Detected (NotDetected); Phencyclidine Screen,Urine Not Detected (NotDetected); Tricyclic Antidepressant,Urine Not Detected (NotDetected); Urn Cannabinoid Scrn Not Detected (NotDetected)
--- NOTE | 2023-09-14 17:43 | XR ---
EXAMINATION TYPE: XR chest 2V DATE OF EXAM: 09/14/2023 5:06 PM CLINICAL INDICATION:Male, 57 years old with history of dysrhythmia; [facility] COMPARISON: None TECHNIQUE: XR chest 2V. Frontal and lateral views of the chest.. FINDINGS: Lines/Tubes/Devices: No indwelling lines are seen. Heart/mediastinum: Heart appears mildly enlarged. Mediastinum appears normal. Pulmonary vascularity: Pulmonary vascular congestion. Lungs/Pleura: There is no evidence of pleural effusion, focal consolidation, or pneumothorax. Musculoskeletal: No acute osseous abnormality demonstrated in the limits of the exam. Other findings: None. IMPRESSION: Mild cardiomegaly with mild pulmonary vascular congestion. Correlate for mild CHF.
[2023-09-14 19:08] VITALS: BP 151/91; PULSE 79; TEMP 97.6
== END 2023-09-14 18:50 | disposition home or self-care (01) ==
LOC: EC 16:16
DX: F41.0 Panic disorder [episodic paroxysmal anxiety] (principal); I10 Essential (primary) hypertension; F32.A Depression, unspecified; Z79.899 Other long term (current) drug therapy; Z88.1 Allergy status to other antibiotic agents; Z88.8 Allergy status to other drugs, medicaments and biological substances; Z20.822 Contact with and (suspected) exposure to COVID-19
CPT/HCPCS: 36415; 93005; 83880; 80053; 83735; 84484; 85025; 85610; 85730; 81003; 80306; 87636; 71046; 99285; 96374; 96361; J2060

== ENCOUNTER 2023-10-11 05:49 | Emergency (ER) | payer OTHER ==
[2023-10-11 06:24] VITALS: TEMP 97.7
--- NOTE | 2023-10-11 07:18 | ED ---
General Adult HPI - General Chief complaint: Extremity Problem,Nontraumatic Stated complaint: allergic reaction Time Seen by Provider: 10/11/23 06:09 Source: patient, EMS Mode of arrival: EMS Limitations: no limitations - History of Present Illness Initial comments: 87-year-old male presents for chronic pain. Patient states that he has had neuropathy in his bilateral feet for about 3 months now. However he has not been formally diagnosed and has an appointment at the end of the month. Patient states he also has gout in his right arm currently. States he has had at that he was 10 years old and he feels a typical Flare. Patient states he is ALLERGIC to allopurinol and colchicine and anti-inflammatories such as indomethacin do not work for him. Patient states the only thing that works for him is Tiffin which she got from his primary care doctor but is now out. Patient has no other complaints at this time including shortness of breath, chest pain, abdominal pain, nausea or vomiting, headache, or visual changes. - Related Data Home Medications Medication Instructions Recorded Confirmed Colchicine [Colcrys] 0.6 - 1.2 mg PO DIRECTED PRN 01/06/22 05/13/23 LORazepam [Ativan] 1 mg PO Q12H PRN 01/06/22 05/13/23 Omeprazole 40 mg PO DAILY 05/09/23 05/13/23 hydrOXYzine HCL [Hydroxyzine HCl] 10 mg PO DAILY 05/09/23 05/13/23 Previous Rx's Medication Instructions Recorded amLODIPine [Norvasc] 5 mg PO HS 30 Days tab 05/31/21 atenoloL [Tenormin] 25 mg PO DAILY 30 Days #30 tab 03/15/22 Cyclobenzaprine [Flexeril] 10 mg PO TID PRN #15 tab 08/24/23 HYDROcodone/APAP 5-325MG [Tiffin 1 tab PO Q6HR PRN 3 Days #12 tab 08/27/23 5-325] Ketorolac [Toradol] 10 mg PO Q6HR PRN #15 tab 08/27/23 Lidocaine 5% Patch [Lidoderm 5% 1 patch TOPICAL DAILY PRN #30 patch 08/27/23 Patch] methocarbamoL [Robaxin-750] 1,500 mg PO TID PRN #30 tab 08/27/23 HYDROcodone/APAP 5-325MG [Tiffin 1 tab PO Q6HR PRN #12 tab 10/11/23 5-325] Allergies Allergy/AdvReac Type Severity Reaction Status Date / Time allopurinol Allergy Severe Anaphylaxis Verified 10/11/23 07:13 azithromycin Allergy Anaphylaxis Verified 08/24/23 09:10 colchicine Allergy Rash/Hives Verified 10/11/23 07:14 Review of Systems ROS Statement: Those systems with pertinent positive or pertinent negative responses have been documented in the HPI. ROS Other: All systems not noted in ROS Statement are negative. Past Medical History Past Medical History: Hypertension Additional Past Medical History / Comment(s): anxiety, personality disorder, manic depression, etoh abuse, COVID 19 12/13 drinks everyday 6-12 daily edibles 3 times week. History of Any Multi-Drug Resistant Organisms: None Reported Past Surgical History: No Surgical Hx Reported Additional Past Surgical History / Comment(s): tonsillectomy Past Anesthesia/Blood Transfusion Reactions: No Reported Reaction Additional Past Anesthesia/Blood Transfusion Reaction / Comment(s): no blood transfusion Past Psychological History: Anxiety, Depression, Panic Disorder Smoking Status: Never smoker Past Alcohol Use History: None Reported, Daily Past Drug Use History: None Reported - Past Family History Father Family Medical History: CVA/TIA, Myocardial Infarction ([place]) Mother Family Medical History: Thyroid Disorder General Exam - General Exam Comments Initial Comments: Right hand: Tenderness and edema to the second and third MCP joints. Limited range of motion. Radial pulse 2+. Full range of motion of wrist and elbow. Bilateral feet: DP pulse 2+. Sensation intact. No skin color changes. Full range of motion. Limitations: no limitations General appearance: alert, in no apparent distress Head exam: Present: atraumatic Eye exam: Present: normal appearance, PERRL, EOMI. Absent: scleral icterus, conjunctival injection ENT exam: Present: normal exam, mucous membranes moist Neck exam: Present: normal inspection, full ROM. Absent: tenderness Respiratory exam: Present: normal lung sounds bilaterally. Absent: respiratory distress, wheezes Cardiovascular Exam: Present: regular rate, normal rhythm, normal heart sounds Course Vital Signs 10/11/23 10/11/23 05:51 06:59 Temperature 97.7 F Pulse Rate 95 93 Respiratory 18 16 Rate Blood Pressure 134/98 126/97 O2 Sat by Pulse 98 97 Oximetry Medical Decision Making - Medical Decision Making Was pt. sent in by a medical professional or institution (DEMETRIA Weinberg, UNINDENTURED APPRENTICE, urgent care, hospital, or retirement...) When possible be specific @ -[No] Did you speak to anyone other than the patient for history (EMS, parent, family, police, friend...)? What history was obtained from this source @ -[No] Did you review nursing and triage notes (agree or disagree)? Why? @ -[I reviewed and agree with nursing and triage notes] Were old charts reviewed (outside hosp., previous admission, EMS record, old EKG, old radiological studies, urgent care reports/EKG's, retirement records)? Report findings @ -Previous ER visits reviewed Differential Diagnosis (chest pain, altered mental status, abdominal pain women, abdominal pain men, vaginal bleeding, weakness, fever, dyspnea, syncope, headache, dizziness, GI bleed, back pain, seizure, CVA, palpatations, mental health)? @ - gout, fracture, joint infection, septic arthritis, sprain EKG interpreted by me (3pts min.). @ -None X-rays interpreted by me (1pt min.). @ -[None done] CT interpreted by me (1pt min.). @ -[None done] U/S interpreted by me (1pt. min.). @ -[None done] What testing was considered but not performed or refused? (CT, X-rays, U/S, labs)? Why? @ -X-ray however pain is chronic and no injury so not performed What meds were considered but not given or refused? Why? @ -Indomethacin but patient refused due to past inefficiency Did you discuss the management of the patient with other professionals (professionals i.e. DEMETRIA Weinberg, UNINDENTURED APPRENTICE, lab, RT, psych nurse, drug abuse social worker, take away attendant, teacher, philanthropy officer, insurance case manager)? Give summary @ -[No] Was smoking cessation discussed for >3mins.? @ -[No] Was critical care preformed (if so, how long)? @ -[No] Were there social determinants of health that impacted care today? How? (Homelessness, low income, unemployed, alcoholism, drug addiction, transportation, low edu. Level, literacy, decrease access to med. care, fdc, rehab)? @ -[No] Was there de-escalation of care discussed even if they declined (Discuss DNR or withdrawal of care, Hospice)? DNR status @ -[No] What co-morbidities impacted this encounter? (DM, HTN, Smoking, COPD, CAD, Cancer, CVA, ARF, Chemo, Hep., AIDS, mental health diagnosis, sleep apnea, morbid obesity)? @ -[None] Was patient admitted / discharged? Hospital course, mention meds given and route, prescriptions, significant lab abnormalities, going to OR and other pertinent info. @ -Pt was seen in the emergency Department and examined. Complaining of chronic pain. Discussed different options for treating pain none of which seemed to work for patient. Patient will follow up with primary care with a small course of Tiffin to get him there. I discussed that we will not be able to give him a note that prescription for pain medication. Undiagnosed new problem with uncertain prognosis? @ -[No] Drug Therapy requiring intensive monitoring for toxicity (Heparin, Nitro, Insulin, Cardizem)? @ -[No] Were any procedures done? @ -[No] Diagnosis/symptom? @ -Chronic pain Acute, or Chronic, or Acute on Chronic? @ -Chronic Uncomplicated (without systemic symptoms) or Complicated (systemic symptoms)? @ -Uncomplicated Side effects of treatment? @ -[No] Exacerbation, Progression, or Severe Exacerbation? @ -[No] Poses a threat to life or bodily function? How? (Chest pain, [place], [place], pneumonia, PE, COPD, DKA, ARF, appy, cholecystitis, CVA, Diverticulitis, Homicidal, Suicidal, threat to staff... and all critical care pts) @ -[No] Disposition Clinical Impression: Chronic pain Disposition: HOME SELF-CARE Condition: Good Instructions (If sedation given, give patient instructions): Chronic Pain (ED) Additional Instructions: Please take medication as directed. We will not be able to give you another prescription through the ER. Please follow up with primary care for further management of your pain. Prescriptions: HYDROcodone/APAP 5-325MG [Tiffin 5-325] 1 tab PO Q6HR PRN #12 tab PRN Reason: Pain Is patient prescribed a controlled substance at d/c from ED?: No Referrals: Gissell Blum [Primary Care Provider] - 1-2 days Time of Disposition: 07:16
[2023-10-11 07:30] VITALS: BP 126/97
[2023-10-11] MEDS: HYDROcodone/APAP 5-325MG 1 EACH TAB PO STA (07:31)
[2023-10-11 08:00] VITALS: PULSE 90; RESP 18
== END 2023-10-11 07:45 | disposition home or self-care (01) ==
LOC: EC 05:49
DX: G89.29 Other chronic pain (principal); M79.641 Pain in right hand; R60.0 Localized edema; I10 Essential (primary) hypertension; F41.9 Anxiety disorder, unspecified; Z88.1 Allergy status to other antibiotic agents; Z88.8 Allergy status to other drugs, medicaments and biological substances; Z91.09 Other allergy status, other than to drugs and biological substances; Z79.899 Other long term (current) drug therapy; Z86.16 Personal history of COVID-19
CPT/HCPCS: 99284

== ENCOUNTER 2024-03-22 02:43 | Inpatient (IN) | payer OTHER ==
--- NOTE | 2024-03-22 03:11 | ED ---
General Adult HPI - General Chief complaint: Neuro Symptoms/Deficit Stated complaint: Numbness Time Seen by Provider: 03/22/24 02:56 Source: patient, EMS Mode of arrival: EMS Limitations: no limitations - History of Present Illness Initial comments: Is a 58-year-old man who presents to have evaluation for number of symptoms that have been coming on over the past few days. The patient states that he is feeling very anxious. He has numbness and tingling to all 4 extremities on his face. He has not been able to sleep. Patient relates that about a month ago he had gone back to drinking after being sober for about 5 years. He states that he is drinking probably over 10 drinks per day. He is very anxious. IN addition he had recent fall striking his right foot -: days(s) Location: right, lower extremity Radiation: non-radiation Quality: dull Consistency: constant Improves with: none Worsens with: movement Treatments Prior to Arrival: none - Related Data Home Medications Medication Instructions Recorded Confirmed LORazepam [Ativan] 1 mg PO DAILY PRN 01/06/22 03/22/24 Aspirin EC [Ecotrin Low Dose] 81 mg PO DAILY 03/22/24 03/22/24 Baclofen [Lioresal] 10 mg PO HS 03/22/24 03/22/24 HYDROcodone/APAP 5-325MG [[place] 1 tab PO TID 03/22/24 03/22/24 5-325] Indomethacin [Indocin] 50 mg PO BID PRN 03/22/24 03/22/24 amLODIPine [Norvasc] 10 mg PO HS 03/22/24 03/22/24 Allergies Allergy/AdvReac Type Severity Reaction Status Date / Time allopurinol Allergy Severe Anaphylaxis Verified 03/22/24 09:48 azithromycin Allergy Anaphylaxis Verified 03/22/24 09:48 colchicine Allergy Rash/Hives Verified 03/22/24 09:48 erythromycin base Allergy Anaphylaxis Verified 03/22/24 09:48 [From Erythrocin] gabapentin Allergy Anaphylaxis Verified 03/22/24 09:48 gadopentetic acid Allergy Anaphylaxis Verified 03/22/24 09:48 Review of Systems ROS Statement: Those systems with pertinent positive or pertinent negative responses have been documented in the HPI. ROS Other: All systems not noted in ROS Statement are negative. Constitutional: Denies: fever, chills, weakness Eyes: Denies: vision change Respiratory: Denies: cough, dyspnea, wheezes Cardiovascular: Denies: chest pain, palpitations, edema Gastrointestinal: Denies: abdominal pain, nausea, vomiting Genitourinary: Denies: dysuria, hematuria Musculoskeletal: Reports: as per HPI, arthralgia Skin: Denies: rash Neurological: Reports: paresthesias. Denies: headache, weakness, numbness Psychiatric: Reports: anxiety. Denies: homicidal thoughts, suicidal thoughts Past Medical History Past Medical History: Hypertension Additional Past Medical History / Comment(s): anxiety, personality disorder, manic depression, etoh abuse, COVID 19 12/13 drinks everyday 6-12 daily edibles 3 times week. History of Any Multi-Drug Resistant Organisms: None Reported Past Surgical History: No Surgical Hx Reported Additional Past Surgical History / Comment(s): tonsillectomy Past Anesthesia/Blood Transfusion Reactions: No Reported Reaction Additional Past Anesthesia/Blood Transfusion Reaction / Comment(s): no blood transfusion Past Psychological History: Anxiety, Depression, Panic Disorder Smoking Status: Light tobacco smoker Past Alcohol Use History: None Reported, Daily Past Drug Use History: None Reported - Past Family History Father Family Medical History: CVA/TIA, Myocardial Infarction ([place]) Mother Family Medical History: Thyroid Disorder General Exam Limitations: no limitations General appearance: alert, anxious Head exam: Present: atraumatic, normocephalic Eye exam: Present: normal appearance. Absent: scleral icterus, conjunctival injection ENT exam: Present: mucous membranes dry Neck exam: Present: normal inspection, full ROM Respiratory exam: Present: normal lung sounds bilaterally. Absent: respiratory distress, wheezes, rales, rhonchi, stridor, accessory muscle use Cardiovascular Exam: Present: regular rate, normal rhythm, normal heart sounds. Absent: systolic murmur, diastolic murmur, rubs, gallop GI/Abdominal exam: Present: soft. Absent: distended, tenderness, guarding, rebound, mass Extremities exam: Present: normal inspection, normal capillary refill Back exam: Present: normal inspection Neurological exam: Present: alert, oriented X3. Absent: motor sensory deficit Skin exam: Present: warm, dry, intact, normal color. Absent: rash Course Vital Signs 03/22/24 03/22/24 03/22/24 02:46 03:25 05:12 Temperature 98.1 F Pulse Rate 94 85 73 Respiratory 18 18 16 Rate Blood Pressure 155/110 151/81 130/78 O2 Sat by Pulse 98 94 L 98 Oximetry 03/22/24 03/22/24 03/22/24 06:03 07:15 11:00 Temperature Pulse Rate 72 73 77 Respiratory 18 16 16 Rate Blood Pressure 129/77 131/83 135/81 O2 Sat by Pulse 97 97 98 Oximetry EKG Findings - EKG Results: EKG: interpreted by ERMD, sinus rhythm (83 bpm), normal axis - Blocks, [place], Hypertrophy, ST Abn: AV and intraventricular conduction: right bundle branch block (fixed/intermittent, complete/incomplete) Medical Decision Making - Medical Decision Making The patient had x-ray of the foot that I interpreted as negative for acute fracture or dislocation. Was pt. sent in by a medical professional or institution (DEMETRIA Weinberg, DROP CREW LABORER, urgent care, hospital, or usp...) When possible be specific @ -[No] Did you speak to anyone other than the patient for history (EMS, parent, family, police, friend...)? What history was obtained from this source @ -[No] Did you review nursing and triage notes (agree or disagree)? Why? @ -[I reviewed and agree with nursing and triage notes] Were old charts reviewed (outside hosp., previous admission, EMS record, old EKG, old radiological studies, urgent care reports/EKG's, usp records)? Report findings @ -[No old charts were reviewed] Differential Diagnosis (chest pain, altered mental status, abdominal pain women, abdominal pain men, vaginal bleeding, weakness, fever, dyspnea, syncope, headache, dizziness, GI bleed, back pain, seizure, CVA, palpatations, mental health, musculoskeletal)? @ -[Differential Mental Health Depression, anxiety, bipolar, psychosis, schizophrenia, borderline personality, situational depression, adjustment disorder, behavioral disorder, brain tumor, malingering, substance abuse, encephalopathy, medication reaction, dementia, hypothyroidism, degenerative neurologic disorder, lupus.... This is not meant to be all-inclusive list EKG interpreted by me (3pts min.). @ -[As above] X-rays interpreted by me (1pt min.). @ -[I interpreted as above CT interpreted by me (1pt min.). @ -[None done] U/S interpreted by me (1pt. min.). @ -[None done] What testing was considered but not performed or refused? (CT, X-rays, U/S, labs)? Why? @ -[None] What meds were considered but not given or refused? Why? @ -[None] Did you discuss the management of the patient with other professionals (professionals i.e. , PA, DROP CREW LABORER, lab, RT, psych nurse, nephrology social worker, reporting consultant, teacher, sustainability officer, special education case manager)? Give summary @ -[Case discussed with admitting physician and treatment recommendations incorporated] Was smoking cessation discussed for >3mins.? @ -[No] Was critical care preformed (if so, how long)? @ -[No] Were there social determinants of health that impacted care today? How? (Homelessness, low income, unemployed, alcoholism, drug addiction, transportation, low edu. Level, literacy, decrease access to med. care, correction, rehab)? @ -[No] Was there de-escalation of care discussed even if they declined (Discuss DNR or withdrawal of care, Hospice)? DNR status @ -[No] What co-morbidities impacted this encounter? (DM, HTN, Smoking, COPD, CAD, Cancer, CVA, ARF, Chemo, Hep., AIDS, mental health diagnosis, sleep apnea, morbid obesity)? @ -[None] Was patient admitted / discharged? Hospital course, mention meds given and route, prescriptions, significant lab abnormalities, going to OR and other pertinent info. @ -[Patient is 58-year-old man with alcohol intoxication who does appear to be developing early DTs. Patient be admitted to have coverage with [facility] protocol Undiagnosed new problem with uncertain prognosis? @ -[No] Drug Therapy requiring intensive monitoring for toxicity (Heparin, Nitro, Insulin, Cardizem)? @ -[No] Were any procedures done? @ -[No] Diagnosis/symptom? @ -[Acute alcohol intoxication Alcohol withdrawal syndrome Acute foot sprain Acute, or Chronic, or Acute on Chronic? @ -[Acute Uncomplicated (without systemic symptoms) or Complicated (systemic symptoms)? @ -[Uncomplicated Side effects of treatment? @ -[No] Exacerbation, Progression, or Severe Exacerbation? @ -[No] Poses a threat to life or bodily function? How? (Chest pain, [place], [place], pneumonia, PE, COPD, DKA, ARF, appy, cholecystitis, CVA, Diverticulitis, Homicidal, Suicidal, threat to staff... and all critical care pts) @ -[No] - Lab Data Result diagrams: 03/25/24 07:07 03/25/24 07:07 Lab Results 03/22/24 03/22/24 03/22/24 Range/Units 03:14 03:14 03:14 WBC 8.5 (3.8-10.6) k/uL RBC 4.51 (4.30-5.90) m/uL Hgb 14.7 (13.0-17.5) gm/dL Hct 44.8 (39.0-53.0) % MCV 99.2 (80.0-100.0) fL MCH 32.6 (25.0-35.0) pg MCHC 32.9 (31.0-37.0) g/dL RDW 15.5 (11.5-15.5) % Plt Count 217 (150-450) k/uL MPV 8.5 Neutrophils % 71 % Lymphocytes % 19 % Monocytes % 6 % Eosinophils % 3 % Basophils % 1 % Neutrophils # 6.0 (1.3-7.7) k/uL Lymphocytes # 1.6 (1.0-4.8) k/uL Monocytes # 0.5 (0-1.0) k/uL Eosinophils # 0.2 (0-0.7) k/uL Basophils # 0.1 (0-0.2) k/uL Macrocytosis Slight Sodium 138 (137-145) mmol/L Potassium 4.2 (3.5-5.1) mmol/L Chloride 104 (98-107) mmol/L Carbon Dioxide 24 (22-30) mmol/L Anion Gap 10 mmol/L BUN 9 (9-20) mg/dL Creatinine 0.60 L (0.66-1.25) mg/dL Est GFR (CKD-EPI)AfAm >90 (>60 ml/min/1.73 sqM) Est GFR (CKD-EPI)NonAf >90 (>60 ml/min/1.73 sqM) Glucose 80 (74-99) mg/dL Lactic Ac Sepsis Rflx Plasma Lactic Acid Jared 3.2 H* (0.7-2.0) mmol/L Calcium 8.9 (8.4-10.2) mg/dL Magnesium 1.6 (1.6-2.3) mg/dL Total Bilirubin 0.7 (0.2-1.3) mg/dL AST 68 H (17-59) U/L ALT 28 (4-49) U/L Alkaline Phosphatase 61 (38-126) U/L Troponin I (0.000-0.034) ng/mL Total Protein 6.3 (6.3-8.2) g/dL Albumin 4.1 (3.5-5.0) g/dL Serum Alcohol 119 mg/dL 03/22/24 03/22/24 Range/Units 03:14 04:17 WBC (3.8-10.6) k/uL RBC (4.30-5.90) m/uL Hgb (13.0-17.5) gm/dL Hct (39.0-53.0) % MCV (80.0-100.0) fL MCH (25.0-35.0) pg MCHC (31.0-37.0) g/dL RDW (11.5-15.5) % Plt Count (150-450) k/uL MPV Neutrophils % % Lymphocytes % % Monocytes % % Eosinophils % % Basophils % % Neutrophils # (1.3-7.7) k/uL Lymphocytes # (1.0-4.8) k/uL Monocytes # (0-1.0) k/uL Eosinophils # (0-0.7) k/uL Basophils # (0-0.2) k/uL Macrocytosis Sodium (137-145) mmol/L Potassium (3.5-5.1) mmol/L Chloride (98-107) mmol/L Carbon Dioxide (22-30) mmol/L Anion Gap mmol/L BUN (9-20) mg/dL Creatinine (0.66-1.25) mg/dL Est GFR (CKD-EPI)AfAm (>60 ml/min/1.73 sqM) Est GFR (CKD-EPI)NonAf (>60 ml/min/1.73 sqM) Glucose (74-99) mg/dL Lactic Ac Sepsis Rflx Y Plasma Lactic Acid Jared (0.7-2.0) mmol/L Calcium (8.4-10.2) mg/dL Magnesium (1.6-2.3) mg/dL Total Bilirubin (0.2-1.3) mg/dL AST (17-59) U/L ALT (4-49) U/L Alkaline Phosphatase (38-126) U/L Troponin I 0.013 (0.000-0.034) ng/mL Total Protein (6.3-8.2) g/dL Albumin (3.5-5.0) g/dL Serum Alcohol mg/dL Disposition Clinical Impression: Fall, Acute alcohol intoxication, Alcohol withdrawal, Foot injury Disposition: ADMITTED IP TO THIS HOSP Condition: Fair Is patient prescribed a controlled substance at d/c from ED?: No
[2024-03-22] MEDS: LORazepam 2 MG/ML INJ IV STA ×2 (03:19→05:12)
[2024-03-22 03:34] LABS: Basophils # (A) 0.1 k/uL (0-0.2); Basophils % (A) 1 %; Eosinophils # (A) 0.2 k/uL (0-0.7); Eosinophils % (A) 3 %; HCT 44.8 % (39.0-53.0); HGB 14.7 gm/dL (13.0-17.5); Lymphocytes # (A) 1.6 k/uL (1.0-4.8); Lymphocytes % (A) 19 %; MCH 32.6 pg (25.0-35.0); MCHC 32.9 g/dL (31.0-37.0); MCV 99.2 fL (80.0-100.0); Macrocytosis Slight; Mean Platelet Volume 8.5; Monocytes # (A) 0.5 k/uL (0-1.0); Monocytes % (A) 6 %; Neutrophils % (A) 71 %; Platelet Count 217 k/uL (150-450); RBC 4.51 m/uL (4.30-5.90); RDW 15.5 % (11.5-15.5); WBC 8.5 k/uL (3.8-10.6)
[2024-03-22 03:46] LABS: ALT 28 U/L (4-49); AST 68 U/L (17-59); African American GFR (CKD) >90 (>60 ml/min/1.73 sqM); Albumin 4.1 g/dL (3.5-5.0); Alkaline Phosphatase 61 U/L (38-126); Anion Gap 10 mmol/L; Blood Urea Nitrogen 9 mg/dL (9-20); Calcium 8.9 mg/dL (8.4-10.2); Carbon Dioxide 24 mmol/L (22-30); Chloride 104 mmol/L (98-107); Glucose 80 mg/dL (74-99); Magnesium 1.6 mg/dL (1.6-2.3); Non-African American GFR(CKD) >90 (>60 ml/min/1.73 sqM); Potassium 4.2 mmol/L (3.5-5.1); Sodium 138 mmol/L (137-145); Total Bilirubin 0.7 mg/dL (0.2-1.3); Total Protein 6.3 g/dL (6.3-8.2)
--- NOTE | 2024-03-22 03:54 | XR ---
EXAM: XR Chest, 2 Views CLINICAL HISTORY: ITS.REASON XR Reason: fall injury TECHNIQUE: Frontal and lateral views of the chest. COMPARISON: No relevant prior studies available. FINDINGS: Lungs: Unremarkable. No consolidation. Pleural space: Unremarkable. No pneumothorax. Heart: Unremarkable. No cardiomegaly. Mediastinum: Unremarkable. Normal mediastinal contour. Bones/joints: Unremarkable. No acute fracture. IMPRESSION: No consolidation.
--- NOTE | 2024-03-22 03:54 | XR ---
EXAM: XR Right Foot Complete, 3 or More Views CLINICAL HISTORY: ITS.REASON XR Reason: fall injury TECHNIQUE: Frontal, lateral and oblique views of the right foot. COMPARISON: No relevant prior studies available. FINDINGS: Bones/joints: Diffuse osseous demineralization. Bone on bone articulation of the first MTP. No acute fracture or subluxation. Soft tissues: Dorsal soft tissue swelling. No radiopaque foreign body. IMPRESSION: 1. No acute fracture or subluxation. 2. Dorsal soft tissue swelling.
[2024-03-22 04:18] LABS: Alcohol 119 mg/dL
[2024-03-22] MEDS: SODIUM CHLORIDE 0.9% 1,000 ML IV ONE (04:59)
[2024-03-22] MEDS: LORazepam 2 MG/ML INJ IV PRN ×2 (06:00→12:36)
[2024-03-22] MEDS ORDERED: MAG HYDROX/AL HYDROX/SIMETH 30 ML CUP PO PRN (07:11)
[2024-03-22] MEDS ORDERED: NALOXONE 0.4 MG/ML 1 ML VIAL IV PRN (07:11)
[2024-03-22] MEDS ORDERED: ACETAMINOPHEN TAB 325 MG TAB PO PRN (07:11)
[2024-03-22] MEDS: SODIUM CHLORIDE 0.9% 1,000 ML IV SCH (08:55)
[2024-03-22] MEDS: FAMOTIDINE 20 MG TAB PO SCH (08:56)
[2024-03-22 10:26] LABS: Appearance,Urine Clear (Clear); Bilirubin,Urine Negative (Negative); Blood,Urine Negative (Negative); Color,Urine Colorless; Glucose,Urine (UA) Negative (Negative); Ketones,Urine 1+ (Negative); Leukocyte Esterase,Urine Negative (Negative); Nitrite,Urine Negative (Negative); Protein,Urine Negative (Negative); Urobilinogen,Urine <2.0 mg/dL (<2.0)
[2024-03-22] MEDS: ASPIRIN 81 MG PO SCH (14:27)
[2024-03-22] MEDS: HEPARIN SODIUM,PORCINE 5,000 UNIT/ML 1 ML VIAL SQ SCH (14:27)
[2024-03-22] MEDS: HYDROcodone/APAP 5-325MG 1 EACH TAB PO SCH (17:12)
[2024-03-22] MEDS: amLODIPine 10 MG TAB PO SCH (19:41)
[2024-03-22] MEDS: BACLOFEN 10 MG TAB PO SCH (19:41)
--- NOTE | 2024-03-22 20:44 | CT ---
EXAMINATION TYPE: CT brain wo con CT DLP: 1213.2 mGycm, Automated exposure control for dose reduction was used. DATE OF EXAM: 03/22/2024 8:18 PM COMPARISON: 08/27/2023. CLINICAL INDICATION:Male, 58 years old with history of fall, dizziness, Fall, dizziness. TECHNIQUE: Brain: Axial CT images of the brain were obtained with coronal and sagittal reformats created and rev iewed. Contrast used: None. Oral contrast used: None. FINDINGS: Brain: Extra-axial spaces: No abnormal extra-axial fluid collections. Ventricular system: Dilatation in proportion to cerebral atrophy. Cerebral parenchyma: Cerebral atrophy. No acute intraparenchymal hemorrhage or mass effect. The cruz -white junction is well differentiated. Scattered hypoattenuating areas are seen within the white mat ter. Cerebellum: Unremarkable. Mass effect: No evidence of midline shift. Intracranial vasculature: Atherosclerotic calcifications of the intracranial vessels. Soft tissues: Normal. Calvarium/osseous structures: No depressed skull fracture. Paranasal sinuses and mastoid air cells: Mild scattered paranasal sinus disease. Visualized orbits: Orbital contents are intact. IMPRESSION: 1. No acute intracranial process. 2. Nonspecific white matter changes, likely secondary to chronic small vessel ischemic disease.
--- NOTE | 2024-03-22 23:15 | HP ---
HISTORY AND PHYSICAL CHIEF COMPLAINT: Numbness and alcohol withdrawal symptoms. HISTORY OF PRESENT ILLNESS: This is a 58-year-old gentleman with a past medical history of multiple medical problems, was heavily drinking. Apparently, the patient is anxious. Currently, the patient complains of numbness. The patient apparently also has had trauma of the right foot without any fractures at this time. There is no history of any fever, rigors, or chills. PAST MEDICAL HISTORY: Reviewed include hypertension, anxiety, manic depression, ETOH abuse, COVID. Rest of the history and rest of the chart is also reviewed. HOME MEDICATIONS: Norvasc. Dose and rest of medications reviewed. ALLERGIES: Allopurinol. Rest of allergies noted. FAMILY HISTORY: History of CVA, TIA. SOCIAL HISTORY: History of EtOH, edibles. REVIEW OF SYSTEMS: A 14-point review is negative except as mentioned earlier. PHYSICAL EXAMINATION: VITAL SIGNS: Pulse is 73, blood pressure 130/83, respirations 16. HEENT: Conjunctivae normal. NECK: No JVD. CARDIOVASCULAR: S1, S2. RESPIRATIONS: A few scattered rhonchi. ABDOMEN: Soft. NERVOUS SYSTEM: Nonfocal. LABORATORY DATA: Reviewed. ASSESSMENT: 1. Acute alcohol withdrawal and acute delirium tremens. 2. 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 3. Right foot trauma without any fractures. 4. Anxiety, depression, panic disorder. 5. Manic depression. RECOMMENDATIONS AND DISCUSSION: I recommend to continue current medications, continue symptomatic treatment, alcohol withdrawal, and CIWA protocol. Symptomatic treatment with pain. Guarded prognosis because of multiple complex medical issues. Further recommendations to follow. See orders for further details. The patient also to continue psych followup and possibly alcohol rehab also. Social Work and Case Management to work on those things. MMODL / IJN: [id number] /
[2024-03-23] MEDS: chlordiazePOXIDE 25 MG CAP PO SCH (05:14)
[2024-03-23 07:16] LABS: Basophils % (A) 1 %; Eosinophils # (A) 0.1 k/uL (0-0.7); Eosinophils % (A) 2 %; HCT 45.1 % (39.0-53.0); Lymphocytes # (A) 0.8 k/uL (1.0-4.8); Lymphocytes % (A) 14 %; MCH 30.7 pg (25.0-35.0); MCHC 30.9 g/dL (31.0-37.0); MCV 99.3 fL (80.0-100.0); Mean Platelet Volume 8.5; Monocytes # (A) 0.4 k/uL (0-1.0); Monocytes % (A) 6 %; Neutrophils # (A) 4.4 k/uL (1.3-7.7); Neutrophils % (A) 77 %; Platelet Count 150 k/uL (150-450); RBC 4.55 m/uL (4.30-5.90); RDW 14.6 % (11.5-15.5); WBC 5.8 k/uL (3.8-10.6)
[2024-03-23 08:17] LABS: ALT 24 U/L (4-49); AST 47 U/L (17-59); African American GFR (CKD) >90 (>60 ml/min/1.73 sqM); Albumin 3.5 g/dL (3.5-5.0); Alkaline Phosphatase 72 U/L (38-126); Anion Gap 6 mmol/L; Blood Urea Nitrogen 7 mg/dL (9-20); Calcium 8.9 mg/dL (8.4-10.2); Carbon Dioxide 25 mmol/L (22-30); Chloride 106 mmol/L (98-107); Glucose 85 mg/dL (74-99); Non-African American GFR(CKD) >90 (>60 ml/min/1.73 sqM); Potassium 3.6 mmol/L (3.5-5.1); Sodium 137 mmol/L (137-145); Total Protein 5.5 g/dL (6.3-8.2)
[2024-03-23] MEDS: LORazepam 2 MG/ML INJ IV PRN (08:54)
[2024-03-23] MEDS: FOLIC ACID 1 MG TAB PO SCH (11:18)
[2024-03-23] MEDS: THIAMINE 100 MG TAB PO SCH (11:18)
--- NOTE | 2024-03-23 14:57 | PN ---
PROGRESS NOTE DATE OF SERVICE: 03/23/2024 SUBJECTIVE: This 58-year-old gentleman admitted with alcohol withdrawal and is receiving CIWA protocol. No chest pain, no palpitation. OBJECTIVE: VITAL SIGNS: Pulse is 65, blood pressure n, respirations 18. CHEST: Few scattered rhonchi. ABDOMEN: Soft. NERVOUS SYSTEM: Tremors present. LABORATORY DATA: Reviewed. ASSESSMENT: 1. Alcohol withdrawal and acute delirium tremens. 2. 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 3. Right foot without any fracture. 4. Anxiety, depression, panic disorder. RECOMMENDATIONS AND DISCUSSION: Recommended to continue current medications. Continue with CIWA protocol. I would recommend repeat labs. Increase ambulation. Guarded prognosis. Further recommendations to follow. MMODL / IJN: [id number] / KORY
[2024-03-24 08:04] LABS: Basophils % (A) 1 %; Eosinophils # (A) 0.1 k/uL (0-0.7); Eosinophils % (A) 2 %; HCT 47.3 % (39.0-53.0); HGB 15.9 gm/dL (13.0-17.5); Lymphocytes # (A) 0.9 k/uL (1.0-4.8); Lymphocytes % (A) 19 %; MCH 33.4 pg (25.0-35.0); MCHC 33.5 g/dL (31.0-37.0); MCV 99.6 fL (80.0-100.0); Macrocytosis Slight; Mean Platelet Volume 9.1; Monocytes # (A) 0.3 k/uL (0-1.0); Monocytes % (A) 6 %; Neutrophils # (A) 3.5 k/uL (1.3-7.7); Neutrophils % (A) 71 %; Platelet Count 138 k/uL (150-450); RBC 4.75 m/uL (4.30-5.90); RDW 15.1 % (11.5-15.5); WBC 4.9 k/uL (3.8-10.6)
[2024-03-24 08:24] LABS: African American GFR (CKD) >90 (>60 ml/min/1.73 sqM); Anion Gap 5 mmol/L; Blood Urea Nitrogen 6 mg/dL (9-20); Calcium 9.3 mg/dL (8.4-10.2); Carbon Dioxide 26 mmol/L (22-30); Chloride 106 mmol/L (98-107); Glucose 97 mg/dL (74-99); Non-African American GFR(CKD) >90 (>60 ml/min/1.73 sqM); Potassium 3.5 mmol/L (3.5-5.1); Sodium 137 mmol/L (137-145)
--- NOTE | 2024-03-24 14:30 | PN ---
PROGRESS NOTE DATE OF SERVICE: 03/24/2024 SUBJECTIVE: This 58-year-old gentleman was admitted with alcohol withdrawal, is complaining of still weakness and unsteadiness. The patient had right foot trauma also. OBJECTIVE: VITAL SIGNS: Pulse is 62, blood pressure 110/60, respirations 16. CHEST: Clear to auscultation. CARDIOVASCULAR: S1, S2. ABDOMEN: Soft. NERVOUS SYSTEM: Mild diffuse weakness. LABORATORY DATA: Noted reviewed. ASSESSMENT: 1. Alcohol withdrawal and acute delirium tremens. 2. Gait dysfunction. 3. 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 4. Right foot trauma without any fracture. 5. Anxiety, depression panic disorder. RECOMMENDATIONS AND DISCUSSION: Continue current management under repeated evaluation and evaluation. CIWA protocol. Recommend repeat labs prognosis guarded. Further recommendations to follow. MMODL / IJN: [id number] /
[2024-03-24] MEDS: HYDROcodone/APAP 5-325MG 1 EACH TAB PO PRN (20:25)
[2024-03-25 07:48] LABS: Basophils % (A) 1 %; Eosinophils # (A) 0.2 k/uL (0-0.7); Eosinophils % (A) 3 %; HCT 44.1 % (39.0-53.0); HGB 14.4 gm/dL (13.0-17.5); Lymphocytes # (A) 1.2 k/uL (1.0-4.8); Lymphocytes % (A) 20 %; MCH 32.4 pg (25.0-35.0); MCHC 32.6 g/dL (31.0-37.0); MCV 99.6 fL (80.0-100.0); Mean Platelet Volume 8.7; Monocytes # (A) 0.5 k/uL (0-1.0); Monocytes % (A) 7 %; Neutrophils # (A) 4.2 k/uL (1.3-7.7); Neutrophils % (A) 68 %; Platelet Count 140 k/uL (150-450); RBC 4.43 m/uL (4.30-5.90); RDW 14.6 % (11.5-15.5); WBC 6.1 k/uL (3.8-10.6)
[2024-03-25 07:59] LABS: African American GFR (CKD) >90 (>60 ml/min/1.73 sqM); Anion Gap 4 mmol/L; Blood Urea Nitrogen 5 mg/dL (9-20); Calcium 9.2 mg/dL (8.4-10.2); Carbon Dioxide 27 mmol/L (22-30); Chloride 110 mmol/L (98-107); Glucose 96 mg/dL (74-99); Non-African American GFR(CKD) >90 (>60 ml/min/1.73 sqM); Potassium 3.6 mmol/L (3.5-5.1); Sodium 141 mmol/L (137-145)
--- NOTE | 2024-03-25 08:12 | P.PN ---
Subjective this is a [id number] years old male with past medical history of hypertension, anxiety, alcohol abuse in many and depression Also is nicotine dependence Presents with signs and symptoms of alcohol withdrawal. His been treated with CIWA protocol and thiamine. Also he is on Librium patient thinks his withdrawal symptoms currently controlled however patient required several doses of treatment earlier through the day he wanted to leave AMA because he doesn't like the food and he does not like telemetry electrodes. This been addressed and I talked to the patient with benefits and risks of leaving AMA and he verbalized understanding and acceptance and he agrees to stay in the hospital for now however he declines telemetry he has some swelling in his right foot with a dry closed and healing ulcer on the top of it. Looks little hormone right compared to the other side Patient also has been complaining of from back pain and he has MRI report from outside the hospital Him review the report with him which basically shows degenerative disease and disc herniation and currently patient denies pain. Patient agrees with the current treatment Patient denies chest pain or dyspnea. No other complaints. Vitals stable and patient is afebrile CBC, BMP liver examined and urine analysis were reviewed and were remarkable CT of the brain is negative for acute process. EKG shows sinus rhythm at 83 with right bundle branch block chest x-rays negative for acute infiltrate or CHF, reviewed myself and agree Objective - Vital Signs Vital signs: Vital Signs Temp 97.4 F L 03/25/24 02:00 Pulse 69 03/25/24 02:00 Resp 17 03/25/24 02:00 BP 117/73 03/25/24 02:00 Pulse Ox 97 03/25/24 02:00 FiO2 Intake & Output 03/24/24 03/25/24 03/25/24 18:59 06:59 18:59 Other: # Voids 2 1 - Exam -GENERAL: The patient is alert and oriented x3, not in any acute distress. Well developed, well nourished. tremor of the head and and HEENT: Pupils are round and equally reacting to light. EOMI. No scleral icterus. No conjunctival pallor. Normocephalic, atraumatic. No pharyngeal erythema. No thyromegaly. CARDIOVASCULAR: S1 and S2 present. No murmurs, rubs, or gallops. PULMONARY: Chest is clear to auscultation, no wheezing , no crackles. ABDOMEN: Soft, nontender, nondistended, normoactive bowel sounds. No palpable organomegaly. MUSCULOSKELETAL: No joint swelling or deformity. EXTREMITIES: No cyanosis, clubbing, or pedal edema. NEUROLOGICAL: Gross neurological examination did not reveal any focal deficits. SKIN: No rashes. no petechiae. -Psychiatric: he looks shaky and withdrawn - Labs CBC & Chem 7: 03/25/24 07:07 03/24/24 07:25 Labs: Abnormal Lab Results - Last 24 Hours (Table) 03/24/24 03/24/24 03/25/24 Range/Units 07:25 07:25 07:07 Plt Count 138 L 140 L (150-450) k/uL Lymphocytes # 0.9 L (1.0-4.8) k/uL BUN 6 L (9-20) mg/dL Creatinine 0.54 L (0.66-1.25) mg/dL Assessment and Plan Assessment: alcohol use disorders and alcohol withdrawal Right foot trauma with possible cellulitis chronic back pain secondary to degenerative disc disease and herniated disc, The pain is controlledcurrently area no specific focal weakness or tingling anxiety and Depression without suicidal or homicidal ideation hypertension Plan: Continue with see what and pain med Continue with Librium Continue gentle hydration On aspirin Start Keflex Patient is threatened to leave AMA but currently he agrees to stay GI prophylaxis with Pepcid DVT prophylaxis with heparin Prognosis is guarded
[2024-03-25] MEDS: CEPHALEXIN 500 MG CAP PO SCH (08:51)
[2024-03-25] MEDS: KETOROLAC 15 MG/ML 1 ML VIAL IVP STA (11:59)
[2024-03-25] MEDS: KETOROLAC 15 MG/ML 1 ML VIAL IVP PRN (17:22)
[2024-03-26] MEDS: DULoxetine HCL 30 MG CAPSULE.DR PO SCH ×2 (14:04→15:16)
--- NOTE | 2024-03-26 15:08 | P.PN ---
Subjective Progress Note Date: 03/26/24 this is a [id number] years old male with past medical history of hypertension, anxiety, alcohol abuse in many and depression Also is nicotine dependence Presents with signs and symptoms of alcohol withdrawal. His been treated with CIWA protocol and thiamine. Also he is on Librium patient thinks his withdrawal symptoms currently controlled however patient required several doses of treatment earlier through the day he wanted to leave AMA because he doesn't like the food and he does not like telemetry electrodes. This been addressed and I talked to the patient with benefits and risks of leaving AMA and he verbalized understanding and acceptance and he agrees to stay in the hospital for now however he declines telemetry he has some swelling in his right foot with a dry closed and healing ulcer on the top of it. Looks little hormone right compared to the other side Patient also has been complaining of from back pain and he has MRI report from outside the hospital Him review the report with him which basically shows degenerative disease and disc herniation and currently patient denies pain. Patient agrees with the current treatment Patient denies chest pain or dyspnea. No other complaints. Vitals stable and patient is afebrile CBC, BMP liver examined and urine analysis were reviewed and were remarkable CT of the brain is negative for acute process. EKG shows sinus rhythm at 83 with right bundle branch block chest x-rays negative for acute infiltrate or CHF, reviewed myself and agree 03/26/2024 Patient is evaluated in follow-up in the medical floor. He does not feel like he is withdrawing at this time he is continued on IV Ativan as well as Librium as needed. Patient's main complaint is the bilateral upper extremity and lower extremity numbness weakness as well as complaints of feeling numb in his buttock region. Patient had a cervical and lumbar MRI completed outpatient back in January 2024 has not been back to his PCP to review the findings for further recommendations. Reports reviewed and patient does have evidence of stenosis as well as nerve impingement in multiple areas of the spine as well as degenerative disc disease and herniation. For this reason orthopedic spinal surgeon was consulted for further evaluation recommendations. Review of Systems Constitutional: Denied any fatigue denied any fever. Cardio vascular: denied any chest pain, palpitations Gastrointestinal: denied any nausea, vomiting, diarrhea Pulmonary: Denied any shortness of breath cough Neurologic denied any new focal deficits All inpatient medications were reviewed and appropriate changes in these medications as dictated in the interval history and assessment and plan. PHYSICAL EXAMINATION: GENERAL: The patient is alert and oriented x3, not in any acute distress. Well developed, well nourished. HEENT: Pupils are round and equally reacting to light. EOMI. No scleral icterus. No conjunctival pallor. Normocephalic, atraumatic. No pharyngeal erythema. No thyromegaly. CARDIOVASCULAR: S1 and S2 present. No murmurs, rubs, or gallops. PULMONARY: Chest is clear to auscultation, no wheezing or crackles. ABDOMEN: Soft, nontender, nondistended, normoactive bowel sounds. No palpable organomegaly. MUSCULOSKELETAL: No joint swelling or deformity. EXTREMITIES: No cyanosis, clubbing, or pedal edema. NEUROLOGICAL: Gross neurological examination did not reveal any focal deficits. SKIN: No rashes. Mild erythma dorsum of the right foot with 2 in area of soft tissue swelling. Assessment and plan Assessment Alcohol use disorders and alcohol withdrawal Right foot trauma with soft tissue swelling need to rule out underlying abscess with concern for cellulitis on the dorsum of the right foot. Chronic back pain secondary to degenerative disc disease and herniated disc with concern for nerve impingement Cerivalgia and lumbar radiulopathy secondary to above Anxiety and Depression without suicidal or homicidal ideation hypertension Chronic nicotine use GI prophylaxis with Pepcid DVT prophylaxis with heparin Plan: Continue on CIWA and Librium Continue gentle hydration On aspirin Start Keflex and ultrasound of the right foot to rule out underlying bascess Patient is threatened to leave AMA but currently he agrees to stay Consult orthopedic spinal surgery for evaluation of MRI Social work following pending rehab placement The impression and plan of care has been dictated by Jazmine Kinney, Nurse Practitioner as directed. Dr. Davon MD I have performed a history and physical examination and medical decision making of this patient, discussed the same with the dictator, and agree with the dictators assessment and plan as written, documented as a scribe. Based on total visit time, I have performed more than 50% of this visit. Objective - Vital Signs Vital signs: Vital Signs Temp 98.3 F 03/26/24 07:54 Pulse 63 03/26/24 07:54 Resp 16 03/26/24 07:54 BP 124/82 03/26/24 07:54 Pulse Ox 98 03/26/24 07:54 FiO2 Intake & Output 03/25/24 03/26/24 03/26/24 18:59 06:59 18:59 Output Total 1000 600 Balance -1000 -600 Output: Urine 1000 600 Other: Voiding Method Toilet Toilet # Voids 2 - Labs CBC & Chem 7: 03/25/24 07:07 03/25/24 07:07 Assessment and Plan Time with Patient: Greater than 30
--- NOTE | 2024-03-26 21:40 | CT ---
EXAMINATION TYPE: CT foot RT wo con DATE OF EXAM: 03/26/2024 COMPARISON: Radiograph 03/22/2024 HISTORY: 58-year-old male right dorsal foot swelling TECHNIQUE: Contiguous axial scanning of the right foot without IV contrast. Coronal and sagittal turner nstructions performed. 3-D reconstructions generated on a dedicated workstation. CT DLP: 168.1 mGycm Automated exposure control for dose reduction was used. FINDINGS: Prominent dorsal soft tissue swelling but with more focal ovoid area of slightly higher density estim ated to measure 4.1 x 3.8 x 2.0 cm, possible mass or subcutaneous hemorrhage. Further clinical correl ation recommended. There is scattered moderate osteoarthritic change throughout and osteopenia. Severe degenerative ambrosio ge first MTP joint. Subtalar joint align. Os trigonum. Smooth delineation to the Achilles tendon. No displaced fracture seen. IMPRESSION: 1. PROMINENT DORSAL SOFT TISSUE SWELLING BUT WITH A MORE FOCAL AREA OF HIGHER DENSITY MEASURING APPRO XIMATELY 4.1 X 3.8 X 2.0 CM LOCATED DORSALLY. EITHER A MASS OR SUBCUTANEOUS HEMATOMA. CLINICAL CORREL ATION RECOMMENDED. CONSIDER ULTRASOUND TO ATTEMPT FURTHER CHARACTERIZATION. 2. DIFFUSE OSTEOPENIA. NO DISPLACED FRACTURE SEEN. 3. SCATTERED MODERATE OSTEOARTHRITIC CHANGE THROUGHOUT THE MID FOOT AND SEVERE AT THE FIRST MTP JOINT .
[2024-03-27] MEDS: TEMAZEPAM 15 MG CAP PO PRN (02:17)
--- NOTE | 2024-03-27 11:08 | P.CNOR ---
History of Present Illness - [facility] Consult date: 03/27/24 Consult reason: low back pain, neck pain History of present illness: Patient is a 58-year-old male who was admitted through medicine due to alcohol intoxication and withdrawal. We are seeing the patient regards to chronic neck and low back pain. Patient says that he has had neck and back pain for for more than a decade. He says the pain in his persistent and mainly at his neck and his low back. He says he has had a number of treatments over the past several years but continues to have significant pain. He said he drinks regularly and he has been since he was 9 years old. He says the pain keeps him drinking. He says he also takes pain medications with narcotics regularly but it does not seem to help. He denies weakness in his upper or lower extremities. He denies any acute changes. He says he has been hard on his back and his neck but denies any specific new or recent injury. He denies any acute neurologic change in his upper or lower extremities. He feels that he has neuropathy in his upper and lower extremities bilaterally equally. He denies any chest pain shortness of breath. Denies any rigors or anxiety currently. Review of Systems As stated per HPI. He denies any acute injuries to his neck or lower back. Denies any acute neurologic changes upper or lower extremities. He says he has history of neuropathy in his upper and lower extremities. He says he has chronic neck and back pain. He says he has had trigger points in the past for his neck and back without any significant relief Past Medical History Past Medical History: Hypertension Additional Past Medical History / Comment(s): anxiety, personality disorder, manic depression, etoh abuse, COVID 19 12/13 drinks everyday 6-12 daily edibles 3 times week. History of Any Multi-Drug Resistant Organisms: None Reported Past Surgical History: No Surgical Hx Reported Additional Past Surgical History / Comment(s): tonsillectomy Past Anesthesia/Blood Transfusion Reactions: No Reported Reaction Additional Past Anesthesia/Blood Transfusion Reaction / Comm: no blood transfusion Past Psychological History: Anxiety, Depression, Panic Disorder Additional Psychological History / Comment(s): personality disorder Smoking Status: Current every day smoker, Light tobacco smoker Past Alcohol Use History: None Reported, Daily Additional Past Alcohol Use History / Comment(s): heavily drinking since age 10, with a 7 year sober period, from [id number], now drinks 12-20 white claws daily. x-drug use: every kind of drug per patient- been clean for 10 years. Date of Last drink: "this morning" 03/11/22 Past Drug Use History: None Reported Additional Drug Use History / Comment(s): edibles - Past Family History Father Family Medical History: CVA/TIA, Myocardial Infarction ([place]) Mother Family Medical History: Thyroid Disorder Medications and Allergies Home Medications Medication Instructions Recorded Confirmed Type LORazepam [Ativan] 1 mg PO DAILY PRN 01/06/22 03/22/24 History Aspirin EC [Ecotrin Low Dose] 81 mg PO DAILY 03/22/24 03/22/24 History Baclofen [Lioresal] 10 mg PO HS 03/22/24 03/22/24 History HYDROcodone/APAP 5-325MG [[place] 1 tab PO TID 03/22/24 03/22/24 History 5-325] Indomethacin [Indocin] 50 mg PO BID PRN 03/22/24 03/22/24 History amLODIPine [Norvasc] 10 mg PO HS 03/22/24 03/22/24 History Allergies Allergy/AdvReac Type Severity Reaction Status Date / Time allopurinol Allergy Severe Anaphylaxis Verified 03/22/24 09:48 azithromycin Allergy Anaphylaxis Verified 03/22/24 09:48 colchicine Allergy Rash/Hives Verified 03/22/24 09:48 erythromycin base Allergy Anaphylaxis Verified 03/22/24 09:48 [From Erythrocin] gabapentin Allergy Anaphylaxis Verified 03/22/24 09:48 gadopentetic acid Allergy Anaphylaxis Verified 03/22/24 09:48 Physical Examination Osteopathic Statement: *. No significant issues noted on an osteopathic structural exam other than those noted in the History and Physical/Consult. - C Spine: dermatomal strength & reflexes bilateral Shoulder strength: flexion: 5/5 Shoulder strength: extension: 5/5 (In his upper extremities he has full active and passive range of motion. 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 Negative Kimberli's. No upper motor neuron signs) Shoulder strength: abduction: 5/5 (His neck is nontender over the midline. He has some diffuse spasm at the bilateral paraspinals. He has good full active range of motion his neck) - L Spine: dermatomal strength & reflexes bilateral Strength: hip flexion: 5/5 (His lower back has no open wounds lacerations or abrasions. Nontender over the midline. He has some paravertebral spasm. His lower extremities have 5 out of 5 strength dorsiflexion plantarflexion EHL hip flexion knee extension.) Strength: ankle dorsiflexion: 5/5 (His left foot has significant swelling. There is a small eschar about 1/2 x 1 and half centimeters it is clear. He has motion at his ankle foot and toes intact with 5 of 5 strength. No upper motor neuron signs) Results He has a report from recent MRI of his cervical spine done in January which shows d egenerative disc disease with evidence of foraminal stenosis C3-4 C4-5 C5-6 and C6-7. There is no cord change I reviewed prior lumbar MRI from a couple years ago. There is some diffuse disc bulging with some mild foraminal stenosis. I reviewed x-rays of thoracic and lumbar spine which shows adequate overall alignment there is mild disc degeneration without any evidence of instability or fracture - Labs Labs: H & H 03/22/24 03/23/24 03/24/24 Range/Units 03:14 06:00 07:25 Hgb 14.7 14.0 15.9 (13.0-17.5) gm/dL Hct 44.8 45.1 47.3 (39.0-53.0) % 03/25/24 Range/Units 07:07 Hgb 14.4 (13.0-17.5) gm/dL Hct 44.1 (39.0-53.0) % Result Diagrams: 03/25/24 07:07 03/25/24 07:07 Assessment and Plan Assessment: Chronic neck pain Chronic low back pain Cervical degenerative disc disease with foraminal stenosis without acute neurologic deficit or specific radicular pattern Lumbar degenerative disease with disc protrusion with some foraminal encroach ment without neurologic deficit or specific radicular pattern Chronic history of alcohol abuse with current withdrawals Plan: Chronic neck pain Chronic low back pain Cervical degenerative disc disease with foraminal stenosis without acute neurologic deficit or specific radicular pattern Lumbar degenerative disease with disc protrusion with some foraminal encroachment without neurologic deficit or specific radicular pattern Chronic history of alcohol abuse with current withdrawals The patient has had issues with his neck and his lower back chronically. Currently he does not have any specific new instability and he is not having any new neurologic or radicular issues. I think he has primarily neuropathy likely due to his alcoholism but may have some symptoms from the stenosis at his cervical and lumbar spine. He is not having upper motor neuron signs. In his current state I do not think that he is a candidate for any surgical intervention particularly for his cervical or lumbar spine and he should work towards continued conservative care. I think that he can have some benefit with therapy if he is able to do so. He could be a candidate for interventional pain management we will have them see him as well. He should exhaust all current and potential interventional pain management treatments before considering any surgical intervention. I discussed this with him and he seems understand. He understands that his alcoholism is a major issue for him and with severely prohibit potential for improvement if he were to undergo further treatment for his spine. He seems willing to try to work through conservative care. He can follow-up on an as-needed basis
--- NOTE | 2024-03-27 12:36 | US ---
EXAMINATION TYPE: US extremity nonvasc mass RT DATE OF EXAM: 03/27/2024 COMPARISON: CT 03/26/2024 CLINICAL INDICATION: Male, 58 years old with history of right foot swelling/pain, rule out abscess; S welling and pain top of right foot after patient injured it on a chair 1 week ago. TECHNIQUE: Scanned right dorsal foot at area of concern. FINDINGS: Core Machine Tender notes: Scanned right top of foot at patient's area of concern. *Complex, vascu lar area seen measurin.3 x 4.5 x 1.3 cm. IMPRESSION: Complex 5.3 cm collection along the dorsal aspect of the foot with surrounding hyperemia. Complex hematoma or abscess are in the differential. Query any blood thinner use. If the finding is not drainable and persists despite conservative management, mass will need to be excluded.
--- NOTE | 2024-03-27 14:56 | P.PN ---
Subjective Progress Note Date: 03/27/24 this is a [id number] years old male with past medical history of hypertension, anxiety, alcohol abuse in many and depression Also is nicotine dependence Presents with signs and symptoms of alcohol withdrawal. His been treated with CIWA protocol and thiamine. Also he is on Librium patient thinks his withdrawal symptoms currently controlled however patient required several doses of treatment earlier through the day he wanted to leave AMA because he doesn't like the food and he does not like telemetry electrodes. This been addressed and I talked to the patient with benefits and risks of leaving AMA and he verbalized understanding and acceptance and he agrees to stay in the hospital for now however he declines telemetry he has some swelling in his right foot with a dry closed and healing ulcer on the top of it. Looks little hormone right compared to the other side Patient also has been complaining of from back pain and he has MRI report from outside the hospital Him review the report with him which basically shows degenerative disease and disc herniation and currently patient denies pain. Patient agrees with the current treatment Patient denies chest pain or dyspnea. No other complaints. Vitals stable and patient is afebrile CBC, BMP liver examined and urine analysis were reviewed and were remarkable CT of the brain is negative for acute process. EKG shows sinus rhythm at 83 with right bundle branch block chest x-rays negative for acute infiltrate or CHF, reviewed myself and agree 03/26/2024 Patient is evaluated in follow-up in the medical floor. He does not feel like he is withdrawing at this time he is continued on IV Ativan as well as Librium as needed. Patient's main complaint is the bilateral upper extremity and lower extremity numbness weakness as well as complaints of feeling numb in his buttock region. Patient had a cervical and lumbar MRI completed outpatient back in January 2024 has not been back to his PCP to review the findings for further recommendations. Reports reviewed and patient does have evidence of stenosis as well as nerve impingement in multiple areas of the spine as well as degenerative disc disease and herniation. For this reason orthopedic spinal surgeon was consulted for further evaluation recommendations. 03/27/2024 Patient is evaluated in follow-up on medical floor. Patient is not having any withdrawal symptoms at this time. He was evaluated orthopedics recommending to see pain management services for his back pain. At this time he is continued on [place] 5 every 6 hours as well as IV push Toradol. Patient was also started on Cymbalta for neuropathic pain. Patient continues to have an area of soft tissue swelling on his right foot could be an area of hematoma and abscess is less likely at this time however he does continue on antibiotic therapy with oral Keflex which will be increased up to 4 times a day. Review of Systems Constitutional: Denied any fatigue denied any fever. Cardio vascular: denied any chest pain, palpitations Gastrointestinal: denied any nausea, vomiting, diarrhea Pulmonary: Denied any shortness of breath cough Neurologic denied any new focal deficits All inpatient medications were reviewed and appropriate changes in these medications as dictated in the interval history and assessment and plan. PHYSICAL EXAMINATION: GENERAL: The patient is alert and oriented x3, not in any acute distress. Well developed, well nourished. HEENT: Pupils are round and equally reacting to light. EOMI. No scleral icterus. No conjunctival pallor. Normocephalic, atraumatic. No pharyngeal erythema. No th yromegaly. CARDIOVASCULAR: S1 and S2 present. No murmurs, rubs, or gallops. PULMONARY: Chest is clear to auscultation, no wheezing or crackles. ABDOMEN: Soft, nontender, nondistended, normoactive bowel sounds. No palpable organomegaly. MUSCULOSKELETAL: No joint swelling or deformity. EXTREMITIES: No cyanosis, clubbing, or pedal edema. NEUROLOGICAL: Gross neurological examination did not reveal any focal deficits. SKIN: No rashes. Mild erythma dorsum of the right foot with 2 in area of soft tissue swelling. Assessment and plan Assessment Alcohol use disorders and alcohol withdrawal Right foot trauma with soft tissue swelling need to rule out underlying abscess with concern for cellulitis on the dorsum of the right foot. Chronic back pain secondary to degenerative disc disease and herniated disc with concern for nerve impingement Cerivalgia chronic lower back pain secondary to lumbar degenerative disease with disc protrusion and foraminal encroachment Anxiety and Depression without suicidal or homicidal ideation hypertension Chronic nicotine use GI prophylaxis with Pepcid DVT prophylaxis with heparin Plan: Continue on CIWA and Librium Continue gentle hydration On aspirin Start Keflex and ultrasound of the right foot done on a complex 5.3 cm col lection along the dorsal aspect of the foot with surrounding hyperemia. Complex hematoma versus abscess is in the differential. Recommend for evaluation by orthopedics if they are able to drain this. The [facility] has evaluate this patient regarding his back pain and felt that patient would benefit the most from conservative management and physical therapy at this time before exploring any surgical options. Patient will be evaluated with interventional pain management prior to discharge. Social work following pending rehab placement The impression and plan of care has been dictated by Jazmine Kinney, Nurse Practitioner as directed. Dr. Davon MD I have performed a history and physical examination and medical decision making of this patient, discussed the same with the dictator, and agree with the dictators assessment and plan as written, documented as a scribe. Based on total visit time, I have performed more than 50% of this visit. Objective - Vital Signs Vital signs: Vital Signs Temp 97.6 F 03/27/24 07:42 Pulse 75 03/27/24 07:42 Resp 17 03/27/24 07:42 BP 144/88 03/27/24 07:42 Pulse Ox 98 03/27/24 07:42 FiO2 Intake & Output 03/26/24 03/27/24 03/27/24 18:59 06:59 18:59 Intake Total 400 Output Total 600 1200 Balance -200 -1200 Intake: Intake, IV Titration 400 Amount Sodium Chloride 0.9% 1, 400 000 ml @ 75 mls/hr IV . [id number] [facility] Rx#:[id number] Output: Urine 600 1200 Other: Voiding Method Toilet Toilet - Labs CBC & Chem 7: 03/25/24 07:07 03/25/24 07:07 Assessment and Plan Time with Patient: Less than 30
[2024-03-27] MEDS: CEPHALEXIN 500 MG CAP PO SCH (16:54)
--- NOTE | 2024-03-28 16:50 | P.PN ---
Subjective Progress Note Date: 03/28/24 this is a [id number] years old male with past medical history of hypertension, anxiety, alcohol abuse in many and depression Also is nicotine dependence Presents with signs and symptoms of alcohol withdrawal. His been treated with CIWA protocol and thiamine. Also he is on Librium patient thinks his withdrawal symptoms currently controlled however patient required several doses of treatment earlier through the day he wanted to leave AMA because he doesn't like the food and he does not like telemetry electrodes. This been addressed and I talked to the patient with benefits and risks of leaving AMA and he verbalized understanding and acceptance and he agrees to stay in the hospital for now however he declines telemetry he has some swelling in his right foot with a dry closed and healing ulcer on the top of it. Looks little hormone right compared to the other side Patient also has been complaining of from back pain and he has MRI report from outside the hospital Him review the report with him which basically shows degenerative disease and disc herniation and currently patient denies pain. Patient agrees with the current treatment Patient denies chest pain or dyspnea. No other complaints. Vitals stable and patient is afebrile CBC, BMP liver examined and urine analysis were reviewed and were remarkable CT of the brain is negative for acute process. EKG shows sinus rhythm at 83 with right bundle branch block chest x-rays negative for acute infiltrate or CHF, reviewed myself and agree 03/26/2024 Patient is evaluated in follow-up in the medical floor. He does not feel like he is withdrawing at this time he is continued on IV Ativan as well as Librium as needed. Patient's main complaint is the bilateral upper extremity and lower extremity numbness weakness as well as complaints of feeling numb in his buttock region. Patient had a cervical and lumbar MRI completed outpatient back in January 2024 has not been back to his PCP to review the findings for further recommendations. Reports reviewed and patient does have evidence of stenosis as well as nerve impingement in multiple areas of the spine as well as degenerative disc disease and herniation. For this reason orthopedic spinal surgeon was consulted for further evaluation recommendations. 03/27/2024 Patient is evaluated in follow-up on medical floor. Patient is not having any withdrawal symptoms at this time. He was evaluated orthopedics recommending to see pain management services for his back pain. At this time he is continued on [place] 5 every 6 hours as well as IV push Toradol. Patient was also started on Cymbalta for neuropathic pain. Patient continues to have an area of soft tissue swelling on his right foot could be an area of hematoma and abscess is less likely at this time however he does continue on antibiotic therapy with oral Keflex which will be increased up to 4 times a day. 03/28/2024 Patient is evaluated today in follow-up on the medical floor not having any further episodes of alcohol withdrawal. He is currently pending evaluation by pain management services. He continues on Cymbalta at this time as well as Tylenol and [place] and IV Toradol. Patient continues with this soft tissue swelling to the dorsum of the right foot and we did ask for orthopedics to reevaluate and perform an I&D whether this is hematoma versus abscess patient continues to have significant pain to the right foot. He is instructed to elevate his foot and continue to ice it as needed until further evaluation he does continue on oral Keflex which has been increased up to 4 times a day. Review of Systems Constitutional: Denied any fatigue denied any fever. Cardio vascular: denied any chest pain, palpitations Gastrointestinal: denied any nausea, vomiting, diarrhea Pulmonary: Denied any shortness of breath cough Neurologic denied any new focal deficits All inpatient medications were reviewed and appropriate changes in these medications as dictated in the interval history and assessment and plan. PHYSICAL EXAMINATION: GENERAL: The patient is alert and oriented x3, not in any acute distress. Well developed, well nourished. HEENT: Pupils are round and equally reacting to light. EOMI. No scleral icterus. No conjunctival pallor. Normocephalic, atraumatic. No pharyngeal erythema. No thyromegaly. CARDIOVASCULAR: S1 and S2 present. No murmurs, rubs, or gallops. PULMONARY: Chest is clear to auscultation, no wheezing or crackles. ABDOMEN: Soft, nontender, nondistended, normoactive bowel sounds. No palpable organomegaly. MUSCULOSKELETAL: No joint swelling or deformity. EXTREMITIES: No cyanosis, clubbing, or pedal edema. NEUROLOGICAL: Gross neurological examination did not reveal any focal deficits. SKIN: No rashes. Mild erythma dorsum of the right foot with 2 in area of soft tissue swelling. Assessment and plan Assessment Alcohol use disorders and alcohol withdrawal Right foot trauma with soft tissue swelling need to rule out underlying abscess with concern for cellulitis on the dorsum of the right foot. Chronic back pain secondary to degenerative disc disease and herniated disc with concern for nerve impingement Cerivalgia chronic lower back pain secondary to lumbar degenerative disease with disc protrusion and foraminal encroachment Anxiety and Depression without suicidal or homicidal ideation hypertension Chronic nicotine use GI prophylaxis with Pepcid DVT prophylaxis with heparin Plan: Continue on CIWA and Librium Continue gentle hydration On aspirin Start Keflex and ultrasound of the right foot done on a complex 5.3 cm elsy ection along the dorsal aspect of the foot with surrounding hyperemia. Complex hematoma versus abscess is in the differential. Recommend for evaluation by orthopedics if they are able to drain this. The [facility] has evaluate this patient regarding his back pain and felt that patient would benefit the most from conservative management and physical therapy at this time before exploring any surgical options. Patient will be evaluated with interventional pain management prior to discharge. Social work following pending rehab placement The impression and plan of care has been dictated by Jazmine Kinney Nurse Practitioner as directed. Dr. Davon MD I have performed a history and physical examination and medical decision making of this patient, discussed the same with the dictator, and agree with the dictators assessment and plan as written, documented as a scribe. Based on total visit time, I have performed more than 50% of this visit. Objective - Vital Signs Vital signs: Vital Signs Temp 97.9 F 03/28/24 14:34 Pulse 59 L 03/28/24 14:34 Resp 16 03/28/24 14:34 BP 118/73 03/28/24 14:34 Pulse Ox 97 03/28/24 14:34 FiO2 Intake & Output 03/27/24 03/28/24 03/28/24 18:59 06:59 18:59 Intake Total 240 478 Balance 240 478 Intake: Oral 240 478 Other: Voiding Method Toilet Toilet Toilet # Voids 1 3 2 - Labs CBC & Chem 7: 03/25/24 07:07 03/25/24 07:07 Assessment and Plan Time with Patient: Less than 30
[2024-03-29] MEDS ORDERED: DULoxetine HCL 30 MG CAPSULE.DR PO ONE ×2 (00:01→00:02)
[2024-03-29] MEDS ORDERED: chlordiazePOXIDE 25 MG CAP ONE ×4 (00:01→20:54)
[2024-03-29] MEDS ORDERED: CEPHALEXIN 500 MG CAP ONE (00:02)
[2024-03-29 01:36] VITALS: RESP 16
[2024-03-29 07:30] VITALS: BP 119/73; PULSE 56; TEMP 97.5
[2024-03-29] MEDS ORDERED: HYDROcodone/APAP 5-325MG 1 EACH TAB ONE (11:18)
[2024-03-29] MEDS ORDERED: FOLIC ACID 1 MG TAB ONE (11:20)
[2024-03-29] MEDS ORDERED: THIAMINE 100 MG TAB ONE (11:20)
[2024-03-29] MEDS ORDERED: LORazepam 1 MG TAB ONE ×2 (15:17)
[2024-03-29] MEDS ORDERED: HYDROcodone/APAP 7.5-325MG 1 EACH TAB ONE ×2 (18:16)
[2024-03-29] MEDS ORDERED: HEPARIN SODIUM,PORCINE 5,000 UNIT/ML 1 ML VIAL ONE (20:39)
[2024-03-29] MEDS ORDERED: FAMOTIDINE 20 MG TAB ONE (20:39)
[2024-03-29] MEDS ORDERED: BACLOFEN 10 MG TAB ONE (20:39)
[2024-03-29] MEDS ORDERED: amLODIPine 10 MG TAB ONE (20:39)
[2024-03-30] MEDS ORDERED: HYDROcodone/APAP 7.5-325MG 1 EACH TAB ONE ×6 (00:36→12:29)
[2024-03-30] MEDS ORDERED: FAMOTIDINE 20 MG TAB ONE (08:46)
[2024-03-30] MEDS ORDERED: ASPIRIN 81 MG ONE (08:46)
[2024-03-30] MEDS ORDERED: HEPARIN SODIUM,PORCINE 5,000 UNIT/ML 1 ML VIAL ONE (08:46)
[2024-03-30] MEDS ORDERED: chlordiazePOXIDE 25 MG CAP ONE (08:48)
[2024-03-30] MEDS ORDERED: THIAMINE 100 MG TAB ONE (12:18)
[2024-03-30] MEDS ORDERED: FOLIC ACID 1 MG TAB ONE (12:18)
== END 2024-03-30 16:20 | disposition home or self-care (01) | DRG 775 ==
LOC: EC 02:43 → 6NMEDSUR 07:11 → OBSVTOIN 07:12 → 5NMEDONC 07:17 → 1SOBS 15:59 → 6NMEDSUR 03-27 17:44
PROVIDERS: ADMIT Hospitalist; ATTEND Hospitalist
DX: F10.231 Alcohol dependence with withdrawal delirium (principal); F10.229 Alcohol dependence with intoxication, unspecified; F17.200 Nicotine dependence, unspecified, uncomplicated; F31.30 Bipolar disorder, current episode depressed, mild or moderate severity, unspecified; F41.0 Panic disorder [episodic paroxysmal anxiety]; L02.611 Cutaneous abscess of right foot; G62.1 Alcoholic polyneuropathy; F60.9 Personality disorder, unspecified; G89.29 Other chronic pain; I10 Essential (primary) hypertension; I45.10 Unspecified right bundle-branch block; M48.02 Spinal stenosis, cervical region; M50.30 Other cervical disc degeneration, unspecified cervical region; M51.36 Other intervertebral disc degeneration, lumbar region; Z79.82 Long term (current) use of aspirin; Z86.16 Personal history of COVID-19; Z28.21 Immunization not carried out because of patient refusal; Z28.310 Unvaccinated for COVID-19; Z79.899 Other long term (current) drug therapy
CPT/HCPCS: 36415; 70450; 71046; 80048; 80053; 80320; 81003; 83605; 83735; 84484; 85025; 93005; 96361; 96372; 96374; 96375; 99285

== ENCOUNTER 2024-06-21 14:50 | Observation (INO) | payer OTHER ==
--- NOTE | 2024-06-21 15:38 | ED ---
Chest Pain HPI - General Source: patient, RN notes reviewed Mode of arrival: ambulatory Limitations: no limitations - History of Present Illness MD Complaint: chest pain Onset/Timin -: days(s) Onset: during rest Pain Location: left chest Pain Radiation: LUE, neck Quality: other ("Jabbing") Consistency: constant Improves With: nothing Context: other (Heavy EtOH use) Anginal Symptoms: nausea <Chandler Carlos - Last Filed: 06/21/24 15:35> - General Source: patient, RN notes reviewed, old records reviewed Mode of arrival: ambulatory Limitations: no limitations - History of Present Illness MD Complaint: chest pain -: days(s) Pain Location: left chest Pain Radiation: LUE, neck Severity: moderate Severity scale (1-10): 4 Consistency: constant Improves With: nothing Anginal Symptoms: nausea, diaphoresis, dyspnea, sense of impending doom Other Symptoms: palpitations Treatments Prior to Arrival: none <Jose Moy - Last Filed: 06/25/24 17:33> - General Chief Complaint: Chest Pain Stated Complaint: CHEST PAIN Time Seen by Provider: 06/21/24 15:20 - History of Present Illness Initial Comments: Quick note: This is a 58-year-old male with recent heavy EtOH use and history of fatty liver complaining of jabbing chest pain and shortness of breath starting this morning. Patient states pain radiates to his left jaw and neck. Patient also endorses intermittent right abdominal and flank pain and nausea. Patient denies significant cardiac history. Patient denies fever, chills, fatigue, body aches, vomiting, diarrhea, and dizziness, sweating, pallor. (Chandler Carlos) This is a 58-year-old male to the ER for evaluation of chest pain chest pain shortness of breath jaw neck chest pain back pain nausea vomiting no fevers (Jose Moy) - Related Data Home Medications Medication Instructions Recorded Confirmed Baclofen [Lioresal] 10 mg PO HS 03/22/24 06/22/24 Indomethacin [Indocin] 50 mg PO BID PRN 03/22/24 06/22/24 amLODIPine [Norvasc] 10 mg PO HS 03/22/24 06/22/24 HYDROcodone/APAP 10-325MG [[place] 1 tab PO TID PRN 06/22/24 06/22/24 10-325] Multivitamins, Thera [Multivitamin 1 tab PO DAILY 06/22/24 06/22/24 (formulary)] Previous Rx's Medication Instructions Recorded Pantoprazole [Protonix] 40 mg PO AC-BRKFST #30 tab 06/24/24 Thiamine [Vitamin B-1] 100 mg PO DAILY #30 tab 06/24/24 chlordiazePOXIDE HCl [Librium] 25 mg PO DIRECTED 6 Days #18 06/24/24 capsule Allergies Allergy/AdvReac Type Severity Reaction Status Date / Time allopurinol Allergy Severe Anaphylaxis Verified 06/22/24 09:38 azithromycin Allergy Anaphylaxis Verified 06/22/24 09:38 colchicine Allergy Rash/Hives Verified 06/22/24 09:38 erythromycin base Allergy Anaphylaxis Verified 06/22/24 09:38 [From Erythrocin] gabapentin Allergy Anaphylaxis Verified 06/22/24 09:38 gadopentetic acid Allergy Anaphylaxis Verified 06/22/24 09:38 Iodinated Contrast Media Allergy Rash/Hives Verified 06/22/24 09:38 mri dye Allergy Rash/Hives Uncoded 06/22/24 09:39 Review of Systems ROS Other: All systems not noted in ROS Statement are negative. <Chandler Carlos - Last Filed: 06/21/24 15:35> ROS Other: All systems not noted in ROS Statement are negative. <Jose Moy - Last Filed: 06/25/24 17:33> ROS Statement: Those systems with pertinent positive or pertinent negative responses have been documented in the HPI. Past Medical History Past Medical History: Hypertension Additional Past Medical History / Comment(s): anxiety, personality disorder, manic depression, etoh abuse, COVID 19 / drinks everyday 6-12 daily edibles 3 times week. History of Any Multi-Drug Resistant Organisms: None Reported Past Surgical History: No Surgical Hx Reported Additional Past Surgical History / Comment(s): tonsillectomy Past Anesthesia/Blood Transfusion Reactions: No Reported Reaction Additional Past Anesthesia/Blood Transfusion Reaction / Comment(s): no blood transfusion Past Psychological History: Anxiety, Depression, Panic Disorder Smoking Status: Former smoker Past Alcohol Use History: Abuse, Daily, Heavy Past Drug Use History: Marijuana - Past Family History Father Family Medical History: CVA/TIA, Myocardial Infarction ([place]) Mother Family Medical History: Thyroid Disorder <Chandler Carlos - Last Filed: 06/21/24 15:35> General Exam Limitations: no limitations <Chandler Carlos - Last Filed: 06/21/24 15:35> Limitations: no limitations, altered mental status General appearance: alert, in no apparent distress, appears intoxicated, anxious Head exam: Present: atraumatic, normocephalic, normal inspection Eye exam: Present: normal appearance, PERRL, EOMI. Absent: scleral icterus, conjunctival injection, periorbital swelling ENT exam: Present: normal exam, mucous membranes moist Neck exam: Present: normal inspection. Absent: tenderness, meningismus, lymphadenopathy Respiratory exam: Present: normal lung sounds bilaterally. Absent: respiratory distress, wheezes, rales, rhonchi, stridor Cardiovascular Exam: Present: regular rate, normal rhythm, normal heart sounds. Absent: systolic murmur, diastolic murmur, rubs, gallop, clicks GI/Abdominal exam: Present: soft, normal bowel sounds. Absent: distended, tenderness, guarding, rebound, rigid Extremities exam: Present: normal inspection, full ROM, normal capillary refill. Absent: tenderness, pedal edema, joint swelling, calf tenderness Back exam: Present: normal inspection Neurological exam: Present: alert, oriented X3, CN II-XII intact Psychiatric exam: Present: normal affect, normal mood Skin exam: Present: warm, dry, intact, normal color. Absent: rash <Jose Moy - Last Filed: 06/25/24 17:33> - General Exam Comments Initial Comments: Visual Physical Exam Vital signs reviewed General: Well-appearing, nontoxic, no acute distress. Head: Normocephalic, atraumatic Eyes: PERRLA, EOMI ENT: Airway patent Chest: Nonlabored breathing Skin: No visual rash, normal skin tone Neuro: Alert and oriented 3 Musculoskeletal: No gross abnormalities (Chandler Carlos) Course <Jose Moy - Last Filed: 06/25/24 17:33> Vital Signs 06/21/24 06/21/24 06/22/24 15:02 22:07 00:13 Temperature 98.4 F Pulse Rate 121 H 93 86 Respiratory 20 18 18 Rate Blood Pressure 187/109 163/99 159/90 O2 Sat by Pulse 99 98 96 Oximetry - Reevaluation(s) Reevaluation #1: Medical records reviewed (Jose Moy) Reevaluation #2: Patient symptoms improved (Jose Moy) Reevaluation #3: Patient informed of results questions answered (Jose Moy) Reevaluation #4: Was pt. sent in by a medical professional or institution (DEMETRIA Weinberg, STORAGE GARAGE ATTENDANT, urgent care, hospital, or [place] health care facility...) When possible be specific @ -no Did you speak to anyone other than the patient for history (EMS, parent, family, police, friend...)? What history was obtained from this source @ -no Did you review nursing and triage notes (agree or disagree)? Why? @ -agree Are old charts reviewed (outside hosp., previous admission, EMS record, old EKG, old radiological studies, urgent care reports/EKG's, [place] health [place] facility records)? Report findings @ -yes Differential Diagnosis (chest pain, altered mental status, abdominal pain women, abdominal pain men, vaginal bleeding, weakness, fever, dyspnea, syncope, headache, dizziness, GI bleed, back pain, seizure, CVA, palpatations, mental health, musculoskeletal)? @ -prior EKG interpreted by me (3pts min.). @ -yes X-rays interpreted by me (1pt min.). @ -yes negative for acute disease CT interpreted by me (1pt min.). @ -Yes negative for acute disease U/S interpreted by me (1pt. min.). @ -no What testing was considered but not performed or refused? (CT, X-rays, U/S, labs)? Why? @ -none What meds were considered but not given or refused? Why? @ -none Did you discuss the management of the patient with other professionals ( professionals i.e. DEMETRIA Weinberg, STORAGE GARAGE ATTENDANT, lab, RT, psych nurse, social staff worker, tipping machine operator automatic, teacher, labor relations officer, showcase trimmer)? Give summary @ -no Was smoking cessation discussed for >3mins.? @ -no Was critical care preformed (if so, how long)? @ -no Were there social determinants of health that impacted care today? How? (Homelessness, low income, unemployed, alcoholism, drug addiction, transportation, low edu. Level, literacy, decrease access to med. care, usp, rehab)? @ -none Was there de-escalation of care discussed even if they declined (Discuss DNR or withdrawal of care, Hospice)? DNR status @ -no What co-morbidities impacted this encounter? (DM, HTN, Smoking, COPD, CAD, Cancer, CVA, ARF, Chemo, Hep., AIDS, mental health diagnosis, sleep apnea, morbid obesity)? @ -none Was patient admitted / discharged? Hospital course, mention meds given and route, prescriptions, significant lab abnormalities, going to OR and other pertinent info. @ - 58 male to ER for evaluation going through alcohol withdrawal with acute psychosis and chest pain. Patient will be admitted for chest pain observation complicated by alcohol withdrawal Admitted Undiagnosed new problem with uncertain prognosis? @ -no Drug Therapy requiring intensive monitoring for toxicity (Heparin, Nitro, Insulin, Cardizem)? @ -no Were any procedures done? @ -no Diagnosis/symptom? @ -Chest pain complicated with DTs Acute, or Chronic, or Acute on Chronic? @ -Acute Uncomplicated (without systemic symptoms) or Complicated (systemic symptoms)? @ -Complicated Side effects of treatment? @ -no Exacerbation, Progression, or Severe Exacerbation? @ -exacerbation Poses a threat to life or bodily function? How? (Chest pain, [place], [place], pneumonia, PE, COPD, DKA, ARF, appy, cholecystitis, CVA, Diverticulitis, Homicidal, Suicida l, threat to staff... and all critical care pts) @ -yes with acute withdrawal syndromes, chest pain (Jose Moy) Reevaluation #5: Differential Chest Pain: Stable Angina, Unstable Angina, STEMI, NSTEMI Aortic Dissection, Pneumothorax, Musculoskeletal, Esophageal Spasm GERD, Cholecystitis, Pancreatitis, Zoster, this is not meant to be an all-inclusive list. (Jose Moy) - Consultations Consultation #1: Spoke with admitting physicians who agreed to admit this patient (Jose Moy) Chest Pain MDM <Chandler Carlos - Last Filed: 06/21/24 15:35> <Jose Moy - Last Filed: 06/25/24 17:33> - MDM I completed the quick note portion of this chart signed SHOSHANA Scanlon (Chandler Carlos) 58 male to ER for evaluation going through alcohol withdrawal with acute psychosis and chest pain. Patient will be admitted for chest pain observation complicated by alcohol withdrawal (Jose Moy) Disposition <Chandler Carlos - Last Filed: 06/21/24 15:35> Time of Disposition: 19:30 <Jose Moy - Last Filed: 06/25/24 17:33> Clinical Impression: Psychosis, Impending delirium tremens, Alcohol withdrawal, Dyspnea, Chest pain, Atypical chest pain Disposition: ADMITTED IP TO THIS HOSP Condition: Fair
[2024-06-21 16:15] LABS: Basophils % (A) 0 %; Eosinophils # (A) 0.1 k/uL (0-0.7); Eosinophils % (A) 1 %; HCT 50.5 % (39.0-53.0); HGB 17.2 gm/dL (13.0-17.5); Lymphocytes # (A) 0.9 k/uL (1.0-4.8); Lymphocytes % (A) 9 %; MCV 94.2 fL (80.0-100.0); Mean Platelet Volume 8.2; Monocytes # (A) 0.4 k/uL (0-1.0); Monocytes % (A) 4 %; Neutrophils # (A) 8.8 k/uL (1.3-7.7); Neutrophils % (A) 86 %; Platelet Count 154 k/uL (150-450); RBC 5.36 m/uL (4.30-5.90); RDW 12.6 % (11.5-15.5); WBC 10.3 k/uL (3.8-10.6)
[2024-06-21 16:23] LABS: INR 0.9 (<1.2); Prothrombin Time 9.9 sec (10.0-12.5)
--- NOTE | 2024-06-21 16:34 | XR ---
EXAMINATION TYPE: XR chest 2V DATE OF EXAM: 06/21/2024 4:31 PM COMPARISON: Chest radiographs from 03/22/2024 CLINICAL INDICATION: Male, 58 years old with history of Chest pain; [facility] TECHNIQUE: XR chest 2V Frontal and lateral views of the chest. FINDINGS: Lungs/Pleura: There is no evidence of pleural effusion, focal consolidation, or pneumothorax. Pulmonary vascularity: Unremarkable. Heart/mediastinum: Cardiomediastinal silhouette is unremarkable. Musculoskeletal: No acute osseous pathology. IMPRESSION: No acute cardiopulmonary disease/process. [facility], , 06/21/2024 4:32 PM
[2024-06-21 16:46] LABS: ALT 36 U/L (4-49); AST 67 U/L (17-59); African American GFR (CKD) >90 (>60 ml/min/1.73 sqM); Albumin 5.1 g/dL (3.5-5.0); Alkaline Phosphatase 105 U/L (38-126); Anion Gap 15 mmol/L; Blood Urea Nitrogen 9 mg/dL (9-20); Carbon Dioxide 22 mmol/L (22-30); Chloride 99 mmol/L (98-107); Glucose 90 mg/dL (74-99); Lipase 54 U/L (23-300); Non-African American GFR(CKD) >90 (>60 ml/min/1.73 sqM); Sodium 136 mmol/L (137-145); Total Bilirubin 1.2 mg/dL (0.2-1.3); Total Protein 7.9 g/dL (6.3-8.2)
--- NOTE | 2024-06-21 17:03 | CT ---
EXAMINATION TYPE: CT abdomen pelvis wo con DATE OF EXAM: 06/21/2024 4:37 PM COMPARISON: None. CLINICAL INDICATION: Male, 58 years old with history of Right abdominal/flank pain, history of fatty liver; Right abdominal/flank pain, history of fatty liver TECHNIQUE: Axial CT abdomen pelvis wo con;Sagittal and coronal reformats were created on a separate workstation. Contrast used: mL of , (none if empty) Oral contrast used: without Oral Contrast (none if empty) CT DLP: 775.2 mGycm, Automated exposure control for dose reduction was used. FINDINGS: LOWER CHEST: 7 mm left lower lobe pulmonary nodule. ABDOMEN LIVER: Unremarkable GALLBLADDER AND BILE DUCTS: Unremarkable. PANCREAS: Unremarkable. SPLEEN: Unremarkable. ADRENAL GLANDS: Unremarkable. KIDNEYS AND URETERS: No evidence of hydronephrosis or renal calculus. The ureters are unremarkable. PELVIS BLADDER: No evidence for wall thickening or mass given limitations of exam. REPRODUCTIVE: Prostate is enlarged in size measuring 5.7 cm in transverse dimension. ABDOMEN & PELVIS STOMACH AND BOWEL: No evidence of bowel obstruction. Large amount stool throughout the colon. The kelby endix is normal. PERITONEUM/RETROPERITONEUM: No evidence of pneumoperitoneum or free fluid. VASCULATURE: Mild atherosclerotic calcifications are present throughout the abdominal aorta and its b ranches. No evidence of aortic aneurysm. MUSCULOSKELETAL: No acute osseous abnormalities LYMPH NODES: No gross evidence for lymphadenopathy. SOFT TISSUE/ABDOMINAL WALL: Fat-containing umbilical hernia. IMPRESSION: 1. No evidence for acute abdominal process. There is a large amount stool throughout the colon. 2. No obstructive uropathy or renal contrast. 3. Normal-appearing appendix. 4. Left lower lobe 7 mm pulmonary nodule. Short-term follow-up in 6-12 months recommended to assure stability. 5. Prostatomegaly, correlate with serum PSA. [facility], , 06/21/2024 5:01 PM
[2024-06-21] MEDS ORDERED: NALOXONE 0.4 MG/ML 1 ML VIAL IV PRN (19:37)
[2024-06-21] MEDS ORDERED: LORazepam 2 MG/ML INJ IV PRN (19:37)
[2024-06-21] MEDS ORDERED: ONDANSETRON 4 MG/2 ML VIAL IVP PRN (19:37)
[2024-06-21] MEDS: SODIUM CHLORIDE 0.9% 1,000 ML IV SCH (21:30)
[2024-06-21] MEDS: LORazepam 1 MG TAB PO PRN (22:12)
[2024-06-22] MEDS: LORazepam 0.5 MG TAB PO PRN (01:08)
[2024-06-22] MEDS: LORazepam 1 MG TAB PO PRN ×2 (04:19→08:40)
[2024-06-22] MEDS: MORPHINE SULFATE 4 MG/ML SYRINGE IV PRN (05:46)
[2024-06-22] MEDS: PANTOPRAZOLE 40 MG/10 ML VIAL IV SCH (08:40)
[2024-06-22 08:42] LABS: Basophils # (A) 0.04 X 10*3/uL (0.00-0.10); Basophils % (A) 0.4 %; Eosinophils # (A) 0.08 X 10*3/uL (0.04-0.35); Eosinophils % (A) 0.9 %; HCT 46.6 % (39.6-50.0); HGB 16.3 g/dL (13.0-17.0); Lymphocytes # (A) 1.51 X 10*3/uL (0.90-5.00); Lymphocytes % (A) 16.9 %; MCH 32.7 pg (27.0-32.0); MCV 93.6 FL (80.0-97.0); Mean Platelet Volume 11.7 FL (9.5-12.2); Monocytes % (A) 8.9 %; NRBC Per 100 WBC 0 X 10*3/uL (0.00-0.01); Neutrophils # (A) 6.51 X 10*3/uL (1.80-7.70); Neutrophils % (A) 72.7 %; Platelet Count 129 X 10*3/uL (140-440); RBC 4.98 X 10*6/uL (4.40-5.60); RDW 12.9 % (11.5-14.5); WBC 8.96 X 10*3/uL (4.50-10.00)
[2024-06-22 08:47] LABS: BUN/Creat Ratio 16.86 Ratio (12.00-20.00); Blood Urea Nitrogen 11.8 mg/dL (9.0-27.0); Glucose 87 mg/dL (70-110)
[2024-06-22 08:48] LABS: ALT 32 U/L (10-49); AST 54 U/L (14-35); Albumin 4.3 g/dL (3.8-4.9); Albumin/Globulin Ratio 1.79 Ratio (1.60-3.17); Alkaline Phosphatase 96 U/L (41-126); Calcium 9.3 mg/dL (8.7-10.3); Chloride 101 mmol/L (96-109); Globulin 2.4 g/dL (1.6-3.3); Magnesium 2.1 mg/dL (1.5-2.4); Phosphorus 3.1 mg/dL (2.4-5.1); Potassium 3.7 mmol/L (3.5-5.5); Sodium 140 mmol/L (135-145); Total Bilirubin 0.9 mg/dL (0.3-1.2); Total Protein 6.7 g/dL (6.2-8.2)
[2024-06-22] MEDS ORDERED: ACETAMINOPHEN TAB 325 MG TAB PO PRN (09:57)
--- NOTE | 2024-06-22 10:01 | CA ---
Transthoracic Echo Report Name: Raymond Celestin Age: 58 Gender: M : 1965 Exam Date: 06/22/2024 09:00 Exam Location: [facility] Ht (in): 72 Wt (lb): 205 Ordering Physician: Penelope Dhillon Attending/Referring Phys: [id number], Jacquie English Division Chair Lily Cee RDCS Procedure CPT: Indications: CP Cardiac Hx: Technical Quality: Good Contrast 1: Total Dose (mL): Contrast 2: Total Dose (mL): MEASUREMENTS (Male / Female) Normal Values 2D ECHO LV Diastolic Diameter PLAX 5.1 cm 4.2 - 5.9 / 3.9 - 5.3 cm LV Systolic Diameter PLAX 3.0 cm IVS Diastolic Thickness 0.7 cm 0.6 - 1.0 / 0.6 - 0.9 cm LVPW Diastolic Thickness 0.9 cm 0.6 - 1.0 / 0.6 - 0.9 cm LV Relative Wall Thickness 0.3 LVOT Diameter 2.5 cm LV Diastolic Volume MOD BP 118.7 cm??? 67 - 155 / 56 - 104 cm??? LV Systolic Volume MOD BP 48.3 cm??? 22 - 58 / 19 - 49 cm??? LV Ejection Fraction MOD BP 59.3 % >= 55 % LV Cardiac Index MOD BP 2413.8 cm???/min???m??? LV Diastolic Volume MOD 4C 132.1 cm??? LV Systolic Volume MOD 4C 53.1 cm??? LV Ejection Fraction MOD 4C 59.8 % LV Cardiac Index MOD 4C 2705.2 cm???/min???m??? LV Diastolic Length 4C 8.8 cm LV Systolic Length 4C 7.1 cm LV Diastolic Volume MOD 2C 106.5 cm??? LV Systolic Volume MOD 2C 43.0 cm??? LV Ejection Fraction MOD 2C 59.6 % LV Cardiac Index MOD 2C 2173.3 cm???/min???m??? LV Diastolic Length 2C 8.9 cm LV Systolic Length 2C 6.9 cm LA Volume 56.4 cm??? 18 - 58 / 22 - 52 cm??? LA Volume Index 25.8 cm???/m??? 16 - 28 cm???/m??? Ascending Aorta Diameter 3.8 cm DOPPLER AV Peak Velocity 155.2 cm/s AV Peak Gradient 9.6 mmHg AV Mean Velocity 108.9 cm/s AV Mean Gradient 5.3 mmHg AV Velocity Time Integral 27.6 cm LVOT Peak Velocity 124.5 cm/s LVOT Peak Gradient 6.2 mmHg LVOT Velocity Time Integral 21.6 cm LVOT Stroke Volume 107.0 cm??? LVOT Stroke Volume Index 49.7 ml/m??? LVOT Cardiac Index 3666.9 cm???/min???m??? AV Area Cont Eq vti 3.9 cm??? AV Area Cont Eq pk 4.0 cm??? MV Area PHT 3.4 cm??? Mitral E Point Velocity 54.2 cm/s Mitral A Point Velocity 67.7 cm/s Mitral E to A Ratio 0.8 MV Deceleration Time 225.1 ms TR Peak Velocity 227.6 cm/s TR Peak Gradient 20.7 mmHg Right Atrial Pressure 5.0 mmHg Pulmonary Artery Systolic Pressu 25.7 mmHg Right Ventricular Systolic Press 25.7 mmHg PV Peak Velocity 89.6 cm/s PV Peak Gradient 3.2 mmHg FINDINGS Left Ventricle Left ventricular ejection fraction is estimated at 55-60 %. Left ventricular cavity size normal. Left ventricular wall thickness normal. No obvious regional wall motion abnormalities. Right Ventricle Normal right ventricular size and function. Right ventricular systolic pressure within normal limits. Right Atrium Normal right atrial size. Left Atrium Normal left atrial size. Mitral Valve Structurally normal mitral valve. No evidence for mitral valve prolapse. No mitral stenosis. Trace mitral regurgitation. Aortic Valve Trileaflet aortic valve. No aortic valve stenosis or regurgitation. Tricuspid Valve Structurally normal tricuspid valve. No tricuspid stenosis. Trace tricuspid regurgitation. Pulmonic Valve Pulmonic valve not well visualized. No pulmonic stenosis. Trace pulmonic regurgitation. Pericardium Trace anterior pericardial effusion. Aorta Normal size aortic root and proximal ascending aorta. CONCLUSIONS Normal LV function Previewed by: Dr. Ricky Dominguez MD (Electronically Signed) Final Date: 22 June 2024 10:00
--- NOTE | 2024-06-22 10:04 | P.CRDCN ---
History of Present Illness Consult date: 06/22/24 Consult reason: chest pain History of present illness: This is a 58-year-old male patient of Dr. Izabela Dominguez with past medical history of hypertension. We have been asked to evaluate the patient for chest pain. Patient states that he developed midsternal chest pain which she has never had before. He states he has been taking all of his medications as directed. He states his blood pressure was high at home 189/105. He denies any previous hi story of coronary artery disease and has never had a cardiac catheterization or stent. Regarding alcohol abuse, patient states he has been on a binge for the last couple of weeks. Blood pressure 119/69, heart rate 84, pulse ox 90% on room air. EKG: Sinus rhythm with no acute ST changes Chest x-ray: No acute process. CT of the abdomen pelvis revealed no acute abdominal process. No obstructive u ropathy. 7 mm pulmonary nodule. Prostatomegaly. Echocardiogram reveals normal LV function. Laboratory studies: Platelet count 129, WBC 8.9, hemoglobin 16.3. Electrolytes within normal limits. Creatinine 0.7. Troponin negative x 3. AST 54. Home cardiac medications: Amlodipine 10 mg at bedtime. Treadmill exercise stress test performed in the office on 12/16/2023 revealed poor exercise tolerance, no symptoms typical of angina, no dysrhythmias, nondiagnostic secondary to inadequate chronotropic response. As patient only walked for 12 seconds. Review Of Systems: At the time of my exam: CONSTITUTIONAL: Denies fever or chills. HEENT: Denies blurred vision, vision changes, or eye pain. Denies hemoptysis CARDIOVASCULAR: Denies chest pain. Denies orthopnea. Denies PND. Denies palpitations RESPIRATORY: Denies shortness of breath. GASTROINTESTINAL: Denies abdominal pain. Denies nausea or vomiting. HEMATOLOGIC: Denies bleeding disorders. GENITOURINARY: Denies any blood in urine. SKIN: Denies puritis. Denies rash. Physical examination: Gen: This is [ ] VS: reviewed HEENT: Head is atraumatic, normocephalic. Pupils equal, round. Sclerae is anicteric. NECK: Supple. No JVD. LUNGS: Clear to auscultation. No wheezes or rhonchi. No intercostal retractions. HEART: Regular rate and rhythm. No murmur. ABDOMEN: Soft No tenderness. EXTREMITIES: No pedal edema. No calf tenderness. NEUROLOGICAL: Patient is awake, alert and oriented x3. Assessment: Atypical chest pain, acute coronary syndrome ruled out Alcohol intoxication with possible withdrawal Hypertension Plan: Resume patient's home cardiac medications Patient is cleared for discharge and may follow-up for outpatient dobutamine stress echocardiogram at the hospital Patient may follow-up with Dr. Izabela Dominguez as an outpatient following the stress test Thank you kindly for this consultation. Nurse practitioner note has been reviewed, I agree with documented findings and plan of care. Patient was seen and examined. Past Medical History Past Medical History: Hypertension Additional Past Medical History / Comment(s): anxiety, personality disorder, manic depression, etoh abuse, COVID 19 / drinks everyday 6-12 daily. History of Any Multi-Drug Resistant Organisms: None Reported Past Surgical History: Tonsillectomy Additional Past Surgical History / Comment(s): tonsillectomy Past Anesthesia/Blood Transfusion Reactions: No Reported Reaction Additional Past Anesthesia/Blood Transfusion Reaction / Comment(s): no blood transfusion Past Psychological History: Anxiety, Depression, Panic Disorder Additional Psychological History / Comment(s): personality disorder Smoking Status: Former smoker Past Alcohol Use History: Abuse, Daily, Heavy Additional Past Alcohol Use History / Comment(s): heavily drinking since age 10, with a 7 year sober period, from [id number], now drinks 12-20 white claws daily. x-drug use: every kind of drug per patient- been clean for 10 years. Date of Last drink: "yesterday morning" 06/21/2024 Past Drug Use History: Marijuana Additional Drug Use History / Comment(s): edibles "only randomly" - Past Family History Father Family Medical History: CVA/TIA, Myocardial Infarction ([place]) Mother Family Medical History: Thyroid Disorder Medications and Allergies Home Medications Medication Instructions Recorded Confirmed Type Baclofen [Lioresal] 10 mg PO HS 03/22/24 06/22/24 History Indomethacin [Indocin] 50 mg PO BID PRN 03/22/24 06/22/24 History amLODIPine [Norvasc] 10 mg PO HS 03/22/24 06/22/24 History HYDROcodone/APAP 10-325MG [[place] 1 tab PO TID PRN 06/22/24 06/22/24 History 10-325] Multivitamins, Thera [Multivitamin 1 tab PO DAILY 06/22/24 06/22/24 History (formulary)] Allergies Allergy/AdvReac Type Severity Reaction Status Date / Time allopurinol Allergy Severe Anaphylaxis Verified 06/22/24 09:38 azithromycin Allergy Anaphylaxis Verified 06/22/24 09:38 colchicine Allergy Rash/Hives Verified 06/22/24 09:38 erythromycin base Allergy Anaphylaxis Verified 06/22/24 09:38 [From Erythrocin] gabapentin Allergy Anaphylaxis Verified 06/22/24 09:38 gadopentetic acid Allergy Anaphylaxis Verified 06/22/24 09:38 Iodinated Contrast Media Allergy Rash/Hives Verified 06/22/24 09:38 mri dye Allergy Rash/Hives Uncoded 06/22/24 09:39 Physical Exam Vitals: Vital Signs Temp Pulse Pulse Resp BP BP Pulse Ox 06/22/24 04:18 97.8 F 90 20 156/84 100 06/22/24 00:59 98.3 F 87 18 160/93 100 06/22/24 00:13 86 18 159/90 96 06/21/24 22:07 93 18 163/99 98 06/21/24 15:02 98.4 F 121 H 20 187/109 99 Intake and Output 06/21/24 06/22/24 06/22/24 22:59 06:59 14:59 Intake Total 0 Balance 0 Intake: Oral 0 Other: # Voids 2 Weight 92.986 kg 92.986 kg Results 06/22/24 04:17 06/22/24 04:17 Cardiac Enzymes 06/21/24 06/21/24 06/21/24 Range/Units 16:00 16:00 21:28 AST 67 H (17-59) U/L Troponin I <0.012 <0.012 (0.000-0.034) ng/mL 06/22/24 Range/Units 00:50 AST (17-59) U/L Troponin I <0.012 (0.000-0.034) ng/mL Coagulation 06/21/24 Range/Units 16:00 PT 9.9 L (10.0-12.5) sec APTT 25.0 (22.0-30.0) sec CBC 06/21/24 Range/Units 16:00 WBC 10.3 (3.8-10.6) k/uL RBC 5.36 (4.30-5.90) m/uL Hgb 17.2 (13.0-17.5) gm/dL Hct 50.5 (39.0-53.0) % Plt Count 154 (150-450) k/uL Comprehensive Metabolic Panel 06/21/24 Range/Units 16:00 Sodium 136 L (137-145) mmol/L Potassium 4.0 (3.5-5.1) mmol/L Chloride 99 (98-107) mmol/L Carbon Dioxide 22 (22-30) mmol/L BUN 9 (9-20) mg/dL Creatinine 0.60 L (0.66-1.25) mg/dL Glucose 90 (74-99) mg/dL Calcium 10.0 (8.4-10.2) mg/dL AST 67 H (17-59) U/L ALT 36 (4-49) U/L Alkaline Phosphatase 105 (38-126) U/L Total Protein 7.9 (6.3-8.2) g/dL Albumin 5.1 H (3.5-5.0) g/dL Current Medications Generic Name Dose Route Start Last Admin Trade Name Freq PRN Reason Stop Dose Admin Diazepam 5 mg 06/21/24 19:37 Diazepam 5 Mg/Ml 2 Ml Inj IVP Q6H PRN Seizures Sodium Chloride 1,000 mls @ 130 mls/hr 06/21/24 19:45 06/22/24 05:52 Saline 0.9% IV 130 mls/hr .[id number] CHANDAN Administration Lorazepam 2 mg 06/21/24 19:37 Lorazepam 1 Mg Tab PO Q3HR PRN Ciwa 8 To 9 Lorazepam 2 mg 06/21/24 19:37 06/22/24 04:19 Lorazepam 1 Mg Tab PO 2 mg Q2HR PRN Administration Ciwa 10 or greater Lorazepam 1 mg 06/21/24 19:37 06/21/24 22:12 Lorazepam 1 Mg Tab PO 1 mg Q4HR PRN Administration Ciwa 6 To 7 Lorazepam 0.5 mg 06/21/24 19:37 06/22/24 01:08 Lorazepam 0.5 Mg Tab PO 0.5 mg Q4HR PRN Administration Ciwa 4 To 5 Lorazepam 2 mg 06/21/24 19:37 Lorazepam 2 Mg/Ml Inj IV 06/23/24 19:38 Q10M PRN CIWA 16 or higher Lorazepam 1 mg 06/21/24 19:37 Lorazepam 2 Mg/Ml Inj IV Q2HR PRN CIWA 8 or 9 Lorazepam 1 mg 06/21/24 19:37 Lorazepam 2 Mg/Ml Inj IV Q1HR PRN CIWA 10 to 15 Morphine Sulfate 4 mg 06/21/24 19:37 06/22/24 05:46 Morphine Sulfate 4 Mg/Ml Syringe IV 4 mg Q4HR PRN Administration Severe Pain (Scale 7 to 10) Naloxone HCl 0.2 mg 06/21/24 19:37 Naloxone 0.4 Mg/Ml 1 Ml Vial IV Q2M PRN Opioid Reversal Ondansetron HCl 4 mg 06/21/24 19:37 Ondansetron 4 Mg/2 Ml Vial IVP Q8HR PRN Nausea And Vomiting Pantoprazole Sodium 40 mg 06/22/24 09:00 Pantoprazole 40 Mg/10 Ml Vial IV DAILY CHANDAN Intake and Output 06/21/24 06/22/24 06/22/24 22:59 06:59 14:59 Intake Total 0 Balance 0 Intake: Oral 0 Other: # Voids 2 Weight 92.986 kg 92.986 kg 06/21/24 16:00 06/21/24 16:00
[2024-06-22] MEDS: SODIUM CHLORIDE 0.9% 1,000 ML IV SCH (11:19)
[2024-06-22] MEDS: polyethylene glycoL 3350 17 GM POWD.PACK PO SCH (11:19)
[2024-06-22] MEDS: HYDROcodone/APAP 10-325MG 1 EACH TAB PO PRN (13:38)
[2024-06-22] MEDS: LORazepam 2 MG/ML INJ IV PRN (14:29)
--- NOTE | 2024-06-22 15:27 | P.HPIM ---
History of Present Illness H&P Date: 06/22/24 This is a pleasant 58 years old male with past medical history of hypertension, anxiety, alcohol abuse, and depression. He reports he is no longer smoking. Initially comes in with complaints of left sided chest pressure over the left chest wall felt like a throbbing sensation. Patient had no associated symptoms like shortness of breath no dizziness or lightheadedness no nausea vomiting or diarrhea. At this time the chest pain is currently gone he was admitted to the hospital with a cardiology consultation, Echocardiogram is ordered and pending. Patient also reports drinking 15 + white claws per day and having significant symptoms of alcohol withdrawal. His been treated with CIWA protocol and thiamine. Also he is on Librium. Pelvis CT was completed revealing no evidence for acute abdominal process there is a large amount of stool throughout the colon no obstructive uropathy or renal contrast. A normal-appearing appendix. Left lower lobe 7 mm pulmonary nodule recommending short-term follow-up in the next 6 to 12 months to ensure stability. Prostatomegaly would correlate with serum PSA. His blood count is essentially unremarkable open 136, BUN of 9 creatinine 0.60 AST of 67 ALT of 36 troponin level has been negative x 3. REVIEW OF SYSTEMS: CONSTITUTIONAL: No fever, no malaise, no fatigue. HEENT: No recent visual problems or hearing problems. Denied any sore throat. CARDIOVASCULAR: No chest pain, orthopnea, PND, no palpitations, no syncope. PULMONARY: No shortness of breath, no cough, no hemoptysis. GASTROINTESTINAL: No diarrhea, no nausea, no vomiting, no abdominal pain. NEUROLOGICAL: No headaches, no weakness, no numbness. HEMATOLOGICAL: Denies any bleeding or petechiae. GENITOURINARY: Denies any burning micturition, frequency, or urgency. MUSCULOSKELETAL/RHEUMATOLOGICAL: Denies any joint pain, swelling, or any muscle pain. ENDOCRINE: Denies any polyuria or polydipsia. The rest of the 14-point review of systems is negative. PHYSICAL EXAMINATION: GENERAL: The patient is alert and oriented x3, not in any acute distress. Well developed, well nourished. HEENT: Pupils are round and equally reacting to light. EOMI. No scleral icterus. No conjunctival pallor. Normocephalic, atraumatic. No pharyngeal erythema. No thyromegaly. CARDIOVASCULAR: S1 and S2 present. No murmurs, rubs, or gallops. PULMONARY: Chest is clear to auscultation, no wheezing or crackles. ABDOMEN: Soft, nontender, nondistended, normoactive bowel sounds. No palpable organomegaly. MUSCULOSKELETAL: No joint swelling or deformity. EXTREMITIES: No cyanosis, clubbing, or pedal edema. NEUROLOGICAL: Gross neurological examination did not reveal any focal deficits. SKIN: No rashes. Assessment and plan Alcohol use disorders and alcohol withdrawal Chest pain, atypical Chronic back pain secondary to degenerative disc disease and herniated disc with concern for nerve impingement Cerivalgia chronic lower back pain secondary to lumbar degenerative disease with disc protrusion and foraminal encroachment Anxiety and Depression hypertension Chronic nicotine use GI prophylaxis: Protonix DVT prophylaxis: Lovenox Full Code Plan Cardiology consultation, pending echocardiogram Chest pain is likely gastritis from alcohol use ACS has been ruled out Continue IV ativan CIWA and add scheduled librium Thiamine supplementation Continue normal saline Monitor electrolytes Due to suspected withdrawal patient will require greater than 2 nights of inpatient hospital stay and will be made inpatient. He has been upgraded from the general medical floor to 3 south secondary to elevated CIWA levels. The impression and plan of care has been dictated by Nurse Deb Pr actitioner as directed. Dr. Davon MD I have performed a history and physical examination and medical decision making of this patient, discussed the same with the dictator, and agree with the dicta tors assessment and plan as written, documented as a scribe. Based on total visit time, I have performed more than 50% of this visit. Past Medical History Past Medical History: Hypertension Additional Past Medical History / Comment(s): anxiety, personality disorder, manic depression, etoh abuse, COVID 19 4/21 drinks everyday 6-12 daily. History of Any Multi-Drug Resistant Organisms: None Reported Past Surgical History: Tonsillectomy Additional Past Surgical History / Comment(s): tonsillectomy Past Anesthesia/Blood Transfusion Reactions: No Reported Reaction Additional Past Anesthesia/Blood Transfusion Reaction / Comment(s): no blood transfusion Past Psychological History: Anxiety, Depression, Panic Disorder Additional Psychological History / Comment(s): personality disorder Smoking Status: Former smoker Past Alcohol Use History: Abuse, Daily, Heavy Additional Past Alcohol Use History / Comment(s): heavily drinking since age 10, with a 7 year sober period, from [id number], now drinks 12-20 white claws daily. x-drug use: every kind of drug per patient- been clean for 10 years. Date of Last drink: "yesterday morning" 06/21/2024 Past Drug Use History: Marijuana Additional Drug Use History / Comment(s): edibles "only randomly" - Past Family History Father Family Medical History: CVA/TIA, Myocardial Infarction ([place]) Mother Family Medical History: Thyroid Disorder Medications and Allergies Home Medications Medication Instructions Recorded Confirmed Type Baclofen [Lioresal] 10 mg PO HS 03/22/24 06/22/24 History Indomethacin [Indocin] 50 mg PO BID PRN 03/22/24 06/22/24 History amLODIPine [Norvasc] 10 mg PO HS 03/22/24 06/22/24 History HYDROcodone/APAP 10-325MG [[place] 1 tab PO TID PRN 06/22/24 06/22/24 History 10-325] Multivitamins, Thera [Multivitamin 1 tab PO DAILY 06/22/24 06/22/24 History (formulary)] Allergies Allergy/AdvReac Type Severity Reaction Status Date / Time allopurinol Allergy Severe Anaphylaxis Verified 06/22/24 09:38 azithromycin Allergy Anaphylaxis Verified 06/22/24 09:38 colchicine Allergy Rash/Hives Verified 06/22/24 09:38 erythromycin base Allergy Anaphylaxis Verified 06/22/24 09:38 [From Erythrocin] gabapentin Allergy Anaphylaxis Verified 06/22/24 09:38 gadopentetic acid Allergy Anaphylaxis Verified 06/22/24 09:38 Iodinated Contrast Media Allergy Rash/Hives Verified 06/22/24 09:38 mri dye Allergy Rash/Hives Uncoded 06/22/24 09:39 Physical Exam Vitals: Vital Signs Temp Pulse Pulse Resp BP BP BP 06/22/24 07:00 97.8 F 84 16 119/69 06/22/24 04:18 97.8 F 90 20 156/84 06/22/24 00:59 98.3 F 87 18 160/93 06/22/24 00:13 86 18 159/90 06/21/24 22:07 93 18 163/99 06/21/24 15:02 98.4 F 121 H 20 187/109 Pulse Ox 06/22/24 07:00 98 06/22/24 04:18 100 06/22/24 00:59 100 06/22/24 00:13 96 06/21/24 22:07 98 06/21/24 15:02 99 Intake and Output 06/21/24 06/22/24 06/22/24 22:59 06:59 14:59 Intake Total 0 118 Balance 0 118 Intake: Oral 0 118 Other: # Voids 2 Weight 92.986 kg 92.986 kg Results CBC & Chem 7: 06/22/24 04:17 06/22/24 04:17 Labs: Abnormal Lab Results - Last 24 Hours (Table) 06/21/24 06/21/24 06/21/24 Range/Units 16:00 16:00 16:00 MCH (27.0-32.0) pg Plt Count (140-440) X 10*3/uL Neutrophils # 8.8 H (1.3-7.7) k/uL Lymphocytes # 0.9 L (1.0-4.8) k/uL PT 9.9 L (10.0-12.5) sec Sodium 136 L (137-145) mmol/L Anion Gap (4.00-12.00) mmol/L Creatinine 0.60 L (0.66-1.25) mg/dL AST 67 H (17-59) U/L Albumin 5.1 H (3.5-5.0) g/dL 06/22/24 06/22/24 Range/Units 04:17 04:17 MCH 32.7 H (27.0-32.0) pg Plt Count 129 L (140-440) X 10*3/uL Neutrophils # (1.3-7.7) k/uL Lymphocytes # (1.0-4.8) k/uL PT (10.0-12.5) sec Sodium (137-145) mmol/L Anion Gap 16.00 H (4.00-12.00) mmol/L Creatinine (0.66-1.25) mg/dL AST 54 H (17-59) U/L Albumin (3.5-5.0) g/dL Assessment and Plan Time with Patient: Greater than 30
[2024-06-22] MEDS: amLODIPine 10 MG TAB PO SCH (20:27)
[2024-06-23] MEDS: LORazepam 2 MG/ML INJ IV PRN (03:07)
[2024-06-23] MEDS: PANTOPRAZOLE 40 MG TABLET PO SCH (06:16)
[2024-06-23] MEDS: ENOXAPARIN 40 MG/0.4 ML SYRINGE SQ SCH (09:19)
[2024-06-23] MEDS: THIAMINE 100 MG TAB PO SCH (09:20)
[2024-06-23] MEDS: MULTIVITAMINS, THERA 1 EACH TAB PO SCH (09:24)
--- NOTE | 2024-06-23 10:43 | P.PN ---
Subjective HISTORY OF PRESENT ILLNESS: This is a 58-year-old male patient of Dr. Izabela Dominguez with past medical history of hypertension. We have been asked to evaluate the patient for chest pain. Patient states that he developed midsternal chest pain which she has never had before. He states he has been taking all of his medications as directed. He states his blood pressure was high at home 189/105. He denies any previous history of coronary artery disease and has never had a cardiac catheterization or stent. Regarding alcohol abuse, patient states he has been on a binge for the last couple of weeks. Blood pressure 119/69, heart rate 84, pulse ox 90% on room air. EKG: Sinus rhythm with no acute ST changes Chest x-ray: No acute process. CT of the abdomen pelvis revealed no acute abdominal process. No obstructive uropathy. 7 mm pulmonary nodule. Prostatomegaly. Echocardiogram reveals normal LV function. Laboratory studies: Platelet count 129, WBC 8.9, hemoglobin 16.3. Electrolytes within normal limits. Creatinine 0.7. Troponin negative x 3. AST 54. Home cardiac medications: Amlodipine 10 mg at bedtime. Treadmill exercise stress test performed in the office on 12/16/2023 revealed poor exercise tolerance, no symptoms typical of angina, no dysrhythmias, nondiagnostic secondary to inadequate chronotropic response. As patient only walked for 12 seconds. 06/23/2024 Patient examined this morning at the bedside. Patient currently denies chest pain or pressure. He denies shortness of breath. Patient has visible tremors at the time of examination and appears to be in alcohol withdrawal. PHYSICAL EXAM: VITAL SIGNS: Reviewed. GENERAL: Well-developed in no acute distress. NECK: Supple. No JVD or thyromegaly LUNGS: Respirations even and unlabored. Lungs essentially clear to auscultation bilaterally. HEART: Regular rate and rhythm. S1 and S2 heard. EXTREMITIES: Normal range of motion. No clubbing or cyanosis. Peripheral pulses intact. No lower extremity edema ASSESSMENT: Atypical chest pain, acute coronary syndrome ruled out Acute alcohol intoxication Acute alcohol withdrawal Hypertension PLAN: Patient currently in DTs from alcohol withdrawal. No further inpatient recommendations from a cardiac standpoint Patient may follow-up in the office postdischarge to undergo outpatient dobutamine stress test Patient to follow-up postdischarge with Dr. Dominguze We will sign off. Please reconsult if needed. Nurse practitioner note has been reviewed by physician. Signing provider agrees with the documented findings, assessment, and plan of care documented by LICENSING COORDINATOR as a scribe. Objective - Vital Signs Vital signs: Vital Signs Temp 98.6 F 06/23/24 08:00 Pulse 72 06/23/24 08:00 Resp 18 06/23/24 08:00 BP 142/81 06/23/24 08:00 Pulse Ox 96 06/23/24 08:00 FiO2 Intake & Output 06/22/24 06/23/24 06/23/24 18:59 06:59 18:59 Intake Total 598 500 Balance 598 500 Weight 92.6 kg Intake: Oral 598 500 Other: # Voids 1 1 - Labs CBC & Chem 7: 06/22/24 04:17 06/22/24 04:17
--- NOTE | 2024-06-23 21:13 | P.PN ---
Subjective Progress Note Date: 06/23/24 This is a pleasant 58 years old male with past medical history of hypertension, anxiety, alcohol abuse, and depression. He reports he is no longer smoking. Initially comes in with complaints of left sided chest pressure over the left chest wall felt like a throbbing sensation. Patient had no associated symptoms like shortness of breath no dizziness or lightheadedness no nausea vomiting or diarrhea. At this time the chest pain is currently gone he was admitted to the hospital with a cardiology consultation, Echocardiogram is ordered and pending. Patient also reports drinking 15 + white claws per day and having significant symptoms of alcohol withdrawal. His been treated with CIWA protocol and thia mine. Also he is on Librium. Pelvis CT was completed revealing no evidence for acute abdominal process there is a large amount of stool throughout the colon no obstructive uropathy or renal contrast. A normal-appearing appendix. Left lower lobe 7 mm pulmonary nodule recommending short-term follow-up in the next 6 to 12 months to ensure stability. Prostatomegaly would correlate with serum PSA. His blood count is essentially unremarkable open 136, BUN of 9 creatinine 0.60 AST of 67 ALT of 36 troponin level has been negative x 3. 06/23/2024 Patient is evaluated today in follow up on Has been moved to the stepdown unit. Continues to have significant tremors. Cardiology has recommended further work up on an outpatient basis. Echocardiogram shows normal LV systolic function. Continues on scheduled librium. Vital signs stable. REVIEW OF SYSTEMS: CONSTITUTIONAL: No fever, no malaise, no fatigue. HEENT: No recent visual problems or hearing problems. Denied any sore throat. CARDIOVASCULAR: No chest pain, orthopnea, PND, no palpitations, no syncope. PULMONARY: No shortness of breath, no cough, no hemoptysis. GASTROINTESTINAL: No diarrhea, no nausea, no vomiting, no abdominal pain. NEUROLOGICAL: No headaches, no weakness, no numbness. PHYSICAL EXAMINATION: GENERAL: The patient is alert and oriented x3, not in any acute distress. Well developed, well nourished. HEENT: Pupils are round and equally reacting to light. EOMI. No scleral icterus. No conjunctival pallor. Normocephalic, atraumatic. No pharyngeal erythema. No thyromegaly. CARDIOVASCULAR: S1 and S2 present. No murmurs, rubs, or gallops. PULMONARY: Chest is clear to auscultation, no wheezing or crackles. ABDOMEN: Soft, nontender, nondistended, normoactive bowel sounds. No palpable organomegaly. MUSCULOSKELETAL: No joint swelling or deformity. EXTREMITIES: No cyanosis, clubbing, or pedal edema. NEUROLOGICAL: Gross neurological examination did not reveal any focal deficits. SKIN: No rashes. Assessment and plan Alcohol use disorders and alcohol withdrawal Chest pain, atypical Chronic back pain secondary to degenerative disc disease and herniated disc with concern for nerve impingement Cerivalgia chronic lower back pain secondary to lumbar degenerative disease with disc protrusion and foraminal encroachment Anxiety and Depression hypertension Chronic nicotine use GI prophylaxis: Protonix DVT prophylaxis: Lovenox Full Code Plan Cardiology Recommending outpatient stress test and then follow up with Dr. Dominguez. Chest pain is likely gastritis from alcohol use ACS has been ruled out Continue IV ativan CIWA and add scheduled librium Thiamine supplementation Continue normal saline Monitor electrolytes Due to suspected withdrawal patient will require greater than 2 nights of inpatient hospital stay and will be made inpatient. He has been upgraded from the general medical floor to [address] [place] [address] secondary to elevated CIWA levels. Discharge home in the next 24 hours. The impression and plan of care has been dictated by Jazmine Kinney Nurse Practitioner as directed. Dr. Davon MD I have performed a history and physical examination and medical decision making of this patient, discussed the same with the dictator, and agree with the dictators assessment and plan as written, documented as a scribe. Based on total visit time, I have performed more than 50% of this visit. Objective - Vital Signs Vital signs: Vital Signs Temp 97.5 F L 06/23/24 16:00 Pulse 69 06/23/24 16:00 Resp 18 06/23/24 16:00 BP 127/80 06/23/24 16:00 Pulse Ox 95 06/23/24 16:00 FiO2 Intake & Output 06/23/24 06/23/24 06/24/24 06:59 18:59 06:59 Intake Total 500 180 Balance 500 180 Weight 92.6 kg Intake: Oral 500 180 Other: # Voids 1 2 - Labs CBC & Chem 7: 06/22/24 04:17 06/22/24 04:17 Assessment and Plan Time with Patient: Less than 30
[2024-06-24 07:46] VITALS: TEMP 98
[2024-06-24 11:17] VITALS: BP 125/78; PULSE 80; RESP 16
--- NOTE | 2024-06-24 14:16 | P.DS ---
Providers Date of admission: 06/21/24 19:40 Attending physician: Ester Sims Primary care physician: Emre Wyatt [facility] Course: Final Diagnosis Alcohol use disorders and alcohol withdrawal Chest pain, atypical Chronic back pain secondary to degenerative disc disease and herniated disc with concern for nerve impingement Cerivalgia chronic lower back pain secondary to lumbar degenerative disease with disc protrusion and foraminal encroachment Anxiety and Depression hypertension Chronic nicotine use Prostatomegaly follow up PSA outpatient Left lower lobe 7 mm pulmonary nodule follow up pulmonary outpatient Discharge Disposition Cleared for discharge home. Patient to continue oral librium taper. Advised to quit alcohol. Patient will be Scheduled for dobutamine stress echocardiogram as an outpatient at [facility], and then follow up with Dr Dominguez in the office. Patient to follow up with pulmonary for the nodule. Hospital Course This is a pleasant 58 years old male with past medical history of hypertension, anxiety, alcohol abuse, and depression. He reports he is no longer smoking. Initially comes in with complaints of left sided chest pressure over the left chest wall felt like a throbbing sensation. Patient had no associated symptoms like shortness of breath no dizziness or lightheadedness no nausea vomiting or diarrhea. At this time the chest pain is currently gone he was admitted to the hospital with a cardiology consultation, Echocardiogram is ordered and pending. Patient also reports drinking 15 + white claws per day and having significant symptoms of alcohol withdrawal. His been treated with CIWA protocol and thiamine. Also he is on Librium. Pelvis CT was completed revealing no evidence for acute abdominal process there is a large amount of stool throughout the colon no obstructive uropathy or renal contrast. A normal-appearing appendix. Left lower lobe 7 mm pulmonary nodule recommending short-term follow-up in the next 6 to 12 months to ensure stability. Prostatomegaly would correlate with serum PSA. His blood count is essentially unremarkable open 136, BUN of 9 creatinine 0.60 AST of 67 ALT of 36 troponin level has been negative x 3. Echocardiogram reveals normal LV function. Cardiology recommending outpatient stress test and follow-up in the office. He has been monitored on IV Ativan. He is evaluated today in the room alert oriented x 3. He will be discharged home on oral Librium taper. Please see medication reconciliation for a list of current medications. Thank you for allowing us to participate in the care of this patient. The impression and plan of care has been dictated by Jazmine Kinney, Nurse Practitioner as directed. Dr. Davon MD I have performed a history and physical examination and medical decision making of this patient, discussed the same with the dictator, and agree with the dictators assessment and plan as written, documented as a scribe. Based on total visit time, I have performed more than 50% of this visit. Patient Condition at Discharge: Fair Plan - Discharge Summary Discharge Rx Participant: No New Discharge Prescriptions: New Thiamine [Vitamin B-1] 100 mg PO DAILY #30 tab chlordiazePOXIDE HCl [Librium] 25 mg PO DIRECTED 6 Days #18 capsule Pantoprazole [Protonix] 40 mg PO AC-BRKFST #30 tab Continue Indomethacin [Indocin] 50 mg PO BID PRN PRN Reason: gout flare amLODIPine [Norvasc] 10 mg PO HS Baclofen [Lioresal] 10 mg PO HS Multivitamins, Thera [Multivitamin (formulary)] 1 tab PO DAILY HYDROcodone/APAP 10-325MG [Sharon 10-325] 1 tab PO TID PRN PRN Reason: Pain Discharge Medication List Baclofen [Lioresal] 10 mg PO HS 03/22/24 [History] Indomethacin [Indocin] 50 mg PO BID PRN 03/22/24 [History] amLODIPine [Norvasc] 10 mg PO HS 03/22/24 [History] HYDROcodone/APAP 10-325MG [Sharon 10-325] 1 tab PO TID PRN 06/22/24 [History] Multivitamins, Thera [Multivitamin (formulary)] 1 tab PO DAILY 06/22/24 [History] Pantoprazole [Protonix] 40 mg PO AC-BRKFST #30 tab 06/24/24 [Rx] Thiamine [Vitamin B-1] 100 mg PO DAILY #30 tab 06/24/24 [Rx] chlordiazePOXIDE HCl [Librium] 25 mg PO DIRECTED 6 Days #18 capsule 06/24/24 [Rx] Follow up Appointment(s)/Referral(s): Emre Wyatt [Primary Care Provider] - 1-2 days Ricky Dominguez MD [STAFF PHYSICIAN] - 3 Weeks Activity/Diet/Wound Care/Special Instructions: Schedule patient for dobutamine stress echocardiogram as an outpatient at [facility]. Discharge/Stand Alone Forms: AA Meetings [address] - [facility], AA Meetings [facility], Who Do I Call?, Community Resources, Outpatient Counseling, Inp Substance Abuse Facilities Discharge Disposition: HOME SELF-CARE
== END 2024-06-24 15:36 | disposition home or self-care (01) ==
LOC: EC 14:50 → 6NMEDSUR 19:39 → INTOOBSV 19:40 → OBSVTOIN 19:40 → 6NMEDSUR 22:12 → 3SCARD 06-22 17:15
PROVIDERS: ADMIT Hospitalist; ATTEND Hospitalist
DX: R07.89 Other chest pain (principal); F10.239 Alcohol dependence with withdrawal, unspecified; M51.26 Other intervertebral disc displacement, lumbar region; M51.369 Other intervertebral disc degeneration, lumbar region without mention of lumbar back pain or lower extremity pain; I10 Essential (primary) hypertension; F41.9 Anxiety disorder, unspecified; F31.9 Bipolar disorder, unspecified; R91.1 Solitary pulmonary nodule; N40.0 Benign prostatic hyperplasia without lower urinary tract symptoms; Z72.0 Tobacco use; Z86.16 Personal history of COVID-19; Z79.899 Other long term (current) drug therapy; Z88.1 Allergy status to other antibiotic agents; Z82.49 Family history of ischemic heart disease and other diseases of the circulatory system
CPT/HCPCS: 96374 ×2; 96375; 96376 ×2; 96372 ×2; 99285; 36415; 93005 ×2; 93306; 80053 ×2; 83605; 83690; 83735; 84100; 84484 ×2; 85025 ×2; 85610; 85730; 71046; 74176; G0378 ×4; J2060 ×3; J2270; J3360; J1650 ×2; J2470

== ENCOUNTER 2024-07-25 15:41 | Observation (INO) | payer OTHER ==
--- NOTE | 2024-07-25 15:51 | ED ---
General Adult HPI - General Source: patient Mode of arrival: ambulatory Limitations: no limitations <Stephanie Nuñez - Last Filed: 07/25/24 15:49> - General Source: RN notes reviewed, old records reviewed - History of Present Illness -: days(s) Severity scale (1-10): 3 Consistency: constant Improves with: none Worsens with: none Associated Symptoms: loss of appetite, nausea/vomiting, weakness Treatments Prior to Arrival: none <Jose Myo - Last Filed: 08/01/24 17:38> - General Stated complaint: suicidal/mental health Time Seen by Provider: 07/25/24 15:49 - History of Present Illness Initial comments: Quick note: 58-year-old male presents to the emergency department for mental health evaluation. He reports "I cannot do it anymore" he reports a history of chronic pain and takes hydrocodone 10 mg. (Stephanie Nuñez) This is a 58 male to the ER for evaluation patient presents for chronic pain need for psychiatric evaluation with significant alcohol intoxication, patient is suicidal not homicidal. Patient has no other complaints does take hydroc odone 10 mg daily having significant thoughts of hurting himself (Jose Moy) - Related Data Home Medications Medication Instructions Recorded Confirmed Baclofen [Lioresal] 10 mg PO HS 03/22/24 07/26/24 Indomethacin [Indocin] 50 mg PO BID PRN 03/22/24 07/26/24 amLODIPine [Norvasc] 10 mg PO HS 03/22/24 07/26/24 HYDROcodone/APAP 10-325MG [[place] 1 tab PO TID PRN 06/22/24 07/26/24 10-325] Multivitamins, Thera [Multivitamin 1 tab PO DAILY 06/22/24 07/26/24 (formulary)] Tamsulosin [Flomax] 0.4 mg PO DAILY 07/26/24 07/26/24 Previous Rx's Medication Instructions Recorded Pantoprazole [Protonix] 40 mg PO AC-BRKFST #30 tab 06/24/24 Thiamine [Vitamin B-1] 100 mg PO DAILY #30 tab 06/24/24 Folic Acid 1 mg PO DAILY #30 tab 07/30/24 Allergies Allergy/AdvReac Type Severity Reaction Status Date / Time allopurinol Allergy Severe Anaphylaxis Verified 07/26/24 08:10 azithromycin Allergy Anaphylaxis Verified 07/26/24 08:10 colchicine Allergy Rash/Hives Verified 07/26/24 08:10 erythromycin base Allergy Anaphylaxis Verified 07/26/24 08:10 [From Erythrocin] gabapentin Allergy Anaphylaxis Verified 07/26/24 08:10 gadopentetic acid Allergy Anaphylaxis Verified 07/26/24 08:10 Iodinated Contrast Media Allergy Rash/Hives Verified 07/26/24 08:10 mri dye Allergy Rash/Hives Uncoded 07/25/24 16:25 Review of Systems ROS Other: All systems not noted in ROS Statement are negative. <Stephanie Nuñez - Last Filed: 07/25/24 15:49> ROS Other: All systems not noted in ROS Statement are negative. <Jose Moy - Last Filed: 08/01/24 17:38> ROS Statement: Those systems with pertinent positive or pertinent negative responses have been documented in the HPI. Past Medical History Past Medical History: Hypertension Additional Past Medical History / Comment(s): anxiety, personality disorder, manic depression, etoh abuse, COVID 19 4/21 drinks everyday 6-12 daily. History of Any Multi-Drug Resistant Organisms: None Reported Past Surgical History: Tonsillectomy Additional Past Surgical History / Comment(s): tonsillectomy Past Anesthesia/Blood Transfusion Reactions: No Reported Reaction Additional Past Anesthesia/Blood Transfusion Reaction / Comment(s): no blood transfusion Past Psychological History: Anxiety, Depression, Panic Disorder Additional Psychological History / Comment(s): personality disorder Smoking Status: Former smoker Past Alcohol Use History: Abuse, Daily, Heavy Additional Past Alcohol Use History / Comment(s): heavily drinking since age 10, with a 7 year sober period, from [id number], now drinks 12-20 white claws daily. x-drug use: every kind of drug per patient- been clean for 10 years. Date of Last drink: "yesterday morning" 06/21/2024 Past Drug Use History: Marijuana Additional Drug Use History / Comment(s): edibles "only randomly" - Past Family History Father Family Medical History: CVA/TIA, Myocardial Infarction (MS) Mother Family Medical History: Thyroid Disorder <Stephanie Nuñez - Last Filed: 07/25/24 15:49> General Exam <Stephanie Nuñez - Last Filed: 07/25/24 15:49> Limitations: altered mental status General appearance: alert, in no apparent distress, anxious, in distress Head exam: Present: atraumatic, normocephalic, normal inspection Eye exam: Present: normal appearance, PERRL, EOMI. Absent: scleral icterus, conjunctival injection, periorbital swelling ENT exam: Present: normal exam, mucous membranes moist Neck exam: Present: normal inspection. Absent: tenderness, meningismus, lymphadenopathy Respiratory exam: Present: normal lung sounds bilaterally. Absent: respiratory distress, wheezes, rales, rhonchi, stridor Cardiovascular Exam: Present: regular rate, normal rhythm, normal heart sounds. Absent: systolic murmur, diastolic murmur, rubs, gallop, clicks GI/Abdominal exam: Present: soft, normal bowel sounds. Absent: distended, tenderness, guarding, rebound, rigid Extremities exam: Present: normal inspection, full ROM, normal capillary refill. Absent: tenderness, pedal edema, joint swelling, calf tenderness Back exam: Present: normal inspection Neurological exam: Present: alert, oriented X3, CN II-XII intact Psychiatric exam: Present: normal affect, normal mood Skin exam: Present: warm, dry, intact, normal color. Absent: rash <Jose Moy - Last Filed: 08/01/24 17:38> - General Exam Comments Initial Comments: Visual Physical Exam Vital signs reviewed General: Well-appearing, nontoxic, no acute distress. Head: Normocephalic, atraumatic Eyes: PERRLA, EOMI ENT: Airway patent Chest: Nonlabored breathing Skin: No visual rash, normal skin tone Neuro: Alert and oriented 3 Musculoskeletal: No gross abnormalities (Stephanie Nuñez) Course <Jose Moy - Last Filed: 08/01/24 17:38> Vital Signs 07/25/24 07/25/24 07/25/24 16:25 18:27 20:45 Temperature 98.5 F 98.5 F Pulse Rate 107 H 99 93 Respiratory 20 18 17 Rate Blood Pressure 149/89 134/81 131/78 O2 Sat by Pulse 97 95 95 Oximetry - Reevaluation(s) Reevaluation #1: 07/25/24 16:59 Medical records reviewed (Jose Moy) Reevaluation #2: 07/25/24 18:12 Patient symptoms mildly improved (Jose Moy) Reevaluation #3: 07/25/24 18:12 Patient informed of results questions answered (Jose Moy) Reevaluation #4: Was pt. sent in by a medical professional or institution (, PA, HAND TUBE WINDER, urgent care, hospital, or usp...) When possible be specific @ -no Did you speak to anyone other than the patient for history (EMS, parent, family, police, friend...)? What history was obtained from this source @ -no Did you review nursing and triage notes (agree or disagree)? Why? @ -agree Are old charts reviewed (outside hosp., previous admission, EMS record, old EKG, old radiological studies, urgent care reports/EKG's, usp records)? R eport findings @ -yes Differential Diagnosis (chest pain, altered mental status, abdominal pain women, abdominal pain men, vaginal bleeding, weakness, fever, dyspnea, syncope, headache, dizziness, GI bleed, back pain, seizure, CVA, palpatations, mental health, musculoskeletal)? @ -prior EKG interpreted by me (3pts min.). @ -no X-rays interpreted by me (1pt min.). @ -no CT interpreted by me (1pt min.). @ -no U/S interpreted by me (1pt. min.). @ -no What testing was considered but not performed or refused? (CT, X-rays, U/S, labs)? Why? @ -none What meds were considered but not given or refused? Why? @ -none Did you discuss the management of the patient with other professionals (chad marquez i.e. , [facility], HAND TUBE WINDER, lab, RT, psych nurse, administrator social welfare, apprentice painter neckties, teacher, chief knowledge officer, hospice case manager)? Give summary @ -no Was smoking cessation discussed for >3mins.? @ -no Was critical care preformed (if so, how long)? @ -no Were there social determinants of health that impacted care today? How? (Homelessness, low income, unemployed, alcoholism, drug addiction, transportation, low edu. Level, literacy, decrease access to med. care, snf, rehab)? @ -none Was there de-escalation of care discussed even if they declined (Discuss DNR or withdrawal of care, Hospice)? DNR status @ -no What co-morbidities impacted this encounter? (DM, HTN, Smoking, COPD, CAD, Cancer, CVA, ARF, Chemo, Hep., AIDS, mental health diagnosis, sleep apnea, morbid obesity)? @ -none Was patient admitted / discharged? Hospital course, mention meds given and route, prescriptions, significant lab abnormalities, going to OR and other pertinent info. @ - 58 male to ER for evaluation of significant alcohol on intoxication with alcohol withdrawal pending, history of alcohol abuse significant, history of marybel cide currently suicidal Admitted Undiagnosed new problem with uncertain prognosis? @ -no Drug Therapy requiring intensive monitoring for toxicity (Heparin, Nitro, Insulin, Cardizem)? @ -no Were any procedures done? @ -no Diagnosis/symptom? @ -Depression with alcohol intoxication severe withdrawal Acute, or Chronic, or Acute on Chronic? @ -Acute Uncomplicated (without systemic symptoms) or Complicated (systemic symptoms)? @ -Complicated Side effects of treatment? @ -no Exacerbation, Progression, or Severe Exacerbation? @ -exacerbation Poses a threat to life or bodily function? How? (Chest pain, USA, MS, pneumonia, PE, COPD, DKA, ARF, appy, cholecystitis, CVA, Diverticulitis, Homicidal, Suicidal, threat to staff... and all critical care pts) @ -no (Jose Moy) Reevaluation #5: Differential Mental Health Depression, anxiety, bipolar, psychosis, schizophrenia, borderline personality, situational depression, adjustment disorder, behavioral disorder, brain tumor, malingering, substance abuse, encephalopathy, medication reaction, dementia, hypothyroidism, degenerative neurologic disorder, lupus.... This is not meant to be all-inclusive list differential Weakness: Hypoglycemia, shock, sepsis, hyponatremia, anemia, infection, MS, ETOH, adverse medicine reaction, overdose, stroke, this is not meant to be an all-inclusive list. (Jose Moy) - Consultations Consultation #1: Spoke with [facility] who agrees to observe this patient (Jose Moy) Medical Decision Making <Stephanie Nuñez - Last Filed: 07/25/24 15:49> - Lab Data Result diagrams: 07/30/24 03:46 07/30/24 03:46 <Jose Moy - Last Filed: 08/01/24 17:38> - Medical Decision Making I preformed a quick note portion of this chart. Electronically signed Stephanie Nuñez PA-C (Stephanie Nuñez) 58 male to ER for evaluation of significant alcohol on intoxication with alcohol withdrawal pending, history of alcohol abuse significant, history of suicide currently suicidal (Jose Moy) - Lab Data Lab Results 07/25/24 07/25/24 07/25/24 Range/Units 17:18 17:18 17:18 WBC 6.0 (3.8-10.6) k/uL RBC 4.88 (4.30-5.90) m/uL Hgb 15.9 (13.0-17.5) gm/dL Hct 47.9 (39.0-53.0) % MCV 98.2 (80.0-100.0) fL MCH 32.5 (25.0-35.0) pg MCHC 33.2 (31.0-37.0) g/dL RDW 14.1 (11.5-15.5) % Plt Count 210 (150-450) k/uL MPV 7.4 Neutrophils % 60 % Lymphocytes % 28 % Monocytes % 7 % Eosinophils % 1 % Basophils % 1 % Neutrophils # 3.7 (1.3-7.7) k/uL Lymphocytes # 1.7 (1.0-4.8) k/uL Monocytes # 0.4 (0-1.0) k/uL Eosinophils # 0.1 (0-0.7) k/uL Basophils # 0.1 (0-0.2) k/uL PT 11.0 (10.0-12.5) sec INR 1.0 (<1.2) Sodium 141 (137-145) mmol/L Potassium 4.2 (3.5-5.1) mmol/L Chloride 101 (98-107) mmol/L Carbon Dioxide 27 (22-30) mmol/L Anion Gap 13 mmol/L BUN 8 L (9-20) mg/dL Creatinine 0.70 (0.66-1.25) mg/dL Est GFR (CKD-EPI)AfAm >90 (>60 ml/min/1.73 sqM) Est GFR (CKD-EPI)NonAf >90 (>60 ml/min/1.73 sqM) Glucose 96 (74-99) mg/dL Calcium 9.0 (8.4-10.2) mg/dL Phosphorus 4.2 (2.5-4.5) mg/dL Magnesium 2.2 (1.6-2.3) mg/dL Total Bilirubin 0.5 (0.2-1.3) mg/dL AST 89 H (17-59) U/L ALT 52 H (4-49) U/L Alkaline Phosphatase 105 (38-126) U/L Ammonia (<30) umol/L Total Protein 7.8 (6.3-8.2) g/dL Albumin 4.9 (3.5-5.0) g/dL Lipase 131 (23-300) U/L Salicylates <1.0 mg/dL Acetaminophen <10.0 ug/mL Serum Alcohol 186 mg/dL 07/25/24 Range/Units 17:18 WBC (3.8-10.6) k/uL RBC (4.30-5.90) m/uL Hgb (13.0-17.5) gm/dL Hct (39.0-53.0) % MCV (80.0-100.0) fL MCH (25.0-35.0) pg MCHC (31.0-37.0) g/dL RDW (11.5-15.5) % Plt Count (150-450) k/uL MPV Neutrophils % % Lymphocytes % % Monocytes % % Eosinophils % % Basophils % % Neutrophils # (1.3-7.7) k/uL Lymphocytes # (1.0-4.8) k/uL Monocytes # (0-1.0) k/uL Eosinophils # (0-0.7) k/uL Basophils # (0-0.2) k/uL PT (10.0-12.5) sec INR (<1.2) Sodium (137-145) mmol/L Potassium (3.5-5.1) mmol/L Chloride (98-107) mmol/L Carbon Dioxide (22-30) mmol/L Anion Gap mmol/L BUN (9-20) mg/dL Creatinine (0.66-1.25) mg/dL Est GFR (CKD-EPI)AfAm (>60 ml/min/1.73 sqM) Est GFR (CKD-EPI)NonAf (>60 ml/min/1.73 sqM) Glucose (74-99) mg/dL Calcium (8.4-10.2) mg/dL Phosphorus (2.5-4.5) mg/dL Magnesium (1.6-2.3) mg/dL Total Bilirubin (0.2-1.3) mg/dL AST (17-59) U/L ALT (4-49) U/L Alkaline Phosphatase (38-126) U/L Ammonia 17 (<30) umol/L Total Protein (6.3-8.2) g/dL Albumin (3.5-5.0) g/dL Lipase (23-300) U/L Salicylates mg/dL Acetaminophen ug/mL Serum Alcohol mg/dL Disposition <Stephanie Nuñez - Last Filed: 07/25/24 15:49> Is patient prescribed a controlled substance at d/c from ED?: No Time of Disposition: 18:00 <Jose Moy - Last Filed: 08/01/24 17:38> Clinical Impression: Alcohol use disorder, Suicidal ideation, Alcohol intoxication, Alcohol withdrawal Disposition: ADMITTED IP TO THIS HOSP Condition: Fair
[2024-07-25] MEDS: ONDANSETRON 4 MG/2 ML VIAL IVP STA (17:13)
[2024-07-25] MEDS: SODIUM CHLORIDE 0.9% 1,000 ML IV STA ×2 (17:13→18:31)
[2024-07-25] MEDS: PANTOPRAZOLE 40 MG/10 ML VIAL IVP STA (17:14)
[2024-07-25] MEDS: LORazepam 2 MG/ML INJ IV STA (17:14)
[2024-07-25 17:25] LABS: Basophils # (A) 0.1 k/uL (0-0.2); Basophils % (A) 1 %; Eosinophils # (A) 0.1 k/uL (0-0.7); Eosinophils % (A) 1 %; HCT 47.9 % (39.0-53.0); HGB 15.9 gm/dL (13.0-17.5); Lymphocytes # (A) 1.7 k/uL (1.0-4.8); Lymphocytes % (A) 28 %; MCH 32.5 pg (25.0-35.0); MCHC 33.2 g/dL (31.0-37.0); MCV 98.2 fL (80.0-100.0); Mean Platelet Volume 7.4; Monocytes # (A) 0.4 k/uL (0-1.0); Monocytes % (A) 7 %; Neutrophils # (A) 3.7 k/uL (1.3-7.7); Neutrophils % (A) 60 %; Platelet Count 210 k/uL (150-450); RBC 4.88 m/uL (4.30-5.90); RDW 14.1 % (11.5-15.5)
[2024-07-25 17:36] LABS: ALT 52 U/L (4-49); AST 89 U/L (17-59); Acetaminophen <10.0 ug/mL; African American GFR (CKD) >90 (>60 ml/min/1.73 sqM); Albumin 4.9 g/dL (3.5-5.0); Alkaline Phosphatase 105 U/L (38-126); Anion Gap 13 mmol/L; Blood Urea Nitrogen 8 mg/dL (9-20); Carbon Dioxide 27 mmol/L (22-30); Chloride 101 mmol/L (98-107); Glucose 96 mg/dL (74-99); Lipase 131 U/L (23-300); Magnesium 2.2 mg/dL (1.6-2.3); Non-African American GFR(CKD) >90 (>60 ml/min/1.73 sqM); Phosphorus 4.2 mg/dL (2.5-4.5); Potassium 4.2 mmol/L (3.5-5.1); Salicylate <1.0 mg/dL; Sodium 141 mmol/L (137-145); Total Bilirubin 0.5 mg/dL (0.2-1.3); Total Protein 7.8 g/dL (6.3-8.2)
[2024-07-25 17:50] LABS: Alcohol 186 mg/dL
[2024-07-25] MEDS ORDERED: ONDANSETRON 4 MG/2 ML VIAL IVP PRN (18:10)
[2024-07-25] MEDS ORDERED: LORazepam 0.5 MG TAB PO PRN (18:10)
[2024-07-25] MEDS ORDERED: LORazepam 1 MG TAB PO PRN (18:10)
[2024-07-25] MEDS ORDERED: NALOXONE 0.4 MG/ML 1 ML VIAL IV PRN (18:10)
[2024-07-25] MEDS: cloNIDine 0.1 MG/24HR PATCH TRANSDERM STA (18:27)
[2024-07-25] MEDS: LORazepam 2 MG/ML INJ IV PRN (21:42)
[2024-07-26] MEDS: LORazepam 2 MG/ML INJ IV PRN ×2 (00:13→03:41)
[2024-07-26 04:26] LABS: Appearance,Urine Clear (Clear); Bilirubin,Urine Negative (Negative); Blood,Urine Negative (Negative); Color,Urine Colorless; Glucose,Urine (UA) Negative (Negative); Ketones,Urine Negative (Negative); Leukocyte Esterase,Urine Negative (Negative); Nitrite,Urine Negative (Negative); PH, Urine 7.5 (5.0-8.0); Protein,Urine Negative (Negative); Specific Gravity,Urine 1.009 (1.001-1.035); Urobilinogen,Urine <2.0 mg/dL (<2.0)
[2024-07-26 04:52] LABS: Amphetamine Screen,Urine Not Detected (NotDetected); Barbiturate Screen,Urine Not Detected (NotDetected); Benzodiazepines Screen,Urine Detected (NotDetected); Cocaine Screen,Urine Not Detected (NotDetected); Methadone Screen, Urine Not Detected (NotDetected); Opiate Screen,Urine Detected (NotDetected); Oxycodone Screen, Urine Not Detected (NotDetected); Phencyclidine Screen,Urine Not Detected (NotDetected); Tricyclic Antidepressant,Urine Not Detected (NotDetected); Urn Cannabinoid Scrn Detected (NotDetected)
[2024-07-26] MEDS: THIAMINE 100 MG TAB PO SCH (08:37)
[2024-07-26] MEDS: MULTIVITAMINS, THERA 1 EACH TAB PO SCH (08:37)
[2024-07-26] MEDS: FOLIC ACID 1 MG TAB PO SCH (08:38)
[2024-07-26] MEDS: LORazepam 1 MG TAB PO PRN ×2 (12:26→15:00)
--- NOTE | 2024-07-26 13:30 | P.CN ---
Psychiatric Consult - . Consult date: 07/26/24 Consult:: 07/26/24 13:22 IDENTIFYING DATA: This patient is a 58-year-old male, on disability and living with parents REASON FOR REFERRAL: Psychiatry was consulted for SI HISTORY OF PRESENT ILLNESS: The patient presented to the hospital due to mental health concerns. Patient reported suicidal ideation in addition to alcohol use. EtOH was 186 and LFTs mildly elevated. Patient was placed on CIWA protocol. Patient seen and evaluated in his room with sitter at bedside. He reports relapsing on alcohol back in September after a 7-year history of sobriety. He reports issues with living with his parents as they are aging and having several health issues. He also mentions his parents do not like his alcohol use and that this has also been a stressor for him. He states for the past month he has been dealing with depressive symptoms described as issues with sleep, concentration and appetite however he reports last experiencing suicidal thoughts 2 days ago as he vehemently denies this today. He reports drinking roughly 12 beers per day and is now experiencing severe withdrawal symptoms stating they have never been this bad. He has gone to rehab before however left after 1 day but is open to going again. He reports a history of DUI related to substance use back in 2005. He reports chronic auditory hallucinations described as people from his past, stable knowing worsening. At this time patient denies any suicidal or homical ideations, intent or plan. Patient denies any visual hallucinations and denies any paranoia or delusions. Patients admits to using alcohol daily and THC weekly. PAST PSYCHIATRIC HISTORY: Patient has a a history of depression and alcohol use disorder. Patient denies being on any psychiatric medications. He has previously tried Effexor and prazosin. He most recently was admitted for keys icidal thoughts back in 2020. Patient denies any psychiatric outpatient follow- up. Patient denies any history of suicide attempts in the past. PAST MEDICAL HISTORY: Hypertension. ALLERGIES: as per EMR. CHEMICAL DEPENDENCY HISTORY: as per HPI. FAMILY PSYCHIATRIC/SUBSTANCE USE HISTORY: Patient reports his grandmother suffered from depression and that there is alcohol use on both sides of the family SOCIAL HISTORY: Patient is single and has no children. He completed his GED and is currently on disability, living with parents. MENTAL STATUS EXAM: General Appearance: Patient appears to be stated age is alert and cooperative. Patient appears to have fair hygiene and grooming wearing hospital gown with fair eye contact. Behavior: Patient is calmly lying in bed without any agitated behavior. Speech: Patient's speech is fluent and nonpressured. Mood/Affect: Patient reports their mood is "in pain", affect is congruent Suicidality/Homicidality: Patient denies having any suicidal or homicidal ideation intent or plan. Perceptions: Patient denies any visual hallucinations however reports chronic auditory hallucinations, stable described as hearing people from his past Though content/process: There is no evidence of any delusional thought content and thought process is linear and goal-directed. Memory and concentration: AOX3, grossly intact for the purposes of this session. Can spell "WORLD" backwards Judgment and insight: Poor IMPRESSIONS: Alcohol use disorder, severe in withdrawal Depression, unspecified, rule out MDD versus substance-induced mood disorder PLAN: -At this time patient DOES NOT meet criteria for inpatient psychiatric admission. -Would recommend the following medication changes/additions: Start clonidine 0.1 mg twice daily, off label use for alcohol withdrawal. Discussed with patient naltrexone however will defer this to outpatient as patient was not in agreement with starting this today -CIWA protocol with PRN Ativan for alcohol withdrawal. Continue to monitor vital signs. -Can discontinue 1:1 sitter at this time as patient is not currently an imminent threat to themselves -Assistant Kitchen Manager spoke with patient about substance abuse and the harmful effects on medical and mental health, patient verbally understood and agreed. Patient was agreeable with transfer to inpatient rehab upon discharge given his substance use -table worker packager to provide patient substance use treatment resources including AA/NA meetings in the community. -table worker packager to provide patient with access line number to call for inpatient substance rehab -Communicated plan to patient's nurse -Will continue to follow along -Please contact with any questions.
[2024-07-26 14:22] VITALS: BMI 28.5
[2024-07-26] MEDS: cloNIDine HCL 0.1 MG TAB PO SCH (15:00)
--- NOTE | 2024-07-26 23:26 | P.HPIM ---
History of Present Illness H&P Date: 07/26/24 Chief Complaint: Acute alcohol intoxication Patient is a 58-year-old male with a past medical history of hypertension, anxiety, personality disorder, manic depression, alcohol abuse, alcoholic peripheral neuropathy and prior history of smoking presents to ER with complaints of pain and unable to tolerate anymore. Patient is also complaining of nausea vomiting and loss of appetite and generalized weakness. Patient also admitted having suicidal thoughts. Patient is also intoxicated with alcohol level 186 on admission. Patient states that he is not feeling well and has been shaky. Denies any fever or chills. No complaints of chest pain or shortness of breath. Laboratory data showed WBC 6.0 hemoglobin 15.9 and platelets 210, sodium 141 potassium 4.2 chloride 101 bicarb is 27 BUN 18 creatinine 0.7 AST 18 ALT 52 alk phos 105 lipase 131 UDS is positive for opiates, benzodiazepines and marijuana. Serum alcohol level is 186. Review of Systems Complete review of systems could not be obtained from the patient except as per HPI Past Medical History Past Medical History: Hypertension Additional Past Medical History / Comment(s): anxiety, personality disorder, manic depression, etoh abuse, COVID 19 12/13 drinks everyday 6-12 beers daily. neuropathy, gout History of Any Multi-Drug Resistant Organisms: None Reported Past Surgical History: Tonsillectomy Additional Past Surgical History / Comment(s): tonsillectomy Past Anesthesia/Blood Transfusion Reactions: No Reported Reaction Additional Past Anesthesia/Blood Transfusion Reaction / Comment(s): no blood transfusion Past Psychological History: Anxiety, Depression, Panic Disorder Additional Psychological History / Comment(s): personality disorder Smoking Status: Former smoker Past Alcohol Use History: Abuse, Daily, Heavy Additional Past Alcohol Use History / Comment(s): heavily drinking since age 10, with a 7 year sober period, from [id number], now drinks 12-20 white claws daily. x-drug use: every kind of drug per patient- been clean for 10 years. Date of L ast drink: "yesterday morning" 06/21/2024 Past Drug Use History: Marijuana Additional Drug Use History / Comment(s): edibles "only randomly" - Past Family History Father Family Medical History: CVA/TIA, Myocardial Infarction (MS) Mother Family Medical History: Thyroid Disorder Medications and Allergies Home Medications Medication Instructions Recorded Confirmed Type Baclofen [Lioresal] 10 mg PO HS 03/22/24 07/26/24 History Indomethacin [Indocin] 50 mg PO BID PRN 03/22/24 07/26/24 History amLODIPine [Norvasc] 10 mg PO HS 03/22/24 07/26/24 History HYDROcodone/APAP 10-325MG [[place] 1 tab PO TID PRN 06/22/24 07/26/24 History 10-325] Multivitamins, Thera [Multivitamin 1 tab PO DAILY 06/22/24 07/26/24 History (formulary)] Pantoprazole [Protonix] 40 mg PO AC-BRKFST #30 tab 06/24/24 07/26/24 Rx Thiamine [Vitamin B-1] 100 mg PO DAILY #30 tab 06/24/24 07/26/24 Rx Tamsulosin [Flomax] 0.4 mg PO DAILY 07/26/24 07/26/24 History Allergies Allergy/AdvReac Type Severity Reaction Status Date / Time allopurinol Allergy Severe Anaphylaxis Verified 07/26/24 08:10 azithromycin Allergy Anaphylaxis Verified 07/26/24 08:10 colchicine Allergy Rash/Hives Verified 07/26/24 08:10 erythromycin base Allergy Anaphylaxis Verified 07/26/24 08:10 [From Erythrocin] gabapentin Allergy Anaphylaxis Verified 07/26/24 08:10 gadopentetic acid Allergy Anaphylaxis Verified 07/26/24 08:10 Iodinated Contrast Media Allergy Rash/Hives Verified 07/26/24 08:10 mri dye Allergy Rash/Hives Uncoded 07/25/24 16:25 Physical Exam Vitals: Vital Signs Temp Pulse Pulse Resp BP BP Pulse Ox 07/26/24 07:35 98.0 F 78 16 150/88 95 07/26/24 02:27 98.4 F 88 16 149/73 96 07/25/24 21:21 98.5 F 100 16 156/80 93 L 07/25/24 20:45 98.5 F 93 17 131/78 95 07/25/24 18:27 99 18 134/81 95 07/25/24 16:25 98.5 F 107 H 20 149/89 97 Intake and Output 07/25/24 07/26/24 07/26/24 22:59 06:59 14:59 Other: # Voids 1,150 Weight 95.254 kg PHYSICAL EXAMINATION: Patient is lying in the bed,, no acute distress, awake alert and oriented but shaky and anxious... HEENT: Normocephalic. Neck is supple. Pupils reactive. Nostrils clear. Oral cavity is moist. Neck reveals no JVD, carotid bruits, or thyromegaly. CHEST EXAMINATION: Trachea is central. Symmetrical expansion. Lung maya clear to auscultation and percussion. CARDIAC: Normal S1, S2 with no gallops. No murmurs ABDOMEN: Soft. Bowel sounds normal. No organomegaly. No abdominal bruits. Extremities: reveal no edema. No clubbing or cyanosis Neurologically awake, alert, oriented x 2-3 with well-coordinated movements. No gross focal deficits noted Skin: No rash or skin lesions. Psychiatric: Coperative. Denied suicidal ideation. Denied any visual or auditory hallucinations. Musculoskeletal: No joint swelling or deformity. Normal range of motion. Results CBC & Chem 7: 07/25/24 17:18 07/25/24 17:18 Labs: Abnormal Lab Results - Last 24 Hours (Table) 07/25/24 07/26/24 Range/Units 17:18 04:00 BUN 8 L (9-20) mg/dL AST 89 H (17-59) U/L ALT 52 H (4-49) U/L Urine Opiates Screen Detected H (NotDetected) U Benzodiazepines Scrn Detected H (NotDetected) U Marijuana (THC) Screen Detected H (NotDetected) Thrombosis Risk Factor Assmnt - DVT/VTE Prophylaxis DVT/VTE Prophylaxis: Pharmacologic Prophylaxis ordered - Choose All That Apply Each Factor Represents 1 point: Age 41-60 years, Obesity (BMI >25) Other Risk Factors: No Other congenital or acquired thrombophilia - If yes, enter type in comment: No Thrombosis Risk Factor Assessment Total Risk Factor Score: 2 Thrombosis Risk Factor Assessment Level: Low Risk Assessment and Plan Assessment: Acute alcohol intoxication Acute alcohol withdrawal symptoms Alcohol use disorder Depression and mood disorder Hypertension Prior history of smoking Alcoholic peripheral neuropathy History of gout GI and DVT prophylaxis with heparin subcu and Pepcid Plan: Patient will continue on IV hydration with normal saline. Continue with alcohol withdrawal protocol. Continue thiamine and multivitamins. Patient was also started on Catapres as per psychiatry recommendations. Patient does not meet criteria for inpatient psychiatric admission at this time. Continue to follow closely. Encourage oral intake. Time with Patient: Greater than 30
[2024-07-26] MEDS: HEPARIN SODIUM,PORCINE 5,000 UNIT/ML 1 ML VIAL SQ SCH (23:50)
[2024-07-27 08:34] LABS: BUN/Creat Ratio 13.71 Ratio (12.00-20.00); Blood Urea Nitrogen 9.6 mg/dL (9.0-27.0); Chloride 101 mmol/L (96-109); Glucose 96 mg/dL (70-110); Potassium 3.8 mmol/L (3.5-5.5); Sodium 136 mmol/L (135-145)
[2024-07-27 08:35] LABS: Calcium 8.9 mg/dL (8.7-10.3); Carbon Dioxide 23.4 mmol/L (21.6-31.8)
[2024-07-27] MEDS: FAMOTIDINE 20 MG TAB PO SCH (09:28)
[2024-07-28] MEDS: HYDROcodone/APAP 10-325MG 1 EACH TAB PO PRN (07:19)
[2024-07-28] MEDS: LORazepam 1 MG TAB PO PRN (22:36)
--- NOTE | 2024-07-30 00:11 | P.PN ---
Subjective Progress Note Date: 07/27/24 Patient is a 58-year-old male with a past medical history of hypertension, anxiety, personality disorder, manic depression, alcohol abuse, alcoholic peripheral neuropathy and prior history of smoking presents to ER with complaints of pain and unable to tolerate anymore. Patient is also complaining of nausea vomiting and loss of appetite and generalized weakness. Patient also admitted having suicidal thoughts. Patient is also intoxicated with alcohol level 186 on admission. Patient states that he is not feeling well and has been shaky. Denies any fever or chills. No complaints of chest pain or shortness of breath. Laboratory data showed WBC 6.0 hemoglobin 15.9 and platelets 210, sodium 141 p otassium 4.2 chloride 101 bicarb is 27 BUN 18 creatinine 0.7 AST 18 ALT 52 alk phos 105 lipase 131 UDS is positive for opiates, benzodiazepines and marijuana. Serum alcohol level is 186. 07/27/2024 Patient is lying in the bed. Awake alert but shaky and confused. Requiring CIWA protocol for alcohol withdrawal symptoms. Afebrile. No complaints of chest pain or shortness of breath. No cough or sputum production. Laboratory data showed sodium 136 potassium 3.8 chloride 101 bicarb is 23.4 BUN 9.6 and creatinine 0.7 Current medications reviewed. Objective - Vital Signs Vital signs: Vital Signs Temp 97.6 F 07/27/24 07:33 Pulse 68 07/27/24 07:33 Resp 15 07/27/24 07:33 BP 104/67 07/27/24 07:33 Pulse Ox 93 L 07/27/24 07:33 FiO2 Intake & Output 07/27/24 07/27/24 07/28/24 06:59 18:59 06:59 Intake Total 1560 Balance 1560 Intake: Oral 1560 Other: # Voids 3 4 # Bowel Movements 4 - Exam PHYSICAL EXAMINATION: Patient is lying in the bed,, no acute distress, awake alert and oriented but shaky and anxious... HEENT: Normocephalic. Neck is supple. Pupils reactive. Nostrils clear. Oral cavity is moist. Neck reveals no JVD, carotid bruits, or thyromegaly. CHEST EXAMINATION: Trachea is central. Symmetrical expansion. Lung maya clear to auscultation and percussion. CARDIAC: Normal S1, S2 with no gallops. No murmurs ABDOMEN: Soft. Bowel sounds normal. No organomegaly. No abdominal bruits. Extremities: reveal no edema. No clubbing or cyanosis Neurologically awake, alert, oriented x 2-3 with well-coordinated movements. No gross focal deficits noted Skin: No rash or skin lesions. Psychiatric: Coperative. Denied suicidal ideation. Denied any visual or auditory hallucinations. Musculoskeletal: No joint swelling or deformity. Normal range of motion. - Labs CBC & Chem 7: 07/25/24 17:18 07/27/24 03:02 Assessment and Plan Assessment: Acute alcohol intoxication Acute alcohol withdrawal symptoms Alcohol use disorder Depression and mood disorder Hypertension Prior history of smoking Alcoholic peripheral neuropathy History of gout GI and DVT prophylaxis with heparin subcu and Pepcid Plan: Patient will continue on IV hydration with normal saline. Continue with alcohol withdrawal protocol. Continue thiamine and multivitamins. Patient was also started on Catapres as per psychiatry recommendations. Patient does not meet criteria for inpatient psychiatric admission at this time. Continue to follow closely. Encourage oral intake. Time with Patient: Greater than 30
--- NOTE | 2024-07-30 00:14 | P.PN ---
Subjective Progress Note Date: 07/29/24 Patient is a 58-year-old male with a past medical history of hypertension, anxiety, personality disorder, manic depression, alcohol abuse, alcoholic peripheral neuropathy and prior history of smoking presents to ER with complaints of pain and unable to tolerate anymore. Patient is also complaining of nausea vomiting and loss of appetite and generalized weakness. Patient also admitted having suicidal thoughts. Patient is also intoxicated with alcohol level 186 on admission. Patient states that he is not feeling well and has been shaky. Denies any fever or chills. No complaints of chest pain or shortness of breath. Laboratory data showed WBC 6.0 hemoglobin 15.9 and platelets 210, sodium 141 p otassium 4.2 chloride 101 bicarb is 27 BUN 18 creatinine 0.7 AST 18 ALT 52 alk phos 105 lipase 131 UDS is positive for opiates, benzodiazepines and marijuana. Serum alcohol level is 186. 07/27/2024 Patient is lying in the bed. Awake alert but shaky and confused. Requiring CIWA protocol for alcohol withdrawal symptoms. Afebrile. No complaints of chest pain or shortness of breath. No cough or sputum production. Laboratory data showed sodium 136 potassium 3.8 chloride 101 bicarb is 23.4 BUN 9.6 and creatinine 0.7 07/28/2024 Patient is more awake and oriented. No complaints of chest pain or shortness of breath. No cough or sputum production. No headache or dizziness or lightheadedness. Patient is on CIWA protocol. Anticipate discharge in the next 24 to 48 hours. 07/29/2024 Patient is able to get out of the bed. Sitting in the chair. Awake alert and oriented. No complaints of chest pain or shortness of breath. Patient is having generalized weakness. Would like to go to rehab. Otherwise no other acute overnight issues. Anticipate discharge in next 24 hours. Current medications reviewed. Objective - Vital Signs Vital signs: Vital Signs Temp 98.2 F 07/29/24 19:35 Pulse 70 07/29/24 19:35 Resp 17 07/29/24 19:35 BP 126/74 07/29/24 19:35 Pulse Ox 97 07/29/24 19:35 FiO2 Intake & Output 07/29/24 07/29/24 07/30/24 06:59 18:59 06:59 Weight 95.254 kg Other: # Voids 4 2 - Exam PHYSICAL EXAMINATION: Patient is lying in the bed,, no acute distress, awake alert and oriented. HEENT: Normocephalic. Neck is supple. Pupils reactive. Nostrils clear. Oral cavity is moist. Neck reveals no JVD, carotid bruits, or thyromegaly. CHEST EXAMINATION: Trachea is central. Symmetrical expansion. Lung maya clear to auscultation and percussion. CARDIAC: Normal S1, S2 with no gallops. No murmurs ABDOMEN: Soft. Bowel sounds normal. No organomegaly. No abdominal bruits. Extremities: reveal no edema. No clubbing or cyanosis Neurologically awake, alert, oriented x 2-3 with well-coordinated movements. No gross focal deficits noted Skin: No rash or skin lesions. Psychiatric: Coperative. Denied suicidal ideation. Denied any visual or auditory hallucinations. Musculoskeletal: No joint swelling or deformity. Normal range of motion. - Labs CBC & Chem 7: 07/25/24 17:18 07/27/24 03:02 Assessment and Plan Assessment: Acute alcohol intoxication Acute alcohol withdrawal symptoms Alcohol use disorder Depression and mood disorder Hypertension Prior history of smoking Alcoholic peripheral neuropathy History of gout Generalized weakness/debility GI and DVT prophylaxis with heparin subcu and Pepcid Plan: Patient will continue on IV hydration with normal saline. Continue with alcohol withdrawal protocol. Improving clinically. Continue thiamine and multivitamins. Patient was also started on Catapres as per psychiatry recommendations. Patient does not meet criteria for inpatient psychiatric admission at this time. Continue to follow closely. Encourage oral intake.
[2024-07-30 07:50] VITALS: BP 121/70; PULSE 60; RESP 18; TEMP 97.5
[2024-07-30 08:40] LABS: Basophils # (A) 0.06 X 10*3/uL (0.00-0.10); Basophils % (A) 0.7 %; Eosinophils # (A) 0.12 X 10*3/uL (0.04-0.35); Eosinophils % (A) 1.4 %; HCT 45.2 % (39.6-50.0); HGB 15.2 g/dL (13.0-17.0); Lymphocytes # (A) 1.69 X 10*3/uL (0.90-5.00); Lymphocytes % (A) 19.4 %; MCH 32.9 pg (27.0-32.0); MCHC 33.6 g/dL (32.0-37.0); MCV 97.8 FL (80.0-97.0); Mean Platelet Volume 11.3 FL (9.5-12.2); Monocytes # (A) 0.88 X 10*3/uL (0.20-1.00); Monocytes % (A) 10.1 %; NRBC Per 100 WBC 0 X 10*3/uL (0.00-0.01); Neutrophils # (A) 5.93 X 10*3/uL (1.80-7.70); Neutrophils % (A) 67.9 %; Platelet Count 152 X 10*3/uL (140-440); RBC 4.62 X 10*6/uL (4.40-5.60); RDW 14.1 % (11.5-14.5); WBC 8.72 X 10*3/uL (4.50-10.00)
[2024-07-30 08:56] LABS: BUN/Creat Ratio 11.14 Ratio (12.00-20.00); Blood Urea Nitrogen 7.8 mg/dL (9.0-27.0); Calcium 9.3 mg/dL (8.7-10.3); Carbon Dioxide 20.5 mmol/L (21.6-31.8); Chloride 102 mmol/L (96-109); Glucose 82 mg/dL (70-110); Potassium 3.6 mmol/L (3.5-5.5); Sodium 138 mmol/L (135-145)
== END 2024-07-30 15:56 | disposition home or self-care (01) ==
LOC: EC 15:41 → 6NMEDSUR 18:10 → 4SSUR 20:13
PROVIDERS: ADMIT Hospitalist; ATTEND Hospitalist
DX: F10.239 Alcohol dependence with withdrawal, unspecified (principal); F10.229 Alcohol dependence with intoxication, unspecified; G89.29 Other chronic pain; G62.1 Alcoholic polyneuropathy; R45.851 Suicidal ideations; I10 Essential (primary) hypertension; M10.9 Gout, unspecified; F41.9 Anxiety disorder, unspecified; E66.9 Obesity, unspecified; Z68.28 Body mass index [BMI] 28.0-28.9, adult; F60.9 Personality disorder, unspecified; F32.A Depression, unspecified; F39 Unspecified mood [affective] disorder; R53.81 Other malaise; R53.1 Weakness; Y90.6 Blood alcohol level of 120-199 mg/100 ml; Z79.899 Other long term (current) drug therapy; Z88.8 Allergy status to other drugs, medicaments and biological substances; Z88.1 Allergy status to other antibiotic agents; Z91.041 Radiographic dye allergy status; Z87.891 Personal history of nicotine dependence
CPT/HCPCS: 96376 ×4; 96361 ×3; 96372 ×4; 82075; 96374; 96375; 99285; 36415; 97116; 97162; 97166; 80053; 80048 ×2; 82140; 83690; 83735; 84100; 85025 ×2; 85610; 81003; 80306; 80143; 80179; G0378 ×7; G0480; J2060 ×4; J1644 ×4; J2405; J2470; 80320